=== PATIENT | male | born 1960 | race Caucasian/White ===

== ENCOUNTER → 2016-04-07 | Outpatient (CLI) | payer OTHER ==
[~2016-04-07] MED LIST: ASPI81TA28 PO; ASTN; ATOR-26 PO; ATV/2 PO; AUG0.05C12 TOP; BUME2TAB3 PO; CALC500C70 PO; CANA1TAB3 PO; CHOL100010 PO; ECON0.05 TOP; ETOD500T95 PO; EZET10TA63 PO; FEXO1TAB49 PO; GABA-113 PO; HYDR-5688 PO; HYDROCORTISONE CREAM TOP; INSDGI SC; KETO2CRE14 TOP; KETO2SHA5 TOP; LEVO200T PO; LEVO50TA PO; LOSA1TAB38 PO; MINO1CAP25 PO; MONT1TAB3 PO; MULT-506 PO; NVLGI/PEN; OMEG10007 PO; PANT40TA PO; RANI300T2 PO; RESV1CAP3 PO; SILD100T PO; SPIR25TA PO; TRIA0.5O TOP; TRMO2580 TOP
[2016-04-07 10:15] LABS: URINE APPEARANCE CLEAR (CLEAR); URINE BILIRUBIN NEG (NEG); URINE COLOR YELLOW; URINE EPITHELIAL CELL AUTO 0-5 /lpf (0-5); URINE NITRITE NEG (NEG); URINE PH 5.5 (4.5-7.5); URINE SPECIFIC GRAVITY > 1.045 (1.000-1.030); UROBILINOGEN NEG (NEG); ZZUR CULT IF INDIC CLEAN CATCH NO
[2016-04-07 10:17] LABS: MANUAL MICROSCOPIC REQUIRED? NO; REVIEW REQ? NO
[2016-04-07 10:33] LABS: ALT/SGPT 28 U/L (12-78); BLOOD UREA NITROGEN 25 mg/dl (7-18); BUN/CREATININE RATIO 22.8 (10-20); CALCIUM 9.1 mg/dl (8.5-10.1); CARBON DIOXIDE 28 mmol/L (21-32); CHLORIDE 105 mmol/L (98-107); CHOLESTEROL 122 mg/dl (0-200); GLUCOSE 104 mg/dl (70-99); POTASSIUM 3.7 mmol/L (3.5-5.1); SODIUM 144 mmol/L (136-145); TRIGLYCERIDES 96 mg/dl (0-150); VERY LOW DENSITY LIPOPROT CALC 19 mg/dl
[2016-04-07 10:43] LABS: ALB/GLOB RATIO 1.3 (0.9-2); ALKALINE PHOSPHATASE 78 U/L (45-117); AST/SGOT 15 U/L (15-37); CHOLESTEROL/HDL RATIO 2.4; HDL CHOLESTEROL 51 mg/dl; LDL CHOLESTEROL CALCULATED 52 mg/dl
[2016-04-07 10:57] LABS: RATIO 22.7 mcg/mg (0-30.0)
[2016-04-07 11:26] LABS: ESTIMATED AVERAGE GLUCOSE 243 mg/dl; HA1C FLAG Normal (Normal)
== END | disposition home or self-care (01) ==
LOC: C.LAB1850 09:13
PROVIDERS: ATTEND Internal Medicine
DX: N52.9 Male erectile dysfunction, unspecified (principal); E10.9 Type 1 diabetes mellitus without complications; E55.9 Vitamin D deficiency, unspecified; E03.9 Hypothyroidism, unspecified

== ENCOUNTER → 2016-05-05 | Day surgery (SDC) | payer OTHER ==
[2016-04-23 15:53] VITALS: BMI 47.0
[2016-04-27 11:26] VITALS: Ht 175.3 cm; Wt 145.7 kg
--- NOTE | 2016-04-27 11:50 | PAT Medication Instructions ---
Service Date Apr 27, 2016. Current Home Medication List Aspirin (Aspirin Ec), 81 MG PO QAM Atorvastatin (Lipitor), 80 MG PO QAM Azelastine Hcl (Astelin Nasal [place]), 1-2 SPRAYS NA BID PRN for PRN Betamethasone Dipropionate Aug (Diprolene Af), 1 APPLN TOP BID PRN for PRN Bumetanide (Bumex), 2 MG PO QAM Calcium/Vitamin D (Os-Kei 500 Plus D), 1 TAB PO QAM Canagliflozin (Invokana), 300 MG PO QAM Cholecalciferol (Vitamin D), 2,000 INTER.UNIT PO QAM Econazole Nitrate 1% (Spectazole 1%), 1 DOSE TOP PRN Etodolac (Etodolac), 1 TAB PO BID Ezetimibe (Zetia), 10 MG PO QAM Fexofenadine Hcl (Shana Allergy), 180 MG PO QAM Fish Oil (Gilchrist-3), 1,200 MG PO QAM Gabapentin (Neurontin), 1,200 MG PO HS Insulin Aspart (Novolog Flexpen) Insulin Glargine (Lantus), 45 UNITS SC QAM Insulin Glargine (Lantus), 55 UNITS SC QPM Ketoconazole 2% (Nizoral 2%), 1 APPLN TOP DAILY PRN for PRN Levothyroxine Sodium (Synthroid), 250 MCG PO QAM Lorazepam (Ativan), 20 MG PO PRN Losartan Potassium (Cozaar), 100 MG PO QAM Minocycline Hcl (Minocin), 100 MG PO BID Montelukast Sodium (Singulair), 10 MG PO QPM Multivitamin (Multivitamin), 1 TAB PO QAM Pantoprazole Sodium (Protonix), 40 MG PO QAM Ranitidine Hcl (Zantac), 300 MG PO HS Resveratrol (Resveratrol), 250 MG PO QAM Sildenafil Citrate (Viagra), 100 MG PO PRN Spironolactone (Aldactone), 25 MG PO QAM Triamcinolone Acet 0.5% (Triamcinolone Acet 0.5%), 1 APPLN TOP PRN [Hydrocortisone Cream], 1 DOSE TOP PRN Medication Instructions For Your Scheduled Surgery - Hold the following medications 7 days prior to surgery: Resveratrol (Resveratrol), 250 MG PO QAM Fish Oil (Gilchrist-3), 1,200 MG PO QAM - Hold the following medications 24 hours prior to surgery: Triamcinolone Acet 0.5% (Triamcinolone Acet 0.5%), 1 APPLN TOP PRN Hydrocortisone Cream 1 DOSE TOP PRN Sildenafil Citrate (Viagra), 100 MG PO PRN Econazole Nitrate 1% (Spectazole 1%), 1 DOSE TOP PRN Betamethasone Dipropionate Aug (Diprolene Af), 1 APPLN TOP BID PRN for PRN - Hold the following medications the morning of surgery: Spironolactone (Aldactone), 25 MG PO QAM Multivitamin (Multivitamin), 1 TAB PO QAM Losartan Potassium (Cozaar), 100 MG PO QAM Minocycline Hcl (Minocin), 100 MG PO BID Insulin Aspart (Novolog Flexpen) Fexofenadine Hcl (Shana Allergy), 180 MG PO QAM Etodolac (Etodolac), 1 TAB PO BID (not told to stop by surgeon) Cholecalciferol (Vitamin D), 2,000 INTER.UNIT PO QAM Calcium/Vitamin D (Os-Kei 500 Plus D), 1 TAB PO QAM Bumetanide (Bumex), 2 MG PO QAM Canagliflozin (Invokana), 300 MG PO QAM - Take the following medications the morning of surgery with a sip of water: Pantoprazole Sodium (Protonix), 40 MG PO QAM Lorazepam (Ativan), 20 MG PO PRN Levothyroxine Sodium (Synthroid), 250 MCG PO QAM Ezetimibe (Zetia), 10 MG PO QAM Azelastine Hcl (Astelin Nasal [place]), 1-2 SPRAYS NA BID PRN for PRN Atorvastatin (Lipitor), 80 MG PO QAM Aspirin (Aspirin Ec), 81 MG PO QAM (not told to stop by surgeon) - Take the following medications as scheduled the night before surgery: Ranitidine Hcl (Zantac), 300 MG PO HS Montelukast Sodium (Singulair), 10 MG PO QPM Minocycline Hcl (Minocin), 100 MG PO BID Lorazepam (Ativan), 20 MG PO PRN Ketoconazole 2% (Nizoral 2%), 1 APPLN TOP DAILY PRN for PRN Insulin Glargine (Lantus), 55 UNITS SC QPM Gabapentin (Neurontin), 1,200 MG PO HS Etodolac (Etodolac), 1 TAB PO BID Azelastine Hcl (Astelin Nasal [place]), 1-2 SPRAYS NA BID PRN for PRN - For Insulin Dependent Diabetic patients: Test blood sugar A.M. of surgery. - If blood sugar greater than 150, take half of your regular dose of: Lantus 22 units - If blood sugar less than 150, do not take any: Lantus If you have any questions please call us at [phone] or [phone] ( Aniyah)or [phone]
[~2016-05-05] VITALS: Ht 175.3 cm; Wt 145.7 kg
[~2016-05-05] MED LIST changes: +ATROPINE SULFATE 0.1 MG/ML 5ML SYR IV PRN; +BUPIVACAINE 0.5 % 5 MG/1 ML PF 10ML VIAL ONE; +CEFAZOLIN 3000 MG/65 ML D5W IV SCH; +EpHEDrine SULFATE INJ 50 MG/ML AMP IV PRN; +FENTANYL CITRATE INJ 50 MCG/1 ML 2 ML VIAL IV PRN; +FENTANYL CITRATE INJ 50 MCG/1 ML 2 ML VIAL ONE; +FLUMAZENIL 0.1 MG/1 ML 10 ML VIAL IV PRN; +HYDROmorphone INJ 2 MG/ML SYR/VIAL IV PRN; +LABETALOL HCL IV 5 MG/ML 20ML IV PRN; +LACTATED RINGER'S 1000ML 1,000 ML IV SCH; +LIDOCAINE HCL 1% 20 ML VIAL ONE; +LIDOCAINE HCL 2% 2 ML VIAL (20MG/ML) ONE; +MEPERIDINE HCL 25 MG/ML CARP IV PRN; +MIDAZOLAM HCL 1 MG/ML 2ML VIAL ONE; +NALOXONE HCL 0.4 MG/1 ML VIAL/CARP IV PRN; +ONDANSETRON INJ 2 MG/ML 2 ML VIAL IV PRN; +OXYCODONE/ACETAMINOPHEN 5-325 TAB PO PRN; +PHENYLEPHRINE 100MCG/ML 5ML SYR IV PRN; +PROPOFOL IV EMULSION 10 MG/ML 20 ML VIAL IV ONE; +SODIUM CHLORIDE 0.9% 1000ML 1,000 ML IV SCH
--- NOTE | 2016-05-05 06:40 | History & Physical Bridge - SC ---
H&P Re-Evaluation Bridge Note: I have examined the patient, reviewed the History & Physical and in the interval since the performance of the History & Physical I have noted the following changes of clinical significance: No changes noted
--- NOTE | 2016-05-05 07:46 | [facility] Post Operative Brief Note ---
Immediate Operative Summary Operative Date May 05, 2016. Pre-Operative Diagnosis Right Carpal Tunnel Syndrome Post-Operative Diagnosis Same Procedure(s) Performed Right Carpal Tunnel Release Surgeon Dr. Manuel Advertising Operations Coordinator Surgeon(s) Amy Borja PA-C Estimated Blood Loss 0 Findings ABOVE Specimens None Anesthesia LOCAL IV SEDATION Complication(s) None Disposition
[2016-05-05 07:50] VITALS: TEMP 36.6
--- NOTE | 2016-05-05 07:50 | Discharge Instructions-SurgCtr ---
Discharge Instructions Visit Reason for Visit: Right Carpal Tunnel Syndrome Discharge Discharge Diagnosis / Problem: SAME ABOVE Discharge Goals Goal(s): Decrease discomfort, Improve function Medications Stopped Medications Name(s): FISH OIL STOPPED 1 WEEK AGO Activity Recommendations Activity Limitations: as noted below Lifting Limitations: until after follow-up appointment Exercise/Sports Limitations: until after follow-up appointment Shower/Bathe: keep incision dry Anesthesia . Post Anesthesia Instructions: If you have had General Anesthesia or IV Sedation: * Do not drive today. * Resume driving when surgeon permits. * Do not make important decisions or sign legal documents today. * Call surgeon for: 1. Temperature elevations greater than 101 degrees F. 2. Uncontrollable pain. 3. Excessive bleeding. 4. Persistent nausea and vomiting. 5. Medication intolerance (nausea, vomiting or rash). * For nausea and vomiting use only clear liquids such as: tea, soda, bouillon until nausea subsides, then gradually increase diet as tolerated. * If you have any concerns or questions, call your surgeon's office. If physician is unavailable and it is an emergency, call 911 or go to the nearest emergency room. . Instructions / Follow-Up Instructions / Follow-Up MEDICATIONS: * Resume previous medications unless instructed otherwise by your surgeon. * Always take pain medication on a full stomach or with food to avoid upset stomach. * Do not drink alcohol or drive while taking narcotics. * Ibuprofen or Tylenol may be taken if narcotic not needed. SPECIAL CARE INSTRUCTIONS: __ None _X_ Keep extremity elevated and iced x 48 hours; apply ice 20-30 minutes 8-10 times/day. May remove at night. __ Sling __24 hrs/day __ Remove at night __ Shoulder Immobilizer __ 24 hrs/day __ Remove at night _X_ Dressing _X_ Maintain until seen in office, may shower with plastic over site __ Remove dressings in 24-48 hours and then may shower __ Cover incisions with band-aids after showering __ Do not remove steri-strips Call physician if chills or temperature rises above 102 degrees or pain unrelieved by prescribed pain medications at . . Diet Recommendations Home Diet: resume previous diet Procedures Procedures Performed: Right Carpal Tunnel Release Pending Studies Studies pending at discharge: no Medical Emergencies . Who to Call and When: Medical Emergencies: If at any time you feel your situation is an emergency, please call 911 immediately. . Non-Emergent Contact Non-Emergency issues call your: Primary Care Provider . . "Provider Documentation" section prepared by Boston Borja.
--- NOTE | 2016-05-05 08:14 | OPERATIVE REPORT ---
DATE OF OPERATION: 05/05/2016 PREOPERATIVE DIAGNOSIS: Right carpal tunnel syndrome. POSTOPERATIVE DIAGNOSIS: Same. PROCEDURE: Decompression median nerve release of transverse carpal ligament, right wrist. SURGEON: Jose Manuel MD TAIL WORKER: Boston Borja PA-C. ANESTHESIOLOGIST: Dr. Flores. ANESTHESIA: Local with IV sedation. DRAINS: None. COMPLICATIONS: None. CONDITION: The patient tolerated the procedure well and returned to the recovery room in apparent satisfactory condition. INDICATIONS FOR SURGERY: Arturo is a 56-year-old male with increasing complaints of carpal tunnel symptoms of numbness and pain in both hands, right worse than left. He went over treatment options and he elects to go ahead and proceed with surgery of his right hand. Procedure, expected outcomes and side effects were all explained in detail. DESCRIPTION OF PROCEDURE: The patient was taken to the OR at which time, he was placed supine on the operating table. The right hand was prepped and draped in the usual sterile fashion for this surgery. The anticipated incision site was infiltrated with 1% Xylocaine. A forearm tourniquet was placed on the arm and tourniquet was placed up to 250 mmHg. Incision was made vertically over the transverse carpal tunnel ligament. Dissection was done down until the palmar fascia was identified and divided with a 15-blade. The transverse carpal ligament was identified and also divided with the 15-blade and upbiting scissors. A small portion of the forearm fascia was divided also. Electrocautery was used to control any areas of bleeding. The nerve was freed up from any scar tissue and adequately decompressed. The wound then was copiously irrigated. It was closed then with interrupted 4-0 nylon sutures. Marcaine without Epinephrine was placed in the skin edges. It was closed in a layered fashion. We placed a sterile dressing of Xeroform, 4 x 4, volar splint, and an North bandage. DISPOSITION: The patient was returned back to the recovery room in apparent satisfactory condition. I attest to the content of the Intraoperative Record and any orders documented therein. Any exceptio ns are noted below.
[2016-05-05 08:19] VITALS: BP 125/78; PULSE 72; O2SAT 98
--- NOTE | 2016-05-05 08:27 | Anesthesia Progress Nt - [facility] ---
Anesthesia Post Op Note Date & Time May 05, 2016 at 08:27 Vital Signs Pain Intensity: 0 Vital Signs Past 12 Hours Date Time Temp Pulse Resp B/P Pulse Ox O2 Delivery O2 Flow Rate FiO2 05/05/16 08:19 72 18 125/78 98 Room Air 05/05/16 07:50 36.6 75 18 112/72 97 Room Air 05/05/16 06:33 36.6 78 20 152/83 96 Room Air Notes Mental Status: alert / awake / arousable, participated in evaluation Pt Amnestic to Procedure: Yes Nausea / Vomiting: adequately controlled Pain: adequately controlled Airway Patency, RR, SpO2: stable & adequate BP & HR: stable & adequate Hydration State: stable & adequate Anesthetic Complications: no major complications apparent
== END | disposition home or self-care (01) ==
LOC: X.SURG 06:13
PROVIDERS: ATTEND Orthopaedic Surgery
DX: G56.01 Carpal tunnel syndrome, right upper limb (principal); E11.9 Type 2 diabetes mellitus without complications; Z79.4 Long term (current) use of insulin; I10 Essential (primary) hypertension; Z79.899 Other long term (current) drug therapy; G47.33 Obstructive sleep apnea (adult) (pediatric); E03.9 Hypothyroidism, unspecified; E66.01 Morbid (severe) obesity due to excess calories

== ENCOUNTER → 2016-05-28 | Outpatient (CLI) | payer OTHER ==
[~2016-05-28] MED LIST changes: -ATROPINE SULFATE 0.1 MG/ML 5ML SYR IV PRN; -BUPIVACAINE 0.5 % 5 MG/1 ML PF 10ML VIAL ONE; -CEFAZOLIN 3000 MG/65 ML D5W IV SCH; -EpHEDrine SULFATE INJ 50 MG/ML AMP IV PRN; -FENTANYL CITRATE INJ 50 MCG/1 ML 2 ML VIAL IV PRN; -FENTANYL CITRATE INJ 50 MCG/1 ML 2 ML VIAL ONE; -FLUMAZENIL 0.1 MG/1 ML 10 ML VIAL IV PRN; -HYDROmorphone INJ 2 MG/ML SYR/VIAL IV PRN; -LABETALOL HCL IV 5 MG/ML 20ML IV PRN; -LACTATED RINGER'S 1000ML 1,000 ML IV SCH; -LIDOCAINE HCL 1% 20 ML VIAL ONE; -LIDOCAINE HCL 2% 2 ML VIAL (20MG/ML) ONE; -MEPERIDINE HCL 25 MG/ML CARP IV PRN; -MIDAZOLAM HCL 1 MG/ML 2ML VIAL ONE; -NALOXONE HCL 0.4 MG/1 ML VIAL/CARP IV PRN; -ONDANSETRON INJ 2 MG/ML 2 ML VIAL IV PRN; -OXYCODONE/ACETAMINOPHEN 5-325 TAB PO PRN; -PHENYLEPHRINE 100MCG/ML 5ML SYR IV PRN; -PROPOFOL IV EMULSION 10 MG/ML 20 ML VIAL IV ONE; -SODIUM CHLORIDE 0.9% 1000ML 1,000 ML IV SCH
--- NOTE | 2016-05-29 06:36 | SPLIT NIGHT TECHNICIAN REPORT ---
[facility] Split Night Polysomnogram - Child Care Giver Report Study date: 05/28/2016 Referring Physician: DR. TOBIN Name: SAM RODRÍGUEZ Child Care Giver: Jamilah Lira [facility]. Date of : 1960 Height: 56 years, Height 5' 7.5" Sex: Male Weight: 307 lbs Age: 56 BMI: Medications: 47.37 ASPIRIN 81 MG, ATORVASTATIN 80 MG, AZELASTINE 0.1%, BETAMETHASONE DIPROPIONATE, BUMETANIDE 2 MG, ECONAZOLE NITRATE, EDEX 20 MCG, EZETIMIBE 10 MG, FEXOFENADINE 180 MG, FISH OIL, FLUOCINONIDE, FLUTICASONE PROPIONATE 50 MCG/ACT, GABAPENTIN 300 MG, INVOKANA 300 MG, KETOCONAZOLE, LANTUS SOLOSTAR, LEVOTHYROXINE 50 MCG. LOSARTAN 100 MG, MELOXICAM 15 MG, MINOCYCLINE 100 MG, MONTELUKAST 10 MG, MUSE 1000 MCG, NOVOLOG FLEX PEN, OMEPRAZOLE 40 MG, PRG-3350/ELECTROLYTES 236 GM, RANITIDINE 300 MG, [id number] MG, TRIAMCINOLONE ACETONIDE, VIAGRA 100 MG, VIT D 2000 UNIT Patient History 56 yr-old male here for a baseline/split study. He is back to assess his CPAP pressure and LUCIA. He is currently on an auto CPAP machine from 5 to 15 CMH2O. His Campbell scale is 6. CPAP will be started when AHI exceeds 10 (per doctor's order). The test was started on room air. ETCO2 testing was not utilized during this study. Room 3 Parameters Monitored NPSG: E1-M2, E2-M1, Fp1-M2, Fp2-M1, F3-M2, F4-M2, F4-M1, C3-M2, C4-M2, C4-M1, O1-M2, O2-M2, O2-M1, T3-M2, T4-M1, P3-M2, P4-M1, CHIN1, CHIN2, HR, EKG, Legs, PFLOW, SNOR, FLOW, CFLOW, Tidal Volume, THOR, ABDO, SpO2, PLTH, CPRESS, ETCO2 Wave, ETCO2, pH SLEEP SUMMARY DATA DIAGNOSTIC TREATMENT Lights Out: 10:27:24 PM 1:13:24 AM Lights On: 1:03:24 AM 5:29:54 AM Total Recording Time (TRT): 156.0 min. 256.5 min. Total Sleep Time (TST): 124.5 min. 240.5 min. NREM Time: 124.5 min. 191.0 min. REM Time: 0.0 min. 49.5 min. Sleep Period Time (SPT): 147.5 min. 250.0 min. Sleep Efficiency (SE): 80 % 94 % Sleep Latency: 8.5 min. 5.0 min. Arousal Index: 24.6 5.5 PAP Treatment Levels: 4, 6 * Optimal Pressure(s) SLEEP STAGING DATA DIAGNOSTIC TREATMENT Duration (min) TST % Duration (min) TST % Stage Wake: 31.5 min. -- 16.0 min. -- WASO: 23.0 min. -- 9.5 min. -- NREM: 124.5 min. 100 % 191.0 min. 79 % Stage N1: 21.0 min. 17 % 12.5 min. 5 % Stage N2: 103.5 min. 83 % 147.5 min. 61 % Stage N3: 0.0 min. 0 % 31.0 min. 13 % REM: 0.0 min. 0 % 49.5 min. 21 % POSITIONAL DATA Event Count Index Event Count Index Supine: 35 97.7 N/A N/A Supine NREM: 35 97.7 N/A N/A Supine REM: N/A N/A N/A N/A Non-Supine: 100 58.3 17 3.5 Non-Supine NREM: 100 58.3 16 4.1 Non-Supine REM: N/A N/A 1 1.2 AROUSAL SUMMARY DATA: Event Count Index Event Count Index Apnea Arousals: 0 0.0 0 0.2 Hypopnea Arousals: 27 13.0 1 0.2 Snore Arousals: 5 2.4 1 0.2 PLM Arousals: 1 0.5 3 0.7 Non-Specific Arousals: 17 8.2 14 3.5 Total Arousals: 51 24.6 22 5.5 MYOCLONUS (PLM) Event Count Index Event Count Index PLM: 4 1.9 50 12.5 PLM AROUSAL: 1 0.5 3 0.7 PLM W/O AROUSAL 4 1.9 47 11.7 PLM W/RESP EVENT 0 0.0 1 0.0 MYOCLONUS (PLM) Event Count Index Event Count Index LM: 2 12.0 30 7.5 LM AROUSAL: 2 1.0 0 0.0 LM W/O AROUSAL LM W/RESP EVENT LM NON SPECIFIC 11 5.3 71 17.7 HEART RATE DATA DIAGNOSTIC TREATMENT Sleep (bpm): 73 64 REM (bpm): N/A 90 NREM (bpm): 88 93 Tachycardia Count: 0 0 Tachycardia Duration: 0.00 0 Bradycardia Count: 0 0 Bradycardia Duration: 0.00 0 DIAGNOSTIC PORTION TREATMENT PORTION RESPIRATORY DATA Event Count Index Event Count Index AHI: -- 65.1 -- 3.5 RDI: -- 65.1 -- 4 Obstructive Apnea: 0 0.0 0 0.0 Central Apnea: 0 0.0 1 0.2 Mixed Apnea: 0 0.0 0 0.0 Hypopnea: 135 65.1 13 3.2 RERA: 0 0.0 3 0.7 Total Apneas: 0 0.0 1 0.2 RESPIRATORY DATA REM NREM SLEEP REM NREM SLEEP Supine Position: Obstructive Apneas: N/A 0 0 N/A N/A N/A Central Apneas: N/A 0 0 N/A N/A N/A Mixed Apneas: N/A 0 0 N/A N/A N/A Hypopneas: N/A 35 35 N/A N/A N/A RERA N/A 0 0 N/A N/A N/A Total Supine Events: N/A 35 35 N/A N/A N/A Supine AHI: N/A 97.7 97.7 N/A N/A N/A Supine RDI: N/A 97.7 97.7 N/A N/A N/A REM NREM SLEEP REM NREM SLEEP Non-Supine Position: Obstructive Apneas: N/A 0 0 0 0 0 Central Apneas: N/A 0 0 1 0 1 Mixed Apneas: N/A 0 0 0 0 0 Hypopneas: N/A 100 100 0 13 13 RERA N/A 0 0 0 3 3 Total Supine Events: N/A 100 100 1 16 17 Supine AHI: N/A 58.3 58.3 1.2 4.1 3.5 Supine RDI: N/A 58.3 58.3 1.2 5.0 4.2 OXYGEN DESTAURATION DATA: Event Count Index Event Count Index REM Desaturations: N/A N/A 1 1.2 NREM Desaturations: 147 70.8 17 5.3 SNORE DATA DIAGNOSTIC TREATMENT Snore Time: 10.5 1:18:24 AM Snore TST%: 5 1 Snore Arousal Count: 5 1 Snore Arousal Index: 2.4 0.2 Desaturation Event Summary: Minimum %SpO2 Event Count Mean/Min/Max Duration(sec.) Desaturation Index % Time In Bed > 90 133 30.5 / 10.0 / 59.0 33.5 57.9 86 - 90 70 23.4 / 6.0 / 58.3 30.1 33.9 81 - 85 6 18.3 / 9.8 / 29.0 11.7 7.5 76 - 80 0 N/A 0.0 0.7 71 - 75 0 N/A 0.0 0.0 66 - 70 0 N/A 0.0 0.0 61 - 65 0 N/A 0.0 0.0 56 - 60 0 N/A 0.0 0.0 51 - 55 0 N/A 0.0 0.0 < 50 0 N/A 0.0 0.0 OXYGEN SATURATION DATA DIAGNOSTIC TREATMENT SpO2 Mean Sleep: 88 % 92 % SpO2 Mean REM: N/A % 90 % SpO2 Mean NREM: 88 % 93 % SpO2 Minimum Sleep: 77 % 83 % SpO2 Minimum REM: N/A % 86 % SpO2 Minimum NREM: 77 % 83 % Time Below 90% (TST): 79.7 30.3 Time Below 88% (TST): 52.8 1.5 Total REM NREM Awake <50% 0.0 min. 0.0 min. 0.0 min. 0.0 min. 51 - 60% 0.0 min. 0.0 min. 0.0 min. 0.0 min. 61 - 70% 0.0 min. 0.0 min. 0.0 min. 0.0 min. 71 - 80% 3.0 min. 0.0 min. 3.0 min. 0.0 min. 81 - 90% 170.1 min. 34.8 min. 120.1 min. 15.2 min. 91 - 100% 238.3 min. 14.7 min. 191.7 min. 31.9 min. Average 91 90 91 92 Minimum SpO2 77 86 77 82 Desaturation Event Index 26.0 1.2 31.2 18.9 # Desat. Events below 89% 153 1 145 7 Time(%) with Saturation below 89% 19.8 1.2 17.1 1.5 Time(min.) with Saturation below 89% 81.4 5.0 70.5 6.0 Recording Child Care Giver Comments: Mr. Rodríguez slept in the right, left, and supine positions. Cardiac arrhythmias were noted (please refer to the printouts). PLMs were noted. No bruxism noted. Snoring was noted and scored as a 2-3 on a scale of 1 through 5. (0=no snoring, 5=snoring loud enough to be heard through a closed door or down the quesada way). At 1:11 am, he met specific Split-Night criteria during the diagnostic portion of this study. CPAP was initiated at +4 CMH2O and up-titrated to a level of +6 CMH2O, Cflex 2 which nearly eliminated all respiratory events and snoring. At 4:51 am, he had spent two hours at a pressure of 6 CMH2O and his AHI was under 5. His O2 saturations had spent 7.2 minutes under 89%. One LPM of O2 was then added. An AirFit P10 nasal pillows mask size large from [employer] was used during titration. He did not wake up to use the restroom during the night. Mr. Rodríguez stated that he slept the same as usual. The final report will be interpreted and signed by a sleep physician. The completed physician report will then be placed in the patient medical record. Therapy Event: Therapy (cm H20) 0 4 6 Total Time at Pressure (min.) 156.0 98.0 158.5 TST at Pressure (min.) 124.5 83.5 157.0 # Periods 1 1 1 Sleep Onset (min.) 8.5 5.0 0.0 REM Onset (min.) N/A 13.0 63.0 Sleep Efficiency % 79 85 99 Wakefulness (%) 20.2 14.8 1.0 Wakefulness (min.) 31.5 14.5 1.5 NREM 1 (%) 13.5 8.7 2.5 NREM 1 (min.) 21.0 8.5 4.0 NREM 2 (%) 66.3 47.5 63.7 NREM 2 (min.) 103.5 46.5 101.0 NREM 3 (%) 0.0 1.5 18.6 NREM 3 (min.) 0.0 1.5 29.5 REM (%) 0.0 27.6 14.2 REM (min.) 0.0 27.0 22.5 # Arousals 51 15 7 Arousal Index 24.6 10.8 2.7 # Snore 457 101 21 Snore Index 220.2 72.6 8.0 AHI 65.1 9.3 0.4 AHI Supine 97.7 N/A N/A AHI Non-Supine 58.3 9.3 0.4 NREM AHI 65.1 12.7 0.4 REM AHI N/A 2.2 0.0 RDI 65.1 10.8 0.8 # Obstructive 0 0 0 # Central Ap 0 1 0 # Mixed 0 0 0 # Hypopneas 135 12 1 RERAS 0 2 1 Total Respiratory Events 135 15 2 Time Below SpO2 89.00% (min.) 67.1 1.1 7.2 Mean NREM SpO2 (%) 88 91 93 Mean REM SpO2 (%) N/A 91 89 Mean Sleep SpO2 (%) 88 91 93 Min NREM SpO2 (%) 77 86 83 Min REM SpO2 (%) N/A 86 88 Position Supine (min.) 21.5 0.0 0.0 Position Non-supine (min.) 103.0 83.5 157.0 LM Index Sleep 14.0 48.1 5.0 LM Index NREM 14.0 71.2 5.4 LM Index REM N/A 0.0 2.7 Mean Heart Rate (bpm) 73 69 62 Min Heart Rate (bpm) 58 61 56 CPAP REPORT Therapy Detail Time / Page # Comment CPAP 4 cm H2O Nasal Pillow Mask Flex Pressure Relief Humidifier on 1:11:46 AM / pg. 414 HE HAS SLEPT OVER 2 HOURS AND HIS AHI IS ABOVE 40 CPAP 6 cm H2O Nasal Pillow Mask Flex Pressure Relief Humidifier on 2:51:23 AM / pg. 613 INCREASED FOR HYPOPNEAS AND RERAS CPAP 6 cm H2O Nasal Pillow Mask Flex Pressure Relief Humidifier on Oxygen 1.0 lpm 4:53:58 AM / pg. 859 HE HAS BEEN ON A PRESSURE OF 6 CMH2O FOR 2 HOURS AND THE AHI IS UNDER 5. HIS O2 SATURATIONS HAVE BEEN UNDER 89% FOR 7.2 MIN. ADDING 1 LPM OF O2
--- NOTE | 2016-06-02 09:59 | POLYSOMNOGRAPH REPORT ---
CLINICAL DATA: A 56-year-old male with BMI of 47.[address] Reyna and Dr. Goldstein for a split night sleep study to assess sleep apnea and optimal CPAP pressure. SLEEP ARCHITECTURE: For the diagnostic portion of the study, total sleep period was 147.5 minutes. Total sleep time was 124.5 minutes, all non-REM sleep. Sleep latency was 8.5 minutes. Sleep efficiency was 80%. Arousal index was 24.6. Sleep consisted of stage N1 17%, N2-83%. For the treatment portion of the study, total sleep period was 250 minutes. Total sleep time was 240.5 divided between 191 minutes of non-REM sleep and 49.5 minutes of REM sleep. Sleep latency was 5 minutes. Arousal index was 5.5. Sleep efficiency was 94%. Sleep consisted of stage N1 5%, N2 61%, N3 13%, REM 21%. AROUSAL DATA: Prior to treatment, 51 arousals were recorded for an index of 24.6 per hour. Following treatment, 22 arousals were recorded for an index of 5.5 per hour. PLM DATA: Prior to treatment, 11 limb movements during sleep were noted for an index of 5.3 per hour. Following treatment 71 limb movements during sleep were noted for an index of 17.7 per hour. EKG: Heart rates ranged from 64 to 93 beats per minute. There were several episodes which appeared to be runs of atrial fibrillation. RESPIRATORY DATA: Severe sleep apnea was documented. The AHI was 65.1. There were 135 hypopneic episodes recorded pre-treatment. Following treatment, the AHI was 3.5. There was 1 central apneic episode and 13 hypopneic episodes recorded. OXIMETRY DATA: Nocturnal hypoxemia was seen prior to treatment. Oxygen ann was 77% during non-REM sleep prior to treatment. Mean saturation after treatment was 92%. [employer] DEVELOPER'S COMMENTS AND TREATMENT SUMMARY: The patient slept in the right, left, and supine positions. Snoring was moderate, rated 3 on a scale of 1-5. At 1:11 a.m., the patient met split night criteria. CPAP was started using an AirFit P10 nasal pillow mask size large from [employer]. He was titrated up to 6 cm of water pressure and spent 2 hours with an AHI under 5. At that time, O2 saturations were still low and 1 liter of oxygen was added. At his final pressure setting, the patient slept for 157 minutes with an AHI of 0.4. IMPRESSION: Severe central apnea/hypopnea with an AHI of 65.1 with nocturnal hypoxemia corrected with CPAP 6 cm water pressure, C-Flex 2, AirFit P10 nasal mask pillows size large from [employer] with oxygen at 1 liter per minute. The patient also had several short runs of what appeared to be atrial fibrillation. RECOMMENDATIONS: The patient should be continued on CPAP and oxygen at the above noted settings and followed clinically. JENNFIER
== END | disposition home or self-care (01) ==
LOC: C.NEUR 21:00
PROVIDERS: ATTEND Internal Medicine Pulmonary Disease
DX: G47.31 Primary central sleep apnea (principal)

== ENCOUNTER → 2016-06-25 | Outpatient (CLI) | payer OTHER ==
--- NOTE | 2016-06-25 16:42 | DIAGNOSTIC IMAGING REPORT ---
LEFT HAND MIN 3 VIEWS ROUTINE CLINICAL HISTORY: M79.641 Pain in both [id number] Chronic pain of both shoulders pain COMPARISON: None. DISCUSSION: The bones and joint spaces appear intact. There is no evidence of fracture, dislocation or bony disease. There is no evidence for soft tissue swelling. IMPRESSION: Negative study. Electronically signed by: Siddhartha Francis M.D. 06/25/2016 4:40 PM Dictated Date/Time: 06/25/2016 4:40 PM
--- NOTE | 2016-06-25 16:43 | DIAGNOSTIC IMAGING REPORT ---
RIGHT HAND MIN 3 VIEWS ROUTINE CLINICAL HISTORY: M79.641 Pain in both [id number] Chronic pain of both shoulders Right pain COMPARISON: None. DISCUSSION: The bones and joint spaces appear intact. There is no evidence of fracture, dislocation or bony disease. Minimal degenerative change distal interphalangeal joints. IMPRESSION: Minimal degenerative change. No acute process. Electronically signed by: Siddhartha Francis M.D. 06/25/2016 4:41 PM Dictated Date/Time: 06/25/2016 4:40 PM
--- NOTE | 2016-06-25 16:50 | DIAGNOSTIC IMAGING REPORT ---
LEFT SHOULDER MIN 2 VIEWS ROUTINE CLINICAL HISTORY: Bilateral shoulder pain. COMPARISON: None FINDINGS: Alignment of the left shoulder is anatomic. There is no fracture or suspicious lesion. There is moderate to severe AC joint arthrosis and mild glenohumeral joint arthrosis. IMPRESSION: 1. No acute fracture or dislocation of the left shoulder. 2. 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 Electronically signed by: Donta Pal M.D. 06/25/2016 4:48 PM Dictated Date/Time: 06/25/2016 4:47 PM
--- NOTE | 2016-06-25 16:51 | DIAGNOSTIC IMAGING REPORT ---
RIGHT SHOULDER MIN 2 VIEWS ROUTINE CLINICAL HISTORY: M79.641 Pain in both [id number] Chronic pain of both shoulders Right pain COMPARISON: None. DISCUSSION: Mild degenerative change glenohumeral and acromioclavicular joint. No evidence for lytic or blastic process. Alignment is anatomic. There is no evidence for soft tissue swelling. IMPRESSION: Minimal to mild degenerative change. No acute process. Electronically signed by: Siddhartha Francis M.D. 06/25/2016 4:49 PM Dictated Date/Time: 06/25/2016 4:48 PM
[2016-06-25 18:05] LABS: AST/SGOT 17 U/L (15-37); BLOOD UREA NITROGEN 26 mg/dl (7-18); BUN/CREATININE RATIO 20.1 (10-20); CALCIUM 9.3 mg/dl (8.5-10.1); CARBON DIOXIDE 32 mmol/L (21-32); CHLORIDE 106 mmol/L (98-107); GLUCOSE 133 mg/dl (70-99); POTASSIUM 4.4 mmol/L (3.5-5.1); RHEUMATOID FACTOR < 10.0 U/mL (0-15); SODIUM 143 mmol/L (136-145); TOTAL IRON BINDING CAPACITY 378 mcg/dl (250-450)
[2016-06-25 18:15] LABS: ALB/GLOB RATIO 1.1 (0.9-2); ALKALINE PHOSPHATASE 75 U/L (45-117); ALT/SGPT 28 U/L (12-78); THYROID STIMULATING HORMONE 0.226 uIu/ml (0.300-4.500)
[2016-06-26 06:30] LABS: ESTIMATED AVERAGE GLUCOSE 229 mg/dl; HA1C FLAG Normal (Normal)
== END ==
LOC: C.RAD1850 15:53
PROVIDERS: ATTEND Internal Medicine Rheumatology
DX: M06.4 Inflammatory polyarthropathy (principal); M25.512 Pain in left shoulder; M25.511 Pain in right shoulder; M79.642 Pain in left hand; M79.641 Pain in right hand; E55.9 Vitamin D deficiency, unspecified; E10.9 Type 1 diabetes mellitus without complications; I10 Essential (primary) hypertension; E03.9 Hypothyroidism, unspecified; Z79.1 Long term (current) use of non-steroidal anti-inflammatories (NSAID)

== ENCOUNTER → 2016-07-07 | Day surgery (SDC) | payer OTHER ==
[2016-06-30 09:07] VITALS: Ht 175.3 cm; Wt 145.4 kg
[~2016-07-07] VITALS: Ht 175.3 cm; Wt 145.4 kg
[~2016-07-07] MED LIST changes: +ATROPINE SULFATE 0.1 MG/ML 5ML SYR IV PRN; +BUPIVACAINE 0.5 % 5 MG/1 ML PF 10ML VIAL ONE; +CEFAZOLIN 3000 MG/65 ML D5W IV SCH; +EpHEDrine SULFATE INJ 50 MG/ML AMP IV PRN; +FENTANYL CITRATE INJ 50 MCG/1 ML 2 ML VIAL IV PRN; +FENTANYL CITRATE INJ 50 MCG/1 ML 2 ML VIAL ONE; +KETAMINE HCL INJ 50 MG/ML 10 ML VIAL ONE; +LACTATED RINGER'S 1000ML 1,000 ML IV SCH; +LIDOCAINE HCL 1% 20 ML VIAL ONE; +LIDOCAINE HCL 2% 2 ML VIAL (20MG/ML) ONE; +MIDAZOLAM HCL 1 MG/ML 2ML VIAL ONE; +ONDANSETRON INJ 2 MG/ML 2 ML VIAL IV PRN; +OXYCODONE/ACETAMINOPHEN 5-325 TAB PO PRN; +PROPOFOL IV EMULSION 10 MG/ML 20 ML VIAL IV ONE; +SODIUM CHLORIDE 0.9% 1000ML 1,000 ML IV SCH
[2016-07-07 07:15] VITALS: TEMP 36.4
--- NOTE | 2016-07-07 07:15 | [facility] Post Operative Brief Note ---
Immediate Operative Summary Operative Date Jul 07, 2016. Pre-Operative Diagnosis Left carpal tunnel syndrome Post-Operative Diagnosis same Procedure(s) Performed Left Carpal Tunnel Release Surgeon Dr Manuel Embedded Software Test Engineer Surgeon(s) Miley Borja PA-C Estimated Blood Loss 0 Findings ABOVE Specimens 0 Anesthesia LOCAL IV SEDATION Complication(s) None Disposition
--- NOTE | 2016-07-07 07:19 | Discharge Instructions-SurgCtr ---
Discharge Instructions Date of Service Jul 07, 2016. Visit Reason for Visit: Left Carpal Tunnel Sydrome Discharge Discharge Diagnosis / Problem: SAME ABOVE Discharge Goals Goal(s): Decrease discomfort, Improve function Activity Recommendations Activity Limitations: as noted below Lifting Limitations: until after follow-up appointment Exercise/Sports Limitations: until after follow-up appointment Shower/Bathe: keep incision dry Anesthesia . Post Anesthesia Instructions: If you have had General Anesthesia or IV Sedation: * Do not drive today. * Resume driving when surgeon permits. * Do not make important decisions or sign legal documents today. * Call surgeon for: 1. Temperature elevations greater than 101 degrees F. 2. Uncontrollable pain. 3. Excessive bleeding. 4. Persistent nausea and vomiting. 5. Medication intolerance (nausea, vomiting or rash). * For nausea and vomiting use only clear liquids such as: tea, soda, bouillon until nausea subsides, then gradually increase diet as tolerated. * If you have any concerns or questions, call your surgeon's office. If physician is unavailable and it is an emergency, call 911 or go to the nearest emergency room. . Instructions / Follow-Up Instructions / Follow-Up MEDICATIONS: * Resume previous medications unless instructed otherwise by your surgeon. * Always take pain medication on a full stomach or with food to avoid upset stomach. * Do not drink alcohol or drive while taking narcotics. * Ibuprofen or Tylenol may be taken if narcotic not needed. SPECIAL CARE INSTRUCTIONS: __ None _X_ Keep extremity elevated and iced x 48 hours; apply ice 20-30 minutes 8-10 times/day. May remove at night. __ Sling __24 hrs/day __ Remove at night __ Shoulder Immobilizer __ 24 hrs/day __ Remove at night _X_ Dressing _X_ Maintain until seen in office, may shower with plastic over site __ Remove dressings in 24-48 hours and then may shower __ Cover incisions with band-aids after showering __ Do not remove steri-strips Call physician if chills or temperature rises above 102 degrees or pain unrelieved by prescribed pain medications at . . Diet Recommendations Home Diet: resume previous diet Procedures Procedures Performed: Left Carpal Tunnel Release Pending Studies Studies pending at discharge: no Medical Emergencies . Who to Call and When: Medical Emergencies: If at any time you feel your situation is an emergency, please call 911 immediately. . Non-Emergent Contact Non-Emergency issues call your: Primary Care Provider . . "Provider Documentation" section prepared by Boston Borja. .
--- NOTE | 2016-07-07 07:27 | Anesthesia Progress Nt - [facility] ---
Anesthesia Post Op Note Date & Time Jul 07, 2016 at 07:26 Vital Signs Pain Intensity: 0 Vital Signs Past 12 Hours Date Time Temp Pulse Resp B/P Pulse Ox O2 Delivery O2 Flow Rate FiO2 07/07/16 07:15 36.4 71 16 138/77 96 Room Air 07/07/16 06:27 36.7 66 18 146/80 96 Room Air Notes Mental Status: alert / awake / arousable, participated in evaluation Pt Amnestic to Procedure: Yes Nausea / Vomiting: adequately controlled Pain: adequately controlled Airway Patency, RR, SpO2: stable & adequate BP & HR: stable & adequate Hydration State: stable & adequate Anesthetic Complications: no major complications apparent
[2016-07-07 07:36] VITALS: BP 150/84; PULSE 67; O2SAT 96
--- NOTE | 2016-07-07 07:54 | OPERATIVE REPORT ---
DATE OF OPERATION: 07/07/2016 PREOPERATIVE DIAGNOSIS: Left carpal tunnel syndrome. POSTOPERATIVE DIAGNOSIS: Same. PROCEDURE: Decompression median nerve release transverse carpal ligament, left wrist. SURGEON: Dr. Mnauel. COLOR BLENDER: Boston Borja PA-C. ANESTHESIOLOGIST: Raman. ANESTHESIA: Local with IV sedation. DRAINS: None. COMPLICATIONS: None. CONDITION: The patient tolerated the procedure well and returned to the recovery room in apparent satisfactory condition. INDICATIONS FOR SURGERY: Arturo is a 56-year-old male well known to me having undergone right carpal tunnel release 6-8 weeks ago, returns back to have his left hand. The procedure, expected outcomes, side effects were all explained in detail. OPERATION AND FINDINGS: PROCEDURE: The patient was taken to the OR at which time he was placed supine on the operating table. The left hand was prepped and draped in the usual sterile fashion for this surgery. The anticipated incision site was infiltrated with 1% Xylocaine. A forearm tourniquet was placed on the arm and tourniquet was placed up to 250 mmHg. Incision was made vertically over the transverse carpal tunnel ligament. Dissection was done down until the palmar fascia was identified and divided with a 15-blade. The transverse carpal ligament was identified and also divided with the 15-blade and upbiting scissors. A small portion of the forearm fascia was divided also. Electrocautery was used to control any areas of bleeding. The nerve was freed up from any scar tissue and adequately decompressed. The wound then was copiously irrigated. It was closed then with interrupted 4-0 nylon sutures. Marcaine without Epinephrine was placed in the skin edges. It was closed in a layered fashion. We placed a sterile dressing of Xeroform, 4 x 4, volar splint, and an North bandage. DISPOSITION: The patient was returned back to the recovery room in apparent satisfactory condition. I attest to the content of the Intraoperative Record and any orders documented therein. Any exceptio ns are noted below.
== END | disposition home or self-care (01) ==
LOC: X.SURG 05:59
PROVIDERS: ATTEND Orthopaedic Surgery
DX: G56.02 Carpal tunnel syndrome, left upper limb (principal); I10 Essential (primary) hypertension; E11.9 Type 2 diabetes mellitus without complications; E03.9 Hypothyroidism, unspecified; E66.9 Obesity, unspecified; K21.9 Gastro-esophageal reflux disease without esophagitis; E78.00 Pure hypercholesterolemia, unspecified; Z79.4 Long term (current) use of insulin

== ENCOUNTER → 2016-07-28 | Outpatient (CLI) | payer OTHER ==
[~2016-07-28] MED LIST changes: -ATROPINE SULFATE 0.1 MG/ML 5ML SYR IV PRN; -BUPIVACAINE 0.5 % 5 MG/1 ML PF 10ML VIAL ONE; -CEFAZOLIN 3000 MG/65 ML D5W IV SCH; -EpHEDrine SULFATE INJ 50 MG/ML AMP IV PRN; -FENTANYL CITRATE INJ 50 MCG/1 ML 2 ML VIAL IV PRN; -FENTANYL CITRATE INJ 50 MCG/1 ML 2 ML VIAL ONE; -HYDROCORTISONE CREAM TOP; -KETAMINE HCL INJ 50 MG/ML 10 ML VIAL ONE; -LACTATED RINGER'S 1000ML 1,000 ML IV SCH; -LIDOCAINE HCL 1% 20 ML VIAL ONE; -LIDOCAINE HCL 2% 2 ML VIAL (20MG/ML) ONE; -MIDAZOLAM HCL 1 MG/ML 2ML VIAL ONE; -ONDANSETRON INJ 2 MG/ML 2 ML VIAL IV PRN; -OXYCODONE/ACETAMINOPHEN 5-325 TAB PO PRN; -PROPOFOL IV EMULSION 10 MG/ML 20 ML VIAL IV ONE; -SODIUM CHLORIDE 0.9% 1000ML 1,000 ML IV SCH
--- NOTE | 2016-07-28 10:58 | DIAGNOSTIC IMAGING REPORT ---
ULTRASOUND ABDOMINAL WALL CLINICAL HISTORY: Hernia. COMPARISON STUDY: Abdominal CT dated 12/07/2011. FINDINGS: Real-time grayscale sonography of the right abdominal wall is performed at the indicated site of interest as well as at the umbilicus. There is a moderate and reducible fat-containing umbilical hernia. This was also seen on the [address] scan. There is no evidence of bowel within the hernia. There is no hernia identified in the right abdominal wall at the indicated site of interest. No hernia could be elicited at this site by having the patient perform the Valsalva maneuver. IMPRESSION: 1. There is no sonographic evidence of hernia in the right abdominal wall at the indicated site of interest. 2. There is a moderate and reducible fat-containing umbilical hernia. This was also seen by CT in 2012. Electronically signed by: Philipp Trinidad M.D. 07/28/2016 10:57 AM Dictated Date/Time: 07/28/2016 10:55 AM
== END | disposition home or self-care (01) ==
LOC: C.ULTRBC 10:27
PROVIDERS: ATTEND Internal Medicine
DX: K46.9 Unspecified abdominal hernia without obstruction or gangrene (principal)

== ENCOUNTER → 2016-12-14 | Outpatient (CLI) | payer OTHER ==
[2016-12-14 13:05] LABS: BASO % 0.7 %; BASO ABS # 0.06 K/uL (0-0.2); COMPLETE YES; EOS % 2.4 %; HEMATOCRIT 46.5 % (42-52); IG% 0.2 %; LYMPH % 35.2 %; LYMPH ABS # 3.02 K/uL (1.2-3.4); MEAN CELL VOLUME 88.9 fL (80-100); MEAN CORPUSCULAR HEMOGLOBIN 29.4 pg (25-34); MEAN CORPUSCULAR HGB CONC 33.1 g/dl (32-36); MEAN PLATELET VOLUME 11.6 fL (7.4-10.4); MONO % 10.1 %; NEUT % 51.4 %; PLATELET COUNT 237 K/uL (130-400); RED BLOOD COUNT 5.23 M/uL (4.7-6.1); WHITE BLOOD COUNT 8.59 K/uL (4.8-10.8)
[2016-12-14 13:28] LABS: BLOOD UREA NITROGEN 28 mg/dl (7-18); BUN/CREATININE RATIO 22.9 (10-20); CALCIUM 9.3 mg/dl (8.5-10.1); CARBON DIOXIDE 30 mmol/L (21-32); CHLORIDE 106 mmol/L (98-107); GLUCOSE 72 mg/dl (70-99); POTASSIUM 3.8 mmol/L (3.5-5.1); SODIUM 144 mmol/L (136-145)
== END | disposition home or self-care (01) ==
LOC: C.LAB 11:39
PROVIDERS: ATTEND Orthopaedic Surgery
DX: Z01.818 Encounter for other preprocedural examination (principal); M67.449 Ganglion, unspecified hand

== ENCOUNTER → 2016-12-17 | Day surgery (SDC) | payer OTHER ==
[2016-12-15 12:56] VITALS: Ht 175.3 cm; Wt 145.4 kg
[~2016-12-17] VITALS: Ht 175.3 cm; Wt 145.4 kg
[~2016-12-17] MED LIST changes: -CHOL100010 PO; -ECON0.05 TOP; -KETO2CRE14 TOP; +LIDOCAINE HCL 2% LOCAL 20 ML VIAL ONE; -TRIA0.5O TOP
[2016-12-17 09:53] VITALS: TEMP 36.6
--- NOTE | 2016-12-17 09:55 | Discharge Instructions-SurgCtr ---
Discharge Instructions Date of Service Dec 17, 2016. Visit Reason for Visit: Cyst Left Long Finger Discharge Discharge Diagnosis / Problem: SAME ABOVE Discharge Goals Goal(s): Decrease discomfort, Improve function Activity Recommendations Activity Limitations: resume your previous activity Lifting Limitations: gradually increase as tolerated Driving or Machine Use: no limitations Anesthesia . Post Anesthesia Instructions: If you have had General Anesthesia or IV Sedation: * Do not drive today. * Resume driving when surgeon permits. * Do not make important decisions or sign legal documents today. * Call surgeon for: 1. Temperature elevations greater than 101 degrees F. 2. Uncontrollable pain. 3. Excessive bleeding. 4. Persistent nausea and vomiting. 5. Medication intolerance (nausea, vomiting or rash). * For nausea and vomiting use only clear liquids such as: tea, soda, bouillon until nausea subsides, then gradually increase diet as tolerated. * If you have any concerns or questions, call your surgeon's office. If physician is unavailable and it is an emergency, call 911 or go to the nearest emergency room. . Instructions / Follow-Up Instructions / Follow-Up MEDICATIONS: * Resume previous medications unless instructed otherwise by your surgeon. * Always take pain medication on a full stomach or with food to avoid upset stomach. * Do not drink alcohol or drive while taking narcotics. * Ibuprofen or Tylenol may be taken if narcotic not needed. SPECIAL CARE INSTRUCTIONS: __ None _X_ Keep extremity elevated and iced x 48 hours; apply ice 20-30 minutes 8-10 times/day. May remove at night. __ Sling __24 hrs/day __ Remove at night __ Shoulder Immobilizer __ 24 hrs/day __ Remove at night _X_ Dressing __ Maintain until seen in office, may shower with plastic over site _X_ Remove dressings in 3 DAYS. COVER WITH A BAND-AID AFTER SHOWERING __ Cover incisions with band-aids after showering __ Do not remove steri-strips Call physician if chills or temperature rises above 102 degrees or pain unrelieved by prescribed pain medications at . . Diet Recommendations Home Diet: no limitations Fluid Restriction: None Procedures Procedures Performed: A. Left Long Finger Ganglion Cyst Pending Studies Studies pending at discharge: no Work Instructions Return To Work: 1 day (OR WHEN YOU FEEL YOU ARE ABLE TO ) Medical Emergencies . Who to Call and When: Medical Emergencies: If at any time you feel your situation is an emergency, please call 911 immediately. . Non-Emergent Contact Non-Emergency issues call your: Primary Care Provider Call Non-Emergent contact if: you have a fever, temperature is above 101.5 . . "Provider Documentation" section prepared by Pavan Loyd. .
--- NOTE | 2016-12-17 10:13 | OPERATIVE REPORT ---
DATE OF OPERATION: 12/17/2016 PREOPERATIVE DIAGNOSIS: Small cyst, distal interphalangeal joint of the left middle finger. POSTOPERATIVE DIAGNOSIS: Same. PROCEDURE: Excision of the small synovial cyst on the ulnar aspect of the DIP joint of the left middle finger. SURGEON: Dr. Boston Angeles. PSYCHOLOGY PHYSICIAN: Helio Loyd PA-C, whose assistance was necessary for retraction and closure. ANESTHESIA: local. COMPLICATIONS: None. CONDITION: Stable to PACU. INDICATIONS FOR PROCEDURE: Arturo is a 56-year-old male who was having this bothersome cyst on the ulnar aspect of the DIP joint of his left middle finger. It was started when he did fine motor stuff that was constantly flipping on his ring finger. After failing conservative treatment, he elected to undergo excision. DESCRIPTION OF PROCEDURE: On 12/17/2016, he was brought to [facility] for the above procedure. He was seen in the preoperative holding area and the operative extremity was identified and signed. He was then taken back to the operating room and left on the litter. He then got a digital block of the left long finger. The left hand was then prepped and draped in sterile fashion. Time-out was done and the patient and operative extremity was properly identified. A transverse incision was made directly over the small cyst. I did this in line with the extensor crease in the area. The cyst was then easily removed. It was a very small cyst with not much fluid and with a very small amount of tissue. I did not see the need to send it to pathology. Nothing about it looked aggressive or concerning. The wound was then irrigated and closed with a single 4-0 nylon suture. He was then placed in a soft dressing and taken to the postanesthesia care unit in stable condition. He tolerated the procedure well. I attest to the content of the Intraoperative Record and any orders documented therein. Any exceptions are noted below. JENNIFER
[2016-12-17 10:16] VITALS: BP 131/81; PULSE 65; O2SAT 96
--- NOTE | 2016-12-17 11:05 | [facility] Post Operative Brief Note ---
Immediate Operative Summary Operative Date Dec 17, 2016. Pre-Operative Diagnosis Left Long Finger Ganglion Cyst Post-Operative Diagnosis Same Procedure(s) Performed A. Left Long Finger Ganglion Cyst Surgeon Dr. Angeles Roving Weight Gauger Surgeon(s) Sam Loyd PA-C Estimated Blood Loss 0 Findings as above Specimens None Complication(s) None Disposition Recovery Room / PACU
== END | disposition home or self-care (01) ==
LOC: X.SURG 07:10
PROVIDERS: ATTEND Orthopaedic Surgery
DX: M71.342 Other bursal cyst, left hand (principal); I10 Essential (primary) hypertension; E78.00 Pure hypercholesterolemia, unspecified; E11.9 Type 2 diabetes mellitus without complications; E03.9 Hypothyroidism, unspecified; K21.9 Gastro-esophageal reflux disease without esophagitis

== ENCOUNTER → 2017-04-29 | Outpatient (CLI) | payer OTHER ==
[~2017-04-29] MED LIST changes: -HYDR-5688 PO; -LIDOCAINE HCL 2% LOCAL 20 ML VIAL ONE
[2017-04-29 15:14] LABS: ALBUMIN 3.8 gm/dl (3.4-5.0); ALT/SGPT 42 U/L (12-78); AST/SGOT 17 U/L (15-37); BLOOD UREA NITROGEN 23 mg/dl (7-18); CALCIUM 9.6 mg/dl (8.5-10.1); CARBON DIOXIDE 30 mmol/L (21-32); CHOLESTEROL 147 mg/dl (0-200); CREATININE 1.39 mg/dl (0.60-1.40); GLUCOSE 127 mg/dl (70-99); POTASSIUM 3.9 mmol/L (3.5-5.1); SODIUM 140 mmol/L (136-145)
[2017-04-29 15:16] LABS: CREATININE RANDOM URINE 23.3 mg/dl
[2017-04-29 15:36] LABS: ALKALINE PHOSPHATASE 88 U/L (45-117); LDL CHOLESTEROL CALCULATED 71 mg/dl; TOTAL PROTEIN 7.3 gm/dl (6.4-8.2)
[2017-04-29 15:55] LABS: HEMOGLOBIN A1C 9.2 % (4.5-5.6)
== END | disposition home or self-care (01) ==
LOC: C.LAB1850 12:04
PROVIDERS: ATTEND Internal Medicine Endocrinology, Diabetes & Metabolism
DX: E55.9 Vitamin D deficiency, unspecified (principal); E10.9 Type 1 diabetes mellitus without complications

== ENCOUNTER → 2017-07-28 | Outpatient (CLI) | payer OTHER ==
--- NOTE | 2017-07-28 12:19 | DIAGNOSTIC IMAGING REPORT ---
L SHOULDER MIN 2 VIEWS ROUTINE CLINICAL HISTORY: M25.511 Chronic left shoulder pain COMPARISON: 06/25/2016 DISCUSSION: No fractures or dislocations are visualized. No visible periarticular calcifications are delineated. There are mild degenerative changes within the AC joint. There is a stable small calcification adjacent to the proximal humeral metaphysis. This likely relates to a muscular insertional calcification IMPRESSION: 1. No fractures identified 2. Minor degenerative changes within the AC joint. Electronically signed by: Darío Fung M.D. 07/28/2017 12:18 PM Dictated Date/Time: 07/28/2017 12:16 PM
--- NOTE | 2017-07-28 12:27 | DIAGNOSTIC IMAGING REPORT ---
R SHOULDER MIN 2 VIEWS ROUTINE CLINICAL HISTORY: 57 years-old Male presenting with K21.9 GERD without esophagitis M25.511 Chronic bilateral shoulder pain. TECHNIQUE: Internal rotation, external rotation, Grashey views of the right shoulder were obtained. COMPARISON: 06/25/2016. FINDINGS: Glenohumeral and acromioclavicular joints congruent. Minimal osteophytosis at the acromioclavicular joint. No subluxation of the humeral head. No evidence of humeral head deformity. No acute fracture or malalignment. No advanced degenerative change. No radiographic soft tissue abnormality. Visualized portion of the right hemithorax within normal limits. IMPRESSION: No acute osseous injury. Electronically signed by: Jose Barrow M.D. 07/28/2017 12:26 PM Dictated Date/Time: 07/28/2017 12:25 PM
[2017-07-28 13:23] LABS: BASO % 0.5 %; BASO ABS # 0.06 K/uL (0-0.2); EOS % 3.4 %; EOS ABS # 0.39 K/uL (0-0.5); HEMATOCRIT 47.6 % (42-52); HEMOGLOBIN 15.5 g/dL (14.0-18.0); IG# 0.03 K/uL (0.00-0.02); LYMPH % 23.2 %; LYMPH ABS # 2.63 K/uL (1.2-3.4); MEAN CELL VOLUME 88.6 fL (80-100); MEAN CORPUSCULAR HEMOGLOBIN 28.9 pg (25-34); MEAN CORPUSCULAR HGB CONC 32.6 g/dl (32-36); MEAN PLATELET VOLUME 11.1 fL (7.4-10.4); MONO % 8.9 %; MONO ABS # 1.01 K/uL (0.11-0.59); NEUT % 63.7 %; NEUT ABS # 7.22 K/uL (1.4-6.5); PLATELET COUNT 297 K/uL (130-400); RED CELL DISTRIBUTION WIDTH SD 45.3 fL (36.4-46.3); WHITE BLOOD COUNT 11.34 K/uL (4.8-10.8)
[2017-07-28 13:57] LABS: ALBUMIN 3.3 gm/dl (3.4-5.0); ALT/SGPT 25 U/L (12-78); AST/SGOT 18 U/L (15-37); CREATININE 1.25 mg/dl (0.60-1.40)
[2017-07-28 14:00] LABS: ALKALINE PHOSPHATASE 90 U/L (45-117); TOTAL PROTEIN 6.5 gm/dl (6.4-8.2)
== END | disposition home or self-care (01) ==
LOC: C.RAD1850 11:47
PROVIDERS: ATTEND Internal Medicine Rheumatology
DX: M25.511 Pain in right shoulder (principal); M25.512 Pain in left shoulder; K21.9 Gastro-esophageal reflux disease without esophagitis; Z79.1 Long term (current) use of non-steroidal anti-inflammatories (NSAID); M06.4 Inflammatory polyarthropathy

== ENCOUNTER → 2017-10-15 | Outpatient (CLI) | payer OTHER ==
[2017-10-16 06:24] LABS: HEMOGLOBIN A1C 7.5 % (4.5-5.6)
== END | disposition home or self-care (01) ==
LOC: C.LAB 18:13
PROVIDERS: ATTEND Internal Medicine Endocrinology, Diabetes & Metabolism
DX: E10.65 Type 1 diabetes mellitus with hyperglycemia (principal); E03.9 Hypothyroidism, unspecified

== ENCOUNTER 2023-12-08 15:13 | Inpatient (IN) ==
[2023-12-08 15:52] LABS: Base Excess VBG -0.2 mEq/L; HCO3 VBG 25 mmol/L; Oxygen Saturation VBG 64.8 %; PCO2 VBG 44 mmHg (38-50); PO2 VBG 35 mmHg; pH VBG 7.37 (7.36-7.41)
--- NOTE | 2023-12-08 15:56 | Emergency Department Note ---
Impression & Plan AMS (altered mental status), Hypomagnesemia, Hyperglycemia, Non-ST elevation GA (NSTEMI), Leukocytosis, Elevated procalcitonin, Elevated lactic acid level ED Provider Note HISTORY OF PRESENT ILLNESS: Patient is a 63-year-old male presenting with confusion. History is obtained from the EMS, given patient's confusion. EMS states that they were called to the scene given patient's confusion. He reportedly was going on a short 2- minute drive from his house to [place] when he seemed to be acting abnormally and driving erratically. A bystander called 911. Patient had a fingerstick glucose of 400 for EMS on arrival. He is a type I diabetic. Patient is slow to respond to questions but states that he gave insulin prior to leaving home. He states for the last few days he has been feeling generally unwell and had an episode of vomiting. Denies any chest pain or shortness of breath currently. He is alert to self only. ROS: as above PHYSICAL EXAM: Constitutional: Patient appears in no acute distress. HENT: Head: Normocephalic and atraumatic. Eyes: EOMI, PERRL Mouth/Throat: Mucous membranes moist. Neck: Trachea midline. Neck supple. Cardiovascular: RRR, No murmurs, rubs or gallops. Intact distal pulses. Pulmonary/Chest: No respiratory distress. Breath sounds clear and equal bilaterally. No wheezes or rales. Abdominal: Abdomen soft, no tenderness, rebound or guarding. Musculoskeletal: No edema, tenderness or deformity noted. Skin: Warm and dry. No rash, erythema, pallor or cyanosis Psychiatric: Appropriate mood and affect for situation. Neurological: Alert but confused. CN II-XII grossly intact, moving all extremities equally and fully. MDM: - Vitals signs showed hypertension - History obtained via EMS, given patient's confusion. History as above. - Chronic conditions affecting care: HTN; HLD; DM-1; BPH; obesity; pancreatic abnormality - Differential diagnoses include, but are not limited to: CVA; intracranial hemorrhage; ACS; UTI; DKA; electrolyte abnormality; pneumonia - Order placed for continuous cardiac monitoring. At this time, monitor showed rate of 65 bpm with normal sinus rhythm, per my interpretation. - External medical records reviewed. Diabetes visit note dated 11/24/2023 was reviewed. Patient follows in their clinic for his type 1 diabetes. - EKG interpreted by myself showed normal sinus rhythm. Rate 76 bpm. QT 404. No acute ischemic changes. Noted to have a right bundle branch block. - Laboratory workup interpreted by myself showed leukocytosis (WBC 15.36); normal PT/INR; elevated procalcitonin (2.42); hyponatremia (Na 134); hyperglycemia (glucose 406); normal anion gap; elevated lactate (2.4); hypomagnesemia (Mg 1.3); elevated troponin (31); normal TSH - Repeat lactate after 2L NS bolus is 2.1. - UA negative for infection. Noted to have glucose and ketones. - Viral respiratory panel negative - VBG normal - CXR negative for pneumonia, per my interpretation. Radiology notes potential trace effusion of the left costophrenic angle. - Patient given 1g IV magnesium for electrolyte replacement. Givne a total of 2L NS in ER. - CT head wo contrast negative for acute intracranial pathology. Noted to have an age-indeterminate lacunar infarct in the left cerebral periventricular area. - CT abdomen/pelvis with IV contrast obtained given patient's reported vomiting and abdominal pain and his elevated lactate. CT abdomen/pelvis showed nonspecific fat stranding of the right upper anterior abdominal wall. Noted to have prominence of the bladder and trace left pleural effusion. Also noted to have a lesion in the pancreatic head. - Discussion was had with patient case coordinator about patient's case and need for admission - Hospitalist consulted for admission. IV Rocephin ordered. - Patient admitted to [facility] service for further evaluation and management. ASSESSMENT AND PLAN: Diagnosis: Altered mental status; leukocytosis; elevated procalcitonin; hypomagnesemia; NSTEMI; elevated lactic acid level Plan: Admit Past Med/Surg History Problem List (Updated 12/08/23 @ 21:46 by Gage Barcenas PA-C) Cellulitis Hyperglycemia Lacunar stroke Hypomagnesemia Altered mental status Right leg swelling Class 3 obesity Pancreatic abnormality Abdominal mass, right lower quadrant Blood in urine EKG abnormalities Albuminuria Diabetic nephropathy associated with type 1 diabetes mellitus Proliferative diabetic retinopathy associated with type 1 diabetes mellitus Vitamin B12 deficiency History of colon polyps Benign prostatic hyperplasia with elevated prostate specific antigen (PSA) Dysesthesia Loss of protective sensation of skin of foot Diabetes mellitus type 1, uncontrolled Diabetic peripheral neuropathy associated with type 1 diabetes mellitus Brow ptosis, bilateral Obstructive sleep apnea of adult CPAP Hypothyroidism Hypertension Dyslipidemia Medical History (Updated 12/08/23 @ 21:46 by Gage Barcenas PA-C) Pain and swelling of right lower leg Elevated serum creatinine Dermatochalasis of both upper eyelids Erectile dysfunction Allergic rhinitis Recurrent sinus infections GERD without esophagitis Psoriasis Mobitz (type) I (Wenckebach's) atrioventricular block Occasionally noted dating back to 2016 Holter monitor History of nephrolithiasis OA (osteoarthritis) of shoulder Paroxysmal atrial fibrillation Few episodes noted on 2017 sleep study, not noted on f/u 10/2016 48 hour holter monitor > no known recurrences Vitamin D deficiency Surgical History (Updated 08/27/23 @ 16:55 by Pranav Li MD) S/P blepharoplasty H/O sinus surgery History of blepharoplasty (~08/19/20) bilt History of sinus surgery B/L balloon sinuplasty (06/21/20): Grade view 1, Glidescope#4, ETT 8.0 at [facility] History of endoscopic sinus surgery Endoscopic sinus surgery (06/21/15) [facility] History of incision and drainage Rt thumb wound I&D + closure: 12/06/19: MAC sedation at [facility] [place] S/P trigger finger release Right thumb trigger finger release: 10/17/19: MAC sedation at [facility] [place] History of cataract surgery R/L History of colonoscopy History of carpal tunnel release R/L History of uvulopalatopharyngoplasty S/P appendectomy Family History Father Diabetes Sleep apnea Pacemaker Other No significant family history Denies family history of Ovarian cancer Prostate cancer Myocardial infarction Breast cancer Colorectal cancer Social History Smoking Status: Never smoker Second Hand Exposure: No; Do You Dip or Chew Tobacco: No; Hx Alcohol Use: Yes Alcohol type: hard liquor Hx Substance Use: No Preferred Language: Italian Communication Ability: Effective Visual Impairment: No Limitations Hearing Ability: Normal Wireless Development Manager Required: No Beliefs That Will Affect Care: None marital status: Current Living Situation: Spouse and Family Current Living Situation Comment: Lives with and baby current occupational status: employed 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 Feels Safe at Home: Yes Childhood Exposure to Second-Hand Smoke: No Dental Care, Regularly: Yes Physical Activity Frequency: Does not Exercise Seatbelt Use: always Sunscreen Use: Yes Assistive Devices: CPAP and Glasses Allergies Allergies Allergy/AdvReac Type Severity Reaction Status Date / Time bacitracin Allergy Mild contact Verified 11/24/23 09:33 dermatitis with eye bacitracin dog dander Allergy Mild Congestion Verified 11/24/23 09:33 horse dander Allergy Unknown Allergy Verified 11/24/23 09:33 testing + house dust Allergy Unknown Allergy Verified 11/24/23 09:33 testing + Home Meds Home Medications Medication Instructions Recorded Confirmed fluticasone propionate 50 1 spray intranasal DAILY PRN 09/29/21 12/08/23 mcg/actuation nasal Congestion spray,suspension betamethasone dipropionate 0.05 % 1 applic topical DAILY PRN Skin 10/15/23 12/08/23 lotion Irritation glucagon 1 mg/0.2 mL subcutaneous 1 mg subcut DIRECTED PRN for 10/15/23 12/08/23 auto-injector (Gvoke HypoPen hypoglycemic epidoses 2-Pack) ketoconazole 2 % shampoo 1 applic topical 2XWK 10/15/23 12/08/23 Previous Rx's Medication Instructions Recorded OneTouch Delica Lancets 33 gauge #300 ea 02/01/19 (lancets) OneTouch Verio test strips (blood #300 ea 11/10/19 sugar diagnostic) Dexcom Stamp Press Operator (blood-glucose #1 ea 03/07/20 meter,continuous) naproxen 500 mg tablet,delayed 500 mg PO .QD PRN pain #90 tabs 11/27/21 release (EC-Naproxen) Dexcom G7 Stamp Press Operator (blood-glucose #1 ea 07/07/22 meter,continuous) gabapentin 300 mg capsule 300 mg PO .COMPLEX #540 caps 08/03/22 insulin glargine 100 unit/mL (3 55 unit (0.55 mL) subcut BID #105 08/31/22 mL) subcutaneous pen (Lantus mL Solostar U-100 Insulin) mecobalamin (vitamin B12) 1,000 2,000 mcg (2 x 1,000 mcg) 11/27/22 mcg disintegrating sublingual DAILY #60 tabs tablet,sublingual omeprazole 40 mg capsule,delayed 40 mg PO QAM #90 caps 12/29/22 release econazole 1 % topical cream 1 applic topical BID PRN skin 01/28/23 irritation #30 grams Dexcom G7 Sensor (blood-glucose #9 ea 04/21/23 sensor) Novolog FlexPen U-100 Insulin 100 See Rx Instructions .Route 05/03/23 unit/mL (3 mL) subcutaneous .COMPLEX #90 mL (insulin aspart U-100) bumetanide 2 mg tablet 2 mg PO QAM #90 tabs 06/07/23 minocycline 100 mg capsule 100 mg PO BID #180 caps 06/28/23 pen needle, diabetic 31 gauge x #600 ea 07/15/2307/28" (BD Ultra-Fine Short Pen Needle) furosemide 20 mg tablet (Lasix) 20 mg PO DAILY #10 tabs 07/16/23 pseudoephedrine HCl 120 mg 120 mg PO BID #180 tabs 08/13/23 tablet,extended release (Sudafed 12 Hour) ezetimibe 10 mg tablet (Zetia) 10 mg PO QPM #90 tabs 09/13/23 levothyroxine 25 mcg tablet 25 mcg PO QAM #90 tabs 09/13/23 meloxicam 15 mg tablet 15 mg PO QPM #90 tabs 09/13/23 montelukast 10 mg tablet 10 mg PO QPM 90 days #90 tabs 09/13/23 alfuzosin 10 mg tablet,extended 10 mg PO BID #180 tabs 09/28/23 release 24 hr spironolactone 25 mg tablet 25 mg PO QAM #90 tabs 11/02/23 atorvastatin 80 mg tablet 80 mg PO QPM #90 tabs 11/16/23 levothyroxine 200 mcg tablet 200 mcg PO QAM #90 tabs 11/16/23 losartan 100 mg tablet 100 mg PO QAM #90 tabs 11/16/23 triamcinolone acetonide 0.5 % 1 applic topical BID PRN Skin 11/19/23 topical cream Irritation #15 grams Results & Data (ED) Vital Signs Vital Signs - 24 hr 12/08/23 15:41 12/08/23 15:41 12/08/23 17:02 Temperature 36.6 C Temperature Source Oral Pulse Rate 76 Pulse Rate [Apical] 70 Pulse Rhythm Regular Pulse Strength Normal Pulse Strength [Apical] Normal Respiratory Rate 18 16 Respiratory Effort / Characteristics Non-Labored Spontaneous Non-Labored Spontaneous Respiratory Depth Normal Normal Respiratory Pattern Regular Regular Blood Pressure 162/76 H Blood Pressure Mean 104 Blood Pressure Position Sitting Pulse Oximetry 97 97 98 Oxygen Delivery Method Room Air Room Air Sepsis Recent Fever Within 48 Hours No Sepsis New/Unexplained Change in Mental Status No Sepsis Action Taken by Nursing No Action Required 12/08/23 18:56 12/08/23 19:00 Temperature Temperature Source Pulse Rate 75 Pulse Rate [Apical] 65 Pulse Rhythm Pulse Strength Pulse Strength [Apical] Normal Respiratory Rate 18 Respiratory Effort / Characteristics Non-Labored Spontaneous Respiratory Depth Normal Respiratory Pattern Regular Blood Pressure Blood Pressure Mean Blood Pressure Position Pulse Oximetry 98 Oxygen Delivery Method Room Air Sepsis Recent Fever Within 48 Hours Sepsis New/Unexplained Change in Mental Status Sepsis Action Taken by Nursing Laboratory Data 12/08/23 15:39 12/08/23 15:39 Lab Results 12/08/23 12/08/23 12/08/23 Range/Units 15:21 15:39 15:59 WBC 15.36 H (4.8-10.8) K/ul RBC 4.53 L (4.70-6.10) M/uL Hgb 13.1 L (14.0-18.0) g/dl Hct 40.1 L (42.0-52.0) % MCV 88.5 (80.0-100.0) fL MCH 28.9 (25.0-34.0) pg MCHC 32.7 (32.0-36.0) g/dL RDW Std Deviation 46.5 H (36.4-46.3) fL RDW Coeff of Jill 14.5 (11.5-14.5) % Plt Count 203 (130-400) K/uL MPV 12.1 (9.4-12.4) fL Immature Gran % (Auto) 0.5 % Neut % (Auto) 81.5 % Lymph % (Auto) 11.6 % [place] % (Auto) 5.5 % Eos % (Auto) 0.4 % Baso % (Auto) 0.5 % Neut # (Auto) 12.54 H (1.40-6.50) K/uL Lymph # (Auto) 1.78 (1.20-3.40) K/uL [place] # (Auto) 0.84 H (0.11-0.59) K/uL Eos # (Auto) 0.06 (0.00-0.50) K/uL Baso # (Auto) 0.07 (0.00-0.20) K/uL Immature Gran # (Auto) 0.07 (0.01-0.20) K/uL PT 11.0 (9.0-12.0) Seconds INR 1.0 (0.9-1.1) VBG pH 7.37 (7.36-7.41) VBG pCO2 44 (38-50) mmHg VBG pO2 35 mmHg VBG HCO3 25 mmol/L VBG O2 Saturation 64.8 % VBG Base Excess -0.2 mEq/L Sodium 134 L (136-145) mmol/L Potassium 4.0 (3.5-5.1) mmol/L Chloride 96 L (98-107) mmol/L Carbon Dioxide 28 (21-32) mmol/L Anion Gap 10 (3-11) BUN 16 (6-23) mg/dl Creatinine 1.16 (0.6-1.4) mg/dl Est Cr Clr Drug Dosing 89.5 ml/min Est GFR ( Amer) 76.2 ml/min Est GFR (Non-Af Amer) 65.7 ml/min BUN/Creatinine Ratio 13.8 (10-20) Glucose 406 H* (70-99(Fasting)) mg/dl POC Glucose 430 H* (70-99) mg/dl Lactate 2.4 H* (0.4-2.0) mmol/L Calcium 9.1 (8.6-10.3) mg/dl Magnesium 1.3 L (1.7-2.4) mg/dl Total Bilirubin 1.3 H (0.2-1.0) mg/dl AST 17 (13-39) U/L ALT 17 (7-52) U/L Alkaline Phosphatase 99 (34-104) U/L Troponin I High Sens 31.0 H (0-20) pg/ml Total Protein 6.1 (6.0-8.3) gm/dl Albumin 3.2 L (3.4-5.0) gm/dl Globulin 2.9 (2.5-4.0) gm/dl Albumin/Globulin Ratio 1.1 (0.9-2) Procalcitonin Cancelled TSH 3.878 (0.300-4.500) uIu/ml Urine Color Urine Appearance (Clear) Urine pH (4.5-7.5) Ur Specific [place] (1.000-1.030) Urine Protein (Negative) Urine Glucose (UA) (Negative) Urine Ketones (Negative) Urine Blood (Negative) Urine Nitrite (Negative) Urine Bilirubin (Negative) Urine Urobilinogen (Negative) Ur Leukocyte Esterase (Negative) Urine WBC (Auto) (0-5) /hpf Urine RBC (Auto) (0-2) /hpf U Hyaline Cast (Auto) (0-2) /lpf U Epithel Cells (Auto) (0-2) /hpf Urine Bacteria (Auto) (None Seen) Adenovirus (PCR) Not Detected (NotDetected) B. pertussis DNA (PCR) Not Detected (NotDetected) B.parapertussis DNA PCR Not Detected (NotDetected) C. pneumoniae DNA (PCR) Not Detected (NotDetected) Coronavirus OC43 (PCR) Not Detected (NotDetected) Coronavirus HKU1 (PCR) Not Detected (NotDetected) Coronavirus 229E (PCR) Not Detected (NotDetected) SARS-CoV-2 (PCR) Not Detected (NotDetected) Coronavirus NL63 (PCR) Not Detected (NotDetected) Human Metapneumovir PCR Not Detected (NotDetected) Influenza Type A (PCR) Not Detected (NotDetected) Influenza Type B (PCR) Not Detected (NotDetected) M. pneumoniae (PCR) Not Detected (NotDetected) Parainfluenza 1 (PCR) Not Detected (NotDetected) Parainfluenza 2 (PCR) Not Detected (NotDetected) Parainfluenza 3 (PCR) Not Detected (NotDetected) Parainfluenza 4 (PCR) Not Detected (NotDetected) RSV (PCR) Not Detected (NotDetected) Entero/Rhino (PCR) Not Detected (NotDetected) 12/08/23 12/08/23 12/08/23 Range/Units 17:30 17:47 18:56 WBC (4.8-10.8) K/ul RBC (4.70-6.10) M/uL Hgb (14.0-18.0) g/dl Hct (42.0-52.0) % MCV (80.0-100.0) fL MCH (25.0-34.0) pg MCHC (32.0-36.0) g/dL RDW Std Deviation (36.4-46.3) fL RDW Coeff of Jill (11.5-14.5) % Plt Count (130-400) K/uL MPV (9.4-12.4) fL Immature Gran % (Auto) % Neut % (Auto) % Lymph % (Auto) % [place] % (Auto) % Eos % (Auto) % Baso % (Auto) % Neut # (Auto) (1.40-6.50) K/uL Lymph # (Auto) (1.20-3.40) K/uL [place] # (Auto) (0.11-0.59) K/uL Eos # (Auto) (0.00-0.50) K/uL Baso # (Auto) (0.00-0.20) K/uL Immature Gran # (Auto) (0.01-0.20) K/uL PT (9.0-12.0) Seconds INR (0.9-1.1) VBG pH (7.36-7.41) VBG pCO2 (38-50) mmHg VBG pO2 mmHg VBG HCO3 mmol/L VBG O2 Saturation % VBG Base Excess mEq/L Sodium (136-145) mmol/L Potassium (3.5-5.1) mmol/L Chloride (98-107) mmol/L Carbon Dioxide (21-32) mmol/L Anion Gap (3-11) BUN (6-23) mg/dl Creatinine (0.6-1.4) mg/dl Est Cr Clr Drug Dosing ml/min Est GFR ( Amer) ml/min Est GFR (Non-Af Amer) ml/min BUN/Creatinine Ratio (10-20) Glucose (70-99(Fasting)) mg/dl POC Glucose 365 H* (70-99) mg/dl Lactate 2.1 H* (0.4-2.0) mmol/L Calcium (8.6-10.3) mg/dl Magnesium (1.7-2.4) mg/dl Total Bilirubin (0.2-1.0) mg/dl AST (13-39) U/L ALT (7-52) U/L Alkaline Phosphatase (34-104) U/L Troponin I High Sens 30.0 H (0-20) pg/ml Total Protein (6.0-8.3) gm/dl Albumin (3.4-5.0) gm/dl Globulin (2.5-4.0) gm/dl Albumin/Globulin Ratio (0.9-2) Procalcitonin 2.42 H TSH (0.300-4.500) uIu/ml Urine Color Yellow Urine Appearance Clear (Clear) Urine pH 6.0 (4.5-7.5) Ur Specific [place] 1.034 H (1.000-1.030) Urine Protein 4+ H (Negative) Urine Glucose (UA) 3+ H (Negative) Urine Ketones 2+ H (Negative) Urine Blood 2+ H (Negative) Urine Nitrite Negative (Negative) Urine Bilirubin Negative (Negative) Urine Urobilinogen Negative (Negative) Ur Leukocyte Esterase Negative (Negative) Urine WBC (Auto) 0-5 (0-5) /hpf Urine RBC (Auto) 3-5 H (0-2) /hpf U Hyaline Cast (Auto) 11-20 H (0-2) /lpf U Epithel Cells (Auto) 0-2 (0-2) /hpf Urine Bacteria (Auto) None Seen (None Seen) Adenovirus (PCR) (NotDetected) B. pertussis DNA (PCR) (NotDetected) B.parapertussis DNA PCR (NotDetected) C. pneumoniae DNA (PCR) (NotDetected) Coronavirus OC43 (PCR) (NotDetected) Coronavirus HKU1 (PCR) (NotDetected) Coronavirus 229E (PCR) (NotDetected) SARS-CoV-2 (PCR) (NotDetected) Coronavirus NL63 (PCR) (NotDetected) Human Metapneumovir PCR (NotDetected) Influenza Type A (PCR) (NotDetected) Influenza Type B (PCR) (NotDetected) M. pneumoniae (PCR) (NotDetected) Parainfluenza 1 (PCR) (NotDetected) Parainfluenza 2 (PCR) (NotDetected) Parainfluenza 3 (PCR) (NotDetected) Parainfluenza 4 (PCR) (NotDetected) RSV (PCR) (NotDetected) Entero/Rhino (PCR) (NotDetected) Administered Medications Discontinued Medications Sodium Chloride (Nss) 2,000 mls @ 999 mls/hr IV .Q2H1M ONE Stop: 12/08/23 18:15 Last Infusion: 12/08/23 18:23 Dose: Infused Documented By: Admin: 12/08/23 16:21 Dose: 999 mls/hr Documented By: SWATHI Magnesium Sulfate/Dextrose (Magnesium Sulfate / D5w) 1 gm in 100 mls @ 100 mls/hr IV NOW STA Stop: 12/08/23 17:31 Last Infusion: 12/08/23 18:17 Dose: Infused Documented By: Admin: 12/08/23 17:04 Dose: 100 mls/hr Documented By: SWATHI Ioversol (Optiray 320 125ml) 119 ml IV ONCE ONE Stop: 12/08/23 18:33 Last Admin: 12/08/23 18:32 Dose: 119 ml Documented By: LEORA Imaging Data Radiologist's Impression: Chest X-Ray 12/08/23 15:30 XR chest 1V portable CLINICAL HISTORY: weakness TECHNIQUE: Single frontal radiograph of the chest was obtained. Comparison: Comparison is made to chest radiograph 08/20/2023 FINDINGS: Exam is limited by underpenetration. The cardiomediastinal silhouette is normal. The lungs are clear. There is blunting of the costophrenic angle on the left. IMPRESSION: Blunting of the left costophrenic angle may represent atelectasis versus trace effusion. ACT 112: Negative or not required by law. Electronically signed by: Jesus Arreola M.D. 12/08/2023 4:[address] 12/08/23 15:30 CT head/brain wo con CLINICAL HISTORY: 63 years-old Male with altered mental status. Acutely altered mental status TECHNIQUE: Multiple axial CT images of the head were obtained without contrast. A dose lowering technique was utilized adhering to the principles of ALARA. CT DOSE: 625.8 mGy.cm COMPARISON: 08/20/2023 FINDINGS: No acute intracranial hemorrhage, midline shift, intracranial mass, hydrocephalus, territorial ischemia or abnormal extra-axial collection. Involutional changes with white matter hypodensities suggestive of chronic microvascular ischemic disease. Cerebral vascular calcifications. There is a new ill-defined hypodense focus in the periventricular left temporoparietal distribution on image 19 series 2 measuring 1.37 m. The calvarium is intact. Prior bilateral lens repair. The paranasal sinuses, mastoid air cells, and middle ear cavities are clear. IMPRESSION: 1. No acute intracranial hemorrhage, midline shift or acute territorial infarct. 2. 1.3 cm hypodense left cerebral periventricular focus is new from the 08/20/2023 exam and is suggestive of an age-indeterminate lacunar infarct. ACT 112: Negative or not required by law. The above report was generated using voice recognition software. It may contain grammatical, syntax or spelling errors. Electronically signed by: Jas Multani M.D. 12/08/2023 4:24 PM Abdomen/Pelvis CT 12/08/23 18:13 Exam(s): CT ABDOMEN + PELVIS With Contrast IV Amt: 94ml EXAM: CT Abdomen and Pelvis With Intravenous Contrast CLINICAL HISTORY: Reason for exam: abdominal pain; vomiting. TECHNIQUE: Axial computed tomography images of the abdomen and pelvis with intravenous contrast. CTDI is 28.14 mGy and DLP is 1605.89 mGy-cm. Automated exposure control was utilized for the study. A dose lowering technique was utilized adhering to the principles of ALARA. CONTRAST: Patient received 94ml of IV contrast COMPARISON: CT abdomen/pelvis on 10/15/2023 FINDINGS: Lung bases: Lower lung atelectasis. Pleural space: Trace left pleural effusion. ABDOMEN: Liver: Unremarkable. No mass. Gallbladder and bile ducts: Unremarkable. No calcified stones. No ductal dilation. Pancreas: Atrophy of the pancreas. Similar hyperdense lesion along the pancreatic body. No ductal dilation. Spleen: Small splenule. Borderline size of the spleen. Adrenals: Unremarkable. No mass. Kidneys and ureters: Small left renal cyst. Other small hypodensity in the left kidney is too small to definitively characterize. Nonspecific bilateral perinephric fat stranding. No hydronephrosis or obstructing ureteral stone. Stomach and bowel: Evaluation of the stomach is limited by underdistention. Gastritis or neoplasm would be difficult to exclude. Diverticulosis without evidence of diverticulitis. No small bowel obstruction. PELVIS: Appendix: Prior appendectomy. Bladder: Mild prominence of the bladder wall is nonspecific. Please correlate with urinalysis if concerned for cystitis. Reproductive: Mild prostatomegaly. ABDOMEN and PELVIS: Intraperitoneal space: Unremarkable. No free air. No significant fluid collection. Bones/joints: No acute fracture. No dislocation. Soft tissues: Nonspecific fat stranding and calcifications in the right upper anterior abdominal wall subcutaneous tissues. Body wall edema with skin thickening of the pannus at the inferior edge of the [id number]. Cellulitis is not included. Small fat-containing bilateral inguinal hernias. Small to moderate umbilical hernia containing fat and nonspecific fat stranding. Vasculature: Atherosclerotic changes of the vasculature. No abdominal aortic aneurysm or dissection. Lymph nodes: Unremarkable. No enlarged lymph nodes. Other findings: Atrophy of the right chest pain. IMPRESSION: 1. Evaluation of the stomach is limited by underdistention. Gastritis or neoplasm would be difficult to exclude. 2. Nonspecific fat stranding and calcifications in the right upper anterior abdominal wall subcutaneous tissues. Body wall edema with skin thickening of the pannus at the inferior edge of the [id number]. Cellulitis is not included. 3. Mild prominence of the bladder wall is nonspecific. Please correlate with urinalysis if concerned for cystitis. 4. Trace left pleural effusion. 5. Mild prostatomegaly. 6. Small to moderate umbilical hernia containing fat and nonspecific fat stranding. 7. Similar hyperdense lesion along the pancreatic body. Electronically signed by: Denise Walton M.D. 12/08/23 19:42 PM Discharge Plan Visit Data Chief Complaint: Altered Mental Status ED Provider: Aaliyah Rosas Discharge Problem: AMS (altered mental status), Hypomagnesemia, Hyperglycemia, Non-ST elevation [place] (NSTEMI), Leukocytosis, Elevated procalcitonin, Elevated lactic acid level Forms Stand Alone Forms: My [employer] Prescriptions Prescriptions: No Action (DME) lancets [OneTouch Delica Lancets] 33 gauge misc See Rx Instructions .ROUTE .MEDSUPPLY Qty: 300 3RF Rx Instructions: test 3 times daily (DME) OneTouch Verio test strips Strip See Dose Instructions .ROUTE .MEDSUPPLY Qty: 300 3RF Dose Instruction: As directed Rx Instructions: test blood sugars 3 x daily (DME) Dexcom Stamp Press Operator Misc See Rx Instructions .ROUTE .MEDSUPPLY Qty: 1 0RF Rx Instructions: As directed naproxen [EC-Naproxen] 500 mg tablet,delayed release (DR/EC) 500 mg PO .QD PRN (Reason: pain) Qty: 90 3RF Rx Instructions: for pain of 7/10 or greater (DME) Dexcom G7 Stamp Press Operator Misc See Rx Instructions .Route Qty: 1 0RF Rx Instructions: use as directed with CGM gabapentin 300 mg capsule 300 mg PO .COMPLEX Qty: 540 3RF Rx Instructions: TAKE 2 CAPSULES IN THE MORNING AND 4 CAPSULES AT BEDTIME; insulin glargine [Lantus Solostar U-100 Insulin] 100 unit/mL (3 mL) insulin pen 55 unit subcut BID Qty: 105 3RF Rx Instructions: subcut Inject 55 units in AM and 55 units and PM subcut ; mecobalamin (vitamin B12) 1,000 mcg tablet,disintegrating 2,000 mcg sublingual DAILY Qty: 60 0RF Rx Instructions: place tablet under tongue and allow to dissolve for at least30 secs before swallowing omeprazole 40 mg capsule,delayed release(DR/EC) 40 mg PO QAM Qty: 90 3RF Rx Instructions: qam econazole 1 % cream 1 applic TOP BID PRN (Reason: skin irritation) Qty: 30 5RF (DME) Dexcom G7 Sensor Device See Rx Instructions .ROUTE .MEDSUPPLY Qty: 9 3RF Rx Instructions: change every 10 days insulin aspart U-100 [Novolog FlexPen U-100 Insulin] 100 unit/mL (3 mL) insulin pen See Rx Instructions .ROUTE .COMPLEX Qty: 90 3RF Rx Instructions: Inject 80- 100 units daily; bumetanide 2 mg tablet 2 mg PO QAM Qty: 90 3RF Rx Instructions: qam minocycline 100 mg capsule 100 mg PO BID Qty: 180 3RF (DME) pen needle, diabetic [BD Ultra-Fine Short Pen Needle] 31 gauge x 5/16" needle See Dose Instructions .ROUTE .MEDSUPPLY Qty: 600 3RF Dose Instruction: As directed Rx Instructions: use pen needles with insulin pens 6 times daily furosemide [Lasix] 20 mg tablet 20 mg PO DAILY Qty: 10 0RF Hold Instructions: not taking any longer pseudoephedrine HCl [Sudafed 12 Hour] 120 mg tablet extended release 120 mg PO BID Qty: 180 3RF ezetimibe [Zetia] 10 mg tablet 10 mg PO QPM Qty: 90 3RF levothyroxine 25 mcg tablet 25 mcg PO QAM Qty: 90 3RF Hold Instructions: low TSH Rx Instructions: TOTAL DOSE 225 MCG--TAKES WITH 200 MCG TAB. meloxicam 15 mg tablet 15 mg PO QPM Qty: 90 1RF montelukast 10 mg tablet 10 mg PO QPM 90 Days Qty: 90 3RF alfuzosin 10 mg tablet extended release 24 hr 10 mg PO BID Qty: 180 3RF Rx Instructions: administer after the same meal each day spironolactone 25 mg tablet 25 mg PO QAM Qty: 90 1RF triamcinolone acetonide 0.5 % cream 1 applic TOP BID PRN (Reason: Skin Irritation) Qty: 15 1RF Rx Instructions: 1 application topical twice a day; fluticasone propionate 50 mcg/actuation spray,suspension 1 spray intranasal DAILY PRN (Reason: Congestion) atorvastatin 80 mg tablet 80 mg PO QPM Qty: 90 3RF levothyroxine 200 mcg tablet 200 mcg PO QAM Qty: 90 3RF Rx Instructions: TOTAL DOSE 225 MCG--TAKES WITH 25 MCG TAB. losartan 100 mg tablet 100 mg PO QAM Qty: 90 3RF Rx Instructions: qam ketoconazole 2 % shampoo 1 applic TOP 2XWK Rx Instructions: APPLY TO SCALP TWICE WEEKLY betamethasone dipropionate 0.05 % lotion 1 applic TOP DAILY PRN (Reason: Skin Irritation) Rx Instructions: Apply to scalp once daily for up to 2 weeks as needed for flaring. Gvoke HypoPen 2-Pack 1 mg/0.2 mL auto-injector 1 mg subcut DIRECTED PRN (Reason: for hypoglycemic epidoses) Referrals Referrals: Jorje Iyer MD [Primary Care Provider] -
[2023-12-08 16:01] LABS: Basophils # (auto) 0.07 K/uL (0.00-0.20); Basophils % (auto) 0.5 %; Eosinophils # (auto) 0.06 K/uL (0.00-0.50); Eosinophils % (auto) 0.4 %; Hematocrit (blood only) 40.1 % (42.0-52.0); Hemoglobin 13.1 g/dl (14.0-18.0); Immature Granulocytes # (auto) 0.07 K/uL (0.01-0.20); Immature Granulocytes % (auto) 0.5 %; Lymphocytes # (auto) 1.78 K/uL (1.20-3.40); Lymphocytes % (auto) 11.6 %; Mean Corpuscular Hemoglobin 28.9 pg (25.0-34.0); Mean Corpuscular Hgb Conc 32.7 g/dL (32.0-36.0); Mean Corpuscular Volume 88.5 fL (80.0-100.0); Mean Platelet Volume 12.1 fL (9.4-12.4); Monocytes # (auto) 0.84 K/uL (0.11-0.59); Monocytes % (auto) 5.5 %; Neutrophils # (auto) 12.54 K/uL (1.40-6.50); Neutrophils % (auto) 81.5 %; Platelet Count 203 K/uL (130-400); RDW Coefficient of Variation 14.5 % (11.5-14.5); RDW Standard Deviation 46.5 fL (36.4-46.3); Red Blood Count 4.53 M/uL (4.70-6.10); White Blood Count 15.36 K/ul (4.8-10.8)
[2023-12-08] MEDS: SODIUM CHLORIDE 0.9% 2,000 ML IV ONE (16:21)
[2023-12-08 16:25] LABS: Albumin Globulin Ratio 1.1 (0.9-2); Albumin Level 3.2 gm/dl (3.4-5.0); BUN Creatinine Ratio 13.8 (10-20); Bilirubin,Total 1.3 mg/dl (0.2-1.0); Calcium 9.1 mg/dl (8.6-10.3); Creatinine Clr Calc Pharmacy 89.5 ml/min; Est GFR (African American) 76.2 ml/min; Est GFR (Non-African American) 65.7 ml/min; Globulin 2.9 gm/dl (2.5-4.0); Magnesium 1.3 mg/dl (1.7-2.4); Total Protein 6.1 gm/dl (6.0-8.3)
--- NOTE | 2023-12-08 16:25 | CT Scan Report ---
CT head/brain wo con CLINICAL HISTORY: 63 years-old Male with altered mental status. Acutely altered mental status TECHNIQUE: Multiple axial CT images of the head were obtained without contrast. A dose lowering tech nique was utilized adhering to the principles of ALARA. CT DOSE: 625.8 mGy.cm COMPARISON: 08/20/2023 FINDINGS: No acute intracranial hemorrhage, midline shift, intracranial mass, hydrocephalus, territorial ischem ia or abnormal extra-axial collection. Involutional changes with white matter hypodensities suggestiv e of chronic microvascular ischemic disease. Cerebral vascular calcifications. There is a new ill-def ined hypodense focus in the periventricular left temporoparietal distribution on image 19 series 2 me asuring 1.37 m. The calvarium is intact. Prior bilateral lens repair. The paranasal sinuses, mastoid air cells, and middle ear cavities are clear. IMPRESSION: 1. No acute intracranial hemorrhage, midline shift or acute territorial infarct. 2. 1.3 cm hypodense left cerebral periventricular focus is new from the 08/20/2023 exam and is suggesti ve of an age-indeterminate lacunar infarct. ACT 112: Negative or not required by law. The above report was generated using voice recognition software. It may contain grammatical, syntax o r spelling errors. Electronically signed by: Jas Multani M.D. 12/08/2023 4:24 PM
--- NOTE | 2023-12-08 16:28 | XRay Report ---
XR chest 1V portable CLINICAL HISTORY: weakness TECHNIQUE: Single frontal radiograph of the chest was obtained. Comparison: Comparison is made to chest radiograph 08/20/2023 FINDINGS: Exam is limited by underpenetration. The cardiomediastinal silhouette is normal. The lungs are clear. There is blunting of the costophrenic angle on the left. IMPRESSION: Blunting of the left costophrenic angle may represent atelectasis versus trace effusion. ACT 112: Negative or not required by law. Electronically signed by: Jesus Arreola M.D. 12/08/2023 4:27 PM
[2023-12-08 16:37] LABS: Thyroid Stimulating Hormone 3.878 uIu/ml (0.300-4.500)
[2023-12-08 16:58] LABS: Adenovirus PCR Not Detected (NotDetected); Bordetella parapertussis PCR Not Detected (NotDetected); Bordetella pertussis PCR Not Detected (NotDetected); Chlamydia pneumoniae PCR Not Detected (NotDetected); Coronavirus 229E PCR Not Detected (NotDetected); Coronavirus CoV-2 (COVID19)PCR Not Detected (NotDetected); Coronavirus HKU1 PCR Not Detected (NotDetected); Coronavirus NL63 PCR Not Detected (NotDetected); Coronavirus OC43PCR Not Detected (NotDetected); Human Metapneumovirus PCR Not Detected (NotDetected); Influenza A PCR Not Detected (NotDetected); Influenza B PCR Not Detected (NotDetected); Mycoplasma pneumoniae PCR Not Detected (NotDetected); Parainfluenza Virus 1 PCR Not Detected (NotDetected); Parainfluenza Virus 2 PCR Not Detected (NotDetected); Parainfluenza Virus 3 PCR Not Detected (NotDetected); Parainfluenza Virus 4 PCR Not Detected (NotDetected); Respiratory Syncytial VirusPCR Not Detected (NotDetected); Rhinovirus/Enterovirus PCR Not Detected (NotDetected)
[2023-12-08] MEDS: MAGNESIUM SULFATE / D5W 1 GM/100 ML BAG IV STA (17:04)
[2023-12-08] MEDS: OPTIRAY 320 125ml IV ONE (18:32)
[2023-12-08 18:53] LABS: Appearance Urine Clear (Clear); Bacteria Urine Automated None Seen (None Seen); Bilirubin Urine Negative (Negative); Blood Urine 2+ (Negative); Color Urine Yellow; Epithelial Cell Urine Auto 0-2 /hpf (0-2); Glucose Urine UA 3+ (Negative); Ketones Urine 2+ (Negative); Leukocyte Esterase Urine Negative (Negative); Nitrite Urine Negative (Negative); Protein Urine 4+ (Negative); Specific Gravity Urine 1.034 (1.000-1.030); Urobilinogen Urine Negative (Negative); WBC Urine Automated 0-5 /hpf (0-5)
--- NOTE | 2023-12-08 19:42 | CT Scan Report ---
Exam(s): CT ABDOMEN + PELVIS With Contrast IV Amt: 94ml EXAM: CT Abdomen and Pelvis With Intravenous Contrast CLINICAL HISTORY: Reason for exam: abdominal pain; vomiting. TECHNIQUE: Axial computed tomography images of the abdomen and pelvis with intravenous contrast. CTDI is 28.14 mGy and DLP is 1605.89 mGy-cm. Automated exposure control was utilized for the study. A dose lowering technique was utilized adhering to the principles of ALARA. CONTRAST: Patient received 94ml of IV contrast COMPARISON: CT abdomen/pelvis on 10/15/2023 FINDINGS: Lung bases: Lower lung atelectasis. Pleural space: Trace left pleural effusion. ABDOMEN: Liver: Unremarkable. No mass. Gallbladder and bile ducts: Unremarkable. No calcified stones. No ductal dilation. Pancreas: Atrophy of the pancreas. Similar hyperdense lesion along the pancreatic body. No ductal dilation. Spleen: Small splenule. Borderline size of the spleen. Adrenals: Unremarkable. No mass. Kidneys and ureters: Small left renal cyst. Other small hypodensity in the left kidney is too small to definitively characterize. Nonspecific bilateral perinephric fat stranding. No hydronephrosis or obstructing ureteral stone. Stomach and bowel: Evaluation of the stomach is limited by underdistention. Gastritis or neoplasm would be difficult to exclude. Diverticulosis without evidence of diverticulitis. No small bowel obstruction. PELVIS: Appendix: Prior appendectomy. Bladder: Mild prominence of the bladder wall is nonspecific. Please correlate with urinalysis if concerned for cystitis. Reproductive: Mild prostatomegaly. ABDOMEN and PELVIS: Intraperitoneal space: Unremarkable. No free air. No significant fluid collection. Bones/joints: No acute fracture. No dislocation. Soft tissues: Nonspecific fat stranding and calcifications in the right upper anterior abdominal wall subcutaneous tissues. Body wall edema with skin thickening of the pannus at the inferior edge of the [id number]. Cellulitis is not included. Small fat-containing bilateral inguinal hernias. Small to moderate umbilical hernia containing fat and nonspecific fat stranding. Vasculature: Atherosclerotic changes of the vasculature. No abdominal aortic aneurysm or dissection. Lymph nodes: Unremarkable. No enlarged lymph nodes. Other findings: Atrophy of the right chest pain. IMPRESSION: 1. Evaluation of the stomach is limited by underdistention. Gastritis or neoplasm would be difficult to exclude. 2. Nonspecific fat stranding and calcifications in the right upper anterior abdominal wall subcutaneous tissues. Body wall edema with skin thickening of the pannus at the inferior edge of the [id number]. Cellulitis is not included. 3. Mild prominence of the bladder wall is nonspecific. Please correlate with urinalysis if concerned for cystitis. 4. Trace left pleural effusion. 5. Mild prostatomegaly. 6. Small to moderate umbilical hernia containing fat and nonspecific fat stranding. 7. Similar hyperdense lesion along the pancreatic body. Electronically signed by: Denise Walton M.D. 12/08/23 19:42 PM
--- NOTE | 2023-12-08 19:50 | History & Physical Report ---
Date of Service December 08, 2023 Assessment & Plan (1) Altered mental status: Plan: Patient was driving erratically on 12/07 and bystanders called 911 Patient appears altered on arrival (does not exhibit medical capacity at this time; please see HPI for full details) While patient cannot be a 302, patient's would like him to be admitted overnight, and is requesting a psychiatry consult Psychiatry consult appreciated Suspect AMS is secondary to age-indeterminate lacunar stroke + acute illness A.m. CBC, BMP, CRP, A1c, fasting lipid panel, mag (2) Lacunar stroke: Plan: Head CT on arrival revealed a 1.3 cm hypodense left cerebral periventricular focus new since 08/20/2023 suggestive of age-indeterminate lacunar stroke Brain MRI ordered, pending from the morning of 12/08 Echocardiogram ordered, pending for the morning of 12/08 PT/OT evaluations appreciated (3) Cellulitis: Plan: Bruising on the right elbow and right leg, which patient's reports is secondary to falls A/P CT noted fat stranding and calcifications in the RUQ abdomen, which could represent cellulitis 15.36 with a neutrophil predominance; afebrile; procalcitonin elevated at 2.42 Possible source of infection unknown; ?Skin/non-severe cellulitis; will cover with Rocephin 2000mg IV x 1 Due to national blood culture shortage will not obtain blood culture at this time CRP ordered, pending (4) Diabetes mellitus type 1, uncontrolled: Plan: Last A1c at 7.9% on 07/15/2023 Glucose 406 on admission Patient reports that he takes Lantus 55u BID SSI with target BSG range 110-140mg/dL T1DM diet BSG ACHS Adjust regimen as needed Pharmacy glycemic management consult in the setting of T1DM AM A1c (5) Hyperglycemia: Plan: Glucose 406 on arrival No anion gap NSS 2000 mL IV given in the ED Continue IVF resuscitation and insulin (as above) (6) Dyslipidemia: Plan: Continue statin Follow a.m. fasting lipid panel (7) Hypomagnesemia: Plan: Magnesium 1.3 on arrival Magnesium sulfate 1 g IV x 3 Recheck a.m. mag (8) Obstructive sleep apnea of adult: Plan: No longer on CPAP (9) Hypertension: (10) Hypothyroidism: Plan Disposition: Recommend admission to [facility] (please see Dr. Lockhart's attestation for any changes to treatment plan overnight) Full code T1DM diet VTE PPx: SCDs History of Present Illness Chief Complaint: Altered mental status Primary Care Provider: Jorje Iyer MD Arturo is a 63-year-old male with PMH of T1DM, dyslipidemia, HTN, hypothyroidism, and LUCIA. He presented via EMS on 12/07 after a bystander called 911 while the patient was driving erratically. Patient appeared confused on EMS arrival, and had a BSG of 400. At time of admission, patient is a poor historian. He cannot provide history or explain why he is in the hospital. His (Jennifer) is at the bedside provides most of the history. She reports that she got a call while she was at work that her had been driving on the wrong side of the road. reports he has had intermittent balance issues where some days he is fine, and some days he has not. He had a syncopal episode 3 weeks ago where he fell in a store; was given fluid at the time as his sugar was very low. She then reports another episode of falling recently where he scraped his right elbow and right knee. While patient denies all symptoms, is adamant that he has been off balance and has been increasingly weak specifically in his right leg. No history of stroke to 's knowledge. No slurred speech or facial droop appreciated. Patient is unsure if he took his regular morning medications today; he does manage his own medicine at home. He does believe that he took insulin 55u this morning, and can confirm that he takes 55 units twice daily. Patient denies smoking, tobacco use, or recent alcohol use. He is oriented to name, , month, and the location; he is not oriented to year, day of the week, or purpose in the hospital. No sick contacts. No supplemental oxygen at baseline. No CPAP at night (he used to use this but no longer does). Patient reports he does not want to stay overnight. Patient is hypertensive at 162/76 at time of admission; vitals otherwise stable. ED course: Magnesium sulfate 1 g IV NSS 2000 mL IV ROS: Patient endorses dry cough, and stomach discomfort (last night; resolved). Patient denies fever, chills, night-sweats, confusion, balance issues, lightheadedness, dizziness, confusion, difficulty swallowing, HERRERA, chest pain, SOB, changes in urinary/bowel habits, vomiting, and diarrhea. While patient reports he is not amenable to staying overnight, patient's would like him to be admitted to the hospital. Discussed risks/benefits of leaving AGAINST MEDICAL ADVICE with both the patient and patient's at bed side. At time of admission, patient does not appear to exhibit medical capacity. (1) He is unable to apply risks/benefits and communicate them back to me effectively (these risks/benefits were explained to the patient moment's before, and included potential sequelae, such as recurrent falls, car accidents, syncope, worsening of symptoms, or ). (2) Patient does not acknowledge that he had a stroke or that he may have an acute illness. At time of admission, he is unable to explain why he was brought into the hospital today. Patient's requests that he be seen by psychiatry. She reports that he has "not been thinking clearly" for the past 3 months, and that this has been worsening over the past few weeks. She also reports that he was driving erratically on Wednesday, and she did not feel safe with her child in the car. Since Wednesday, she has been hiding the keys so that he cannot drive. While patient cannot be 302'd, will reach out to psychiatry. Allergies Allergy/AdvReac Type Severity Reaction Status Date / Time bacitracin Allergy Mild contact Verified 11/24/23 09:33 dermatitis with eye bacitracin dog dander Allergy Mild Congestion Verified 11/24/23 09:33 horse dander Allergy Unknown Allergy Verified 11/24/23 09:33 testing + house dust Allergy Unknown Allergy Verified 11/24/23 09:33 testing + Home Medications Medication Instructions Recorded Confirmed Type OneTouch Delica Lancets 33 gauge #300 ea 02/01/19 12/08/23 Rx (lancets) OneTouch Verio test strips (blood #300 ea 11/10/19 12/08/23 Rx sugar diagnostic) Dexcom Volunteer Manager (blood-glucose #1 ea 03/07/20 12/08/23 Rx meter,continuous) fluticasone propionate 50 1 spray intranasal DAILY PRN 09/29/21 12/08/23 History mcg/actuation nasal Congestion spray,suspension naproxen 500 mg tablet,delayed 500 mg PO .QD PRN pain #90 tabs 11/27/21 12/08/23 Rx release (EC-Naproxen) Dexcom G7 Volunteer Manager (blood-glucose #1 ea 07/07/22 12/08/23 Rx meter,continuous) gabapentin 300 mg capsule 300 mg PO .COMPLEX #540 caps 08/03/22 12/08/23 Rx insulin glargine 100 unit/mL (3 55 unit (0.55 mL) subcut BID #105 08/31/22 12/08/23 Rx mL) subcutaneous pen (Lantus mL Solostar U-100 Insulin) mecobalamin (vitamin B12) 1,000 2,000 mcg (2 x 1,000 mcg) 11/27/22 12/08/23 Rx mcg disintegrating sublingual DAILY #60 tabs tablet,sublingual omeprazole 40 mg capsule,delayed 40 mg PO QAM #90 caps 12/29/22 12/08/23 Rx release econazole 1 % topical cream 1 applic topical BID PRN skin 01/28/23 12/08/23 Rx irritation #30 grams Dexcom G7 Sensor (blood-glucose #9 ea 04/21/23 12/08/23 Rx sensor) Novolog FlexPen U-100 Insulin 100 See Rx Instructions .Route 05/03/23 12/08/23 Rx unit/mL (3 mL) subcutaneous .COMPLEX #90 mL (insulin aspart U-100) bumetanide 2 mg tablet 2 mg PO QAM #90 tabs 06/07/23 12/08/23 Rx minocycline 100 mg capsule 100 mg PO BID #180 caps 06/28/23 12/08/23 Rx pen needle, diabetic 31 gauge x #600 ea 07/15/23 12/08/23 Rx 5/16" (BD Ultra-Fine Short Pen Needle) furosemide 20 mg tablet (Lasix) 20 mg PO DAILY #10 tabs 07/16/23 12/08/23 Rx pseudoephedrine HCl 120 mg 120 mg PO BID #180 tabs 08/13/23 12/08/23 Rx tablet,extended release (Sudafed 12 Hour) ezetimibe 10 mg tablet (Zetia) 10 mg PO QPM #90 tabs 09/13/23 12/08/23 Rx levothyroxine 25 mcg tablet 25 mcg PO QAM #90 tabs 09/13/23 12/08/23 Rx meloxicam 15 mg tablet 15 mg PO QPM #90 tabs 09/13/23 12/08/23 Rx montelukast 10 mg tablet 10 mg PO QPM 90 days #90 tabs 09/13/23 12/08/23 Rx alfuzosin 10 mg tablet,extended 10 mg PO BID #180 tabs 09/28/23 12/08/23 Rx release 24 hr betamethasone dipropionate 0.05 % 1 applic topical DAILY PRN Skin 10/15/23 12/08/23 History lotion Irritation glucagon 1 mg/0.2 mL subcutaneous 1 mg subcut DIRECTED PRN for 10/15/23 12/08/23 History auto-injector (Gvoke HypoPen hypoglycemic epidoses 2-Pack) ketoconazole 2 % shampoo 1 applic topical 2XWK 10/15/23 12/08/23 History spironolactone 25 mg tablet 25 mg PO QAM #90 tabs 11/02/23 12/08/23 Rx atorvastatin 80 mg tablet 80 mg PO QPM #90 tabs 11/16/23 12/08/23 Rx levothyroxine 200 mcg tablet 200 mcg PO QAM #90 tabs 11/16/23 12/08/23 Rx losartan 100 mg tablet 100 mg PO QAM #90 tabs 11/16/23 12/08/23 Rx triamcinolone acetonide 0.5 % 1 applic topical BID PRN Skin 11/19/23 12/08/23 Rx topical cream Irritation #15 grams Past Med/Surg History Problem List (Updated 12/08/23 @ 21:46 by Gage Barcenas PA-C) Cellulitis Hyperglycemia Lacunar stroke Hypomagnesemia Altered mental status Right leg swelling Class 3 obesity Pancreatic abnormality Abdominal mass, right lower quadrant Blood in urine EKG abnormalities Albuminuria Diabetic nephropathy associated with type 1 diabetes mellitus Proliferative diabetic retinopathy associated with type 1 diabetes mellitus Vitamin B12 deficiency History of colon polyps Benign prostatic hyperplasia with elevated prostate specific antigen (PSA) Dysesthesia Loss of protective sensation of skin of foot Diabetes mellitus type 1, uncontrolled Diabetic peripheral neuropathy associated with type 1 diabetes mellitus Brow ptosis, bilateral Obstructive sleep apnea of adult CPAP Hypothyroidism Hypertension Dyslipidemia Medical History (Updated 12/08/23 @ 21:46 by Gage Barcenas PA-C) Pain and swelling of right lower leg Elevated serum creatinine Dermatochalasis of both upper eyelids Erectile dysfunction Allergic rhinitis Recurrent sinus infections GERD without esophagitis Psoriasis Mobitz (type) I (Wenckebach's) atrioventricular block Occasionally noted dating back to 2017 Holter monitor History of nephrolithiasis OA (osteoarthritis) of shoulder Paroxysmal atrial fibrillation Few episodes noted on 2017 sleep study, not noted on f/u 10/2016 48 hour holter monitor > no known recurrences Vitamin D deficiency Surgical History (Updated 08/27/23 @ 16:55 by Pranav Li MD) S/P blepharoplasty H/O sinus surgery History of blepharoplasty (~08/19/20) bilt History of sinus surgery B/L balloon sinuplasty (06/21/20): Grade view 1, Glidescope#4, ETT 8.0 at [facility] History of endoscopic sinus surgery Endoscopic sinus surgery (06/21/15) [facility] History of incision and drainage Rt thumb wound I&D + closure: 12/06/19: [place] [facility] [place] trigger finger release Right thumb trigger finger release: 10/17/19: [place] [facility] [place] of cataract surgery R/L History of colonoscopy History of carpal tunnel release R/L History of uvulopalatopharyngoplasty S/P appendectomy Family History Father Diabetes Sleep apnea Pacemaker Other No significant family history Denies family history of Ovarian cancer Prostate cancer Myocardial infarction Breast cancer Colorectal cancer Social History Smoking Status: Unknown if ever smoked Second Hand Exposure: No; Do You Dip or Chew Tobacco: No; Hx Alcohol Use: Yes Alcohol type: hard liquor Preferred Language: Occitan Communication Ability: Effective Visual Impairment: No Limitations Hearing Ability: Normal 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: No Beliefs That Will Affect Care: None marital status: Current Living Situation: Spouse Current Living Situation Comment: Frome home with current occupational status: employed 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 Feels Safe at Home: Yes Childhood Exposure to Second-Hand Smoke: No Dental Care, Regularly: Yes Physical Activity Frequency: Does not Exercise Seatbelt Use: always Sunscreen Use: Yes Assistive Devices: CPAP and Glasses Review of Systems Review of Systems: See HPI above Physical Exam Physical Exam: General: no acute distress; non-toxic appearing; well-nourished; cooperative HEENT: normocephalic, atraumatic; no scleral icterus; PERRLA w/ EOMs intact; vision and hearing grossly intact Neck: supple; no lymphadenopathy; trachea midline; patient demonstrates ability to smile, frown, and lift eyebrows without unilateral deficits Skin: warm, dry without signs of tenting; bruising noted on the right elbow and right leg with erythema around the lesions; not warm to touch CV: chest wall NTP; RRR; S1/S2 normal; no murmurs/rubs/gallops; pulses intact and symmetric at radial, DP, and PT Lungs: no acute respiratory distress; symmetrical chest wall expansion; clear breath sounds across all lung haque w/o adventitious sounds; no wheezing ABD: Soft, NTP; BS present; no rebound/guarding; no distention MSK: no tics or fasciculations; +2 pitting noted in the LEs b/l, noneryth ematous; 5/5 field service specialist strength bilaterally; patient demonstrates ability to wiggle toes bilaterally Neuro: Patient is oriented to name//month/location, he is not oriented to year/day of the week/purpose in the hospital; some difficulty forming sentences; no facial droop; no slurred speech; reports sensation is intact and symmetric in the face/UE/LEs bilaterally Results & Data Results & Data Vital Signs (Past 12 Hours) Vital Signs Temp Pulse Pulse Resp BP Pulse Ox O2 Del Method 12/08/23 18:56 75 12/08/23 17:02 70 16 98 Room Air 12/08/23 15:41 97 12/08/23 15:41 36.6 C 76 18 162/76 H 97 Room Air Laboratory Results Abnormal lab results 12/08/23 12/08/23 12/08/23 Range/Units 15:21 15:39 17:30 WBC 15.36 H (4.8-10.8) K/ul RBC 4.53 L (4.70-6.10) M/uL Hgb 13.1 L (14.0-18.0) g/dl Hct 40.1 L (42.0-52.0) % RDW Std Deviation 46.5 H (36.4-46.3) fL Neut # (Auto) 12.54 H (1.40-6.50) K/uL [place] # (Auto) 0.84 H (0.11-0.59) K/uL Sodium 134 L (136-145) mmol/L Chloride 96 L (98-107) mmol/L Glucose 406 H* (70-99(Fasting)) mg/dl POC Glucose 430 H* (70-99) mg/dl Lactate 2.4 H* 2.1 H* (0.4-2.0) mmol/L Magnesium 1.3 L (1.7-2.4) mg/dl Total Bilirubin 1.3 H (0.2-1.0) mg/dl Troponin I High Sens 31.0 H 30.0 H (0-20) pg/ml Albumin 3.2 L (3.4-5.0) gm/dl Procalcitonin 2.42 H (0-0.5) ng/ml Ur Specific [place] (1.000-1.030) Urine Protein (Negative) Urine Glucose (UA) (Negative) Urine Ketones (Negative) Urine Blood (Negative) Urine RBC (Auto) (0-2) /hpf U Hyaline Cast (Auto) (0-2) /lpf 12/08/23 12/08/23 Range/Units 17:47 18:56 WBC (4.8-10.8) K/ul RBC (4.70-6.10) M/uL Hgb (14.0-18.0) g/dl Hct (42.0-52.0) % RDW Std Deviation (36.4-46.3) fL Neut # (Auto) (1.40-6.50) K/uL [place] # (Auto) (0.11-0.59) K/uL Sodium (136-145) mmol/L Chloride (98-107) mmol/L Glucose (70-99(Fasting)) mg/dl POC Glucose 365 H* (70-99) mg/dl Lactate (0.4-2.0) mmol/L Magnesium (1.7-2.4) mg/dl Total Bilirubin (0.2-1.0) mg/dl Troponin I High Sens (0-20) pg/ml Albumin (3.4-5.0) gm/dl Procalcitonin (0-0.5) ng/ml Ur Specific [place] 1.034 H (1.000-1.030) Urine Protein 4+ H (Negative) Urine Glucose (UA) 3+ H (Negative) Urine Ketones 2+ H (Negative) Urine Blood 2+ H (Negative) Urine RBC (Auto) 3-5 H (0-2) /hpf U Hyaline Cast (Auto) 11-20 H (0-2) /lpf Diagnostic Findings Chest X-Ray 12/08/23 15:30 XR chest 1V portable CLINICAL HISTORY: weakness TECHNIQUE: Single frontal radiograph of the chest was obtained. Comparison: Comparison is made to chest radiograph 08/20/2023 FINDINGS: Exam is limited by underpenetration. The cardiomediastinal silhouette is normal. The lungs are clear. There is blunting of the costophrenic angle on the left. IMPRESSION: Blunting of the left costophrenic angle may represent atelectasis versus trace effusion. ACT 112: Negative or not required by law. Electronically signed by: Jesus Arreola M.D. 12/08/2023 4:[address] 12/08/23 15:30 CT head/brain wo con CLINICAL HISTORY: 63 years-old Male with altered mental status. Acutely altered mental status TECHNIQUE: Multiple axial CT images of the head were obtained without contrast. A dose lowering technique was utilized adhering to the principles of ALARA. CT DOSE: 625.8 mGy.cm COMPARISON: 08/20/2023 FINDINGS: No acute intracranial hemorrhage, midline shift, intracranial mass, hydrocephalus, territorial ischemia or abnormal extra-axial collection. Involutional changes with white matter hypodensities suggestive of chronic microvascular ischemic disease. Cerebral vascular calcifications. There is a new ill-defined hypodense focus in the periventricular left temporoparietal distribution on image 19 series 2 measuring 1.37 m. The calvarium is intact. Prior bilateral lens repair. The paranasal sinuses, mastoid air cells, and middle ear cavities are clear. IMPRESSION: 1. No acute intracranial hemorrhage, midline shift or acute territorial infarct. 2. 1.3 cm hypodense left cerebral periventricular focus is new from the 08/20/2023 exam and is suggestive of an age-indeterminate lacunar infarct. ACT 112: Negative or not required by law. The above report was generated using voice recognition software. It may contain grammatical, syntax or spelling errors. Electronically signed by: Jas Multani M.D. 12/08/2023 4:24 PM Abdomen/Pelvis CT 12/08/23 18:13 Exam(s): CT ABDOMEN + PELVIS With Contrast IV Amt: 94ml EXAM: CT Abdomen and Pelvis With Intravenous Contrast CLINICAL HISTORY: Reason for exam: abdominal pain; vomiting. TECHNIQUE: Axial computed tomography images of the abdomen and pelvis with intravenous contrast. CTDI is 28.14 mGy and DLP is 1605.89 mGy-cm. Automated exposure control was utilized for the study. A dose lowering technique was utilized adhering to the principles of ALARA. CONTRAST: Patient received 94ml of IV contrast COMPARISON: CT abdomen/pelvis on 10/15/2023 FINDINGS: Lung bases: Lower lung atelectasis. Pleural space: Trace left pleural effusion. ABDOMEN: Liver: Unremarkable. No mass. Gallbladder and bile ducts: Unremarkable. No calcified stones. No ductal dilation. Pancreas: Atrophy of the pancreas. Similar hyperdense lesion along the pancreatic body. No ductal dilation. Spleen: Small splenule. Borderline size of the spleen. Adrenals: Unremarkable. No mass. Kidneys and ureters: Small left renal cyst. Other small hypodensity in the left kidney is too small to definitively characterize. Nonspecific bilateral perinephric fat stranding. No hydronephrosis or obstructing ureteral stone. Stomach and bowel: Evaluation of the stomach is limited by underdistention. Gastritis or neoplasm would be difficult to exclude. Diverticulosis without evidence of diverticulitis. No small bowel obstruction. PELVIS: Appendix: Prior appendectomy. Bladder: Mild prominence of the bladder wall is nonspecific. Please correlate with urinalysis if concerned for cystitis. Reproductive: Mild prostatomegaly. ABDOMEN and PELVIS: Intraperitoneal space: Unremarkable. No free air. No significant fluid collection. Bones/joints: No acute fracture. No dislocation. Soft tissues: Nonspecific fat stranding and calcifications in the right upper anterior abdominal wall subcutaneous tissues. Body wall edema with skin thickening of the pannus at the inferior edge of the [id number]. Cellulitis is not included. Small fat-containing bilateral inguinal hernias. Small to moderate umbilical hernia containing fat and nonspecific fat stranding. Vasculature: Atherosclerotic changes of the vasculature. No abdominal aortic aneurysm or dissection. Lymph nodes: Unremarkable. No enlarged lymph nodes. Other findings: Atrophy of the right chest pain. IMPRESSION: 1. Evaluation of the stomach is limited by underdistention. Gastritis or neoplasm would be difficult to exclude. 2. Nonspecific fat stranding and calcifications in the right upper anterior abdominal wall subcutaneous tissues. Body wall edema with skin thickening of the pannus at the inferior edge of the [id number]. Cellulitis is not included. 3. Mild prominence of the bladder wall is nonspecific. Please correlate with urinalysis if concerned for cystitis. 4. Trace left pleural effusion. 5. Mild prostatomegaly. 6. Small to moderate umbilical hernia containing fat and nonspecific fat stranding. 7. Similar hyperdense lesion along the pancreatic body. Electronically signed by: Denise Walton M.D. 12/08/23 19:42 PM ECG Additional Comments: ECG revealed sinus rhythm with first-degree AV block at 76 bpm; QTc 454 Code Status & VTE Plan Code Status Full code (discussed with patient and patient's at bedside) VTE Prophylaxis Plan VTE Prophylaxis will be ordered: Yes Supervising Physician Co-Signing Physician Notes Attending addendum: I have physically seen this patient, have supervised the DINORAH's activities, and agree with the H&P unless as otherwise noted. Assessment and Plan: Confusion- Patient was brought to the emergency department, after with driving erratically bystanders called 911 at that time. Per his , patient has been acting that way for the past 3 days Contributing factors including but not limited to: Urinary tract infection, cellulitis, a 1.3 cm left cerebral age-indeterminate lacunar infarct that was new from 08/20/2023, and hyperglycemia associated with poorly controlled diabetes Patient was somewhat combative and agitated along with confusion while in the ED, and did receive sedation including Haldol, Ativan and Benadryl combination from the ED Patient's was in agreement with sedation, being concerned that he would try to drive again and hurt himself or others CT of abdomen and pelvis revealed a number of nonspecific findings, including possibility of cystitis consistent with prostamegaly, and cellulitis associated with body wall edema and thickened pannus. 1.3 cm left cerebral age-indeterminate lacunar infarct- As noted on CT scan of head MRI brain was ordered for further assessment of stroke, however, patient was initially agitated as noted and able to be performed, and then went later on more sedated, the MRI unit was down The patient will be admitted to telemetry for serial cardiac enzymes, serial EKG's, cardiac rhythm monitoring and a 2-D echocardiogram with Dopplers. Diabetes mellitus- Glucose 406 on admission Continue adjusted glargine dosing as noted Based on SSI Check hemoglobin A1c Urinary tract infection- Follow urine culture sensitivity Ceftriaxone 2 g IV daily Cellulitis- Right upper quadrant of abdomen Empiric ceftriaxone 2 g IV daily and follow response Hypomagnesemia- Magnesium 1.3 on admission received 3 g magnesium sulfate IV Recheck laboratories in a.m. PG Care Time/CCT Total # of Minutes Spent Total Time Spent with Patient: Total time spent is greater than 50% in coordination of care (as documented) at patient's floor/unit and/or counseling patient: Coding [place] [address] INT INP/OBS CARE 3/75MIN Patient Type Established Medical Decision Making High Complexity Diagnoses Altered mental status R41.82 Lacunar stroke I63.81 Cellulitis L03.90 Diabetes mellitus type 1, uncontrolled E10.65 Hyperglycemia R73.9 Dyslipidemia E78.5 Hypomagnesemia E83.42 Obstructive sleep apnea of adult G47.33 Hypertension I10 Hypothyroidism E03.9
--- NOTE | 2023-12-08 21:23 | Electrocardiogram Report ---
Test Reason : Blood Pressure : */* mmHG Vent. Rate : 76 BPM Atrial Rate : 76 BPM P-R Int : 252 ms QRS Dur : 120 ms QT Int : 404 ms P-R-T Axes : 115 34 -7 degrees QTcB Int : 454 ms Sinus rhythm with 1st degree A-V block Right bundle branch block Abnormal ECG When compared with ECG of 20-Aug-2023 10:36, No significant change was found Confirmed by Demarco Dan ([id number]) on 12/08/2023 9:23:05 PM Referred By: Confirmed By: Demarco Dan
[2023-12-08] MEDS: diphenhydrAMINE 50 MG/ML VIAL IM STA (22:19)
[2023-12-08] MEDS: HALOPERIDOL LACTATE 5 MG/ML 1 ML VIAL IM STA (22:19)
[2023-12-08] MEDS: LORazepam 1 MG/1 ML SYR ED Inj Use IM STA (22:20)
[2023-12-08] MEDS: LORazepam 1 MG/1 ML SYR ED Inj Use IV STA (22:20)
[2023-12-08] MEDS: cefTRIAXone SODIUM 2,000 MG/50 ML BAG IV STA (22:36)
[2023-12-08] MEDS: SODIUM CHLORIDE 0.9% 1,000 ML IV STA (22:39)
[2023-12-08 23:16] LABS: C Reactive Protein 11.29 mg/dl (0-0.5)
[2023-12-08] MEDS: MAGNESIUM SULFATE / D5W 1 GM/100 ML BAG IV SCH (23:47)
[2023-12-09] MEDS ORDERED: FLUTICASONE PROPIONATE NA SPR 16 GM BTL PRN (00:57)
[2023-12-09] MEDS ORDERED: GLUCOSE 40% GEL 15 GM TUBE PO PRN (00:57)
[2023-12-09] MEDS ORDERED: ECONAZOLE NITRATE 1% CRM 15 GM TUBE TOP PRN (00:57)
[2023-12-09] MEDS ORDERED: PHARMACY GLYCEMIC MGMT CONSULT PRN (00:57)
[2023-12-09] MEDS ORDERED: GLUCAGON FOR INJ 1 MG VIAL SQ PRN (00:57)
[2023-12-09] MEDS ORDERED: ACETAMINOPHEN 325 MG TAB PO PRN (00:57)
[2023-12-09] MEDS ORDERED: GLUCOSE 10 TAB/TUBE PO PRN (00:57)
[2023-12-09] MEDS ORDERED: DEXTROSE 50% 50 ML SYRINGE IV PRN (00:57)
[2023-12-09] MEDS: INSULIN ASPART PER UNIT CHARGE SC SCH (01:48)
[2023-12-09] MEDS: LANTUS PER UNIT CHARGE SQ SCH ×2 (01:48→21:13)
[2023-12-09] MEDS: ATORVASTATIN 40 MG TAB PO SCH (01:58)
[2023-12-09] MEDS: EZETIMIBE 10 MG TAB PO SCH (01:58)
[2023-12-09] MEDS: GABAPENTIN 300 MG CAP PO SCH ×2 (01:59→08:45)
--- NOTE | 2023-12-09 03:10 | Communication Note ---
Date of Service: December 09, 2023 Notified by nursing of concern for lethargy and unable to take evening medications, after 2mg of Ativan, 5mg Haldol and 50mg of Benadryl that he rece ived in the ED at 2220. Dr. Castillo, Dr. Pickering and Dr. Lockhart all evaluated the patient at bedside. He was easily arousable and able to answer questions. No new focal neurologic defitis.
--- OUTSIDE RECORDS SUMMARY | 2023-12-09 05:52 | External Medical Summary | Summary of Care ---
Author Name Unknown Organization [facility] Address [address] [place] [address] Phone [phone] Care Team Providers Care Trauma Director Name Role Phone Jorje Steven MD Care Provider Encounter Details Date Type Department Care Team (Latest Contact Info) Description 08/12/2023 11:05 AM EDT - 08/12/2023 11:59 PM EDT Hospital Encounter Radiology Film File [address] [place], [place] [id number] Discharge Disposition: Home - Self Care Allergies Active Allergy Reactions Criticality Noted Date Comments Bacitracin Low 09/29/2021 Other Reaction(s): contact dermatitis with eye bacitracin Environmental Other (Please comment) 09/23/2009 Dust,cat and dog, mold ,pollen, ragweed. documented as of this encounter (statuses as of 12/04/2023) Medications Medication Sig Dispensed Refills Start Date End Date Status LANTUS 100 UNIT/ML SUBQ SOLN Inject 55 Units under the skin in the morning and 55 Units before bedtime. Active HUMALOG PEN 100 UNIT/ML SUBQ SOLN 1 unit for every 3 Carbs Active B-D ULTRAFINE III (5MM) SHORT PEN MISC As directed Active ONETOUCH ULTRA TEST STRP as directed Active COZAAR 100 MG PO TABS 1 tablet a day Active SPIRONOLACTONE 25 MG PO TABS 1 tablet a day Active BUMETANIDE 2 MG PO TABS Take 1 Tablet by mouth in the morning. Active FEXOFENADINE HCL 180 MG PO TABS 1 tablet a day Active ASTELIN 137 MCG/SPRAY NA SOLN Administer 2 Sprays into nostril as needed. Active ECONAZOLE NITRATE 1 % EX CREA as needed between toes Active DIPROLENE 0.05 % EX LOTN as needed for scalp Active KETOCONAZOLE 2 % EX SHAM as directed Active LEVOTHYROXINE SODIUM 200 MCG OR TABS 1 tablet a day Active OMEGA 3-6-9 FATTY ACIDS PO CAPS 1 capsule a day Active FISH OIL 435 MG PO CAPS 1 capsule a day Active VITAMIN D3 2000 UNIT PO CAPS 1 capsule a day Active DEONDRE ASPIRIN 325 MG PO TABS Take 81 mg by mouth in the morning. Active fluticasone (FLONASE) 50 MCG/ACT nasal spray As needed 5 05/15/2015 Active ZETIA 10 MG Tablet Take 1 Tablet by mouth at bedtime. 1 daily 5 05/31/2015 Active atorvaSTATin (LIPITOR) 80 MG Tablet Take 1 Tablet by mouth at bedtime. 1 daily 5 05/31/2015 Active omeprazole (PRILOSEC) 40 MG CPDR daily 5 05/31/2015 Active minocycline (MINOCIN) 100 MG Capsule Take 1 Capsule by mouth in the morning and 1 Capsule before bedtime. daily. 06/07/2015 Active montelukast (SINGULAIR) 10 MG Tablet Take 1 Tablet by mouth every night at bedtime. At bed time 5 05/23/2015 Active gabapentin (NEURONTIN) 300 MG Capsule Take 1 Capsule by mouth in the morning. 4 tabs in the evening and 2 tablets in the am. 06/08/2015 Active levothyroxine (LEVOXYL) 50 MCG Tablet 1 daily 3 12/20/2015 Active Gabapentin 300 MG Oral Capsule (Neurontin) take 2 capsules by mouth in the morning and 4 capsules by mouth at bedtime 540 Capsule 08/03/2022 Active Levothyroxine Sodium 200 MCG Oral Tablet (Levoxyl) Take 1 Tablet by mouth daily first thing in the morning. (at least 30 min prior to breakfast or other meds) 90 Tablet 2 12/29/2022 Active Levothyroxine Sodium 25 MCG Oral Tablet (Levoxyl) Take 1 Tablet by mouth daily first thing in the morning. (at least 30 min prior to breakfast or other meds) 90 Tablet 1 08/31/2022 Active Ezetimibe 10 MG Oral Tablet (Zetia) Take 1 Tablet by mouth every evening. 90 Tablet 1 10/01/2022 Active Montelukast Sodium 10 MG Oral Tablet (Singulair) take 1 tablet by mouth every evening 90 Tablet 1 10/01/2022 Active Alfuzosin HCl ER 10 MG Oral Tablet Extended Release 24 Hour (Uroxatral) Take 1 Tablet by mouth twice daily after the same meals each day 180 Tablet 2 10/30/2022 Active Dexcom G7 Sensor change every 10 days 6 Each 06/22/2022 Active Omeprazole 40 MG Oral Capsule Delayed Release (PriLOSEC) Take 1 Capsule by mouth in the morning. 90 Capsule 2 12/29/2022 Active Atorvastatin Calcium 80 MG Oral Tablet (Lipitor) Take 1 Tablet by mouth every evening. 90 Tablet 07/02/2022 Active Econazole Nitrate 1 % External Cream (Spectazole) Apply topically twice daily as needed for skin irritation. 180 g 01/28/2023 Active Ketoconazole 2 % External Shampoo (Nizoral) Apply to scalp twice weekly 480 mL 03/01/2023 Active Triamcinolone Acetonide 0.5 % External Cream (Aristocort) Apply topically twice daily 45 g 3 03/29/2023 Active Losartan Potassium 100 MG Oral Tablet (Cozaar) Take 1 Tablet by mouth in the morning. 90 Tablet 1 08/31/2022 Active Spironolactone 25 MG Oral Tablet (Aldactone) Take 1 Tablet by mouth in the morning. 90 Tablet 11/30/2022 Active Econazole Nitrate 1 % External Cream (Spectazole) Apply topically to affected area twice daily as needed for skin irritation 30 g 4 04/02/2023 Active Minocycline HCl 100 MG Oral Capsule (Minocin) Take 1 Capsule by mouth in the morning and 1 Capsule in the evening. 180 Capsule 2 07/02/2022 Active Meloxicam 15 MG Oral Tablet (Mobic) Take 1 Tablet by mouth every evening. 90 Tablet 1 01/28/2023 Active Dexcom G7 Sensor change every 10 days 9 Each 3 04/05/2023 Active Hospital, Clinic, or Other Facility Administered Medication Ordered Dose Route Frequency Start Date End Date Status bevaCIZumab (Avastin) inj 1.25 mgIndications:Prolifera tive diabetic retinopathy of right eye without macular edema associated with diabetes mellitus due to underlying condition (HCC),Moderate nonproliferative diabetic retinopathy of left eye with macular edema associated with diabetes mellitus due to underlying condition (HCC) 1.25 mg IZ PRN 12/07/2022 12/07/2023 Active ROPivacaine (Naropin) inj 1.5 mgIndications:Prolifera tive diabetic retinopathy of right eye without macular edema associated with diabetes mellitus due to underlying condition (HCC),Moderate nonproliferative diabetic retinopathy of left eye with macular edema associated with diabetes mellitus due to underlying condition (HCC) 1.5 mg PERINEURAL PRN 12/07/2022 12/07/2023 Active documented as of this encounter (statuses as of 12/04/2023) Active Problems Problem Noted Date Diagnosed Date Bilateral carpal tunnel syndrome 06/19/2015 Primary osteoarthritis of both hands 06/19/2015 Dyslipidemia, goal LDL below 100 09/23/2009 Obstructive sleep apnea 09/23/2009 Overview: ICD-10 update of inactive term Reflux esophagitis 09/23/2009 HTN, goal below 130/80 07/29/2009 Obesity, morbid (more than 1 00 lbs over ideal weight or BMI > 40) 06/17/2009 Overview: ICD-10 update of inactive term Type 1 diabetes mellitus wit h hemoglobin A1c goal of less than 7.0% 06/17/2009 Overview: ICD-10 update of inactive term Hypothyroidism 06/17/2009 documented as of this encounter (statuses as of 12/04/2023) Immunizations Name Administration Dates Next Due TDAP (age 10 and older)(Boostrix) 05/13/2015 documented as of this encounter Social History Tobacco Use Types Packs/Day Years Used Date Smoking Tobacco: Never Smokeless Tobacco: Never Alcohol Use Standard Drinks/Week Comments Yes 0 (1 standard drink = 0.6 oz pur e alcohol) occasional Utilities Answer Date Recorded Do you have trouble paying y our heating, water, or electric bill? (Adult - for ages 18 years and over) Not on file 08/31/2023 Is your family able to pay t he heat, water, or electric bill? (Household - for ages 0-17 years) Not on file 08/31/2023 Does your family have access to good internet? (Household - for ages 0-17 years) Not on file 08/31/2023 Social Connections Answer Date Recorded How often do you feel lonely or isolated from those around you? (Adult - for ages 18 years and over) Not on file 08/31/2023 Sex and Gender Information Value Date Recorded Sex Assigned at Not on file Gender Identity Not on file Sexual Orientation Not on file Job Start Date Occupation Industry Not on file Not on file Not on file documented as of this encounter Plan of Treatment Upcoming Encounters Date Type Department Care Team (Late st Contact Info) Description 01/25/2024 10:00 AM EST Office Visit Ophthalmology, [facility] [address] [place] [address] [place] Velazquez DO [address] [place] [address] Health Maintenance Due Date Last Done Comments Depression Screening 1970 HIV Screening 1973 Albumin/Creatinine Ratio 1976 Diabetic Foot Exam 1976 Hepatitis C Screening 1976 Zoster Vaccines (1 of 2) 1977 Cologuard 2003 Colonoscopy 2003 Colorectal Cancer Screening 2003 Fecal Occult Blood Test 2003 Sigmoidoscopy 2003 HbA1c 03/26/2010 09/23/2009 TSH 09/23/2010 09/23/2009 Lipid Panel 09/23/2014 09/23/2009 Pneumococcal Vaccine: 65+ Years (3 of 3 - PPSV23 or PCV20) 03/02/2023 03/02/2018, 04/07/2016 Diabetic Eye Exam 06/03/2023 06/02/2022, , 06/02/2022, Additional history exists COVID-19 Vaccine ( season) 2023 05/12/2023, 09/16/2021, 03/13/2021, Additional history exists GFR 10/27/2024 10/28/2023, 09/23/2009 DTap/Tdap Vaccines (3 - Td or Tdap) 06/24/2027 06/23/2017, 05/13/2015 Hepatitis B Vaccine Completed 12/24/2017, 07/23/2017, 06/23/2017, Additional history exists Influenza Vaccine (FLU shot) Completed 12/2023, 04/07/2021, 04/07/2021, Additional history exists HPV (Gardasil) Vaccine Aged Out No lo nger eligible based on patient's age to complete this topic MENINGOCOCCAL (MENACTRA/MENVEO) Aged Out No longer eligible based on patient's age to complete this topic documented as of this encounter Medical Devices Not on filedocumented as of this encounter Procedures Procedure Name Priority Date/Time Associated Diagnosis Comments RADIOLOGY EXAM - CT (IMAGES ONLY, NO REPORT) Routine 08/12/2023 11:05 AM EDT documented in this encounter Results * RADIOLOGY EXAM - CT (IMAGES ONLY, NO REPORT) (08/12/2023 11:05 AM EDT) 08/12/2023 11:0 4 AM EDT Narrative Scheduling, Silent - 12/03/2023 1:22 AM EDT This is an imaging study not interpreted or resulted by a [facility] or [facility]. Makayla ONEILL RAD CT documented in this encounter Advance Directives * Full Code (Latest Code Status on File) Date Activated Date Inactivated Comments 11/08/2023 11:18 AM 11/08/2023 5:13 PM This order reflects the patients wishes and were consensually agreed upon. Question Answer Comments Discussion of Advance Direct aide occurred with: Not Discussed due to patient's condition * Full Code Date Activated Date Inactivated Comments 11/08/2023 10:22 AM 11/08/2023 11:18 AM This order reflects the patients wishes and were consensually agreed upon. Question Answer Comments Discussion of Advance Direct aide occurred with: Not Discussed due to patient's condition Care Teams Trauma Director Relationship Specialty Start Date End Date Jorje Steevn MD [address] [address] PCP - General Internal Medicine 01/07/22 documented as of this encounter
--- OUTSIDE RECORDS SUMMARY | 2023-12-09 05:53 | External Medical Summary | Summary of Care ---
Author Name Unknown Organization [facility] Address [address] [place] [address] Phone [phone] Care Team Providers Care Fur Liner Name Role Phone Jorje Steven MD Care Provider Encounter Details Date Type Department Care Team (Late st Contact Info) Description 10/15/2023 Orders Only Gastroenterology, [facility] [address] [facility] [place] [address] Makayla Manning CRNP [address] [facility] [place] [address] Allergies Active Allergy Reactions Criticality Noted Date Comments Bacitracin Low 09/29/2021 Other Reaction(s): contact dermatitis with eye bacitracin Environmental Other (Please comment) 09/23/2009 Dust,cat and dog, mold ,pollen, ragweed. documented as of this encounter (statuses as of 12/03/2023) Medications Medication Sig Dispensed Refills Start Date [...] as of this encounter (statuses as of 12/03/2023) Active Problems Problem Noted Date Diagnosed Date [...] as of this encounter (statuses as of 12/03/2023) Immunizations Name Administration Dates Next Due TDAP [...] 01/25/2024 10:00 AM EST Office Visit Ophthalmology, [facility] [address] [place] [address] [place] Velazquez DO [address] [place] [address] Health Maintenance Due Date Last Done Comments [...] - CT (IMAGES ONLY, NO REPORT) Routine 10/15/2023 6:25 PM EDT documented in this encounter Results * RADIOLOGY EXAM - CT (IMAGES ONLY, NO REPORT) (10/15/2023 6:25 PM EDT) 10/15/2023 6:25 PM EDT Narrative Scheduling, Silent - 12/03/2023 1:24 AM EDT This is an imaging study not interpreted or resulted by a [employer] or [employer] contracted radiologist. Makayla ONEILL RAD CT documented [...] Discussed due to patient's condition Care Teams Fur Liner Relationship Specialty Start Date End Date Jorje Steven MD [address] [place] [address] PCP - General Internal Medicine 01/07/22 documented as of this encounter
--- OUTSIDE RECORDS SUMMARY | 2023-12-09 05:53 | External Medical Summary | Summary of Care ---
Author Name Unknown Organization [facility] Address [address] [place] [address] Phone [phone] Care Team Providers Care Director Of Sales Support Name Role Phone Jorje Steven MD Care Provider Reason for Visit * Reason Onset Date Comments Precert Denied 09/03/2023 PT'S INSURANCE I S HMO WITH NO OUT OF NETWORK BENEFITS Encounter Details Date Type Department Care Team ([facility] Contact Info) Description 09/03/2023 Telephone Ophthalmology, [facility] [address] [facility] [place] [address] Orlando Velazquez DO [address] [facility] [place] [address] Precert Denied (PT'S INSURANCE IS HMO WITH... Allergies Active Allergy Reactions Criticality Noted Date [...] on file documented as of this encounter Miscellaneous Notes * Telephone Encounter - Mariah Moss OSA - 09/03/2023 10:42 AM EDT SEE REFERRAL NOTE WE ARE OUT OF NETWORK WITH PLAN. [employer] DOESN'T REQUIRE APPROVAL BUT PLAN HAS NO BENEFITS FOR OUT OF NETWORK PROCEDURES. documented in this encounter Plan of Treatment Upcoming Encounters Date Type Department Care Team (Late st Contact Info) Description 01/25/2024 10:00 AM EST Office Visit Ophthalmology, [facility] [address] [place] [address] Orlando Velazquez, [address] [place] [address] Health Maintenance Due Date Last Done Comments [...] Not on filedocumented as of this encounter Advance Directives * Full Code [...] Discussed due to patient's condition Care Teams Director Of Sales Support Relationship Specialty Start Date End Date Jorje Steven MD [address] [address] PCP - General Internal Medicine 01/07/22 documented as of this encounter
--- OUTSIDE RECORDS SUMMARY | 2023-12-09 05:53 | External Medical Summary | Summary of Care ---
Author Name Unknown Organization [facility] Address [address] [place] [address] Phone [phone] Care Team Providers Care Poiser Balance Name Role Phone Jorje Steven MD Care Provider Encounter Details Date Type Department Care Team (Late st Contact Info) Description 08/12/2023 Orders Only Gastroenterology, [facility] [address] [facility] [place] [address] Makayla Manning CRNP [address] [facility] [address] Allergies Active Allergy Reactions Criticality Noted Date [...] 01/25/2024 10:00 AM EST Office Visit Ophthalmology, [facility] [address] [place] [address] Orlando Velazquez DO [address] [place] [address] Health Maintenance Due Date Last Done Comments [...] study not interpreted or resulted by a [facility] or [employer] contracted radiologist. Makayla ONEILL RAD CT documented [...] Discussed due to patient's condition Care Teams Poiser Balance Relationship Specialty Start Date End Date Jorje Steven MD [address] [place] [address] PCP - General Internal Medicine 01/07/22 documented as of this encounter
--- OUTSIDE RECORDS SUMMARY | 2023-12-09 05:53 | External Medical Summary | Summary of Care ---
Author Name Unknown Organization [facility] Address [address] [place] [address] Phone [phone] Care Team Providers Care Nailhead Setter Name Role Phone [facility] Care Provider Encounter Details Date Type Department Care Team (Latest Contact Info) Description 10/15/2023 6:25 PM EDT - 10/15/2023 11:59 PM EDT Hospital Encounter Radiology Film File [address] [place], [place] [phone] Discharge Disposition: Home - Self Care Allergies [...] 01/25/2024 10:00 AM EST Office Visit Ophthalmology, [facility] [address] [place] [address] [place] Velazquez DO [address] [place] [address] Health Maintenance Due Date Last Done Comments [...] study not interpreted or resulted by a [employer] or [employer] contracted radiologist. Makayla ONEILL RAD CT documented [...] Discussed due to patient's condition Care Teams Nailhead Setter Relationship Specialty Start Date End Date Jorje Steven MD [address] [address] PCP - General Internal Medicine 01/07/22 documented as of this encounter
[2023-12-09 06:29] LABS: Basophils # (auto) 0.05 K/uL (0.00-0.20); Basophils % (auto) 0.6 %; Eosinophils # (auto) 0.01 K/uL (0.00-0.50); Eosinophils % (auto) 0.1 %; Hematocrit (blood only) 38.7 % (42.0-52.0); Hemoglobin 12.6 g/dl (14.0-18.0); Immature Granulocytes # (auto) 0.04 K/uL (0.01-0.20); Immature Granulocytes % (auto) 0.5 %; Lymphocytes # (auto) 1.48 K/uL (1.20-3.40); Lymphocytes % (auto) 18.5 %; Mean Corpuscular Hemoglobin 28.7 pg (25.0-34.0); Mean Corpuscular Hgb Conc 32.6 g/dL (32.0-36.0); Mean Corpuscular Volume 88.2 fL (80.0-100.0); Mean Platelet Volume 12.3 fL (9.4-12.4); Monocytes # (auto) 0.94 K/uL (0.11-0.59); Monocytes % (auto) 11.8 %; Neutrophils # (auto) 5.47 K/uL (1.40-6.50); Neutrophils % (auto) 68.5 %; Platelet Count 178 K/uL (130-400); RDW Coefficient of Variation 14.5 % (11.5-14.5); RDW Standard Deviation 46.7 fL (36.4-46.3); Red Blood Count 4.39 M/uL (4.70-6.10); White Blood Count 7.99 K/ul (4.8-10.8)
--- NOTE | 2023-12-09 06:44 | Billing Data ---
Date of Service December 09, 2023 Coding Level of Care Code 01716 INT INP/OBS CARE
[2023-12-09 06:56] LABS: BUN Creatinine Ratio 15.2 (10-20); C Reactive Protein 16.42 mg/dl (0-0.5); Calcium 8.7 mg/dl (8.6-10.3); Chol HDL Ratio 2.6 (0-5); Creatinine Clr Calc Pharmacy 98.9 ml/min; Est GFR (African American) 85.9 ml/min; Est GFR (Non-African American) 74.1 ml/min; Magnesium 1.8 mg/dl (1.7-2.4); Potassium 3.6 mmol/L (3.5-5.1)
[2023-12-09 07:18] LABS: Estimated Average Glucose 203 mg/dl; Hemoglobin A1C 8.7 % (4.5-5.6)
[2023-12-09] MEDS: LEVOTHYROXINE SODIUM 25 MCG TABLET PO SCH (07:20)
[2023-12-09] MEDS: LEVOTHYROXINE SODIUM 200 MCG TABLET PO SCH (07:21)
[2023-12-09] MEDS ORDERED: INSULIN HUMAN NPH SC ONE (07:27)
--- NOTE | 2023-12-09 07:32 | Hospitalist Progress Note ---
Date of Service December 09, 2023 Assessment & Plan (1) Altered mental status: Plan: Encephalopathy, likely metabolic with lacunar infarction Patient was driving erratically on 12/07 and bystanders called 911 His is at the bedside, psychological issues have cleared. wishes for the patient to be evaluated for another day. OT therapy and PT therapy will see the patient. For his acute to subacute stroke initiated on aspirin therapy and continues on high intensity statin may benefit from rehab depending on PT evaluations Head CT on arrival revealed a 1.3 cm hypodense left cerebral periventricular focus new since 08/20/2023 suggestive of age-indeterminate lacunar stroke Brain MRI shows acute to subacute lacunar infarct in left posterior ventricular white matter Echocardiogram normal ejection fraction no regional wall motion abnormalities concentric LVH dilated right ventricle with normal systolic function PT/OT evaluations appreciated (2) Cellulitis: Plan: A/P CT noted fat stranding and calcifications in the RUQ abdomen, clinically looks consistent with panniculitis procalcitonin elevated at 2.42 Possible addition source of infection uti poa with abnormal urine ?Skin/non- severe cellulitis; Rocephin 2000mg IV x 1 awaiting sensitivities of urine Right elbow is a dry eschar does not appear actively infected Due to national blood culture shortage will not obtain blood culture at this time CRP elevated but on specific (3) Diabetes mellitus type 1, uncontrolled: Plan: uncontrolled on admission Last A1c at 7.9% on 07/15/2023 Patient reports that he takes Lantus 55u BID SSI with target BSG range 110-140mg/dL T1DM diet BSG ACHS Adjust regimen as needed Pharmacy glycemic management consult in the setting of T1DM current A1c on 926 was 8.7 (4) Dyslipidemia: Plan: Continue statin High intensity statin given recent stroke (5) Obstructive sleep apnea of adult: Plan: No longer on CPAP Plan replete hypomagnesemia Full code Admission and Anticipated Discharge Date Admission Date: December 08, 2023 Subjective Patient was seen and his was updated. The patient wants to go home. Patient is unsteady on his feet almost fell in the room with nursing. He did reasonably well with PT evaluation with PT was recommending continued rehab Subacute to acute stroke was seen and confirmed on MRI scan. Patient does not believe this diagnosis. Patient was started on aspirin today in addition to high intensity statin when she was on prehospital Patient has what appears to be panniculitis with erythema to the bottom of his pannus were awaiting urine culture results to determine if he has urine infection also Physical Exam Physical Exam: Patient is awake he is not getting out of bed he is quite gruff Cardiac exam is regular without murmurs His lungs are diminished He has a large pannus and below the umbilicus is erythematous and firm. He has no focal neurological deficits although according to his some of his issues have been cognitive Results & Data Results & Data Vital Signs (Past 12 Hours) Vital Signs Temp Pulse Pulse Resp BP BP Pulse Ox 12/09/23 07:25 62 12/09/23 07:07 99.1 F 83 17 153/78 H 94 12/09/23 06:16 83 12/09/23 03:24 98.1 F 89 18 144/82 H 94 12/09/23 01:50 12/09/23 01:38 99.0 F 79 20 141/80 H 98 12/09/23 00:15 84 20 96 12/08/23 23:00 83 17 180/94 H 97 12/08/23 22:49 74 12/08/23 22:45 71 16 168/88 H 95 O2 Del Method 12/09/23 07:25 12/09/23 07:07 Room Air 12/09/23 06:16 12/09/23 03:24 Room Air 12/09/23 01:50 Room Air 12/09/23 01:38 Room Air 12/09/23 00:15 Room Air 12/08/23 23:00 Room Air 12/08/23 22:49 12/08/23 22:45 Room Air Laboratory Results Reviewed CBC reviewed chemistry Poorly controlled glucose however the patient ate 3 servings of lunch today PG Care Time/CCT Total # of Minutes Spent Total Time Spent with Patient: Total time spent is greater than 50% in coordination of care (as documented) at patient's floor/unit and/or counseling patient: Coding Level of Care Code None Diagnoses Altered mental status R41.82 Cellulitis L03.90 Diabetes mellitus type 1, uncontrolled E10.65 Dyslipidemia E78.5 Obstructive sleep apnea of adult G47.33
[2023-12-09] MEDS: BUMETANIDE 1 MG TAB PO SCH (08:44)
[2023-12-09] MEDS: SPIRONOLACTONE 25 MG TAB PO SCH (08:46)
[2023-12-09] MEDS: PANTOprazole 40 MG TAB PO SCH (08:46)
[2023-12-09] MEDS: TAMSULOSIN HCL 0.4 MG CAP PO SCH (08:47)
[2023-12-09] MEDS: FUROSEMIDE 20 MG TAB PO SCH (08:47)
[2023-12-09] MEDS: LOSARTAN POTASSIUM 50 MG TAB PO SCH (08:48)
--- NOTE | 2023-12-09 09:39 | Pharmacy Report ---
Pharmacy Glycemic Short Note 2 - Date of Service December 09, 2023 - Glycemic Short BSG Results (Last 24 hours): 12/08/23 12/08/23 12/08/23 15:21 15:39 18:56 Glucose 406 H* POC Glucose 430 H* 365 H* 12/09/23 12/09/23 12/09/23 00:54 00:56 00:59 Glucose POC Glucose 372 H* 456 H* 351 H* 12/09/23 12/09/23 05:54 07:54 Glucose 312 H* POC Glucose 273 H OUTPATIENT ANTIDIABETIC REGIMEN: * Lantus 55 units SC BID * Novolog * Correction factor: 10 mg/dL/unit * Carb ratio: 5 g/unit * Possibly Ozempic, although there may have been confusion with this * The above was confirmed via outpatient diabetes note from Dr. Li 11/24/23 * HbA1c 8.7% * Diabetes note indicates patient may be a high glycosylator - elevated HbA1c not necessarily reflective of poor glycemic control ASSESSMENT: * 63 yo M with Type 1 diabetes, although high insulin requirements indicate patient may have mixed type 1 and type 2 diabetes * No prior inpatient stays to assess for inpatient glycemic requirements * Admission BSG's significantly elevated. Gradual trend down noted while patient was on a slightly looser Novolog correction factor as compared to home. Will tighten correction factor. Home carb ratio ordered - OK for now * Will continue home basal regimen, but will reduce dose slightly if BSG <140 mg/dL as it's unclear at this time what inpatient requirements will be. Hesitant to reduce more aggressively in a patient with T1DM. PLAN FOR INPATIENT GLYCEMIC CONTROL: * Basal insulin * Lantus 45-55 units SQ BID. See MAR for details. * Bolus insulin * NovoLog per scale ACHS or Q6hrs while NPO * Goal Range: Low 110 mg/dL - High 140 mg/dL * Correction Factor: 10 mg/dL/unit * Nutritional / Prandial insulin per carb ratio of 1 unit per 5 grams CHO consumed
--- NOTE | 2023-12-09 13:08 | Magnetic Resonance Report ---
MRI OF THE BRAIN WITHOUT IV CONTRAST CLINICAL HISTORY: Change in mental status. COMPARISON STUDY: CT of the brain dated 12/08/2023. TECHNIQUE: MRI of the brain was performed utilizing various T1 and T2-weighted sequences in the axial , sagittal, and coronal planes. IV contrast was not administered for this examination. FINDINGS: Brain parenchyma: There is age related involutional change noting mild subcortical and periventricula r microangiopathic disease. There is no hemorrhage or mass effect. There is an approximately 12 mm fo cus of restricted diffusion seen within the left posterior periventricular white matter consistent wi th an acute to subacute lacunar infarct. No additional foci of restricted diffusion are identified. G ray-white matter differentiation is preserved. No extra-axial fluid collection is seen. The cerebella r tonsils are normal in configuration. Ventricles, sulci, and cisterns: Prominent secondary to involutional change. Pituitary and sella: Unremarkable. Intracranial vasculature: Normal flow voids are maintained at the skull base. Orbits: The bony orbits are grossly intact. Orbital contents are normal in appearance noting bilatera l ocular lens implants. Sinuses and mastoids: There is evidence of previous paranasal sinus surgery. The sinuses and mastoids are clear. Calvarium: Unremarkable. Cervical cord: Partially visualized cervical spinal cord is normal in morphology and signal intensity . IMPRESSION: 1. Acute to subacute lacunar infarct in the left posterior periventricular white matter as above. 2. No additional foci of acute ischemia are seen. 3. There is no hemorrhage or mass effect. ACT 112: Negative or not required by law. Electronically signed by: Philipp Trinidad M.D. 12/09/2023 1:06 PM
[2023-12-09] MEDS: INSULIN ASPART PER UNIT CHARGE SC ONE (13:33)
--- NOTE | 2023-12-09 13:59 | XCELERA ---
[id number] [id number]
[2023-12-09 15:15] VITALS: RESP 18
[2023-12-09] MEDS: ASPIRIN 325 MG ECTAB PO ONE (16:22)
[2023-12-09] MEDS: MONTELUKAST SODIUM 10 MG TABLET PO SCH (20:58)
[2023-12-09] MEDS: MELOXICAM 7.5 MG TAB PO SCH (20:59)
[2023-12-09] MEDS: HEPARIN SOD 5,000 UNIT/0.5 ML VIAL SQ SCH (21:14)
[2023-12-09] MEDS: cefTRIAXone SODIUM 2,000 MG/50 ML BAG IV SCH (22:48)
[2023-12-10 07:26] LABS: Basophils # (auto) 0.07 K/uL (0.00-0.20); Basophils % (auto) 0.9 %; Eosinophils # (auto) 0.29 K/uL (0.00-0.50); Eosinophils % (auto) 3.8 %; Hematocrit (blood only) 36.8 % (42.0-52.0); Hemoglobin 12.3 g/dl (14.0-18.0); Immature Granulocytes # (auto) 0.03 K/uL (0.01-0.20); Immature Granulocytes % (auto) 0.4 %; Lymphocytes # (auto) 2.48 K/uL (1.20-3.40); Lymphocytes % (auto) 32.9 %; Mean Corpuscular Hemoglobin 29.4 pg (25.0-34.0); Mean Corpuscular Hgb Conc 33.4 g/dL (32.0-36.0); Mean Platelet Volume 12.3 fL (9.4-12.4); Monocytes # (auto) 0.97 K/uL (0.11-0.59); Monocytes % (auto) 12.9 %; Neutrophils % (auto) 49.1 %; Platelet Count 189 K/uL (130-400); RDW Coefficient of Variation 14.6 % (11.5-14.5); RDW Standard Deviation 46.8 fL (36.4-46.3); Red Blood Count 4.18 M/uL (4.70-6.10); White Blood Count 7.54 K/ul (4.8-10.8)
[2023-12-10 07:45] LABS: Calcium 8.7 mg/dl (8.6-10.3); Magnesium 1.6 mg/dl (1.7-2.4); Potassium 3.3 mmol/L (3.5-5.1)
[2023-12-10 09:12] LABS: BUN Creatinine Ratio 15.1 (10-20); Est GFR (African American) 84.9 ml/min; Est GFR (Non-African American) 73.3 ml/min
[2023-12-10] MEDS: POTASSIUM CHLORIDE CRTAB 20 MEQ TABCR PO STA (10:57)
[2023-12-10] MEDS: MAGNESIUM SULFATE / D5W 1 GM/100 ML BAG IV ONE (10:57)
--- NOTE | 2023-12-10 13:04 | Neurology Consultation ---
Date of Consultation December 10, 2023 Assessment & Plan (1) Lacunar stroke: (2) Altered mental status: Plan 63-year-old male with poorly controlled diabetes mellitus, presenting with altered mental status, found to have an acute to subacute lacunar infarct in the left posterior periventricular white matter. This acute infarct may have been responsible for his acute change in mental status. However, he currently does not have any specific localizing findings on his neurological examination. He has no evidence of either a receptive or expressive aphasia, no difficulty with comprehension or general cognitive functioning. He is fully oriented and appropriate. Yet, he seems to have poor insight into his current medical illness. His brain MRI does reveal a moderate degree of generalized atrophy as well as a moderate degree of chronic microvascular ischemic disease, in addition to the acute infarct. I wonder if his lack of insight and confusion as observed by nursing staff, may indicate an underlying neurocognitive disorder, possibly vascular dementia. Would recommend antiplatelet therapy, either aspirin 81 mg/day or Plavix 75 mg/day. Would recommend a CT angiogram of the head and neck, or at a minimum, a carotid ultrasound. Continue with atorvastatin 80 mg/day. May allow for permissive hypertension acutely, systolic blood pressure 140 to 160 mmHg. Further blood pressure reductions may be made gradually as an outpatient. Consultations with PT/OT/speech therapy. May need to consider obtaining outpatient formal neuropsychological evaluation to further assess his cognitive status going forward. Consider obtaining ambulatory cardiac monitoring as well. Please call with any questions. History of Present Illness Reason for Consultation: CVA Requesting Physician: Sidney Attending Physician: Fam Little MD History of Present Illness The patient is a 63-year-old male who presented to the emergency department on December 08, 2023 via EMS with confusion. He was apparently driving his car in an erratic fashion, a bystander called 911. The patient recalls having some difficulty operating his car. He was apparently behaving in a somewhat altered fashion and was demanding to leave the hospital although his spouse was uncomfortable taking him home given his confusion. He seemed to lack insight into his current condition. He was subsequently admitted with altered mental status. A CT of the head did reveal a possible acute to subacute lacunar infarct within the left cerebral periventricular area. A follow-up brain MRI was completed which did reveal an acute to subacute infarct in the left posterior periventricular white matter. I did independently review these images. He apparently has cellulitis/panniculitis and is currently receiving antibiotics. He has a history of uncontrolled type 1 diabetes mellitus and obstructive sleep apnea as well, not on CPAP. Currently, the patient continues to have poor insight into his medical condition. Otherwise, his speech and cognitive functioning seem to be intact. He denies any headache, weakness, change in vision or sensation. Allergies Allergy/AdvReac Type Severity Reaction Status Date / Time bacitracin Allergy Mild contact Verified 11/24/23 09:33 dermatitis with eye bacitracin dog dander Allergy Mild Congestion Verified 11/24/23 09:33 horse dander Allergy Unknown Allergy Verified 11/24/23 09:33 testing + house dust Allergy Unknown Allergy Verified 11/24/23 09: testing + Home Medications Medication Instructions Recorded Confirmed Type OneTouch Delica Lancets 33 gauge #300 ea 02/01/19 12/08/23 Rx (lancets) OneTouch Verio test strips (blood #300 ea 11/10/19 12/08/23 Rx sugar diagnostic) Dexcom Merchandise Carrier (blood-glucose #1 ea 03/07/20 12/08/23 Rx meter,continuous) fluticasone propionate 50 1 spray intranasal DAILY PRN 09/29/21 12/08/23 History mcg/actuation nasal Congestion spray,suspension naproxen 500 mg tablet,delayed 500 mg PO .QD PRN pain #90 tabs 11/27/21 12/08/23 Rx release (EC-Naproxen) Dexcom G7 Merchandise Carrier (blood-glucose #1 ea 07/07/22 12/08/23 Rx meter,continuous) gabapentin 300 mg capsule 300 mg PO .COMPLEX #540 caps 08/03/22 12/08/23 Rx insulin glargine 100 unit/mL (3 55 unit (0.55 mL) subcut BID #105 08/31/22 12/08/23 Rx mL) subcutaneous pen (Lantus mL Solostar U-100 Insulin) mecobalamin (vitamin B12) 1,000 2,000 mcg (2 x 1,000 mcg) 11/27/22 12/08/23 Rx mcg disintegrating sublingual DAILY #60 tabs tablet,sublingual omeprazole 40 mg capsule,delayed 40 mg PO QAM #90 caps 12/29/22 12/08/23 Rx release econazole 1 % topical cream 1 applic topical BID PRN skin 01/28/23 12/08/23 Rx irritation #30 grams Dexcom G7 Sensor (blood-glucose #9 ea 04/21/23 12/08/23 Rx sensor) Novolog FlexPen U-100 Insulin 100 See Rx Instructions .Route 05/03/23 12/08/23 Rx unit/mL (3 mL) subcutaneous .COMPLEX #90 mL (insulin aspart U-100) bumetanide 2 mg tablet 2 mg PO QAM #90 tabs 06/07/23 12/08/23 Rx minocycline 100 mg capsule 100 mg PO BID #180 caps 06/28/23 12/08/23 Rx pen needle, diabetic 31 gauge x #600 ea 07/15/23 12/08/23 Rx 5/16" (BD Ultra-Fine Short Pen Needle) furosemide 20 mg tablet (Lasix) 20 mg PO DAILY #10 tabs 07/16/23 12/08/23 Rx pseudoephedrine HCl 120 mg 120 mg PO BID #180 tabs 08/13/23 12/08/23 Rx tablet,extended release (Sudafed 12 Hour) ezetimibe 10 mg tablet (Zetia) 10 mg PO QPM #90 tabs 09/13/23 12/08/23 Rx levothyroxine 25 mcg tablet 25 mcg PO QAM #90 tabs 09/13/23 12/08/23 Rx meloxicam 15 mg tablet 15 mg PO QPM #90 tabs 09/13/23 12/08/23 Rx montelukast 10 mg tablet 10 mg PO QPM 90 days #90 tabs 09/13/23 12/08/23 Rx alfuzosin 10 mg tablet,extended 10 mg PO BID #180 tabs 09/28/23 12/08/23 Rx release 24 hr betamethasone dipropionate 0.05 % 1 applic topical DAILY PRN Skin 10/15/23 0 12/08/23 History lotion Irritation glucagon 1 mg/0.2 mL subcutaneous 1 mg subcut DIRECTED PRN for 10/15/23 12/08/23 History auto-injector (Gvoke HypoPen hypoglycemic epidoses 2-Pack) ketoconazole 2 % shampoo 1 applic topical 2XWK 10/15/23 12/08/23 History spironolactone 25 mg tablet 25 mg PO QAM #90 tabs 11/02/23 12/08/23 Rx atorvastatin 80 mg tablet 80 mg PO QPM #90 tabs 11/16/23 12/08/23 Rx levothyroxine 200 mcg tablet 200 mcg PO QAM #90 tabs 11/16/23 12/08/23 Rx losartan 100 mg tablet 100 mg PO QAM #90 tabs 11/16/23 12/08/23 Rx triamcinolone acetonide 0.5 % 1 applic topical BID PRN Skin 12/10/23 Rx topical cream Irritation #15 grams Patient History Medical History (Updated 12/08/23 @ 21:46 by Gage Barcenas PA-C) Pain and swelling of right lower leg Elevated serum creatinine Dermatochalasis of both upper eyelids Erectile dysfunction Allergic rhinitis Recurrent sinus infections GERD without esophagitis Psoriasis Mobitz (type) I (Wenckebach's) atrioventricular block Occasionally noted dating back to 2016 Holter monitor History of nephrolithiasis OA (osteoarthritis) of shoulder Paroxysmal atrial fibrillation Few episodes noted on 2016 sleep study, not noted on /u 10/2016 48 hour holter monitor > no known recurrences Vitamin D deficiency Surgical History (Updated 08/27/23 @ 16:55 by Pranav Li MD) S/P blepharoplasty H/O sinus surgery History of blepharoplasty (~08/19/20) bilt History of sinus surgery B/L balloon sinuplasty (06/21/20): Grade view 1, Glidescope#4, ETT 8.0 at [facility] History of endoscopic sinus surgery Endoscopic sinus surgery (06/21/15) [facility] History of incision and drainage Rt thumb wound I&D + closure: 12/06/19: MAC sedation at [facility] S/P trigger finger release Right thumb trigger finger release: 10/17/19: MAC sedation at [facility] History of cataract surgery R/L History of colonoscopy History of carpal tunnel release R/L History of uvulopalatopharyngoplasty S/P appendectomy Family History Father Diabetes Sleep apnea Pacemaker Other No significant family history Denies family history of Ovarian cancer Prostate cancer Myocardial infarction Breast cancer Colorectal cancer Social History Smoking Status: Unknown if ever smoked Second Hand Exposure: No; Do You Dip or Chew Tobacco: No; Hx Alcohol Use: Yes Alcohol type: hard liquor Preferred Language: Estonian Communication Ability: Effective Visual Impairment: No Limitations Hearing Ability: Normal Machine Sizer Required: No Beliefs That Will Affect Care: None marital status: Current Living Situation: Spouse Current Living Situation Comment: Frome home with current occupational status: employed 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 Feels Safe at Home: Yes Childhood Exposure to Second-Hand Smoke: No Dental Care, Regularly: Yes Physical Activity Frequency: Does not Exercise Seatbelt Use: always Sunscreen Use: Yes Assistive Devices: None Review of Systems Constitutional: no fever and no chills Eyes: no blind spots and no diplopia Ear, Nose, Mouth, Throat: no hearing loss Respiratory: no cough and no dyspnea Cardiovascular: no chest pain and no palpitations Gastrointestinal: no nausea and no vomiting Genitourinary: no dysuria Musculoskeletal: no myalgia Integumentary: + lesions and + sores Neurologic: + confusion; no localized weakness, no l oss of sensation and no headache(s) Psychiatric: no depression and no anxiety Hematologic / Lymphatic: no easy bleeding and no easy bruising Exam (Neuro) Constitutional: well developed and well nourished; no acute distress Eyes: normal visual haque by confrontation, PERRL and EOM intact bilaterally; no nystagmus Neurologic: Oriented to:: Person, Place and Time Memory: Short Term Intact and Remote Intact Attention: Span Intact and Concentration Intact Speech Fluency: negative Dysarthria or Dysfluency Speech Aphasia: negative Aphasia Fund of Knowledge: Current Events, Past History and Vocabulary Cranial Nerves: Normal II, III, IV, , V, VII, VIII, IX, X, XI and XII Motor Strength: Normal Lower Extremities and Normal Upper Extremities Motor Tone: Normal Lower Extremities and Normal Upper Extremities Muscle Bulk/Involuntary Movements: No Involuntary Movements; negative Muscle Atrophy Sensation: Light Touch Intact and Proprioception Intact; negative Pain/Temperature Intact or Vibration Intact Coordination: Dysdiadochokinesia; negative Finger-Nose Abnormal or Heel-Onofre Abnormal Deep Tendon Reflexes: Rt Triceps: 1+, Lt Triceps: 1+, Rt Biceps: 1+, Lt Biceps: 1+, Rt Brachioradialis: 1+, Lt Brachioradialis: 1+, Rt Patellar: 1+, Lt Patellar: 1+, Rt Ankle: 0 and Lt Ankle: 0 Special Tests: negative Babinski Present Results & Data Vital Signs (Past 12 Hours) Vital Signs Temp Pulse Pulse Resp BP Pulse Ox O2 Del Method 12/10/23 08:19 36.9 C 70 18 163/93 H 99 Room Air 12/10/23 07:00 Room Air 12/10/23 06:00 74 12/10/23 03:29 36.9 C 68 18 139/72 96 Room Air Laboratory Results WBC 7.54, hemoglobin 12.3, hematocrit 36.8, platelet count 189, sodium 140, po tassium 3.3, BUN 16, creatinine 1.06, glucose 63, hemoglobin A1c 8.7, magnesium 1.6, AST 17, ALT 17, CRP 16.42, triglycerides 86, cholesterol 154, LDL 77, VLDL 17, HDL 60 Diagnostic Findings An echocardiogram reveals a normal left ventricular size and systolic function, EF 55 to 60%, no regional wall motion abnormalities, moderate concentric LVH, mi ld left atrial dilation, no significant [id number] interatrial shunt. Electrocardiogram reveals sinus rhythm with first-degree AV block, right bundle branch block. Coding Level of Care Code 90635 INT INP/OBS CARE MIN Diagnoses Lacunar stroke I63.81 Altered mental status R41.82 Time Spent (min) 90 Comment Total time includes patient contact, chart review, counseling, note preparation
[2023-12-10] MEDS: LANTUS PER UNIT CHARGE SC ONE (13:29)
--- NOTE | 2023-12-10 13:30 | Pharmacy Report ---
Pharmacy Glycemic Short Note 2 - Date of Service December 10, 2023 - Glycemic Short BSG Results (Last 24 hours): 12/09/23 12/09/23 12/09/23 16:34 16:35 19:59 Glucose POC Glucose 302 H* 295 H 210 H 12/10/23 12/10/23 12/10/23 06:40 08:14 08:16 Glucose 63 L POC Glucose 66 L* 71 12/10/23 12:26 Glucose POC Glucose 223 H OUTPATIENT ANTIDIABETIC REGIMEN: * Lantus 55 units SC BID * Novolog * Correction factor: 10 mg/dL/unit * Carb ratio: 5 g/unit * Possibly Ozempic, although there may have been confusion with this * The above was confirmed via outpatient diabetes note from Dr. Li 11/24/23 * HbA1c 8.7% * Diabetes note indicates patient may be a high glycosylator - elevated HbA1c not necessarily reflective of poor glycemic control ASSESSMENT: 12/09 * Stressors stable * AM fasting BSG with hypoglycemia and notable trend down as compared to yesterday. Will significantly lower Lantus, below home regimen. Will also add an overnight check tonight - not intended to provide significantly insulin but rather a BSG check overnight given significant decrease from yesterday * Post-prandial BSG's yesterday elevated. OK to tighten CHO ratio at lunch now that BSG's have rebounded 12/08 * 63 yo M with Type 1 diabetes, although high insulin requirements indicate patient may have mixed type 1 and type 2 diabetes * No prior inpatient stays to assess for inpatient glycemic requirements * Admission BSG's significantly elevated. Gradual trend down noted while patient was on a slightly looser Novolog correction factor as compared to home. Will tighten correction factor. Home carb ratio ordered - OK for now * Will continue home basal regimen, but will reduce dose slightly if BSG <140 mg/dL as it's unclear at this time what inpatient requirements will be. Hesitant to reduce more aggressively in a patient with T1DM. PLAN FOR INPATIENT GLYCEMIC CONTROL: * Basal insulin * Lantus 35 units SQ x1 now. Additional 25-45 units tonight, depending on BSG * Bolus insulin * NovoLog per scale ACHS or Q6hrs while NPO * Goal Range: Low 110 mg/dL - High 140 mg/dL * Correction Factor: 10 mg/dL/unit * Nutritional / Prandial insulin per carb ratio of 1 unit per 4 grams CHO consumed
--- NOTE | 2023-12-10 14:11 | Hospitalist Progress Note ---
Date of Service December 10, 2023 Assessment & Plan (1) Lacunar stroke: (2) Encephalopathy acute: (3) Diabetes mellitus type 1, uncontrolled: (4) Panniculitis: (5) Chronic diastolic CHF (congestive heart failure): (6) Morbid obesity with BMI of 45.0-49.9, adult: (7) Hypertension: (8) Hypothyroidism: (9) Dyslipidemia: Plan 63-year-old male with past medical history of type 1 diabetes mellitus, chronic diastolic congestive heart failure with preserved ejection fraction, essential hypertension, morbid obesity presented to the ED with altered mental status and was found to have an acute to subacute lacunar infarct in the left posterior ventricular white matter #Acute to subacute lacunar infarct #Acute encephalopathy likely in the setting of lacunar infarct #Suspected memory impairment #Essential hypertension #Hyperlipidemia #Chronic diastolic congestive heart failure with preserved ejection fraction of 55% with stage II diastolic dysfunction Neurology saw the patient They recommended antiplatelet therapy either with aspirin 81 mg daily or Plavix 75 mg daily and to continue atorvastatin 80 mg daily Neurochecks every 4 hours A1c is 8.7 LDL is 77 HDL is 60 Total cholesterol is 154 TSH is 3.87 B12 is 456 PT/OT saw the patient and recommended acute rehab on discharge: Patient refusing acute rehab but is okay with going home with home health and walker Echo from 12/09/2023 shows EF of 55% with moderate concentric LVH and type II diastolic dysfunction, no significant valvular abnormalities, no regional wall motion abnormalities. Check carotid Dopplers per neurology recommendations I/O monitoring Daily weights Continue Bumex 2 mg daily plus spironolactone 25 mg daily Continue losartan 100 mg p.o. daily Outpatient follow-up with neurology on discharge for neuropsych testing Patient also seen by psychiatry: Awaiting network consultant recommendations #Insulin-dependent type 1 diabetes mellitus with peripheral neuropathy A1c is 8.7 Patient is on Lantus 55 units twice daily and Humalog at home Pharmacy managing glycemic control Continue gabapentin #Panniculitis Noted on CT abdomen Patient is afebrile, no white count Urine cultures pending Continue ceftriaxone IV 2 g daily and switch to oral Keflex on discharge #BPH Continue Flomax #Pancreatic lesion Patient knows about it Outpatient follow-up with PCP #Morbid obesity BMI is 49.1 Lifestyle counseling regarding diet, exercise weight loss provided #Hypokalemia #Hypomagnesemia Potassium and magnesium replacement Monitor levels CODE STATUS: Full code DVT prophylaxis: Heparin subcutaneous Discharge planning likely home with home health likely tomorrow if medically stable Care plan discussed with patient, nursing staff and updated at bedside Admission and Anticipated Discharge Date Admission Date: December 08, 2023 Subjective Patient seen and examined at bedside Patient does not want to go to rehab and wishes to go home is okay with patient coming home but is not prepared for him to come home today as she has a special needs son at home Patient was seen by neurology, bilateral carotid Dopplers recommended and patient is willing to stay Patient also saw psychiatrist, official written recommendations pending: I spoke with the psychiatrist and he informing that patient does not have decision- making capacity Patient denies any headache, dizziness, lightheadedness, chest pain, shortness of breath, nausea, vomiting, diarrhea, abdominal pain. Patient tells me he only takes Bumex and spironolactone at home and does not take furosemide Patient is ambulating with a walker and wishes to go home with a walker Review of Systems Review of Systems: As per HPI Physical Exam Physical Exam: General: No acute distress Psych: Awake and oriented to place and person HEENT: Anicteric sclera, moist oral mucosa CVS: Regular rate and rhythm Lungs: Bilateral air entry, no wheezing noted Abdomen: Soft, nontender, no rebound, no guarding, abdominal pannus with chronic skin changes noted, no erythema, no discharge noted Ext: Bilateral lower extremity chronic skin changes with edema noted Neuro: No focal motor deficits noted Results & Data Results & Data Vital Signs (Past 12 Hours) Vital Signs Temp Pulse Pulse Resp BP Pulse Ox O2 Del Method 12/10/23 08:19 36.9 C 70 18 163/93 H 99 Room Air 12/10/23 07:00 Room Air 12/10/23 06:00 74 12/10/23 03:29 36.9 C 68 18 139/72 96 Room Air Laboratory Results Laboratory Results - last 24 hr 12/09/23 12/09/23 12/09/23 16:34 16:35 19:59 WBC RBC Hgb Hct MCV MCH MCHC RDW Std Deviation RDW Coeff of Jill Plt Count MPV Immature Gran % (Auto) Neut % (Auto) Lymph % (Auto) [place] % (Auto) Eos % (Auto) Baso % (Auto) Neut # (Auto) Lymph # (Auto) [place] # (Auto) Eos # (Auto) Baso # (Auto) Immature Gran # (Auto) Sodium Potassium Chloride Carbon Dioxide Anion Gap BUN Creatinine Est Cr Clr Drug Dosing Est GFR ( Amer) Est GFR (Non-Af Amer) BUN/Creatinine Ratio Glucose POC Glucose 302 H* 295 H 210 H Calcium Magnesium 12/10/23 12/10/23 12/10/23 06:40 08:14 08:16 WBC 7.54 RBC 4.18 L Hgb 12.3 L Hct 36.8 L MCV 88.0 MCH 29.4 MCHC 33.4 RDW Std Deviation 46.8 H RDW Coeff of Jill 14.6 H Plt Count 189 MPV 12.3 Immature Gran % (Auto) 0.4 Neut % (Auto) 49.1 Lymph % (Auto) 32.9 [place] % (Auto) 12.9 Eos % (Auto) 3.8 Baso % (Auto) 0.9 Neut # (Auto) 3.70 Lymph # (Auto) 2.48 [place] # (Auto) 0.97 H Eos # (Auto) 0.29 Baso # (Auto) 0.07 Immature Gran # (Auto) 0.03 Sodium 140 Potassium 3.3 L Chloride 103 Carbon Dioxide 31 Anion Gap 6 BUN 16 Creatinine 1.06 Est Cr Clr Drug Dosing 98.0 Est GFR ( Amer) 84.9 Est GFR (Non-Af Amer) 73.3 BUN/Creatinine Ratio 15.1 Glucose 63 L POC Glucose 66 L* 71 Calcium 8.7 Magnesium 1.6 L 12/10/23 12:26 WBC RBC Hgb Hct MCV MCH MCHC RDW Std Deviation RDW Coeff of Jill Plt Count MPV Immature Gran % (Auto) Neut % (Auto) Lymph % (Auto) [place] % (Auto) Eos % (Auto) Baso % (Auto) Neut # (Auto) Lymph # (Auto) [place] # (Auto) Eos # (Auto) Baso # (Auto) Immature Gran # (Auto) Sodium Potassium Chloride Carbon Dioxide Anion Gap BUN Creatinine Est Cr Clr Drug Dosing Est GFR ( Amer) Est GFR (Non-Af Amer) BUN/Creatinine Ratio Glucose POC Glucose 223 H Calcium Magnesium Diagnostic Findings Chest X-Ray 12/08/23 15:30 XR chest 1V portable CLINICAL HISTORY: weakness TECHNIQUE: Single frontal radiograph of the chest was obtained. Comparison: Comparison is made to chest radiograph 08/20/2023 FINDINGS: Exam is limited by underpenetration. The cardiomediastinal silhouette is normal. The lungs are clear. There is blunting of the costophrenic angle on the left. IMPRESSION: Blunting of the left costophrenic angle may represent atelectasis versus trace effusion. ACT 112: Negative or not required by law. Electronically signed by: Jesus Arreola M.D. 12/08/2023 4:[address] 12/08/23 15:30 CT head/brain wo con CLINICAL HISTORY: 63 years-old Male with altered mental status. Acutely altered mental status TECHNIQUE: Multiple axial CT images of the head were obtained without contrast. A dose lowering technique was utilized adhering to the principles of ALARA. CT DOSE: 625.8 mGy.cm COMPARISON: 08/20/2023 FINDINGS: No acute intracranial hemorrhage, midline shift, intracranial mass, hydrocephalus, territorial ischemia or abnormal extra-axial collection. Involutional changes with white matter hypodensities suggestive of chronic microvascular ischemic disease. Cerebral vascular calcifications. There is a new ill-defined hypodense focus in the periventricular left temporoparietal distribution on image 19 series 2 measuring 1.37 m. The calvarium is intact. Prior bilateral lens repair. The paranasal sinuses, mastoid air cells, and middle ear cavities are clear. IMPRESSION: 1. No acute intracranial hemorrhage, midline shift or acute territorial infarct. 2. 1.3 cm hypodense left cerebral periventricular focus is new from the 08/20/2023 exam and is suggestive of an age-indeterminate lacunar infarct. ACT 112: Negative or not required by law. The above report was generated using voice recognition software. It may contain grammatical, syntax or spelling errors. Electronically signed by: Jas Multani M.D. 12/08/2023 4:24 PM Abdomen/Pelvis CT 12/08/23 18:13 Exam(s): CT ABDOMEN + PELVIS With Contrast IV Amt: 94ml EXAM: CT Abdomen and Pelvis With Intravenous Contrast CLINICAL HISTORY: Reason for exam: abdominal pain; vomiting. TECHNIQUE: Axial computed tomography images of the abdomen and pelvis with intravenous contrast. CTDI is 28.14 mGy and DLP is 1605.89 mGy-cm. Automated exposure control was utilized for the study. A dose lowering technique was utilized adhering to the principles of ALARA. CONTRAST: Patient received 94ml of IV contrast COMPARISON: CT abdomen/pelvis on 10/15/2023 FINDINGS: Lung bases: Lower lung atelectasis. Pleural space: Trace left pleural effusion. ABDOMEN: Liver: Unremarkable. No mass. Gallbladder and bile ducts: Unremarkable. No calcified stones. No ductal dilation. Pancreas: Atrophy of the pancreas. Similar hyperdense lesion along the pancreatic body. No ductal dilation. Spleen: Small splenule. Borderline size of the spleen. Adrenals: Unremarkable. No mass. Kidneys and ureters: Small left renal cyst. Other small hypodensity in the left kidney is too small to definitively characterize. Nonspecific bilateral perinephric fat stranding. No hydronephrosis or obstructing ureteral stone. Stomach and bowel: Evaluation of the stomach is limited by underdistention. Gastritis or neoplasm would be difficult to exclude. Diverticulosis without evidence of diverticulitis. No small bowel obstruction. PELVIS: Appendix: Prior appendectomy. Bladder: Mild prominence of the bladder wall is nonspecific. Please correlate with urinalysis if concerned for cystitis. Reproductive: Mild prostatomegaly. ABDOMEN and PELVIS: Intraperitoneal space: Unremarkable. No free air. No significant fluid collection. Bones/joints: No acute fracture. No dislocation. Soft tissues: Nonspecific fat stranding and calcifications in the right upper anterior abdominal wall subcutaneous tissues. Body wall edema with skin thickening of the pannus at the inferior edge of the [id number]. Cellulitis is not included. Small fat-containing bilateral inguinal hernias. Small to moderate umbilical hernia containing fat and nonspecific fat stranding. Vasculature: Atherosclerotic changes of the vasculature. No abdominal aortic aneurysm or dissection. Lymph nodes: Unremarkable. No enlarged lymph nodes. Other findings: Atrophy of the right chest pain. IMPRESSION: 1. Evaluation of the stomach is limited by underdistention. Gastritis or neoplasm would be difficult to exclude. 2. Nonspecific fat stranding and calcifications in the right upper anterior abdominal wall subcutaneous tissues. Body wall edema with skin thickening of the pannus at the inferior edge of the [id number]. Cellulitis is not included. 3. Mild prominence of the bladder wall is nonspecific. Please correlate with urinalysis if concerned for cystitis. 4. Trace left pleural effusion. 5. Mild prostatomegaly. 6. Small to moderate umbilical hernia containing fat and nonspecific fat stranding. 7. Similar hyperdense lesion along the pancreatic body. Electronically signed by: Denise Walton M.D. 12/08/23 19:42 PM Brain MRI 12/09/23 00:26 MRI OF THE BRAIN WITHOUT IV CONTRAST CLINICAL HISTORY: Change in mental status. COMPARISON STUDY: CT of the brain dated 12/08/2023. TECHNIQUE: MRI of the brain was performed utilizing various T1 and T2-weighted sequences in the axial, sagittal, and coronal planes. IV contrast was not administered for this examination. FINDINGS: Brain parenchyma: There is age related involutional change noting mild subcortical and periventricular microangiopathic disease. There is no hemorrhage or mass effect. There is an approximately 12 mm focus of restricted diffusion seen within the left posterior periventricular white matter consistent with an acute to subacute lacunar infarct. No additional foci of restricted diffusion are identified. Alvarez-white matter differentiation is preserved. No extra-axial fluid collection is seen. The cerebellar tonsils are normal in configuration. Ventricles, sulci, and cisterns: Prominent secondary to involutional change. Pituitary and sella: Unremarkable. Intracranial vasculature: Normal flow voids are maintained at the skull base. Orbits: The bony orbits are grossly intact. Orbital contents are normal in appearance noting bilateral ocular lens implants. Sinuses and mastoids: There is evidence of previous paranasal sinus surgery. The sinuses and mastoids are clear. Calvarium: Unremarkable. Cervical cord: Partially visualized cervical spinal cord is normal in morphology and signal intensity. IMPRESSION: 1. Acute to subacute lacunar infarct in the left posterior periventricular white matter as above. 2. No additional foci of acute ischemia are seen. 3. There is no hemorrhage or mass effect. ACT 112: Negative or not required by law. Electronically signed by: Philipp Trinidad M.D. 12/09/2023 1:06 PM PG Care Time/CCT Total # of Minutes Spent Total Time Spent with Patient: Total time spent is greater than 50% in coordination of care (as documented) at patient's floor/unit and/or counseling patient: Coding Level of Care Code 36066 SUB INP/OBS CARE 3/50MIN Diagnoses Lacunar stroke I63.81 Encephalopathy acute G93.40 Diabetes mellitus type 1, uncontrolled E10.65 Panniculitis M79.3 Chronic diastolic CHF (congestive heart failure) I50.32 Morbid obesity with BMI of 45.0-49.9, adult E66.01; Z68.42 Hypertension I10 Hypothyroidism E03.9 Dyslipidemia E78.5
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
--- NOTE | 2023-12-10 15:41 | Ultrasound Report ---
CAROTID ARTERY ULTRASOUND CLINICAL HISTORY: CVA COMPARISON STUDY: None. TECHNIQUE: Real-time, grayscale, and color Doppler sonography of the carotid and vertebral arteries w as performed. Images were viewed in the transverse and longitudinal planes. FINDINGS: There is no significant atherosclerotic plaque. Velocity measurements are listed below. COMMON CAROTID PEAK SYSTOLIC VELOCITY (CM/S): RIGHT 64 LEFT 67 ICA PEAK SYSTOLIC VELOCITY (CM/S): RIGHT 86 LEFT 78 Systolic ratios between the internal to common carotid arteries are normal. Antegrade flow is seen in the vertebral arteries. The external carotid arteries are patent. IMPRESSION: No evidence for a hemodynamically significant stenosis. ACT 112: Negative or not required by law. Electronically signed by: Donta Pal M.D. 12/10/2023 3:40 PM
[2023-12-10] MEDS: POTASSIUM CHLORIDE CRTAB 20 MEQ TABCR PO ONE (18:32)
[2023-12-10] MEDS: INSULIN ASPART PER UNIT CHARGE SC ONE (21:58)
[2023-12-10] MEDS: LANTUS PER UNIT CHARGE SQ SCH (21:58)
[2023-12-10] MEDS: CYANOCOBALAMIN 1000 MCG/ML VIAL IM SCH (22:06)
[2023-12-10] MEDS: MAGNESIUM OXIDE 400 MG TAB PO SCH (22:08)
[2023-12-10] MEDS: LABETALOL HCL 100 MG TAB PO ONE (23:42)
[2023-12-11] MEDS: CARBOHYDRATES FOR HYPOGLYCEMIA PO PRN (01:28)
[2023-12-11 06:56] LABS: Basophils # (auto) 0.05 K/uL (0.00-0.20); Basophils % (auto) 0.8 %; Eosinophils # (auto) 0.34 K/uL (0.00-0.50); Eosinophils % (auto) 5.3 %; Hematocrit (blood only) 37.3 % (42.0-52.0); Hemoglobin 12.3 g/dl (14.0-18.0); Immature Granulocytes # (auto) 0.02 K/uL (0.01-0.20); Immature Granulocytes % (auto) 0.3 %; Lymphocytes # (auto) 2.84 K/uL (1.20-3.40); Lymphocytes % (auto) 44.4 %; Mean Corpuscular Hemoglobin 29.2 pg (25.0-34.0); Mean Corpuscular Volume 88.6 fL (80.0-100.0); Monocytes # (auto) 0.79 K/uL (0.11-0.59); Monocytes % (auto) 12.3 %; Neutrophils # (auto) 2.36 K/uL (1.40-6.50); Neutrophils % (auto) 36.9 %; Platelet Count 182 K/uL (130-400); RDW Coefficient of Variation 14.6 % (11.5-14.5); RDW Standard Deviation 46.9 fL (36.4-46.3); Red Blood Count 4.21 M/uL (4.70-6.10)
[2023-12-11 07:31] LABS: BUN Creatinine Ratio 18.6 (10-20); Calcium 8.9 mg/dl (8.6-10.3); Creatinine Clr Calc Pharmacy 99.7 ml/min; Est GFR (Non-African American) 76.8 ml/min; Magnesium 1.6 mg/dl (1.7-2.4); Potassium 3.7 mmol/L (3.5-5.1)
[2023-12-11] MEDS: MAGNESIUM SULFATE / D5W 1 GM/100 ML BAG IV SCH (10:10)
[2023-12-11] MEDS: POTASSIUM CHLORIDE CRTAB 20 MEQ TABCR PO STA (10:10)
[2023-12-11] MEDS: carvediloL 3.125 MG TAB PO ONE (10:41)
[2023-12-11 12:19] VITALS: BP 121/82; PULSE 77; TEMP 98.1; O2SAT 97
--- NOTE | 2023-12-11 13:25 | Discharge Summary ---
Discharge Summary Date of Service December 11, 2023 Principal Dx & Hospital Course #1 = Principal Diagnosis (1) Lacunar stroke: (2) Encephalopathy acute: (3) Diabetes mellitus type 1, uncontrolled: (4) Panniculitis: (5) Chronic diastolic CHF (congestive heart failure): (6) Morbid obesity with BMI of 45.0-49.9, adult: (7) Hypertension: (8) Hypothyroidism: (9) Dyslipidemia: Plan 63-year-old male with past medical history of type 1 diabetes mellitus, chronic diastolic congestive heart failure with preserved ejection fraction, essential hypertension, morbid obesity presented to the ED with altered mental status and was found to have an acute to subacute lacunar infarct in the left posterior ventricular white matter #Acute to subacute lacunar infarct #Acute encephalopathy likely in the setting of lacunar infarct #Suspected memory impairment #Essential hypertension #Hyperlipidemia #Chronic diastolic congestive heart failure with preserved ejection fraction of 55% with stage II diastolic dysfunction Neurology saw the patient They recommended antiplatelet therapy either with aspirin 81 mg daily or Plavix 75 mg daily and to continue atorvastatin 80 mg daily A1c is 8.7 LDL is 77 HDL is 60 Total cholesterol is 154 TSH is 3.87 B12 is 456 PT/OT saw the patient and recommended acute rehab on discharge: Patient refusing acute rehab but is okay with going home with home health and walker Echo from 12/09/2023 shows EF of 55% with moderate concentric LVH and type II diastolic dysfunction, no significant valvular abnormalities, no regional wall motion abnormalities. Carotid Dopplers did not show any evidence of stenosis Continue Bumex 2 mg daily plus spironolactone 25 mg daily Continue losartan 100 mg p.o. daily Patient started on carvedilol 3.125 mg p.o. twice daily Outpatient follow-up with neurology on discharge for neuropsych testing Outpatient follow-up with heart failure clinic and PCP #Insulin-dependent type 1 diabetes mellitus with peripheral neuropathy A1c is 8.7 Patient is on Lantus 55 units twice daily and Humalog at home Continue gabapentin Patient will resume his home insulin regiment and will follow-up with his outpatient second facing baster Dr. Li: As per patient he is being set up for insulin pump by his second facing baster #Panniculitis Noted on CT abdomen Patient is afebrile, no white count Patient was treated with 2 days of IV ceftriaxone with improvement in his erythema and has been transition to oral Keflex 1000 mg p.o. 3 times daily for 5 more days of initial 7-day course. Patient takes oral minocycline through his controls operator molded goods for acne. Have asked him to hold oral minocycline while he is on Keflex and to resume oral minocycline once he has finished course of Keflex #BPH Continue Alfuzosin #Pancreatic lesion Patient has had follow-up with Makayla ONEILL at [facility] and I have advised him to follow-up with her upon discharge Outpatient follow-up with PCP #Morbid obesity BMI is 49.1 Lifestyle counseling regarding diet, exercise weight loss provided #Hypokalemia #Hypomagnesemia Potassium levels have improved with replacement Magnesium was 1.8: He will be discharged home on magnesium oxide 400 mg twice daily with outpatient follow-up with PCP to repeat labs and give further recommendations on magnesium replacement #Hypothyroidism TSH is 3.878 Continue home dose of Synthroid 225 mcg p.o. daily Outpatient follow-up with endocrinology Patient seen and examined today. He is tolerating oral diet without issues, blood pressure is under good control, he denies any chest pain or shortness of breath and he is awake and alert and answering questions appropriately. Patient's daughter and are at bedside. I have gone over the discharge care plan including medications, follow-up and recommendations with patient and his family at the bedside in great detail and answered all their questions. Patient and family verbalized understanding my instructions. Patient and family have also been advised that patient cannot drive until he is cleared by PCP/neurologist as outpatient. Patient understands that he cannot drive and has verbalized understanding of instructions. This discharge took greater than 30 minutes to coordinate Admission HPI Per Admitting Provider Arturo is a 63-year-old male with PMH of T1DM, dyslipidemia, HTN, hypothyroidism, and LUCIA. He presented via EMS on 12/07 after a bystander called 911 while the patient was driving erratically. Patient appeared confused on EMS arrival, and had a BSG of 400. At time of admission, patient is a poor historian. He cannot provide history or explain why he is in the hospital. His (Jennifer) is at the bedside provides most of the history. She reports that she got a call while she was at work that her had been driving on the wrong side of the road. reports he has had intermittent balance issues where some days he is fine, and some days he has not. He had a syncopal episode 3 weeks ago where he fell in a store; was given fluid at the time as his sugar was very low. She then reports another episode of falling recently where he scraped his right elbow and right knee. While patient denies all symptoms, is adamant that he has been off balance and has been increasingly weak specifically in his right leg. No history of stroke to 's knowledge. No slurred speech or facial droop appreciated. Patient is unsure if he took his regular morning medications today; he does manage his own medicine at home. He does believe that he took insulin 55u this morning, and can confirm that he takes 55 units twice daily. Patient denies smoking, tobacco use, or recent alcohol use. He is oriented to name, , month, and the location; he is not oriented to year, day of the week, or purpose in the hospital. No sick contacts. No supplemental oxygen at baseline. No CPAP at night (he used to use this but no longer does). Patient reports he does not want to stay overnight. Patient is hypertensive at 162/76 at time of admission; vitals otherwise stable. ED course: Magnesium sulfate 1 g IV NSS 2000 mL IV ROS: Patient endorses dry cough, and stomach discomfort (last night; resolved). Patient denies fever, chills, night-sweats, confusion, balance issues, lightheadedness, dizziness, confusion, difficulty swallowing, HERRERA, chest pain, SOB, changes in urinary/bowel habits, vomiting, and diarrhea. While patient reports he is not amenable to staying overnight, patient's would like him to be admitted to the hospital. Discussed risks/benefits of leaving AGAINST MEDICAL ADVICE with both the patient and patient's at bedside. At time of admission, patient does not appear to exhibit medical capacity. (1) He is unable to apply risks/benefits and communicate them back to me effectively (these risks/benefits were explained to the patient moment's before, and included potential sequelae, such as recurrent falls, car accidents, syncope, worsening of symptoms, or ). (2) Patient does not acknowledge that he had a stroke or that he may have an acute illness. At time of admission, he is unable to explain why he was brought into the hospital today. Patient's requests that he be seen by psychiatry. She reports that he has "not been thinking clearly" for the past 3 months, and that this has been worsening over the past few weeks. She also reports that he was driving erratically on Wednesday, and she did not feel safe with her child in the car. Since Wednesday, she has been hiding the keys so that he cannot drive. While patient cannot be 302'd, will reach out to psychiatry. Discharge Exam General: No acute distress Psych: Awake and oriented to place and person HEENT: Anicteric sclera, moist oral mucosa CVS: Regular rate and rhythm Lungs: Bilateral air entry, no wheezing noted Abdomen: Soft, nontender, no rebound, no guarding, abdominal pannus with chronic skin changes noted, no erythema, no discharge noted Ext: Bilateral lower extremity chronic skin changes with edema noted Neuro: No focal motor deficits noted Discharge Plan Discharge Items Patient Disposition: Home - Home Health Services Reason For Visit: CONFUSION Discharge Diagnosis: #Acute to subacute lacunar infarct #Acute encephalopathy likely in the setting of lacunar infarct #Suspected memory impairment #Essential hypertension #Hyperlipidemia #Chronic diastolic congestive heart failure with preserved ejection fraction of 55% with stage II diastolic dysfunction #Insulin-dependent type 1 diabetes mellitus with peripheral neuropathy #BPH #Panniculitis #Pancreatic lesion #Morbid obesity #Hypomagnesemia #Hypothyroidism Condition on Discharge: Good Activity: As commented below Activity Comment: as tolerated with assistance/Walker Driving/Machine Use: NO DRIVING UNTIL CLEARED BY PCP/NEUROLOGIST TO DRIVE Non-emergency contact: Primary Care Provider Call non-emergency contact if: you have any medication questions, your symptoms worsen and you have a fever Follow-up/Referrals: Makayla Manning CRNP [Nurse Practitioner] - Boston Stern MD [Physician] - Pranav Li MD [Physician] - Jorje Iyer MD [Primary Care Provider] - Diet: Carb Count or DM1, Heart Healthy and Low Sodium (2gm) Addtl Attending Provider Instructions: DISCHARGE INSTRUCTION TO PATIENT/FAMILY: Follow-up with your primary care provider within 1 week regarding: Posthospital discharge, medication review, medication refills and follow-up on all your medical problems, labs, blood pressure monitoring Please take all your discharge medications, discharge information and discharge instructions to all your doctors appointments. Avoid all NSAIDs including ibuprofen, Motrin, Advil, Aleve, naproxen, meloxicam, Toradol, diclofenac You have been diagnosed with a new stroke: You will need to be on aspirin 81 mg daily. Please follow-up with a neurologist and your PCP No driving or operating heavy machinery until you are cleared by PCP/neurologist as outpatient. Follow-up with your outpatient police pilot Makayla ONEILL at [facility] gastro[facility]ology and PCP regarding pancreatic lesion Follow-up with your second facing baster Dr. Li regarding type 1 diabetes follow-up Labs through PCP in 1 week: CBC, CMP, MG, VITAMIN D Pending Studies at Discharge: No Stand-Alone Forms: My [facility], Smoking Cessation Medications and DC Order Prescriptions: New cephalexin 500 mg Capsule 1,000 mg PO TID Qty: 30 0RF carvedilol 3.125 mg Tablet 3.125 mg PO BIDM Qty: 60 0RF Rx Instructions: TAKE TWICE DAILY WITH MEALS (BREAKFAST AND DINNER) magnesium oxide 400 mg (241.3 mg magnesium) Tablet 400 mg PO BID Qty: 14 0RF aspirin [Enteric Coated Aspirin] 81 mg tablet,delayed release (DR/EC) 81 mg PO DAILY Qty: 30 0RF Continued (DME) lancets [OneTouch Delica Lancets] 33 gauge misc See Rx Instructions .ROUTE .MEDSUPPLY Qty: 300 3RF Rx Instructions: test 3 times daily (DME) OneTouch Verio test strips Strip See Dose Instructions .ROUTE .MEDSUPPLY Qty: 300 3RF Dose Instruction: As directed Rx Instructions: test blood sugars 3 x daily (DME) Dexcom Digital Forensics Investigator Misc See Rx Instructions .ROUTE .MEDSUPPLY Qty: 1 0RF Rx Instructions: As directed (DME) Dexcom G7 Digital Forensics Investigator Misc See Rx Instructions .Route Qty: 1 0RF Rx Instructions: use as directed with CGM gabapentin 300 mg capsule 300 mg PO .COMPLEX Qty: 540 3RF Rx Instructions: TAKE 2 CAPSULES IN THE MORNING AND 4 CAPSULES AT BEDTIME; insulin glargine [Lantus Solostar U-100 Insulin] 100 unit/mL (3 mL) insulin pen 55 unit subcut BID Qty: 105 3RF Rx Instructions: subcut Inject 55 units in AM and 55 units and PM subcut ; mecobalamin (vitamin B12) 1,000 mcg tablet,disintegrating 2,000 mcg sublingual DAILY Qty: 60 0RF Rx Instructions: place tablet under tongue and allow to dissolve for at least30 secs before swallowing omeprazole 40 mg capsule,delayed release(DR/EC) 40 mg PO QAM Qty: 90 3RF Rx Instructions: qam econazole 1 % cream 1 applic TOP BID PRN (Reason: skin irritation) Qty: 30 5RF (DME) Dexcom G7 Sensor Device See Rx Instructions .ROUTE .MEDSUPPLY Qty: 9 3RF Rx Instructions: change every 10 days insulin aspart U-100 [Novolog FlexPen U-100 Insulin] 100 unit/mL (3 mL) insulin pen See Rx Instructions .ROUTE .COMPLEX Qty: 90 3RF Rx Instructions: Inject 80- 100 units daily; bumetanide 2 mg tablet 2 mg PO QAM Qty: 90 3RF Rx Instructions: qam (DME) pen needle, diabetic [BD Ultra-Fine Short Pen Needle] 31 gauge x 5/16" needle See Dose Instructions .ROUTE .MEDSUPPLY Qty: 600 3RF Dose Instruction: As directed Rx Instructions: use pen needles with insulin pens 6 times daily ezetimibe [Zetia] 10 mg tablet 10 mg PO QPM Qty: 90 3RF levothyroxine 25 mcg tablet 25 mcg PO QAM Qty: 90 3RF Hold Instructions: low TSH Rx Instructions: TOTAL DOSE 225 MCG--TAKES WITH 200 MCG TAB. montelukast 10 mg tablet 10 mg PO QPM 90 Days Qty: 90 3RF alfuzosin 10 mg tablet extended release 24 hr 10 mg PO BID Qty: 180 3RF Rx Instructions: administer after the same meal each day spironolactone 25 mg tablet 25 mg PO QAM Qty: 90 1RF triamcinolone acetonide 0.5 % cream 1 applic TOP BID PRN (Reason: Skin Irritation) Qty: 15 1RF Rx Instructions: 1 application topical twice a day; fluticasone propionate 50 mcg/actuation spray,suspension 1 spray intranasal DAILY PRN (Reason: Congestion) atorvastatin 80 mg tablet 80 mg PO QPM Qty: 90 3RF levothyroxine 200 mcg tablet 200 mcg PO QAM Qty: 90 3RF Rx Instructions: TOTAL DOSE 225 MCG--TAKES WITH 25 MCG TAB. losartan 100 mg tablet 100 mg PO QAM Qty: 90 3RF Rx Instructions: qam ketoconazole 2 % shampoo 1 applic TOP 2XWK Rx Instructions: APPLY TO SCALP TWICE WEEKLY betamethasone dipropionate 0.05 % lotion 1 applic TOP DAILY PRN (Reason: Skin Irritation) Rx Instructions: Apply to scalp once daily for up to 2 weeks as needed for flaring. Gvoke HypoPen 2-Pack 1 mg/0.2 mL auto-injector 1 mg subcut DIRECTED PRN (Reason: for hypoglycemic epidoses) Held minocycline 100 mg capsule 100 mg PO BID Qty: 180 3RF Hold Instructions: Resume on 12/17/23. Hold while you are taking oral antibiotic cephalexin and resume once you are finished 5 days of cephalexin Discontinued naproxen [EC-Naproxen] 500 mg tablet,delayed release (DR/EC) 500 mg PO .QD PRN (Reason: pain) Qty: 90 3RF Rx Instructions: for pain of 7/10 or greater furosemide [Lasix] 20 mg tablet 20 mg PO DAILY Qty: 10 0RF Hold Instructions: not taking any longer pseudoephedrine HCl [Sudafed 12 Hour] 120 mg tablet extended release 120 mg PO BID Qty: 180 3RF meloxicam 15 mg tablet 15 mg PO QPM Qty: 90 1RF Discharge Orders: Discharge Order- CHF (Routine); Ordered 12/11/23 Ordered By: Fam Bradley/Other Patient Handouts: Stroke and Heart Disease, High Blood Sugar (Hyperglycemia), Hypoglycemia (Low Blood Sugar), Managing Type 1 Diabetes, Heart Failure Dc Admission Data Admit Date/Time: 12/08/23 23:13 Attending Provider: Fam Little Admit Provider: Paul Lockhart Primary Care Provider: Jorje Iyer V. Other Providers: Paul Lockhart; [facility]; Boston Stern; Robyn Mitchell; Klaus Maria; Roddy Long Jr; Janice Chen; Trinidad Crockett; Alistair Gonzalez Hospital Stay Data Consultations 12/08/23 19:43 ED Decision to Admit Stat 12/10/23 10:08 Consult Neurology Routine 12/10/23 10:17 Consult Psychiatry Routine Diagnostic Imagining Performed 12/08/23 15:30 CT head/brain wo con Stat 12/08/23 18:13 CT Abd and Pelvis [CT abd pelvis IV con only] Stat 12/09/23 00:26 MR brain wo con Stat 12/10/23 14:11 Carotid duplex [US carotid doppler BI] Routine Chest X-Ray 12/08/23 15:30 XR chest 1V portable CLINICAL HISTORY: weakness TECHNIQUE: Single frontal radiograph of the chest was obtained. Comparison: Comparison is made to chest radiograph 08/20/2023 FINDINGS: Exam is limited by underpenetration. The cardiomediastinal silhouette is normal. The lungs are clear. There is blunting of the costophrenic angle on the left. IMPRESSION: Blunting of the left costophrenic angle may represent atelectasis versus trace effusion. ACT 112: Negative or not required by law. Electronically signed by: Jesus Arreola M.D. 12/08/2023 4:[address] 12/08/23 15:30 CT head/brain wo con CLINICAL HISTORY: 63 years-old Male with altered mental status. Acutely altered mental status TECHNIQUE: Multiple axial CT images of the head were obtained without contrast. A dose lowering technique was utilized adhering to the principles of ALARA. CT DOSE: 625.8 mGy.cm COMPARISON: 08/20/2023 FINDINGS: No acute intracranial hemorrhage, midline shift, intracranial mass, hydrocephalus, territorial ischemia or abnormal extra-axial collection. Involutional changes with white matter hypodensities suggestive of chronic microvascular ischemic disease. Cerebral vascular calcifications. There is a new ill-defined hypodense focus in the periventricular left temporoparietal dis tribution on image 19 series 2 measuring 1.37 m. The calvarium is intact. Prior bilateral lens repair. The paranasal sinuses, mastoid air cells, and middle ear cavities are clear. IMPRESSION: 1. No acute intracranial hemorrhage, midline shift or acute territorial infarct. 2. 1.3 cm hypodense left cerebral periventricular focus is new from the 08/20/2023 exam and is suggestive of an age-indeterminate lacunar infarct. ACT 112: Negative or not required by law. The above report was generated using voice recognition software. It may contain grammatical, syntax or spelling errors. Electronically signed by: Jas Multani M.D. 12/08/2023 4:24 PM Abdomen/Pelvis CT 12/08/23 18:13 Exam(s): CT ABDOMEN + PELVIS With Contrast IV Amt: 94ml EXAM: CT Abdomen and Pelvis With Intravenous Contrast CLINICAL HISTORY: Reason for exam: abdominal pain; vomiting. TECHNIQUE: Axial computed tomography images of the abdomen and pelvis with intravenous contrast. CTDI is 28.14 mGy and DLP is 1605.89 mGy-cm. Automated exposure control was utilized for the study. A dose lowering technique was utilized adhering to the principles of ALARA. CONTRAST: Patient received 94ml of IV contrast COMPARISON: CT abdomen/pelvis on 10/15/2023 FINDINGS: Lung bases: Lower lung atelectasis. Pleural space: Trace left pleural effusion. ABDOMEN: Liver: Unremarkable. No mass. Gallbladder and bile ducts: Unremarkable. No calcified stones. No ductal dilation. Pancreas: Atrophy of the pancreas. Similar hyperdense lesion along the pancreatic body. No ductal dilation. Spleen: Small splenule. Borderline size of the spleen. Adrenals: Unremarkable. No mass. Kidneys and ureters: Small left renal cyst. Other small hypodensity in the left kidney is too small to definitively characterize. Nonspecific bilateral perinephric fat stranding. No hydronephrosis or obstructing ureteral stone. Stomach and bowel: Evaluation of the stomach is limited by underdistention. Gastritis or neoplasm would be difficult to exclude. Diverticulosis without evidence of diverticulitis. No small bowel obstruction. PELVIS: Appendix: Prior appendectomy. Bladder: Mild prominence of the bladder wall is nonspecific. Please correlate with urinalysis if concerned for cystitis. Reproductive: Mild prostatomegaly. ABDOMEN and PELVIS: Intraperitoneal space: Unremarkable. No free air. No significant fluid collection. Bones/joints: No acute fracture. No dislocation. Soft tissues: Nonspecific fat stranding and calcifications in the right upper anterior abdominal wall subcutaneous tissues. Body wall edema with skin thickening of the pannus at the inferior edge of the [id number]. Cellulitis is not included. Small fat-containing bilateral inguinal hernias. Small to moderate umbilical hernia containing fat and nonspecific fat stranding. Vasculature: Atherosclerotic changes of the vasculature. No abdominal aortic aneurysm or dissection. Lymph nodes: Unremarkable. No enlarged lymph nodes. Other findings: Atrophy of the right chest pain. IMPRESSION: 1. Evaluation of the stomach is limited by underdistention. Gastritis or neoplasm would be difficult to exclude. 2. Nonspecific fat stranding and calcifications in the right upper anterior abdominal wall subcutaneous tissues. Body wall edema with skin thickening of the pannus at the inferior edge of the [id number]. Cellulitis is not included. 3. Mild prominence of the bladder wall is nonspecific. Please correlate with urinalysis if concerned for cystitis. 4. Trace left pleural effusion. 5. Mild prostatomegaly. 6. Small to moderate umbilical hernia containing fat and nonspecific fat stranding. 7. Similar hyperdense lesion along the pancreatic body. Electronically signed by: Denise Walton M.D. 12/08/23 19:42 PM Brain MRI 12/09/23 00:26 MRI OF THE BRAIN WITHOUT IV CONTRAST CLINICAL HISTORY: Change in mental status. COMPARISON STUDY: CT of the brain dated 12/08/2023. TECHNIQUE: MRI of the brain was performed utilizing various T1 and T2-weighted sequences in the axial, sagittal, and coronal planes. IV contrast was not administered for this examination. FINDINGS: Brain parenchyma: There is age related involutional change noting mild subcortical and periventricular microangiopathic disease. There is no hemorrhage or mass effect. There is an approximately 12 mm focus of restricted diffusion seen within the left posterior periventricular white matter consistent with an acute to subacute lacunar infarct. No additional foci of restricted diffusion are identified. Alvarez-white matter differentiation is preserved. No extra-axial fluid collection is seen. The cerebellar tonsils are normal in configuration. Ventricles, sulci, and cisterns: Prominent secondary to involutional change. Pituitary and sella: Unremarkable. Intracranial vasculature: Normal flow voids are maintained at the skull base. Orbits: The bony orbits are grossly intact. Orbital contents are normal in appearance noting bilateral ocular lens implants. Sinuses and mastoids: There is evidence of previous paranasal sinus surgery. The sinuses and mastoids are clear. Calvarium: Unremarkable. Cervical cord: Partially visualized cervical spinal cord is normal in morphology and signal intensity. IMPRESSION: 1. Acute to subacute lacunar infarct in the left posterior periventricular white matter as above. 2. No additional foci of acute ischemia are seen. 3. There is no hemorrhage or mass effect. ACT 112: Negative or not required by law. Electronically signed by: Philipp Trinidad M.D. 12/09/2023 1:06 PM Carotid Doppler Study 12/10/23 14:11 CAROTID ARTERY ULTRASOUND CLINICAL HISTORY: CVA COMPARISON STUDY: None. TECHNIQUE: Real-time, grayscale, and color Doppler sonography of the carotid and vertebral arteries was performed. Images were viewed in the transverse and longitudinal planes. FINDINGS: There is no significant atherosclerotic plaque. Velocity measurements are listed below. COMMON CAROTID PEAK SYSTOLIC VELOCITY (CM/S): RIGHT 64 LEFT 67 ICA PEAK SYSTOLIC VELOCITY (CM/S): RIGHT 86 LEFT 78 Systolic ratios between the internal to common carotid arteries are normal. Antegrade flow is seen in the vertebral arteries. The external carotid arteries are patent. IMPRESSION: No evidence for a hemodynamically significant stenosis. ACT 112: Negative or not required by law. Electronically signed by: Donta Pal M.D. 12/10/2023 3:40 PM Laboratory Results - last 48 hr 12/09/23 12/09/23 12/09/23 16:34 16:35 19:59 WBC RBC Hgb Hct MCV MCH MCHC RDW Std Deviation RDW Coeff of Jill Plt Count MPV Immature Gran % (Auto) Neut % (Auto) Lymph % (Auto) [place] % (Auto) Eos % (Auto) Baso % (Auto) Neut # (Auto) Lymph # (Auto) [place] # (Auto) Eos # (Auto) Baso # (Auto) Immature Gran # (Auto) Sodium Potassium Chloride Carbon Dioxide Anion Gap BUN Creatinine Est Cr Clr Drug Dosing Est GFR ( Amer) Est GFR (Non-Af Amer) BUN/Creatinine Ratio Glucose POC Glucose 302 H* 295 H 210 H Calcium Magnesium 12/10/23 12/10/23 12/10/23 06:40 08:14 08:16 WBC 7.54 RBC 4.18 L Hgb 12.3 L Hct 36.8 L MCV 88.0 MCH 29.4 MCHC 33.4 RDW Std Deviation 46.8 H RDW Coeff of Jill 14.6 H Plt Count 189 MPV 12.3 Immature Gran % (Auto) 0.4 Neut % (Auto) 49.1 Lymph % (Auto) 32.9 [place] % (Auto) 12.9 Eos % (Auto) 3.8 Baso % (Auto) 0.9 Neut # (Auto) 3.70 Lymph # (Auto) 2.48 [place] # (Auto) 0.97 H Eos # (Auto) 0.29 Baso # (Auto) 0.07 Immature Gran # (Auto) 0.03 Sodium 140 Potassium 3.3 L Chloride 103 Carbon Dioxide 31 Anion Gap 6 BUN 16 Creatinine 1.06 Est Cr Clr Drug Dosing 98.0 Est GFR ( Amer) 84.9 Est GFR (Non-Af Amer) 73.3 BUN/Creatinine Ratio 15.1 Glucose 63 L POC Glucose 66 L* 71 Calcium 8.7 Magnesium 1.6 L 12/10/23 12/10/23 12/10/23 12:26 16:59 20:14 WBC RBC Hgb Hct MCV MCH MCHC RDW Std Deviation RDW Coeff of Jill Plt Count MPV Immature Gran % (Auto) Neut % (Auto) Lymph % (Auto) [place] % (Auto) Eos % (Auto) Baso % (Auto) Neut # (Auto) Lymph # (Auto) [place] # (Auto) Eos # (Auto) Baso # (Auto) Immature Gran # (Auto) Sodium Potassium Chloride Carbon Dioxide Anion Gap BUN Creatinine Est Cr Clr Drug Dosing Est GFR ( Amer) Est GFR (Non-Af Amer) BUN/Creatinine Ratio Glucose POC Glucose 223 H 179 H 201 H Calcium Magnesium 12/11/23 12/11/23 12/11/23 01:26 01:43 06:22 WBC 6.40 RBC 4.21 L Hgb 12.3 L Hct 37.3 L MCV 88.6 MCH 29.2 MCHC 33.0 RDW Std Deviation 46.9 H RDW Coeff of Jill 14.6 H Plt Count 182 MPV 12.0 Immature Gran % (Auto) 0.3 Neut % (Auto) 36.9 Lymph % (Auto) 44.4 [place] % (Auto) 12.3 Eos % (Auto) 5.3 Baso % (Auto) 0.8 Neut # (Auto) 2.36 Lymph # (Auto) 2.84 [place] # (Auto) 0.79 H Eos # (Auto) 0.34 Baso # (Auto) 0.05 Immature Gran # (Auto) 0.02 Sodium 139 Potassium 3.7 Chloride 104 Carbon Dioxide 29 Anion Gap 6 BUN 19 Creatinine 1.02 Est Cr Clr Drug Dosing 99.7 Est GFR ( Amer) 89.0 Est GFR (Non-Af Amer) 76.8 BUN/Creatinine Ratio 18.6 Glucose 111 H POC Glucose 52 L* 81 Calcium 8.9 Magnesium 1.6 L 12/11/23 12/11/23 08:14 12:15 WBC RBC Hgb Hct MCV MCH MCHC RDW Std Deviation RDW Coeff of Jill Plt Count MPV Immature Gran % (Auto) Neut % (Auto) Lymph % (Auto) [place] % (Auto) Eos % (Auto) Baso % (Auto) Neut # (Auto) Lymph # (Auto) [place] # (Auto) Eos # (Auto) Baso # (Auto) Immature Gran # (Auto) Sodium Potassium Chloride Carbon Dioxide Anion Gap BUN Creatinine Est Cr Clr Drug Dosing Est GFR ( Amer) Est GFR (Non-Af Amer) BUN/Creatinine Ratio Glucose POC Glucose 83 167 H Calcium Magnesium Pending Results Patient Have Any Pending Studies at Discharge: No Discharge Instructions Given to Patient (Per Discharging Provider) DISCHARGE INSTRUCTION TO PATIENT/FAMILY: Follow-up with your primary care provider within 1 week regarding: Posthospital discharge, medication review, medication refills and follow-up on all your medical problems, labs, blood pressure monitoring Please take all your discharge medications, discharge information and discharge instructions to all your doctors appointments. Avoid all NSAIDs including ibuprofen, Motrin, Advil, Aleve, naproxen, meloxicam, Toradol, diclofenac You have been diagnosed with a new stroke: You will need to be on aspirin 81 mg daily. Please follow-up with a neurologist and your PCP No driving or operating heavy machinery until you are cleared by PCP/neurologist as outpatient. Follow-up with your outpatient police pilot Makayla ONEILL at [facility] and PCP regarding pancreatic lesion Follow-up with your second facing baster Dr. Li regarding type 1 diabetes follow-up Labs through PCP in 1 week: CBC, CMP, MG, VITAMIN D Total Time Total Time Spent Total Time Spent (In Minutes): 40 minutes Coding Level of Care Code 10796 INP/OBS DISCH >30 MIN Diagnoses Lacunar stroke I63.81 Encephalopathy acute G93.40 Diabetes mellitus type 1, uncontrolled E10.65 Panniculitis M79.3 Chronic diastolic CHF (congestive heart failure) I50.32 Morbid obesity with BMI of 45.0-49.9, adult E66.01; Z68.42 Hypertension I10 Hypothyroidism E03.9 Dyslipidemia E78.5
[2023-12-11] MEDS: ASPIRIN 81 MG ECTAB PO SCH (13:50)
[2023-12-11] MEDS: cephALEXin 500 MG CAP PO SCH (13:50)
[2023-12-11] MEDS: NYSTATIN OINT 15 GM TUBE EXT SCH (13:50)
[2023-12-11] MEDS ORDERED: INSULIN ASPART PER UNIT CHARGE SC SCH ×2 (16:30→21:00)
[2023-12-11] MEDS ORDERED: carvediloL 3.125 MG TAB PO SCH (17:00)
[2023-12-12] MEDS ORDERED: CYANOCOBALAMIN (B-12) 500 MCG TABLET PO SCH (09:00)
== END 2023-12-11 15:03 | disposition home health service (06) | DRG 64 ==
LOC: ED 15:13 → 4W 23:13 → SUATTDRO 23:13 → 4W 12-09 00:30

== ENCOUNTER 2024-01-15 01:53 | Observation (INO) ==
--- NOTE | 2024-01-15 02:25 | Emergency Department Note ---
Impression & Plan Diabetic ketoacidosis, High anion gap metabolic acidosis, Generalized weakness ED Provider Note NAME: SAM CHAVEZ AGE: 63 SEX: M : 1960 ARRIVES VIA: Ambulance INFORMANT: Patient ED PROVIDER(S): Austin Moses MD CHIEF COMPLAINT: Weakness, hypeglycemia. PLAN: Disposition: Admit MEDICAL DECISION MAKING: The patient is a 63-year-old gentleman with a past medical history of type 1 diabetes, history of CVA, hypertension and hyperlipidemia, LUCIA who presents to emergency department via EMS for generalized weakness where he reports slipping out of bed last night and was unable to get up due to weakness despite family assistance. He also noted his blood sugar has been high. He recently was prescribed and obtained an insulin pump but he has yet to be trained on it so has not started to use this. He otherwise reports taking his insulin as usual. He denies any fevers, chills, cough congestion, GI/ symptoms. On evaluation patient is no distress, afebrile with stable vital signs. Appears clinically dry. He is moving all extremities equally with generalized weakness and no focal deficit. EKG without overt acute ischemia. CXR negative for acute cardiopulmonary process per my personal preliminary review/interpretation. WBC 14K with neutrophilia but no left shift, nonspecific. H/H and platelets within normal limits. Chemistry with anion gap of 19 and bicarb of 18 though with pH of 7.29 consistent with early DKA. Creatinine is 1.64 consistent with patient's clinical dry appearance as is increased osmolality of 316. Glucose is 625 on arrival. LFTs are unremarkable. High-sensitivity troponin is 22 with delta 2-hour Hartstein troponin 24, nonspecific. Lipase not elevated. TSH is 15 but with free T4 within normal limits. UA with 3+ ketones consistent with patient's early DKA/dehydration. CT of the head was obtained/ordered for completeness given patient's generalized weakness but no evidence of head trauma on exam. Patient agrees plan for admission for further management. IV fluid hydration initiated. Repeat BSG pending. Case was discussed with Dr. Lockhart, [facility] hospitalist, who will evaluate the patient for admission. CT of the head subsequent negative for acute abnormalities. Further management including insulin drip per admitting team. Triage Nursing notes reviewed and agree them. Prior/external medical records reviewed Vital Signs: reviewed Differential diagnosis: Infection, dehydration, metabolic abnormality, hypo/hyperglycemia, electrolyte disturbance, anemia, hypoxia, cardiac sources, intracerebral event, toxicologic, neurologic, as well as other pathologies. ER treatment provided: See below. Diagnostics interpreted by me: ECG: Sinus rhythm with premature supraventricular complexes, 74 bpm, incomplete right bundle-branch block, nonspecific T wave abnormality, no overt ST elevation or depression, QTc 424, QTc 108. Cardiac Monitoring: An order for continuous cardiac monitoring was placed and demonstrated Sinus rhythm with premature supraventricular complexes, 74 bpm. Laboratory studies: See below Imaging studies: See below Consultation(s): Case was discussed with Dr. Lockhart, [facility] hospitalist, who will evaluate the patient for admission. HPI: The patient is a 63-year-old gentleman with a past medical history of type 1 diabetes, history of CVA, hypertension and hyperlipidemia, LUCIA who presents to emergency department via EMS for generalized weakness where he reports slipping out of bed last night and was unable to get up due to weakness despite family assistance. He also noted his blood sugar has been high. He recently was prescribed and obtained an insulin pump but he has yet to be trained on it so has not started to use this. He otherwise reports taking his insulin as usual. He denies any fevers, chills, cough congestion, GI/ symptoms. ROS: See above HPI for pertinent positives & negatives. A total of 10 systems reviewed and were otherwise negative. VITALS:See Below PHYSICAL EXAMINATION: GENERAL: Awake, alert, fatigued-appearing, in no distress, BMI 43.4. HENT: Normocephalic, atraumatic. Oropharynx with dry mucous membranes and otherwise unremarkable. EYES: Normal conjunctiva. Sclera non-icteric. EOMI. No nystamgus. PEARRL. NECK: Supple. No nuchal rigidity. FROM. No JVD. RESPIRATORY: Clear to auscultation. CARDIAC: Regular rate, normal rhythm. Extremities warm and well perfused. Pulses equal. ABDOMEN: Soft, non-distended. No tenderness to palpation. No rebound or guarding. No masses. MUSCULOSKELETAL: Chest examination reveals no tenderness. The back is symmetrical on inspection without obvious abnormality. There is no CVA tenderness to palpation. No joint edema. LOWER EXTREMITIES: Calves are equal size bilaterally and non-tender. No edema. No discoloration. NEURO: No focal sensory or motor deficits noted. Generalized weakness with 4/5 strength and SILT x 4 extremities. SKIN: No rash or jaundice noted. ED COURSE: Critical Care: I have personally spent greater than 35 minutes of critical care time in the direct management of this patient. This includes bedside care, interpretation of diagnostic studies, and testing, discussion with consultants, patient, and family members, and other required patient management activities. This 35 minutes is in excess of all separately billable procedures. Austin Moses MD Past Med/Surg History Problem List (Updated 01/15/24 @ 14:39 by Austin Moses MD) Generalized weakness (Acute) Diabetic ketoacidosis (Acute) Pseudohyponatremia High anion gap metabolic acidosis (Acute) Morbid obesity with BMI of 45.0-49.9, adult Chronic diastolic CHF (congestive heart failure) Encephalopathy acute Falls Memory impairment Hyperglycemia Lacunar stroke Hypomagnesemia Class 3 obesity Pancreatic abnormality Abdominal mass, right lower quadrant Blood in urine EKG abnormalities Albuminuria Diabetic nephropathy associated with type 1 diabetes mellitus Proliferative diabetic retinopathy associated with type 1 diabetes mellitus Vitamin B12 deficiency History of colon polyps Brow ptosis, bilateral Loss of protective sensation of skin of foot Dysesthesia Benign prostatic hyperplasia with elevated prostate specific antigen (PSA) Diabetes mellitus type 1, uncontrolled Diabetic peripheral neuropathy associated with type 1 diabetes mellitus Dyslipidemia Hypertension Hypothyroidism Obstructive sleep apnea of adult CPAP Medical History Memory impairment per chart, pt. 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 LUCIA (obstructive sleep apnea) does not use cpap Lacunar stroke (11/2023) treated at [facility], admit x 4 days, pt reports no deficits Chronic diastolic (congestive) heart failure BPH (benign prostatic hyperplasia) Dermatochalasis of both upper eyelids Erectile dysfunction Allergic rhinitis Recurrent sinus infections nothing current GERD without esophagitis Psoriasis Mobitz (type) I (Wenckebach's) atrioventricular block Occasionally noted dating back to 2017 Holter monitor History of nephrolithiasis OA (osteoarthritis) of shoulder Paroxysmal atrial fibrillation Few episodes noted on 2016 sleep study, not noted on f/u 10/2016 48 hour holter monitor > no known recurrences Vitamin D deficiency Surgical History Hx of colonoscopy with polypectomy S/P blepharoplasty H/O sinus surgery x2 History of blepharoplasty (~08/19/20) bilt History of endoscopic sinus surgery Endoscopic sinus surgery (06/21/15) [facility] History of incision and drainage (12/06/19) Rt thumb wound I&D + closure: 12/06/19: MAC sedation at [facility] S/P trigger finger release Right thumb trigger finger release: 10/17/19: MAC sedation at [facility] History of cataract surgery R/L History of carpal tunnel release R/L History of uvulopalatopharyngoplasty S/P appendectomy Family History Father Diabetes Sleep apnea Pacemaker Other No significant family history Denies family history of Ovarian cancer Prostate cancer Myocardial infarction Breast cancer Colorectal cancer Social History Smoking Status: Former smoker Second Hand Exposure: No; Do You Dip or Chew Tobacco: No; Tobacco Cessation Education Requested by Patient: Yes Hx Alcohol Use: Yes Alcohol type: hard liquor Hx Substance Use: No Preferred Language: Ghanaian Communication Ability: Effective Visual Impairment: No Limitations Hearing Ability: Normal Seating Captain Required: No Beliefs That Will Affect Care: None marital status: Current Living Situation: Spouse Current Living Situation Comment: Frome home with current occupational status: employed 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 Other Information That Helps Us Care for You: No Feels Safe at Home: Yes Safety Concerns: Feels Safe At This Time Childhood Exposure to Second-Hand Smoke: No Dental Care, Regularly: Yes Physical Activity Frequency: Does not Exercise Seatbelt Use: always Sunscreen Use: Yes Assistive Devices: Walker Allergies Allergies Allergy/AdvReac Type Severity Reaction Status Date / Time bacitracin Allergy Mild contact Verified 01/04/24 15:30 dermatitis with eye bacitracin dog dander Allergy Mild Congestion Verified 01/04/24 15:30 horse dander Allergy Unknown Allergy Verified 01/04/24 15:30 testing + house dust Allergy Unknown Allergy Verified 01/04/24 15:30 testing + Home Meds Home Medications Medication Instructions Recorded Confirmed fluticasone propionate 50 1 spray intranasal DAILY PRN 09/29/21 01/04/24 mcg/actuation nasal Congestion spray,suspension betamethasone dipropionate 0.05 % 1 applic topical DAILY PRN Skin 10/15/23 01/04/24 lotion Irritation glucagon 1 mg/0.2 mL subcutaneous 1 mg subcut DIRECTED PRN for 10/15/23 01/04/24 auto-injector (Gvoke HypoPen hypoglycemic epidoses 2-Pack) ketoconazole 2 % shampoo 1 applic topical 2XWK 10/15/23 01/04/24 Previous Rx's Medication Instructions Recorded OneTouch Delica Lancets 33 gauge #300 ea 02/01/19 (lancets) OneTouch Verio test strips (blood #300 ea 11/10/19 sugar diagnostic) Dexcom Extractor Machine Operator (blood-glucose #1 ea 03/07/20 meter,continuous) Dexcom G7 Extractor Machine Operator (blood-glucose #1 ea 07/07/22 meter,continuous) gabapentin 300 mg capsule 300 mg PO .COMPLEX #540 caps 08/03/22 insulin glargine 100 unit/mL (3 55 unit (0.55 mL) subcut BID #105 08/31/22 mL) subcutaneous pen (Lantus mL Solostar U-100 Insulin) mecobalamin (vitamin B12) 1,000 2,000 mcg (2 x 1,000 mcg) 11/27/22 mcg disintegrating sublingual DAILY #60 tabs tablet,sublingual omeprazole 40 mg capsule,delayed 40 mg PO QAM #90 caps 12/29/22 release econazole 1 % topical cream 1 applic topical BID PRN skin 01/28/23 irritation #30 grams Dexcom G7 Sensor (blood-glucose #9 ea 04/21/23 sensor) Novolog FlexPen U-100 Insulin 100 See Rx Instructions .Route 05/03/23 unit/mL (3 mL) subcutaneous .COMPLEX #90 mL (insulin aspart U-100) bumetanide 2 mg tablet 2 mg PO QAM #90 tabs 06/07/23 minocycline 100 mg capsule 100 mg PO BID #180 caps 06/28/23 pen needle, diabetic 31 gauge x #600 ea 07/15/23 5/16" (BD Ultra-Fine Short Pen Needle) ezetimibe 10 mg tablet (Zetia) 10 mg PO QPM #90 tabs 09/13/23 levothyroxine 25 mcg tablet 25 mcg PO QAM #90 tabs 09/13/23 montelukast 10 mg tablet 10 mg PO QPM 90 days #90 tabs 09/13/23 alfuzosin 10 mg tablet,extended 10 mg PO BID #180 tabs 09/28/23 release 24 hr spironolactone 25 mg tablet 25 mg PO QAM #90 tabs 11/02/23 atorvastatin 80 mg tablet 80 mg PO QPM #90 tabs 11/16/23 levothyroxine 200 mcg tablet 200 mcg PO QAM #90 tabs 11/16/23 losartan 100 mg tablet 100 mg PO QAM #90 tabs 11/16/23 triamcinolone acetonide 0.5 % 1 applic topical BID PRN Skin 12/10/23 topical cream Irritation #15 grams aspirin 81 mg tablet,delayed 81 mg PO DAILY #30 tabs 12/11/23 release (Enteric Coated Aspirin) carvedilol 3.125 mg tablet 3.125 mg PO BIDM #60 tabs 12/11/23 magnesium oxide 400 mg (241.3 mg 400 mg PO BID #14 tabs 12/11/23 magnesium) tablet peg 3350-electrolytes 236 240 ml PO .COMPLEX #4,000 mL 12/27/23 gram-22.74 gram-6.74 gram-5.86 gram solution (Golytely) insulin lispro 200 unit/mL (3 mL) See Rx Instructions subcut DAILY 01/05/24 subcutaneous pen (Humalog KwikPen #45 mL U-200 Insulin) Results & Data (ED) Vital Signs Vital Signs - 24 hr 01/15/24 01:59 01/15/24 01:59 01/15/24 02:04 Temperature 36.6 C Temperature Source Oral Pulse Rate 86 88 Pulse Rate from SpO2 Sensor Pulse Rhythm Regular Regular Pulse Strength Normal Respiratory Rate 20 24 Respiratory Effort / Characteristics Non-Labored Spontaneous Respiratory Depth Normal Respiratory Pattern Regular Blood Pressure 149/75 H 149/75 H Blood Pressure Mean 95 99 Blood Pressure Position Lying Pulse Oximetry 99 96 Oxygen Delivery Method Room Air Room Air Sepsis Recent Fever Within 48 Hours No Sepsis New/Unexplained Change in Mental Status N/A Sepsis Action Taken by Nursing No Action Required 01/15/24 02:23 01/15/24 02:30 01/15/24 02:30 Temperature Temperature Source Pulse Rate 84 81 75 Pulse Rate from SpO2 Sensor 81 78 Pulse Rhythm Pulse Strength Respiratory Rate 24 23 Respiratory Effort / Characteristics Respiratory Depth Respiratory Pattern Blood Pressure 182/93 H 182/93 H Blood Pressure Mean 112 122 Blood Pressure Position Pulse Oximetry 100 98 Oxygen Delivery Method Sepsis Recent Fever Within 48 Hours Sepsis New/Unexplained Change in Mental Status Sepsis Action Taken by Nursing 01/15/24 03:00 01/15/24 04:00 01/15/24 04:30 Temperature Temperature Source Pulse Rate 71 72 83 Pulse Rate from SpO2 Sensor 75 77 Pulse Rhythm Pulse Strength Respiratory Rate 15 21 21 Respiratory Effort / Characteristics Respiratory Depth Respiratory Pattern Blood Pressure 154/80 H 155/67 H 151/79 H Blood Pressure Mean 108 94 103 Blood Pressure Position Pulse Oximetry 98 100 Oxygen Delivery Method Sepsis Recent Fever Within 48 Hours Sepsis New/Unexplained Change in Mental Status Sepsis Action Taken by Nursing 01/15/24 05:02 Temperature Temperature Source Pulse Rate 81 Pulse Rate from SpO2 Sensor 80 Pulse Rhythm Pulse Strength Respiratory Rate 24 Respiratory Effort / Characteristics Respiratory Depth Respiratory Pattern Blood Pressure 160/67 H Blood Pressure Mean 117 Blood Pressure Position Pulse Oximetry 100 Oxygen Delivery Method Sepsis Recent Fever Within 48 Hours Sepsis New/Unexplained Change in Mental Status Sepsis Action Taken by Nursing Laboratory Data Attestation: I reviewed the patient's lab results. 01/15/24 02:10 01/15/24 09:39 Lab Results 01/15/24 01/15/24 01/15/24 Range/Units 02:01 02:10 03:30 WBC 14.01 H (4.8-10.8) K/ul RBC 5.09 (4.70-6.10) M/uL Hgb 14.7 (14.0-18.0) g/dl Hct 44.6 (42.0-52.0) % MCV 87.6 (80.0-100.0) fL MCH 28.9 (25.0-34.0) pg MCHC 33.0 (32.0-36.0) g/dL RDW Std Deviation 43.8 (36.4-46.3) fL RDW Coeff of Jill 13.6 (11.5-14.5) % Plt Count 268 (130-400) K/uL MPV 12.6 H (9.4-12.4) fL Immature Gran % (Auto) 0.4 % Neut % (Auto) 56.8 % Lymph % (Auto) 33.9 % Warren % (Auto) 7.7 % Eos % (Auto) 0.4 % Baso % (Auto) 0.8 % Neut # (Auto) 7.95 H (1.40-6.50) K/uL Lymph # (Auto) 4.75 H (1.20-3.40) K/uL Warren # (Auto) 1.08 H (0.11-0.59) K/uL Eos # (Auto) 0.06 (0.00-0.50) K/uL Baso # (Auto) 0.11 (0.00-0.20) K/uL Immature Gran # (Auto) 0.06 (0.01-0.20) K/uL PT 10.1 (9.0-12.0) Seconds INR 0.9 (0.9-1.1) VBG pH (7.36-7.41) VBG pCO2 (38-50) mmHg VBG pO2 mmHg VBG HCO3 mmol/L VBG O2 Saturation % VBG Base Excess mEq/L Sodium 130 L (136-145) mmol/L Potassium 4.7 (3.5-5.1) mmol/L Chloride 93 L (98-107) mmol/L Carbon Dioxide 18 L (21-32) mmol/L Anion Gap 19 H (3-11) BUN 21 (6-23) mg/dl Creatinine 1.64 H (0.6-1.4) mg/dl Est Cr Clr Drug Dosing 59.0 ml/min eGFR 46.13 BUN/Creatinine Ratio 12.8 (10-20) Glucose 625 H* (70-99(Fasting)) mg/dl POC Glucose 562 H* (70-99) mg/dl Osmolality 316 H (280-300) mOsm/kg Calcium 9.9 (8.6-10.3) mg/dl Phosphorus 3.8 (2.5-4.9) mg/dl Magnesium 1.7 (1.7-2.4) mg/dl Total Bilirubin 0.8 (0.2-1.0) mg/dl AST 13 (13-39) U/L ALT 11 (7-52) U/L Alkaline Phosphatase 90 (34-104) U/L Troponin I High Sens 22.2 H (0-20) pg/ml Total Protein 6.6 (6.0-8.3) gm/dl Albumin 3.6 (3.4-5.0) gm/dl Globulin 3.0 (2.5-4.0) gm/dl Albumin/Globulin Ratio 1.2 (0.9-2) Lipase 22 (11-82) U/L TSH 15.202 H (0.300-4.500) uIu/ml Free T4 1.04 (0.61-1.60) ng/dl Urine Color Yellow Urine Appearance Clear (Clear) Urine pH 5.0 (4.5-7.5) Ur Specific [place] 1.029 (1.000-1.030) Urine Protein 3+ H (Negative) Urine Glucose (UA) 3+ H (Negative) Urine Ketones 3+ H (Negative) Urine Blood Trace H (Negative) Urine Nitrite Negative (Negative) Urine Bilirubin Negative (Negative) Urine Urobilinogen Negative (Negative) Ur Leukocyte Esterase Negative (Negative) Urine WBC (Auto) 0-5 (0-5) /hpf Urine RBC (Auto) 0-2 (0-2) /hpf U Hyaline Cast (Auto) 6-10 H (0-2) /lpf U Epithel Cells (Auto) 0-2 (0-2) /hpf Urine Bacteria (Auto) None Seen (None Seen) 01/15/24 Range/Units 04:39 WBC (4.8-10.8) K/ul RBC (4.70-6.10) M/uL Hgb (14.0-18.0) g/dl Hct (42.0-52.0) % MCV (80.0-100.0) fL MCH (25.0-34.0) pg MCHC (32.0-36.0) g/dL RDW Std Deviation (36.4-46.3) fL RDW Coeff of Jill (11.5-14.5) % Plt Count (130-400) K/uL MPV (9.4-12.4) fL Immature Gran % (Auto) % Neut % (Auto) % Lymph % (Auto) % Warren % (Auto) % Eos % (Auto) % Baso % (Auto) % Neut # (Auto) (1.40-6.50) K/uL Lymph # (Auto) (1.20-3.40) K/uL Warren # (Auto) (0.11-0.59) K/uL Eos # (Auto) (0.00-0.50) K/uL Baso # (Auto) (0.00-0.20) K/uL Immature Gran # (Auto) (0.01-0.20) K/uL PT (9.0-12.0) Seconds INR (0.9-1.1) VBG pH 7.29 L (7.36-7.41) VBG pCO2 38 (38-50) mmHg VBG pO2 35 mmHg VBG HCO3 18 mmol/L VBG O2 Saturation < 60.0 % VBG Base Excess -7.7 mEq/L Sodium (136-145) mmol/L Potassium (3.5-5.1) mmol/L Chloride (98-107) mmol/L Carbon Dioxide (21-32) mmol/L Anion Gap (3-11) BUN (6-23) mg/dl Creatinine (0.6-1.4) mg/dl Est Cr Clr Drug Dosing ml/min eGFR BUN/Creatinine Ratio (10-20) Glucose (70-99(Fasting)) mg/dl POC Glucose (70-99) mg/dl Osmolality (280-300) mOsm/kg Calcium (8.6-10.3) mg/dl Phosphorus (2.5-4.9) mg/dl Magnesium (1.7-2.4) mg/dl Total Bilirubin (0.2-1.0) mg/dl AST (13-39) U/L ALT (7-52) U/L Alkaline Phosphatase (34-104) U/L Troponin I High Sens 24.1 H (0-20) pg/ml Total Protein (6.0-8.3) gm/dl Albumin (3.4-5.0) gm/dl Globulin (2.5-4.0) gm/dl Albumin/Globulin Ratio (0.9-2) Lipase (11-82) U/L TSH (0.300-4.500) uIu/ml Free T4 (0.61-1.60) ng/dl Urine Color Urine Appearance (Clear) Urine pH (4.5-7.5) Ur Specific [place] (1.000-1.030) Urine Protein (Negative) Urine Glucose (UA) (Negative) Urine Ketones (Negative) Urine Blood (Negative) Urine Nitrite (Negative) Urine Bilirubin (Negative) Urine Urobilinogen (Negative) Ur Leukocyte Esterase (Negative) Urine WBC (Auto) (0-5) /hpf Urine RBC (Auto) (0-2) /hpf U Hyaline Cast (Auto) (0-2) /lpf U Epithel Cells (Auto) (0-2) /hpf Urine Bacteria (Auto) (None Seen) Administered Medications Aspirin (Aspirin 81 Mg Ectab) 81 mg PO DAILY [facility] Stop: 02/14/24 08:59 Last Admin: 01/15/24 10:17 Dose: 81 mg Documented By: QIAN Bumetanide (Bumetanide 1 Mg Tab) 2 mg PO QAM [facility] Stop: 02/14/24 08:59 Last Admin: 01/15/24 10:17 Dose: 2 mg Documented By: QIAN Carvedilol (Carvedilol 3.125 Mg Tab) 3.125 mg PO BIDM [facility] Stop: 02/14/24 08:44 Last Admin: 01/15/24 10:17 Dose: 3.125 mg Documented By: QIAN Enoxaparin Sodium (Enoxaparin Inj 40 Mg/0.4 Ml Syr) 40 mg SQ Q12H [facility] Stop: 02/14/24 08:59 Last Admin: 01/15/24 10:18 Dose: 40 mg Documented By: QIAN Insulin Human Regular 250 (units/ Sodium Chloride) 250 mls @ 3.2 mls/hr IV .Q24H [facility]; Protocol Stop: 01/15/24 16:00 Last Titration: 01/15/24 14:10 Dose: 3.2 units/hr, 3.2 mls/hr Documented By: QIAN Co-signed By: VESTA Titration: 01/15/24 13:04 Dose: 3.2 units/hr, 3.2 mls/hr Documented By: VESTA Co-signed By: QIAN Titration: 01/15/24 12:02 Dose: 3.2 units/hr, 3.2 mls/hr Documented By: VESTA Co-signed By: QIAN Titration: 01/15/24 11:05 Dose: 4 units/hr, 4 mls/hr Documented By: VESTA Co-signed By: [facility] Titration: 01/15/24 10:46 Dose: 0 units/hr, 0 mls/hr Documented By: VESTA Co-signed By: JOSE ALBERTO Titration: 01/15/24 09:46 Dose: 7.7 units/hr, 7.7 mls/hr Documented By: VESTA Co-signed By: QIAN Titration: 01/15/24 08:48 Dose: 9.6 units/hr, 9.6 mls/hr Documented By: VESTA Co-signed By: QIAN Titration: 01/15/24 07:53 Dose: 12 units/hr, 12 mls/hr Documented By: ARS Co-signed By: TRISHA Admin: 01/15/24 06:38 Dose: 10 units/hr, 10 mls/hr Documented By: DEZ Co-signed By: AISLINN Potassium Chloride/Dextrose/Sod Cl (D5w And 1/2nss + 20meq Kcl) 20 meq in 1,000 mls @ 160 mls/hr IV .Q6H15M [facility] Stop: 02/14/24 10:29 Last Admin: 01/15/24 10:20 Dose: 160 mls/hr Documented By: QIAN Insulin Aspart (Insulin Aspart Per Unit Charge) 0 units SC ACHS [facility] Stop: 01/15/24 16:29 Last Admin: 01/15/24 06:58 Dose: Not Given Documented By: TRISHA Levothyroxine Sodium (Levothyroxine Sodium 25 Mcg Tablet) [facility] Stop: 02/14/24 08:44 Last Admin: 01/15/24 10:18 Dose: 25 mcg Documented By: QIAN Levothyroxine Sodium (Levothyroxine Sodium 200 Mcg Tablet) 200 mcg PO DAILYBB [facility] Stop: 02/14/24 08:44 Last Admin: 01/15/24 10:18 Dose: 200 mcg Documented By: QIAN Losartan Potassium (Losartan Potassium 50 Mg Tab) [facility] Stop: 02/14/24 08:59 Last Admin: 01/15/24 10:18 Dose: 100 mg Documented By: QIAN Pantoprazole Sodium (Pantoprazole 40 Mg Tab) 40 mg PO QAM [facility] Stop: 02/14/24 08:59 Last Admin: 01/15/24 10:18 Dose: 40 mg Documented By: QIAN Spironolactone (Spironolactone 25 Mg Tab) 25 [facility] [place] Stop: 02/14/24 08:59 Last Admin: 01/15/24 10:18 Dose: 25 mg Documented By: QIAN Discontinued Medications Sodium Chloride (Nss) 1,000 mls @ 999 mls/hr IV .Q1H1M ONE Stop: 01/15/24 05:13 Last Infusion: 01/15/24 06:12 Dose: Infused Documented By: Admin: 01/15/24 04:51 Dose: 999 mls/hr Documented By: DEZ Potassium Chloride/Sodium Chloride (1/2 Nss + 20meq Kcl 1000ml) 20 meq in 1,000 mls @ 160 mls/hr IV .Q6H15M [facility] Stop: 01/15/24 10:30 Last Infusion: 01/15/24 10:22 Dose: 0 mls/hr Documented By: Admin: 01/15/24 06:19 Dose: 160 mls/hr Documented By: DEZ Insulin Glargine (Lantus Per Unit Charge) 35 units SC ONE ONE; Protocol Stop: 01/15/24 13:01 Last Admin: 01/15/24 13:08 Dose: 35 units Documented By: VESTA Co-signed By: QIAN Insulin Human Regular (Novolin-R Bolus From Bag) 10 units IV ONE ONE Stop: 01/15/24 05:46 Last Admin: 01/15/24 06:39 Dose: 10 units Documented By: DEZ Co-signed By: AISLINN Miscellaneous (Pending 1/2nss+20meq Kcl Ivf) 1 each N/A Q2H [facility] Stop: 02/14/24 05:29 Last Admin: 01/15/24 06:59 Dose: Not Given Documented By: TRISHA Miscellaneous (Pending D5 1/2ns+20meq Kcl Ivf) 1 each N/A Q2H [facility] Stop: 02/14/24 05:59 Last Admin: 01/15/24 09:44 Dose: Not Given Documented By: Admin: 01/15/24 09:43 Dose: Not Given Documented By: VESTA Miscellaneous (Dka Goal Range 150-250 Mg/Dl) 1 each N/A ONE ONE Stop: 01/15/24 05:46 Last Admin: 01/15/24 09:44 Dose: 1 each Documented By: VESTA Imaging Data Radiologist's Impression: Chest X-Ray 01/15/24 02:23 EXAM: XR chest 1V portable CLINICAL HISTORY: TECHNIQUE: An X-ray image of the chest is obtained in AP projection. COMPARISON: A comparison is done with CXR dated 12/08/2023. FINDINGS: Suboptimal image due to significant rotation. Pulmonary Parenchyma: Lungs are clear bilaterally. There is no evidence of consolidation, collapse, or focal opacities. No pulmonary nodules are identified. No evidence of pleural effusion or pleural thickening. Heart and Mediastinum: Heart size and shape are normal. No mediastinal widening or masses. No hilar or mediastinal lymphadenopathy. Bony Thorax: The bony thorax appears intact without fractures or deformities. Soft Tissues: Soft tissues overlying the chest wall are unremarkable. IMPRESSION: 1. Unremarkable chest X-ray. No acute cardiopulmonary abnormalities are identified. 2. Left side pleural effusion seen in the previous study dated: 12/08/2023 shows radiographic resolution. 3. Clinical correlation. Electronically signed by Martina Hector 01-15-2024 04:[address] 01/15/24 04:46 CT head/brain wo con CLINICAL HISTORY: 63 years-old Male with weakness, solmnolent. Acute weakness with prior stroke TECHNIQUE: Multiple axial CT images of the head were obtained without contrast. A dose lowering technique was utilized adhering to the principles of ALARA. CT DOSE: 688.24 mGy.cm COMPARISON: Brain MRI 12/09/2023, head CT 12/08/2023 FINDINGS: No acute intracranial hemorrhage, midline shift, intracranial mass, hydrocephalus, territorial ischemia or abnormal extra-axial collection. Involutional changes with mild chronic microvascular ischemic disease. Prior small infarct within the periventricular left parietal lobe on image 19 series 2, unchanged from prior. The calvarium is intact. Prior ethmoidectomy. Mastoid air cells are clear. Prior bilateral lens repair. IMPRESSION: No acute intracranial abnormality. ACT 112: Negative or not required by law. The above report was generated using voice recognition software. It may contain grammatical, syntax or spelling errors. Electronically signed by: Jas Multani M.D. 01/15/2024 8:45 AM Discharge Plan Visit Data Chief Complaint: Hyperglycemia Stated Complaint: Hyperglycemia, Weakness ED Provider: Austin Moses Discharge Problem: Diabetic ketoacidosis, High anion gap metabolic acidosis, Generalized weakness Patient Disposition: Admitted As Inpatient Discharge Instructions Interventions: ED Discharge Assessment Last Done: 01/15/24 08:33 Discharge Problem: Diabetic ketoacidosis Qualifiers: Diabetes mellitus type: type 1 Diabetes mellitus complication detail: without coma Qualified Code(s): E10.10 - Type 1 diabetes mellitus with ketoacidosis without coma
[2024-01-15 02:45] LABS: Basophils # (auto) 0.11 K/uL (0.00-0.20); Basophils % (auto) 0.8 %; Eosinophils # (auto) 0.06 K/uL (0.00-0.50); Eosinophils % (auto) 0.4 %; Hematocrit (blood only) 44.6 % (42.0-52.0); Hemoglobin 14.7 g/dl (14.0-18.0); Immature Granulocytes # (auto) 0.06 K/uL (0.01-0.20); Immature Granulocytes % (auto) 0.4 %; Lymphocytes # (auto) 4.75 K/uL (1.20-3.40); Lymphocytes % (auto) 33.9 %; Mean Corpuscular Hemoglobin 28.9 pg (25.0-34.0); Mean Corpuscular Volume 87.6 fL (80.0-100.0); Mean Platelet Volume 12.6 fL (9.4-12.4); Monocytes # (auto) 1.08 K/uL (0.11-0.59); Monocytes % (auto) 7.7 %; Neutrophils # (auto) 7.95 K/uL (1.40-6.50); Neutrophils % (auto) 56.8 %; Platelet Count 268 K/uL (130-400); RDW Coefficient of Variation 13.6 % (11.5-14.5); RDW Standard Deviation 43.8 fL (36.4-46.3); Red Blood Count 5.09 M/uL (4.70-6.10); White Blood Count 14.01 K/ul (4.8-10.8)
[2024-01-15 03:07] LABS: Albumin Globulin Ratio 1.2 (0.9-2); Albumin Level 3.6 gm/dl (3.4-5.0); BUN Creatinine Ratio 12.8 (10-20); Bilirubin,Total 0.8 mg/dl (0.2-1.0); Calcium 9.9 mg/dl (8.6-10.3); Magnesium 1.7 mg/dl (1.7-2.4); Phosphorus 3.8 mg/dl (2.5-4.9); Potassium 4.7 mmol/L (3.5-5.1); Total Protein 6.6 gm/dl (6.0-8.3)
[2024-01-15 03:19] LABS: INR 0.9 (0.9-1.1); Prothrombin Time 10.1 Seconds (9.0-12.0)
[2024-01-15 03:27] LABS: Thyroid Stimulating Hormone 15.202 uIu/ml (0.300-4.500); Troponin I High Sensitivity 22.2 pg/ml (0-20)
[2024-01-15 04:29] LABS: Appearance Urine Clear (Clear); Bacteria Urine Automated None Seen (None Seen); Bilirubin Urine Negative (Negative); Blood Urine Trace (Negative); Color Urine Yellow; Epithelial Cell Urine Auto 0-2 /hpf (0-2); Glucose Urine UA 3+ (Negative); Ketones Urine 3+ (Negative); Leukocyte Esterase Urine Negative (Negative); Nitrite Urine Negative (Negative); Protein Urine 3+ (Negative); RBC Urine Automated 0-2 /hpf (0-2); Specific Gravity Urine 1.029 (1.000-1.030); Urobilinogen Urine Negative (Negative); WBC Urine Automated 0-5 /hpf (0-5)
[2024-01-15 04:30] LABS: T4 Free Thyroxine 1.04 ng/dl (0.61-1.60)
--- NOTE | 2024-01-15 04:30 | XRay Report ---
EXAM: XR chest 1V portable CLINICAL HISTORY: TECHNIQUE: An X-ray image of the chest is obtained in AP projection. COMPARISON: A comparison is done with CXR dated 12/08/2023. FINDINGS: Suboptimal image due to significant rotation. Pulmonary Parenchyma: Lungs are clear bilaterally. There is no evidence of consolidation, collapse, or focal opacities. No pulmonary nodules are identified. No evidence of pleural effusion or pleural thickening. Heart and Mediastinum: Heart size and shape are normal. No mediastinal widening or masses. No hilar or mediastinal lymphadenopathy. Bony Thorax: The bony thorax appears intact without fractures or deformities. Soft Tissues: Soft tissues overlying the chest wall are unremarkable. IMPRESSION: 1. Unremarkable chest X-ray. No acute cardiopulmonary abnormalities are identified. 2. Left side pleural effusion seen in the previous study dated: 12/08/2023 shows radiographic resolution. 3. Clinical correlation. Electronically signed by Martina Hector 01-15-2024 04:30 AM
[2024-01-15 04:49] LABS: Base Excess VBG -7.7 mEq/L; HCO3 VBG 18 mmol/L; Oxygen Saturation VBG < 60.0 %; PCO2 VBG 38 mmHg (38-50); PO2 VBG 35 mmHg; pH VBG 7.29 (7.36-7.41)
[2024-01-15] MEDS: SODIUM CHLORIDE 0.9% 1,000 ML IV ONE (04:51)
--- NOTE | 2024-01-15 04:57 | History & Physical Report ---
Date of Service January 15, 2024 Assessment & Plan (1) Diabetes mellitus type 1, uncontrolled: (2) Diabetic ketoacidosis: (3) High anion gap metabolic acidosis: (4) Morbid obesity with BMI of 45.0-49.9, adult: (5) Pseudohyponatremia: (6) Falls: (7) Hypertension: (8) Hypothyroidism: (9) Dyslipidemia: Hi Morris is a 63M w/ PMH of T1DM w/ neuropathy/retinopathy, hypothyroidism, HTN, HLD, LUCIA, BPH, lacunar stroke, CHF and morbid obesity who presents for weakness and hyperglycemia. ED: 1L NSS Hyperglycemia | HAGMA Uncontrolled T1DM w/ neuropathy, nephropathy and retinopathy * T1DM w/ CGM, pending pump, at baseline * 12/09/23 A1c 8.7 (rising) * Hemodynamically stable * Glucose 600+ on arrival, AG 19 * Urine w/o infection, though 3+ protein, ketones, and glucose * S/p 1L NSS in ED * Started insulin infusion on admission w/ 03/16 NSS + K * Zofran PRN for nausea, continue PPI * Goal to close anion gap * May benefit from CGM/Pump education while inpatient Hyponatremia * Pseudohyponatremia from hyperglycemia * Follow w/ BMP pending IVFs/Insulin Troponin Elevation * Likely demand in setting of volume depletion/hyperglycemia Weakness/Confusion * Denied by patient, though recent fall form bed an inability to get up * No known injury * CT Head pending * PT/OT ordered Chronic Conditions: * Hypothyroidism: continue home Levothyroxine Recheck TSH outpatient (elevated on presentation) * HTN - continue antihypertensive * HLD - hold statin * BPH - hold home medication * CHF - continue diuretics * Hx of Stroke Code Status:Full Diet:NPO IVF: 03/16 NSS + K @ 160 DVT PPx:Lovenox Dispo: Med/Tele History of Present Illness Chief Complaint: Hyperglycemia Primary Care Provider: NO PCP Arturo is a 63M w/ PMH of T1DM w/ neuropathy/retinopathy, hypothyroidism, HTN, HLD, LUCIA, BPH, lacunar stroke, CHF and morbid obesity who presents for weakness and hyperglycemia. ED: 1L LIUDMILA Phelps historian (states he has a 6 year old son Oscar and is largely uncertain of the events prior to his arrival) Missed his afternoon/evening insulin doses (unable to articulate why) Came because he slipped off his bed around 9 PM, was brought in via ambulance after family/friends couldn't get him off floor Friends came over to help but they couldn't get him up Was feeling his normal self when he slipped off the bed Denies chest pain, dyspnea, headache, LH, dizziness, weakness, or LE pain No new bowel/bladder changes Uses CGM, just received insulin pump, but not yet using (hasn't had the CGM training) No dietary changes per patient No recent illness No nausea or emesis, no abdominal pain Did not bump/injure anything slipping from bed Denies recent medication changes Patient repetitive throughout interview, noting 6 year old son and new CGM x 4 No family at bedside to corroborate history Allergies Allergy/AdvReac Type Severity Reaction Status Date / Time bacitracin Allergy Mild contact Verified 01/04/24 15:30 dermatitis with eye bacitracin dog dander Allergy Mild Congestion Verified 01/04/24 15:30 horse dander Allergy Unknown Allergy Verified 01/04/24 15:30 testing + house dust Allergy Unknown Allergy Verified 01/04/24 15:30 testing + Home Medications Medication Instructions Recorded Confirmed Type OneTouch Delica Lancets 33 gauge #300 ea 02/01/19 12/22/23 Rx (lancets) OneTouch Verio test strips (blood #300 ea 11/10/19 12/22/23 Rx sugar diagnostic) Dexcom Door Technician (blood-glucose #1 ea 03/07/20 12/22/23 Rx meter,continuous) fluticasone propionate 50 1 spray intranasal DAILY PRN 09/29/21 01/04/24 History mcg/actuation nasal Congestion spray,suspension Dexcom G7 Door Technician (blood-glucose #1 ea 07/07/22 12/22/23 Rx meter,continuous) gabapentin 300 mg capsule 300 mg PO .COMPLEX #540 caps 08/03/22 01/04/24 Rx insulin glargine 100 unit/mL (3 55 unit (0.55 mL) subcut BID #105 08/31/22 01/04/24 Rx mL) subcutaneous pen (Lantus mL Solostar U-100 Insulin) mecobalamin (vitamin B12) 1,000 2,000 mcg (2 x 1,000 mcg) 11/27/22 01/04/24 Rx mcg disintegrating sublingual DAILY #60 tabs tablet,sublingual omeprazole 40 mg capsule,delayed 40 mg PO QAM #90 caps 12/29/22 01/04/24 Rx release econazole 1 % topical cream 1 applic topical BID PRN skin 01/28/23 01/04/24 Rx irritation #30 grams Dexcom G7 Sensor (blood-glucose #9 ea 04/21/23 12/22/23 Rx sensor) Novolog FlexPen U-100 Insulin 100 See Rx Instructions .Route 05/03/23 01/04/24 Rx unit/mL (3 mL) subcutaneous .COMPLEX #90 mL (insulin aspart U-100) bumetanide 2 mg tablet 2 mg PO QAM #90 tabs 06/07/23 01/04/24 Rx minocycline 100 mg capsule 100 mg PO BID #180 caps 06/28/23 01/04/24 Rx pen needle, diabetic 31 gauge x #600 ea 07/15/23 12/22/23 Rx 5/16" (BD Ultra-Fine Short Pen Needle) ezetimibe 10 mg tablet (Zetia) 10 mg PO QPM #90 tabs 09/13/23 01/04/24 Rx levothyroxine 25 mcg tablet 25 mcg PO QAM #90 tabs 09/13/23 01/04/24 Rx montelukast 10 mg tablet 10 mg PO QPM 90 days #90 tabs 09/13/23 01/04/24 Rx alfuzosin 10 mg tablet,extended 10 mg PO BID #180 tabs 09/28/23 01/04/24 Rx release 24 hr betamethasone dipropionate 0.05 % 1 applic topical DAILY PRN Skin 08/02/24 10/22/24 History lotion Irritation glucagon 1 mg/0.2 mL subcutaneous 1 mg subcut DIRECTED PRN for 10/15/23 01/04/24 History auto-injector (Gvoke HypoPen hypoglycemic epidoses 2-Pack) ketoconazole 2 % shampoo 1 applic topical 2XWK 10/15/23 01/04/24 History spironolactone 25 mg tablet 25 mg PO QAM #90 tabs 11/02/23 01/04/24 Rx atorvastatin 80 mg tablet 80 mg PO QPM #90 tabs 11/16/23 01/04/24 Rx levothyroxine 200 mcg tablet 200 mcg PO QAM #90 tabs 11/16/23 01/04/24 Rx losartan 100 mg tablet 100 mg PO QAM #90 tabs 11/16/23 01/04/24 Rx triamcinolone acetonide 0.5 % 1 applic topical BID PRN Skin 12/10/23 01/04/24 Rx topical cream Irritation #15 grams aspirin 81 mg tablet,delayed 81 mg PO DAILY #30 tabs 12/11/23 01/04/24 Rx release (Enteric Coated Aspirin) carvedilol 3.125 mg tablet 3.125 mg PO BIDM #60 tabs 12/11/23 01/04/24 Rx magnesium oxide 400 mg (241.3 mg 400 mg PO BID #14 tabs 12/11/23 01/04/24 Rx magnesium) tablet peg 3350-electrolytes 236 240 ml PO .COMPLEX #4,000 mL 12/27/23 Rx gram-22.74 gram-6.74 gram-5.86 gram solution (Golytely) insulin lispro 200 unit/mL (3 mL) See Rx Instructions subcut DAILY 01/05/24 Rx subcutaneous pen (Humalog KwikPen #45 mL U-200 Insulin) Past Med/Surg History Problem List (Updated 01/15/24 @ 14:39 by Austin Moses MD) Generalized weakness (Acute) Diabetic ketoacidosis (Acute) Pseudohyponatremia High anion gap metabolic acidosis (Acute) Morbid obesity with BMI of 45.0-49.9, adult Chronic diastolic CHF (congestive heart failure) Encephalopathy acute Falls Memory impairment Hyperglycemia Lacunar stroke Hypomagnesemia Class 3 obesity Pancreatic abnormality Abdominal mass, right lower quadrant Blood in urine EKG abnormalities Albuminuria Diabetic nephropathy associated with type 1 diabetes mellitus Proliferative diabetic retinopathy associated with type 1 diabetes mellitus Vitamin B12 deficiency History of colon polyps Brow ptosis, bilateral Loss of protective sensation of skin of foot Dysesthesia Benign prostatic hyperplasia with elevated prostate specific antigen (PSA) Diabetes mellitus type 1, uncontrolled Diabetic peripheral neuropathy associated with type 1 diabetes mellitus Dyslipidemia Hypertension Hypothyroidism Obstructive sleep apnea of adult CPAP Medical History Memory impairment per chart, pt. reports no issues Hypothyroidism Hx of falling Hx of encephalopathy (11/2023) per hx, admit to [facility]/ lacunar stroke Diabetic peripheral neuropathy Diabetes mellitus type 1 with atherosclerosis of arteries of extremities LUCIA (obstructive sleep apnea) does not use cpap Lacunar stroke (11/2023) treated at [facility], admit x 4 days, pt reports no deficits Chronic diastolic (congestive) heart failure BPH (benign prostatic hyperplasia) Dermatochalasis of both upper eyelids Erectile dysfunction Allergic rhinitis Recurrent sinus infections nothing current GERD without esophagitis Psoriasis Mobitz (type) I (Wenckebach's) atrioventricular block Occasionally noted dating back to 2017 Holter monitor History of nephrolithiasis OA (osteoarthritis) of shoulder Paroxysmal atrial fibrillation Few episodes noted on 2017 sleep study, not noted on f/u 10/2016 48 hour holter monitor > no known recurrences Vitamin D deficiency Surgical History Hx of colonoscopy with polypectomy S/P blepharoplasty H/O sinus surgery x2 History of blepharoplasty (~08/19/20) bilt History of endoscopic sinus surgery Endoscopic sinus surgery (06/21/15) [facility] History of incision and drainage (12/06/19) Rt thumb wound I&D + closure: 12/06/19: [place] [facility] S/P trigger finger release Right thumb trigger finger release: 10/17/19: MAC sed[place] [facility] History of cataract surgery R/L History of carpal tunnel release R/L History of uvulopalatopharyngoplasty S/P appendectomy Family History Father Diabetes Sleep apnea Pacemaker Other No significant family history Denies family history of Ovarian cancer Prostate cancer Myocardial infarction Breast cancer Colorectal cancer Social History Smoking Status: Former smoker Second Hand Exposure: No; Do You Dip or Chew Tobacco: No; Tobacco Cessation Education Requested by Patient: Yes Hx Alcohol Use: Yes Alcohol type: hard liquor Hx Substance Use: No Preferred Language: Djiboutian Communication Ability: Effective Visual Impairment: No Limitations Hearing Ability: Normal Plant Scientist Required: No Beliefs That Will Affect Care: None marital status: Current Living Situation: Spouse Current Living Situation Comment: Frome home with current occupational status: employed 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 Other Information That Helps Us Care for You: No Feels Safe at Home: Yes Safety Concerns: Feels Safe At This Time Childhood Exposure to Second-Hand Smoke: No Dental Care, Regularly: Yes Physical Activity Frequency: Does not Exercise Seatbelt Use: always Sunscreen Use: Yes Assistive Devices: Walker Physical Exam Physical Exam: Gen: NAD, somnolent, repetitive, pleasant HEENT: Supple, no LAD, no thyromegaly, no JVD Resp:Non-labored, no wheezing/rhonchi/rales, CTAB CV:RRR, normal S1/S2, no M/R/G Abd: Soft, non-distended, mild epigastric TTP, normoactive bowels, no masses Extr: 2+ dp bilaterally, no edema Skin: No rashes lesions or erythema Results & Data Results & Data Vital Signs (Past 12 Hours) Vital Signs Temp Pulse Resp BP Pulse Ox O2 Del Method 01/15/24 02:23 84 01/15/24 02:04 36.6 C 88 24 149/75 H 96 Room Air 01/15/24 01:59 86 20 99 Room Air 01/15/24 01:59 149/75 H Supervising Physician Co-Signing Physician Notes Attending addendum: I have physically seen this patient, have supervised the medical residents activities, and agree with the H&P unless as otherwise noted. Assessment and Plan: Diabetic ketoacidosis/uncontrolled diabetes mellitus- Glucose 625 on admission, with creatinine 1.64 and anion gap 19 Placed on insulin drip per protocol, with an point normal anion gap Status post 1 L normal saline in the ED Continue IV fluids as noted BMP, venous blood gas and magnesium every 4 hours CBC with differential, hemoglobin A1c, fasting lipid panel in the a.m. Elevated troponin/hypertension- Likely demand ischemia, recheck labs per protocol Continue carvedilol Holding spironolactone and losartan due to ANEL Acute kidney injury- Creatinine 1.64, with base 1.02 IV fluids as noted, recheck laboratories in a.m. Holding spironolactone and losartan as noted Progressive weakness and confusion- Patient was noted to have a lacunar infarct at last admission on 12/[address] scan of head pending Likely associated with DKA Resident Activity Tracking Resident Involvement: Resident Care Provided Care Provided: Adult [facility]
[2024-01-15] MEDS ORDERED: PHARMACY GLYCEMIC MGMT CONSULT PRN (05:30)
[2024-01-15] MEDS ORDERED: STAT IV Infusion **Titration per Protocol STA (05:30)
[2024-01-15] MEDS ORDERED: GLUCAGON FOR INJ 1 MG VIAL SQ PRN (05:45)
[2024-01-15] MEDS ORDERED: GLUCOSE 10 TAB/TUBE PO PRN (05:45)
[2024-01-15] MEDS ORDERED: DEXTROSE 50% 50 ML SYRINGE IV PRN (05:45)
[2024-01-15] MEDS ORDERED: GLUCOSE 40% GEL 15 GM TUBE PO PRN (05:45)
[2024-01-15] MEDS ORDERED: CARBOHYDRATES FOR HYPOGLYCEMIA PO PRN (05:45)
[2024-01-15] MEDS: SODIUM CHLOR 0.45% + 20MEQ KCL 20 MEQ/1,000 ML BAG IV SCH (06:19)
[2024-01-15] MEDS: INSULIN REGULAR 250 UNITS in SODIUM CHLORIDE 0.9% 247.5 ML IV SCH (06:38)
[2024-01-15] MEDS: NovoLIN-R BOLUS FROM BAG IV ONE (06:39)
[2024-01-15] MEDS: INSULIN ASPART PER UNIT CHARGE SC SCH ×2 (06:58→18:14)
[2024-01-15] MEDS: PENDING 1/2NSS+20mEq KCL IVF SCH (06:59)
[2024-01-15 07:34] LABS: BUN Creatinine Ratio 13.9 (10-20); Calcium 9.3 mg/dl (8.6-10.3); Creatinine Clr Calc Pharmacy 70.6 ml/min; Magnesium 1.6 mg/dl (1.7-2.4); Phosphorus 3.7 mg/dl (2.5-4.9); Potassium 4.7 mmol/L (3.5-5.1)
[2024-01-15] MEDS ORDERED: ONDANSETRON INJ 2 MG/ML 2 ML VIAL IV PRN (08:32)
[2024-01-15] MEDS ORDERED: ACETAMINOPHEN 325 MG TAB PO PRN (08:32)
--- NOTE | 2024-01-15 08:46 | CT Scan Report ---
CT head/brain wo con CLINICAL HISTORY: 63 years-old Male with weakness, solmnolent. Acute weakness with prior stroke TECHNIQUE: Multiple axial CT images of the head were obtained without contrast. A dose lowering tech nique was utilized adhering to the principles of ALARA. CT DOSE: 688.24 mGy.cm COMPARISON: Brain MRI 12/09/2023, head CT 12/08/2023 FINDINGS: No acute intracranial hemorrhage, midline shift, intracranial mass, hydrocephalus, territorial ischem ia or abnormal extra-axial collection. Involutional changes with mild chronic microvascular ischemic disease. Prior small infarct within the periventricular left parietal lobe on image 19 series 2, unch anged from prior. The calvarium is intact. Prior ethmoidectomy. Mastoid air cells are clear. Prior b ilateral lens repair. IMPRESSION: No acute intracranial abnormality. ACT 112: Negative or not required by law. The above report was generated using voice recognition software. It may contain grammatical, syntax o r spelling errors. Electronically signed by: Jas Multani M.D. 01/15/2024 8:45 AM
[2024-01-15] MEDS: PENDING D5 1/2NS+20mEq KCL IVF SCH (09:43)
[2024-01-15] MEDS: DKA GOAL RANGE 150-250 mg/dl ONE (09:44)
[2024-01-15] MEDS ORDERED: PNEUMOCOCCAL VACCINE (PCV20) 20-VAL CONJ-DIP CRM/PF 0.5 ML SYR IM ONE (10:10)
[2024-01-15] MEDS ORDERED: INFLUENZA VACC TS2024-25(65y+)/PF (IIV3) 0.5mL Syr IM ONE (10:10)
[2024-01-15 10:17] LABS: BUN Creatinine Ratio 13.4 (10-20); Calcium 9.5 mg/dl (8.6-10.3); Creatinine Clr Calc Pharmacy 81.9 ml/min; Magnesium 1.6 mg/dl (1.7-2.4); Phosphorus 2.9 mg/dl (2.5-4.9)
[2024-01-15] MEDS: ASPIRIN 81 MG ECTAB PO SCH (10:17)
[2024-01-15] MEDS: carvediloL 3.125 MG TAB PO SCH (10:17)
[2024-01-15] MEDS: BUMETANIDE 1 MG TAB PO SCH (10:17)
[2024-01-15] MEDS: ENOXAPARIN INJ 40 MG/0.4 ML SYR SQ SCH (10:18)
[2024-01-15] MEDS: SPIRONOLACTONE 25 MG TAB PO SCH (10:18)
[2024-01-15] MEDS: LEVOTHYROXINE SODIUM 200 MCG TABLET PO SCH (10:18)
[2024-01-15] MEDS: LEVOTHYROXINE SODIUM 25 MCG TABLET PO SCH (10:18)
[2024-01-15] MEDS: PANTOprazole 40 MG TAB PO SCH (10:18)
[2024-01-15] MEDS: LOSARTAN POTASSIUM 50 MG TAB PO SCH (10:18)
[2024-01-15] MEDS: D5W AND 1/2NSS + 20MEQ KCL 20 MEQ/1,000 ML BAG IV SCH (10:20)
--- NOTE | 2024-01-15 11:05 | Pharmacy Report ---
Pharmacy Glycemic Short Note 2 - Date of Service January 15, 2024 - Glycemic Short BSG Results (Last 24 hours): 01/15/24 01/15/24 01/15/24 02:01 02:10 06:34 Glucose 625 H* POC Glucose 562 H* 498 H* 01/15/24 01/15/24 01/15/24 06:38 07:47 08:46 Glucose 552 H* POC Glucose 382 H* 255 H 01/15/24 01/15/24 01/15/24 09:39 09:42 10:45 Glucose 226 H POC Glucose 212 H 135 H OUTPATIENT ANTIDIABETIC REGIMEN: * Lantus 55 units SC BID * NovoLog * Correction factor: 10 mg/dL/unit * Carb ratio: 5 g/unit * Possibly Ozempic, although there may have been confusion with this * The above was confirmed via outpatient diabetes note from Dr. Li 11/24/23 * HbA1c 8.7% * Diabetes note indicates patient may be a high glycosylator - elevated HbA1c not necessarily reflective of poor glycemic control ASSESSMENT: 01/15/24 * 63 yo M with Type 1 diabetes, although high insulin requirements indicate patient may have mixed type 1 and type 2 diabetes * Required much less insulin than reported in outpatient regimen during last admission in November. * Admitted w/ mild DKA - started on insulin drip, DKA protocol, anion gap down to 12, other labs at goal. Insulin drip was running at 10 units/hr, then down to 7, now down to 3.2 units/hr. * Patient NPO, fluids changed at 1020 to incorporate dextrose. * At this time pt without N/V/ab pain - labs resolved - ok to transition to SC insulin and begin diet per hospitalist. PLAN FOR INPATIENT GLYCEMIC CONTROL: * IV insulin infusion per DKA protocol - running at 3.2units/hr * DC at 1600 (overlap w/ basal x3 hours) or sooner if drip turns off before then * Basal insulin * Lantus 35 units SQ x1 now, overlap with insulin drip x 3 hours. Additional 20 units tonight for BSG 180-220, 25 units for BSG > 220 * Bolus insulin * NovoLog per scale ACHS or Q6hrs while NPO * Goal Range: Low 110 mg/dL - High 140 mg/dL * Correction Factor: 15 mg/dL/unit * Nutritional / Prandial insulin per carb ratio of 1 unit per 5 grams CHO consumed
[2024-01-15] MEDS: LANTUS PER UNIT CHARGE SC ONE (13:08)
[2024-01-15 14:49] LABS: BUN Creatinine Ratio 13.7 (10-20); Calcium 9.6 mg/dl (8.6-10.3); Creatinine Clr Calc Pharmacy 88.9 ml/min; Magnesium 1.5 mg/dl (1.7-2.4); Phosphorus 2.5 mg/dl (2.5-4.9); Potassium 3.9 mmol/L (3.5-5.1)
--- NOTE | 2024-01-15 15:32 | Hospitalist Progress Note ---
"Date of Service January 15, 2024 Assessment & Plan (1) Diabetes mellitus type 1, uncontrolled: (2) High anion gap metabolic acidosis: (3) Morbid obesity with BMI of 45.0-49.9, adult: (4) Pseudohyponatremia: (5) Ambulatory dysfunction: (6) Hypertension: (7) Hypothyroidism: (8) Dyslipidemia: Hi Morris is a 63M w/ PMH of T1DM w/ neuropathy/retinopathy, hypothyroidism, HTN, HLD, LUCIA, BPH, lacunar stroke, CHF and morbid obesity who presents for weakness and hyperglycemia. ED: 1L NSS Hyperglycemia | HAGMA Uncontrolled T1DM w/ neuropathy, nephropathy and retinopathy * T1DM w/ CGM, pending pump, at baseline * 12/09/23 A1c 8.7 (rising) * Hemodynamically stable * Glucose 600+ on arrival, AG 19 * Urine w/o infection, though 3+ protein, ketones, and glucose * S/p 1L NSS in ED * Started insulin infusion on admission w/ 03/16 NSS + K * Zofran PRN for nausea, continue PPI * Goal to close anion gap * May benefit from CGM/Pump education while inpatient * Consulted chair car attendant to help patient with CGM pump placement * Glucose: 136, and anion gap has closed, A Hyponatremia * Pseudohyponatremia from hyperglycemia * Follow w/ BMP pending IVFs/Insulin * Hyponatremia now resolved, Na: 138 Troponin Elevation * Likely demand in setting of volume depletion/hyperglycemia * No chest pain, palpitations, tightness * Will continue to trend 22->24->35 Weakness/Confusion * Denied by patient, though recent fall form bed an inability to get up * No known injury * CT Head: Previous lacunar infarct finding from November * PT/OT ordered Chronic Conditions: * Hypothyroidism: continue home Levothyroxine Recheck TSH outpatient (elevated on presentation) * HTN - continue antihypertensive * HLD - hold statin * BPH - hold home medication * CHF - continue diuretics * Hx of Stroke Code Status:Full Diet:NPO IVF: 1/2 NSS + K @ 160 DVT PPx:Jair Dispo: Med/Tele Admission and Anticipated Discharge Date Admission Date: January 15, 2024 Supervising Physician Co-Signing Physician Notes Attending attestation Pt seen and examined in concert with Dr. Martinez. In agreement with the documented findings as noted in the resident documentation with any exceptions or additions as noted here. Resting comfortably in bed without acute complaint. On examination, S1/S2 nl RRR no MCG. CTAB. Abd NT/ND BS+ve T1DM with neuropathy, nephropathy, retinopathy in the setting of HAGMA - successfully completed insulin drip protocol, transitioning to SQ insulin and oral intake. Continue IV fluids, trend potassium, glucose, CBC. Some discord re: understanding of underlying pathology from HAGMA. Elevated troponin - mildly, likely demand, continue trending until downtrending Aphasia, mild, subacute - noted recently in the setting of lacunar infarct. Early this year w/ mildly +ve minicog (3/5) without further evaluation at that time. Stable per spouse. Else see resident documentation as noted. Subjective Arturo Rodríguez is a 63 y/o M arriving in the ED overnight via ambulance due to a fall. Patient reportedly fell out of bed, sustained no head trauma, but was unable to get up and family called EMS for transfer to ED. Patient was found to be overtly hyperglycemic with a glucose of 600+ also with a HAGMA, with anion gap of 19. Urine was not infected but had 3+ glucose, protein, and ketones. Patient was given 1L NSS and then insulin infusion with 1/2 NSS +K. Today patient was seen resting comfortably at bedside. Patient is a poor hist orian and seems to have a level of intellectual disability. Patient asks to leave AMA today, but after reassuring patient of importance of at least overnight stay, he seems more amenable to staying. Today patient denies nausea, vomiting, abdominal pain, chest pain, palpitations, chest tightness. Physical Exam Physical Exam: General: patient resting comfortably, NAD, non-toxic in appearance, answers questions appropriately. Skin: warm, dry, intact HEENT: NC/AT, anicteric sclera, conjunctiva without injection, moist mucus membranes. Heart: +S1/S2, regular, no m/r/g Lungs: equal air entry bilaterally, no rales/rhonchi/wheezes Abd: +BS, soft, NT/ND Ext: warm, no clubbing/cyanosis or edema, Magda's neg. Neuro: nonfocal, speech intact, no facial droop, moving all extremities. Results & Data Results & Data Vital Signs (Past 12 Hours) Vital Signs Temp Pulse Pulse Pulse Resp BP BP 01/15/24 11:34 36.4 C L 77 17 01/15/24 10:59 79 01/15/24 09:32 01/15/24 09:32 36.4 C L 80 24 166/75 H 01/15/24 08:32 01/15/24 08:32 36.4 C L 80 24 166/78 H 01/15/24 07:00 77 24 150/79 H 01/15/24 06:10 67 01/15/24 05:02 81 24 160/67 H 01/15/24 04:30 83 21 151/79 H 01/15/24 04:00 72 21 155/67 H BP Pulse Ox Pulse Ox O2 Del Method O2 Del Method 01/15/24 11:34 142/76 H 98 Room Air 01/15/24 10:59 01/15/24 09:32 Room Air 01/15/24 09:32 99 Room Air 01/15/24 08:32 98 Room Air 01/15/24 08:32 99 Room Air 01/15/24 07:00 100 Room Air 01/15/24 06:10 01/15/24 05:02 100 01/15/24 04:30 01/15/24 04:00 100 Resident Activity Tracking Resident Involvement: Resident Care Provided Care Provided: Adult Hospital Medicine"
[2024-01-15 18:57] LABS: BUN Creatinine Ratio 12.6 (10-20); Calcium 9.2 mg/dl (8.6-10.3); Creatinine Clr Calc Pharmacy 81.9 ml/min; Magnesium 1.4 mg/dl (1.7-2.4); Phosphorus 2.5 mg/dl (2.5-4.9); Potassium 3.8 mmol/L (3.5-5.1)
--- NOTE | 2024-01-15 19:40 | Electrocardiogram Report ---
Test Reason : Blood Pressure : */* mmHG Vent. Rate : 74 BPM Atrial Rate : 74 BPM P-R Int : 200 ms QRS Dur : 108 ms QT Int : 382 ms P-R-T Axes : 60 26 -12 degrees QTcB Int : 424 ms Sinus rhythm with Premature supraventricular complexes Incomplete right bundle branch block Nonspecific T wave abnormality Abnormal ECG When compared with ECG of 08-Dec-2023 15:42, Premature supraventricular complexes are now Present OR interval has decreased Confirmed by Kayy Liu (Dmitri) on 01/15/2024 7:40:32 PM Referred By: REFERRED SELF Confirmed By: Kayy Liu
[2024-01-15] MEDS: LANTUS PER UNIT CHARGE SC SCH (20:42)
[2024-01-15 22:01] LABS: BUN Creatinine Ratio 12.9 (10-20); Creatinine Clr Calc Pharmacy 83.8 ml/min; Magnesium 1.4 mg/dl (1.7-2.4); Phosphorus 2.5 mg/dl (2.5-4.9); Potassium 3.7 mmol/L (3.5-5.1)
--- NOTE | 2024-01-16 00:35 | Billing Data ---
Date of Service January 16, 2024 Coding Level of Care Code 62790 INT INP/OBS CARE
[2024-01-16 01:16] LABS: Magnesium 1.4 mg/dl (1.7-2.4); Phosphorus 2.6 mg/dl (2.5-4.9)
[2024-01-16] MEDS ORDERED: MAGNESIUM SULFATE / D5W 1 GM/100 ML BAG IV SCH (07:45)
--- NOTE | 2024-01-16 08:59 | Discharge Summary ---
Date of Service January 16, 2024 Admission HPI Per Admitting Provider Arturo is a 63M w/ PMH of T1DM w/ neuropathy/retinopathy, hypothyroidism, HTN, HLD, LUCIA, BPH, lacunar stroke, CHF and morbid obesity who presents for weakness and hyperglycemia. ED: 1L NSS Poor historian (states he has a 6 year old son Oscar and is largely uncertain of the events prior to his arrival) Missed his afternoon/evening insulin doses (unable to articulate why) Came because he slipped off his bed around 9 PM, was brought in via ambulance after family/friends couldn't get him off floor Friends came over to help but they couldn't get him up Was feeling his normal self when he slipped off the bed Denies chest pain, dyspnea, headache, LH, dizziness, weakness, or LE pain No new bowel/bladder changes Uses CGM, just received insulin pump, but not yet using (hasn't had the CGM training) No dietary changes per patient No recent illness No nausea or emesis, no abdominal pain Did not bump/injure anything slipping from bed Denies recent medication changes Patient repetitive throughout interview, noting 6 year old son and new CGM x 4 No family at bedside to corroborate history Principal Diagnosis Hyperglycemia/HAGMA Discharge Exam General: patient resting comfortably, NAD, non-toxic in appearance, answers questions appropriately. Skin: warm, dry, intact HEENT: NC/AT, anicteric sclera, conjunctiva without injection, moist mucus membranes. Heart: +S1/S2, regular, no m/r/g Lungs: equal air entry bilaterally, no rales/rhonchi/wheezes Abd: +BS, soft, NT/ND Ext: warm, no clubbing/cyanosis or edema, Magda's neg. Neuro: nonfocal, speech intact, no facial droop, moving all extremities. Discharge Data Allergies Allergy/AdvReac Type Severity Reaction Status Date / Time bacitracin Allergy Mild contact Verified 01/04/24 15:30 dermatitis with eye bacitracin dog dander Allergy Mild Congestion Verified 01/04/24 15:30 horse dander Allergy Unknown Allergy Verified 01/04/24 15:30 testing + house dust Allergy Unknown Allergy Verified 01/04/24 15:30 testing + Consultations 01/15/24 04:47 ED Decision to Admit Stat Ordered Studies 01/15/24 04:46 CT head/brain wo con Stat Laboratory Results WBC 14.01 K/ul (4.8-10.8) H 01/15/24 02:10 RBC 5.09 M/uL (4.70-6.10) 01/15/24 02:10 Hgb 14.7 g/dl (14.0-18.0) 01/15/24 02:10 Hct 44.6 % (42.0-52.0) 01/15/24 02:10 MCV 87.6 fL (80.0-100.0) 01/15/24 02:10 MCH 28.9 pg (25.0-34.0) 01/15/24 02:10 MCHC 33.0 g/dL (32.0-36.0) 01/15/24 02:10 RDW Std Deviation 43.8 fL (36.4-46.3) 01/15/24 02:10 RDW Coeff of Jill 13.6 % (11.5-14.5) 01/15/24 02:10 Plt Count 268 K/uL (130-400) 01/15/24 02:10 MPV 12.6 fL (9.4-12.4) H 01/15/24 02:10 Immature Gran % (Auto) 0.4 % 01/15/24 02:10 Neut % (Auto) 56.8 % 01/15/24 02:10 Lymph % (Auto) 33.9 % 01/15/24 02:10 Bartholomew % (Auto) 7.7 % 01/15/24 02:10 Eos % (Auto) 0.4 % 01/15/24 02:10 Baso % (Auto) 0.8 % 01/15/24 02:10 Neut # (Auto) 7.95 K/uL (1.40-6.50) H 01/15/24 02:10 Lymph # (Auto) 4.75 K/uL (1.20-3.40) H 01/15/24 02:10 Bartholomew # (Auto) 1.08 K/uL (0.11-0.59) H 01/15/24 02:10 Eos # (Auto) 0.06 K/uL (0.00-0.50) 01/15/24 02:10 Baso # (Auto) 0.11 K/uL (0.00-0.20) 01/15/24 02:10 Immature Gran # (Auto) 0.06 K/uL (0.01-0.20) 01/15/24 02:10 PT 10.1 Seconds (9.0-12.0) 01/15/24 02:10 INR 0.9 (0.9-1.1) 01/15/24 02:10 VBG pH 7.38 (7.36-7.41) 01/16/24 00:39 VBG pCO2 38 mmHg (38-50) 01/15/24 04:39 VBG pO2 35 mmHg 01/15/24 04:39 VBG HCO3 18 mmol/L 01/15/24 04:39 VBG O2 Saturation < 60.0 % 01/15/24 04:39 VBG Base Excess -7.7 mEq/L 01/15/24 04:39 Sodium 138 mmol/L (136-145) 01/15/24 21:27 Potassium 3.7 mmol/L (3.5-5.1) 01/15/24 21:27 Chloride 106 mmol/L (98-107) 01/15/24 21:27 Carbon Dioxide 25 mmol/L (21-32) 01/15/24 21:27 Anion Gap 7 (3-11) 01/15/24 21:27 BUN 16 mg/dl (6-23) 01/15/24 21:27 Creatinine 1.24 mg/dl (0.6-1.4) 01/15/24 21:27 Est Cr Clr Drug Dosing 83.8 ml/min 01/15/24 21:27 eGFR 64.52 01/15/24 21:27 BUN/Creatinine Ratio 12.9 (10-20) 01/15/24 21:27 Glucose 176 mg/dl (70-99(Fasting)) H 01/15/24 21:27 POC Glucose 304 mg/dl (70-99) H* 01/16/24 08:31 Osmolality 316 mOsm/kg (280-300) H 01/15/24 02:10 Calcium 9.0 mg/dl (8.6-10.3) 01/15/24 21:27 Phosphorus 2.6 mg/dl (2.5-4.9) 01/16/24 00:39 Magnesium 1.4 mg/dl (1.7-2.4) L 01/16/24 00:39 Total Bilirubin 0.8 mg/dl (0.2-1.0) 01/15/24 02:10 AST 13 U/L (13-39) 01/15/24 02:10 ALT 11 U/L (7-52) 01/15/24 02:10 Alkaline Phosphatase 90 U/L (34-104) 01/15/24 02:10 Troponin I High Sens 26.1 pg/ml (0-20) H 01/15/24 21:27 Total Protein 6.6 gm/dl (6.0-8.3) 01/15/24 02:10 Albumin 3.6 gm/dl (3.4-5.0) 01/15/24 02:10 Globulin 3.0 gm/dl (2.5-4.0) 01/15/24 02:10 Albumin/Globulin Ratio 1.2 (0.9-2) 01/15/24 02:10 Lipase 22 U/L (11-82) 01/15/24 02:10 TSH 15.202 uIu/ml (0.300-4.500) H 01/15/24 02:10 Free T4 1.04 ng/dl (0.61-1.60) 01/15/24 02:10 Urine Color Yellow 01/15/24 03:30 Urine Appearance Clear (Clear) 01/15/24 03:30 Urine pH 5.0 (4.5-7.5) 01/15/24 03:30 Ur Specific [place] 1.029 (1.000-1.030) 01/15/24 03:30 Urine Protein 3+ (Negative) H 01/15/24 03:30 Urine Glucose (UA) 3+ (Negative) H 01/15/24 03:30 Urine Ketones 3+ (Negative) H 01/15/24 03:30 Urine Blood Trace (Negative) H 01/15/24 03:30 Urine Nitrite Negative (Negative) 01/15/24 03:30 Urine Bilirubin Negative (Negative) 01/15/24 03:30 Urine Urobilinogen Negative (Negative) 01/15/24 03:30 Ur Leukocyte Esterase Negative (Negative) 01/15/24 03:30 Urine WBC (Auto) 0-5 /hpf (0-5) 01/15/24 03:30 Urine RBC (Auto) 0-2 /hpf (0-2) 01/15/24 03:30 U Hyaline Cast (Auto) 6-10 /lpf (0-2) H 01/15/24 03:30 U Epithel Cells (Auto) 0-2 /hpf (0-2) 01/15/24 03:30 Urine Bacteria (Auto) None Seen (None Seen) 01/15/24 03:30 Impressions Chest X-Ray 01/15/24 02:23 EXAM: XR chest 1V portable CLINICAL HISTORY: TECHNIQUE: An X-ray image of the chest is obtained in AP projection. COMPARISON: A comparison is done with CXR dated 12/08/2023. FINDINGS: Suboptimal image due to significant rotation. Pulmonary Parenchyma: Lungs are clear bilaterally. There is no evidence of consolidation, collapse, or focal opacities. No pulmonary nodules are identified. No evidence of pleural effusion or pleural thickening. Heart and Mediastinum: Heart size and shape are normal. No mediastinal widening or masses. No hilar or mediastinal lymphadenopathy. Bony Thorax: The bony thorax appears intact without fractures or deformities. Soft Tissues: Soft tissues overlying the chest wall are unremarkable. IMPRESSION: 1. Unremarkable chest X-ray. No acute cardiopulmonary abnormalities are identified. 2. Left side pleural effusion seen in the previous study dated: 12/08/2023 shows radiographic resolution. 3. Clinical correlation. Electronically signed by Martina Hector 01-15-2024 04:[address] 01/15/24 04:46 CT head/brain wo con CLINICAL HISTORY: 63 years-old Male with weakness, solmnolent. Acute weakness with prior stroke TECHNIQUE: Multiple axial CT images of the head were obtained without contrast. A dose lowering technique was utilized adhering to the principles of ALARA. CT DOSE: 688.24 mGy.cm COMPARISON: Brain MRI 12/09/2023, head CT 12/08/2023 FINDINGS: No acute intracranial hemorrhage, midline shift, intracranial mass, hydrocephalus, territorial ischemia or abnormal extra-axial collection. Involutional changes with mild chronic microvascular ischemic disease. Prior small infarct within the periventricular left parietal lobe on image 19 series 2, unchanged from prior. The calvarium is intact. Prior ethmoidectomy. Mastoid air cells are clear. Prior bilateral lens repair. IMPRESSION: No acute intracranial abnormality. ACT 112: Negative or not required by law. The above report was generated using voice recognition software. It may contain grammatical, syntax or spelling errors. Electronically signed by: Jas Multani M.D. 01/15/2024 8:45 AM Hospital Course (1) Diabetes mellitus type 1, uncontrolled: (2) Morbid obesity with BMI of 45.0-49.9, adult: (3) Pseudohyponatremia: (4) Hypertension: (5) Hypothyroidism: (6) Dyslipidemia: Hi Morris is a 63M w/ PMH of T1DM w/ neuropathy/retinopathy, hypothyroidism, HTN, HLD, LUCIA, BPH, lacunar stroke, CHF and morbid obesity who presents for weakness and hyperglycemia. ED: 1L NSS Hyperglycemia | HAGMA Uncontrolled T1DM w/ neuropathy, nephropathy and retinopathy * T1DM w/ CGM, pending pump, at baseline * 12/09/23 A1c 8.7 (rising) * Glucose 600+ on arrival, AG 19, Urine w/o infection, though 3+ protein, ketones, and glucose * Started insulin infusion on admission w/ 03/16 NSS + K * Consulted elementary educator to help patient with CGM pump placement, patient defers education at this time in favor of discharge and follow up * Borderline glycemic control prior to discharge with glucose in 220s on home regimen, patient aware and educated Hyponatremia * Hyponatremia now resolved s/p IVF and insulin Troponin Elevation * Likely demand in setting of volume depletion/hyperglycemia * No chest pain, palpitations, tightness Weakness/Confusion * Denied by patient, though recent fall form bed and inability to get up * No known injury * CT Head: Previous lacunar infarct finding from November * PT/OT ordered, declines rehab services in favor of discharge Chronic Conditions: * Hypothyroidism: continue home Levothyroxine Recheck TSH outpatient (elevated on presentation) * HTN - continue antihypertensive * HLD - hold statin * BPH - hold home medication * CHF - continue diuretics * Hx of Stroke Total Time Total Time Spent Total Time Spent (In Minutes): See attending attestation Discharge Plan Discharge Items Patient Disposition: Home - Self-Care Reason For Visit: HYPERGLYCEMIA Discharge Diagnosis: Hyperglycemia/HAG Activity: Per Instructions section Non-emergency contact: Primary Care Provider Call non-emergency contact if: your pain is not controlled and your pain is worsening Follow-up/Referrals: PCP,NO [Primary Care Provider] - Diet: Carb Consistent or DM2 Addtl Attending Provider Instructions: You were admitted to the hospital for hyperglycemia and High anion gap metabolic acidosis. When you arrived you had fallen and could not get up after missing your evening dose of Lantus because you fell asleep. In the hospital you were treated with insulin and fluids until your anion gap closed and your blood glucose levels normalized. While here in the hospital you declined further lab work up for management of your diabetes and checks to make sure your electrolyte levels were stable. However, while here in the hospital your status did quickly improve, with electrolytes normalizing. It is important that you take you Lantus doses consistently so that another similar event does not occur. You were advised to meet with a clinical nurse educator in the hospital but refused this, so it is important that when following up with your pcp you are educated on proper use of your new blood glucose monitor. Throughout your hospital stay you denied any chest pain, palpitations, SOB, cough, abdominal pain, nausea, or vomiting. You consistently were asymptomatic and are considered safe for discharge, but close follow-up with your pcp for your diabetes management is recommended. A discharge summary will be sent to your primary care physician to ensure continuity of care. Please bring this discharge summary with you to your next office appointment so that your provider can review it at that time. Follow-up appointments: Make a follow-up appointment with your PCP within the next week. It is very important that you follow up with them shortly after discharge from the hospital. Medications: Your medication list has been reviewed and reconciled upon discharge to ensure accuracy and continuity of care. An updated list of all your medications is incl uded with your hospital discharge paperwork. Please review this list closely, and make note of any changes. If you have any issues filling these prescriptions, please call [phone] and ask to leave a message for Dr. Luisito Martinez. Take your medications as instructed; do not skip a dose of your medicines. Make sure all of your doctors know every medicine you are taking (including ocgz-mdd-vrutxvg medicines, vitamins, and supplements). Call your primary care provider before taking any new medicines (including kxpp-que-wihnutm medicines, vitamins, and supplements), because some of these may interact with your current medications, or may make your symptoms worse. Tell your primary care provider if you cannot afford your medications. CONTACT YOUR PRIMARY CARE PROVIDER if you experience any of the following: Difficulty following your treatment plan, or difficulty taking medications CALL 911 OR GO TO THE EMERGENCY DEPARTMENT if you experience any of the following: Sudden, severe abdominal pain or nausea/vomiting Severe chest pain, or chest pain that radiates (moves) to your jaw or arm Sudden, severe shortness of breath or difficulty breathing Thank you for allowing us to participate in your care. Pending Studies at Discharge: No Stand-Alone Forms: My [facility], Smoking Cessation Medications and DC Order Prescriptions: Continued (DME) lancets [OneTouch Delica Lancets] 33 gauge misc See Rx Instructions .ROUTE .MEDSUPPLY Qty: 300 3RF Rx Instructions: test 3 times daily (DME) OneTouch Verio test strips Strip See Dose Instructions .ROUTE .MEDSUPPLY Qty: 300 3RF Dose Instruction: As directed Rx Instructions: test blood sugars 3 x daily (DME) Dexcom Dray Driver Misc See Rx Instructions .ROUTE .MEDSUPPLY Qty: 1 0RF Rx Instructions: As directed (DME) Dexcom G7 Dray Driver Misc See Rx Instructions .Route Qty: 1 0RF Rx Instructions: use as directed with CGM gabapentin 300 mg capsule 300 mg PO .COMPLEX Qty: 540 3RF Rx Instructions: TAKE 2 CAPSULES IN THE MORNING AND 4 CAPSULES AT BEDTIME; insulin glargine [Lantus Solostar U-100 Insulin] 100 unit/mL (3 mL) insulin pen 55 unit subcut BID Qty: 105 3RF Rx Instructions: subcut Inject 55 units in AM and 55 units and PM subcut ; mecobalamin (vitamin B12) 1,000 mcg tablet,disintegrating 2,000 mcg sublingual DAILY Qty: 60 0RF Rx Instructions: place tablet under tongue and allow to dissolve for at least30 secs before swallowing omeprazole 40 mg capsule,delayed release(DR/EC) 40 mg PO QAM Qty: 90 3RF Rx Instructions: qam econazole 1 % cream 1 applic TOP BID PRN (Reason: skin irritation) Qty: 30 5RF (DME) Dexcom G7 Sensor Device See Rx Instructions .ROUTE .MEDSUPPLY Qty: 9 3RF Rx Instructions: change every 10 days insulin aspart U-100 [Novolog FlexPen U-100 Insulin] 100 unit/mL (3 mL) insulin pen See Rx Instructions .ROUTE .COMPLEX Qty: 90 3RF Rx Instructions: Inject 80- 100 units daily; bumetanide 2 mg tablet 2 mg PO QAM Qty: 90 3RF Rx Instructions: qam minocycline 100 mg capsule 100 mg PO BID Qty: 180 3RF Hold Instructions: Resume on 12/17/23. Hold while you are taking oral antibiotic cephalexin and resume once you are finished 5 days of cephalexin (DME) pen needle, diabetic [BD Ultra-Fine Short Pen Needle] 31 gauge x 5/16" needle See Dose Instructions .ROUTE .MEDSUPPLY Qty: 600 3RF Dose Instruction: As directed Rx Instructions: use pen needles with insulin pens 6 times daily ezetimibe [Zetia] 10 mg tablet 10 mg PO QPM Qty: 90 3RF levothyroxine 25 mcg tablet 25 mcg PO QAM Qty: 90 3RF Hold Instructions: low TSH Rx Instructions: TOTAL DOSE 225 MCG--TAKES WITH 200 MCG TAB. montelukast 10 mg tablet 10 mg PO QPM 90 Days Qty: 90 3RF alfuzosin 10 mg tablet extended release 24 hr 10 mg PO BID Qty: 180 3RF Rx Instructions: administer after the same meal each day spironolactone 25 mg tablet 25 mg PO QAM Qty: 90 1RF triamcinolone acetonide 0.5 % cream 1 applic TOP BID PRN (Reason: Skin Irritation) Qty: 15 1RF Rx Instructions: 1 application topical twice a day; peg 3350-electrolytes [Golytely] 236-22.74-6.74 -5.86 gram recon soln 240 ml PO .COMPLEX Qty: 4000 0RF Rx Instructions: 240 mL PO take as directed per split dose instructions fluticasone propionate 50 mcg/actuation spray,suspension 1 spray intranasal DAILY PRN (Reason: Congestion) atorvastatin 80 mg tablet 80 mg PO QPM Qty: 90 3RF levothyroxine 200 mcg tablet 200 mcg PO QAM Qty: 90 3RF Rx Instructions: TOTAL DOSE 225 MCG--TAKES WITH 25 MCG TAB. losartan 100 mg tablet 100 mg PO QAM Qty: 90 3RF Rx Instructions: qam carvedilol 3.125 mg Tablet 3.125 mg PO BIDM Qty: 60 0RF Rx Instructions: TAKE TWICE DAILY WITH MEALS (BREAKFAST AND DINNER) magnesium oxide 400 mg (241.3 mg magnesium) Tablet 400 mg PO BID Qty: 14 0RF aspirin [Enteric Coated Aspirin] 81 mg tablet,delayed release (DR/EC) 81 mg PO DAILY Qty: 30 0RF ketoconazole 2 % shampoo 1 applic TOP 2XWK Rx Instructions: APPLY TO SCALP TWICE WEEKLY betamethasone dipropionate 0.05 % lotion 1 applic TOP DAILY PRN (Reason: Skin Irritation) Rx Instructions: Apply to scalp once daily for up to 2 weeks as needed for flaring. Gvoke HypoPen 2-Pack 1 mg/0.2 mL auto-injector 1 mg subcut DIRECTED PRN (Reason: for hypoglycemic epidoses) No Action Humalog KwikPen Insulin 200 unit/mL (3 mL) insulin pen 180 unit subcut DAILY Qty: 81 3RF Discharge Orders: Discharge Order (Routine); Ordered 01/16/24 Ordered By: Luisito Martinez Admission Data Admit Date/Time: 01/15/24 05:45 Attending Provider: Orlando Steven Admit Provider: Orlando Steven Primary Care Provider: PCP,NO Other Interventions: Discharge Summary Assessment (RN) Last Done: 01/16/24 09:46 Supervising Physician Co-Signing Physician Notes Attending attestation Pt seen and examined in concert with Dr. Martinez. In agreement with the documented findings as noted in the resident documentation with any exceptions or additions as noted here. Declines to provide history this AM beyond that he is feeling at baseline and wants to leave. Refuses AM labs at present and with encouragement, declines physician examination at this time. T1DM with neuropathy, nephropathy, retinopathy in the setting of HAGMA - tolerating SQ insulin at basal dose with last glucose in 300s, declines further surveillance at present. Declines diabetic education re: new insulin pump. Endorses he will follow up with outpatient endo and primary care in short order. Encourage PO hydration and dietary support. Extensive concerns/precautions reviewed prior to patient declining further conversation. Elevated troponin - likely demand, downtrended with improvement in HAGMA Aphasia, mild, subacute - noted recently in the setting of lacunar infarct. Early this year w/ mildly +ve minicog (3/5) without further evaluation at that time. Stable per spouse on 01.15.24 Else see resident documentation as noted. Total attending physician time spent with this patient's care on the day of discharge: 40 minutes. Resident Activity Tracking Resident Involvement: Resident Care Provided Care Provided: Adult [facility]
[2024-01-16] MEDS ORDERED: MAGNESIUM OXIDE 400 MG TAB PO SCH (09:00)
[2024-01-16] MEDS ORDERED: LANTUS PER UNIT CHARGE SC SCH (09:00)
[2024-01-16] MEDS: LANTUS PER UNIT CHARGE SC ONE (09:06)
[2024-01-16 09:07] VITALS: BP 140/78; PULSE 84; RESP 16; TEMP 97.9; O2SAT 98
== END 2024-01-16 11:13 | disposition home or self-care (01) | DRG 638 ==
LOC: SUATTDRO → ED 01:53 → 2N 05:45 → SUATTDRO 05:45 → INTOOBSV 05:45 → 2N 08:33

== ENCOUNTER 2024-03-01 00:47 | Inpatient (IN) ==
[2024-03-01 01:15] LABS: HCO3 VBG 19 mmol/L; Oxygen Saturation VBG < 60.0 %; PCO2 VBG 45 mmHg (38-50); PO2 VBG 32 mmHg; pH VBG 7.24 (7.36-7.41)
[2024-03-01 01:20] LABS: Basophils # (auto) 0.09 K/uL (0.00-0.20); Basophils % (auto) 1.1 %; Eosinophils # (auto) 0.09 K/uL (0.00-0.50); Eosinophils % (auto) 1.1 %; Hematocrit (blood only) 41.6 % (42.0-52.0); Hemoglobin 13.5 g/dl (14.0-18.0); Immature Granulocytes # (auto) 0.03 K/uL (0.01-0.20); Immature Granulocytes % (auto) 0.4 %; Lymphocytes # (auto) 3.54 K/uL (1.20-3.40); Lymphocytes % (auto) 41.9 %; Mean Corpuscular Hgb Conc 32.5 g/dL (32.0-36.0); Mean Corpuscular Volume 89.5 fL (80.0-100.0); Mean Platelet Volume 11.6 fL (9.4-12.4); Monocytes # (auto) 0.55 K/uL (0.11-0.59); Monocytes % (auto) 6.5 %; Neutrophils # (auto) 4.15 K/uL (1.40-6.50); Platelet Count 252 K/uL (130-400); RDW Coefficient of Variation 14.5 % (11.5-14.5); RDW Standard Deviation 47.1 fL (36.4-46.3); Red Blood Count 4.65 M/uL (4.70-6.10); White Blood Count 8.45 K/ul (4.8-10.8)
[2024-03-01 01:32] LABS: Appearance Urine Clear (Clear); Bacteria Urine Automated None Seen (None Seen); Bilirubin Urine Negative (Negative); Blood Urine 2+ (Negative); Color Urine Yellow; Epithelial Cell Urine Auto 0-2 /hpf (0-2); Glucose Urine UA 3+ (Negative); Ketones Urine 4+ (Negative); Leukocyte Esterase Urine Negative (Negative); Nitrite Urine Negative (Negative); Protein Urine 4+ (Negative); RBC Urine Automated 0-2 /hpf (0-2); Specific Gravity Urine 1.028 (1.000-1.030); Urobilinogen Urine Negative (Negative); WBC Urine Automated 0-5 /hpf (0-5); pH Urine 5.5 (4.5-7.5)
[2024-03-01 01:41] LABS: Albumin Globulin Ratio 1.2 (0.9-2); Albumin Level 3.3 gm/dl (3.4-5.0); BUN Creatinine Ratio 15.9 (10-20); Bilirubin,Total 0.6 mg/dl (0.2-1.0); Calcium 9.9 mg/dl (8.6-10.3); Creatinine Clr Calc Pharmacy 70.3 ml/min; Globulin 2.7 gm/dl (2.5-4.0); Magnesium 1.7 mg/dl (1.7-2.4); Potassium 4.8 mmol/L (3.5-5.1)
[2024-03-01 01:43] LABS: Amphetamines+Metham, Urine Neg (Neg); Barbiturates, Urine Neg (Neg); Benzodiazepine, Urine Neg (Neg); Cocaine, Urine Neg (Neg); Fentanyl, Urine Neg (Neg); MDMA (Ecstacy), Urine Neg (Neg); Marijuana, Urine Neg (Neg); Methadone, Urine Neg (Neg); Opiate, Urine Neg (Neg); Phencyclidine, Urine Neg (Neg)
[2024-03-01 01:52] LABS: Troponin I High Sensitivity 37.4 pg/ml (0-20)
[2024-03-01 01:55] LABS: Thyroid Stimulating Hormone 18.947 uIu/ml (0.300-4.500)
[2024-03-01] MEDS: NovoLIN-R INSULIN PER UNIT CHARGE IV STA (01:55)
[2024-03-01] MEDS: SODIUM CHLORIDE 0.9% 1,000 ML IV ONE ×2 (02:01→04:58)
[2024-03-01 02:32] LABS: T4 Free Thyroxine 0.91 ng/dl (0.61-1.60)
--- NOTE | 2024-03-01 02:35 | CT Scan Report ---
EXAM: CT head/brain wo con CLINICAL HISTORY: weakness/ams TECHNIQUE: Multiple axial images are obtained from the skull base to the vertex without contrast. CT scan was performed according to ALARA (as low as reasonable achievable). COMPARISON: 01/15/2024 07:04:09 SPECIMEN PREPARATION ASSISTANT FINDINGS: There is cerebral atrophy. No evidence of space occupying lesion, hemorrhage, edema, mass effect, midline shift, extra axial collection, or hydrocephalus is noted. Basal cisterns are symmetric and normal in size and configuration. There are scattered periventricular hypodensities as can be seen with chronic microvascular ischemic changes. The maldonado-white matter differentiation is preserved. Visualized paranasal sinuses and mastoid air cells are well aerated. Orbital contents are within normal limits. Bony structures are intact. IMPRESSION: 1. No evidence of acute intracranial abnormality is demonstrated. 2. Chronic microvascular ischemic changes. 3. Cerebral atrophy. No other new interval abnormality since prior study. Electronically signed by Cortez Blanco 03-01-2024 02:35 AM
--- NOTE | 2024-03-01 03:49 | History & Physical Report ---
Date of Service March 01, 2024 Assessment & Plan (1) Diabetes mellitus type 1, uncontrolled: Plan: DM-1 with hyperglycemia, possibly mild DKA with elevated anion gap=19, serum HCO3=19 and pH=7.24. Patient does not provide clear details of what occurred. He has no complaints. He thinks that his insulin pump is working fine. Given 1L NSS at 5u IV insulin with improvement in BSG from 479 --> 357 -Will admit to Medical with Telemetry -1L NSS bolus then NSS at 125mL/hr x 1 additional liter -Lantus 20u BID - will give dose now -ISS -BSG checks q 4 hours -BMP q 6 hours -If AG and blood sugar do not improve with above measures will then proceed to insulin drip -Diabetes education -PT/OT evaluation -Continue Gabapentin (2) Elevated troponin: Plan: Patient with history of the same. No report of chest pain. No ischemic changes on EKG -Telemetry monitoring -Repeat troponin (3) Hypothyroidism: Plan: Chronic. Elevated TSH with normal T4 -Continue Synthroid 225 mcg po daily (4) Hypertension: Plan: Elevated blood pressure currently -Continue Spironolactone -Continue Losartan History of Present Illness Chief Complaint: hyperglycemia Primary Care Provider: Jorje Iyer MD Arturo Rodríguez is a 63yo male with history of DM-I, LUCIA, GERD, HLP presenting from home with hyperglycemia. Patient provides little history. He is not certain why he is here. Per report, his insulin pump may have malfunctioned and he is presenting with hyperglycemia. Patient denies fever, chills, chest pain, cough, SOB, abdominal pain, nausea. Patient is unable to provide details of his insulin pump settings. In the ER he is afebrile, HD stable, NAD ER Course: NSS x 1L Regular insulin 5u IV Allergies Allergy/AdvReac Type Severity Reaction Status Date / Time bacitracin Allergy Mild contact Verified 02/25/24 15:40 dermatitis with eye bacitracin dog dander Allergy Mild Congestion Verified 02/25/24 15:40 horse dander Allergy Unknown Allergy Verified 02/25/24 15:40 testing + house dust Allergy Unknown Allergy Verified 02/25/24 15:40 testing + Home Medications Medication Instructions Recorded Confirmed Type OneTouch Delica Lancets 33 gauge #300 ea 02/01/19 02/25/24 Rx (lancets) OneTouch Verio test strips (blood #300 ea 11/10/19 02/25/24 Rx sugar diagnostic) Dexcom Inclusion Special Educator (blood-glucose #1 ea 03/07/20 02/25/24 Rx meter,continuous) fluticasone propionate 50 1 spray intranasal DAILY PRN 09/29/21 02/25/24 History mcg/actuation nasal Congestion spray,suspension Dexcom G7 Inclusion Special Educator (blood-glucose #1 ea 07/07/22 02/25/24 Rx meter,continuous) gabapentin 300 mg capsule 300 mg PO .COMPLEX #540 caps 08/03/22 02/25/24 Rx insulin glargine 100 unit/mL (3 55 unit (0.55 mL) subcut BID #105 08/31/22 02/25/24 Rx mL) subcutaneous pen (Lantus mL Solostar U-100 Insulin) mecobalamin (vitamin B12) 1,000 2,000 mcg (2 x 1,000 mcg) 11/27/22 02/25/24 Rx mcg disintegrating sublingual DAILY #60 tabs tablet,sublingual omeprazole 40 mg capsule,delayed 40 mg PO QAM #90 caps 12/29/22 02/25/24 Rx release econazole 1 % topical cream 1 applic topical BID PRN skin 01/28/23 02/25/24 Rx irritation #30 grams Dexcom G7 Sensor (blood-glucose #9 ea 04/21/23 02/25/24 Rx sensor) Novolog FlexPen U-100 Insulin 100 See Rx Instructions .Route 05/03/23 02/25/24 Rx unit/mL (3 mL) subcutaneous .COMPLEX #90 mL (insulin aspart U-100) bumetanide 2 mg tablet 2 mg PO QAM #90 tabs 06/07/23 02/25/24 Rx minocycline 100 mg capsule 100 mg PO BID #180 caps 06/28/23 02/25/24 Rx pen needle, diabetic 31 gauge x #600 ea 07/15/23 02/25/24 Rx 5/16" (BD Ultra-Fine Short Pen Needle) ezetimibe 10 mg tablet (Zetia) 10 mg PO QPM #90 tabs 09/13/23 02/25/24 Rx levothyroxine 25 mcg tablet 25 mcg PO QAM #90 tabs 09/13/23 02/25/24 Rx montelukast 10 mg tablet 10 mg PO QPM 90 days #90 tabs 09/13/23 02/25/24 Rx alfuzosin 10 mg tablet,extended 10 mg PO BID #180 tabs 09/28/23 02/25/24 Rx release 24 hr betamethasone dipropionate 0.05 % 1 applic topical DAILY PRN Skin 10/15/23 02/25/24 History lotion Irritation glucagon 1 mg/0.2 mL subcutaneous 1 mg subcut DIRECTED PRN for 10/15/23 02/25/24 History auto-injector (Gvoke HypoPen hypoglycemic epidoses 2-Pack) ketoconazole 2 % shampoo 1 applic topical 2XWK 10/15/23 02/25/24 History spironolactone 25 mg tablet 25 mg PO QAM #90 tabs 11/02/23 02/25/24 Rx atorvastatin 80 mg tablet 80 mg PO QPM #90 tabs 11/16/23 02/25/24 Rx losartan 100 mg tablet 100 mg PO QAM #90 tabs 11/16/23 02/25/24 Rx triamcinolone acetonide 0.5 % 1 applic topical BID PRN Skin 12/10/23 02/25/24 Rx topical cream Irritation #15 grams aspirin 81 mg tablet,delayed 81 mg PO DAILY #30 tabs 12/11/23 02/25/24 Rx release (Enteric Coated Aspirin) carvedilol 3.125 mg tablet 3.125 mg PO BIDM #60 tabs 12/11/23 02/25/24 Rx magnesium oxide 400 mg (241.3 mg 400 mg PO BID #14 tabs 12/11/23 02/25/24 Rx magnesium) tablet peg 3350-electrolytes 236 240 ml PO .COMPLEX #4,000 mL 12/27/23 02/25/24 Rx gram-22.74 gram-6.74 gram-5.86 gram solution (Golytely) levothyroxine 200 mcg tablet 200 mcg PO QAM #90 tabs 01/21/24 02/25/24 Rx insulin lispro 200 unit/mL (3 mL) 180 unit (0.9 mL) subcut DAILY #84 02/08/24 02/25/24 Rx subcutaneous pen (Humalog KwikPen mL U-200 Insulin) Past Med/Surg History Problem List Hypothyroidism Elevated troponin Neuroendocrine tumor of pancreas Weight loss Decreased appetite BPH (benign prostatic hyperplasia) Hypertension Chronic diastolic CHF (congestive heart failure) Memory impairment Lacunar stroke Class 3 obesity Pancreatic abnormality Abdominal mass, right lower quadrant Blood in urine EKG abnormalities Albuminuria Diabetic nephropathy associated with type 1 diabetes mellitus Proliferative diabetic retinopathy associated with type 1 diabetes mellitus Vitamin B12 deficiency History of colon polyps Brow ptosis, bilateral Loss of protective sensation of skin of foot Dysesthesia Benign prostatic hyperplasia with elevated prostate specific antigen (PSA) Diabetes mellitus type 1, uncontrolled Diabetic peripheral neuropathy associated with type 1 diabetes mellitus Obstructive sleep apnea of adult CPAP Medical History Hypothyroidism High anion gap metabolic acidosis Encephalopathy acute Hyperglycemia Hypomagnesemia Generalized weakness Diabetic ketoacidosis Pseudohyponatremia Morbid obesity with BMI of 45.0-49.9, adult Falls Dyslipidemia Memory impairment per chart, pt. reports no issues Hx of falling Hx of encephalopathy (11/2023) per hx, admit to [facility]/ lacunar stroke Diabetic peripheral neuropathy Diabetes mellitus type 1 with atherosclerosis of arteries of extremities LUCIA (obstructive sleep apnea) does not use cpap Lacunar stroke (11/2023) treated at [facility], admit x 4 days, pt reports no deficits Chronic diastolic (congestive) heart failure Dermatochalasis of both upper eyelids Erectile dysfunction Allergic rhinitis Recurrent sinus infections nothing current GERD without esophagitis Psoriasis Mobitz (type) I (Wenckebach's) atrioventricular block Occasionally noted dating back to 2017 Holter monitor History of nephrolithiasis OA (osteoarthritis) of shoulder Paroxysmal atrial fibrillation Few episodes noted on 2016 sleep study, not noted on f/u 10/2016 48 hour holter monitor > no known recurrences Vitamin D deficiency Surgical History Hx of colonoscopy with polypectomy S/P blepharoplasty H/O sinus surgery x2 History of blepharoplasty (~08/19/20) bilt History of endoscopic sinus surgery Endoscopic sinus surgery (06/21/15) [facility] History of incision and drainage (12/06/19) Rt thumb wound I&D + closure: 12/06/19: [place] [facility] [place] trigger finger release Right thumb trigger finger release: 10/17/19: MAC sedation [place] [facility] [place] History of cataract surgery R/L History of carpal tunnel release R/L History of uvulopalatopharyngoplasty S/P appendectomy Family History Father Diabetes Sleep apnea Pacemaker Other No significant family history Denies family history of Ovarian cancer Prostate cancer Myocardial infarction Breast cancer Colorectal cancer Social History Smoking Status: Never smoker Tobacco Type: Cigarettes Age Started Using Tobacco: 23; Age Quit Using Tobacco: 33; packs per day: 0.3; Second Hand Exposure: No; Do You Dip or Chew Tobacco: No; Hx Alcohol Use: Yes Alcohol type: hard liquor Hx Substance Use: No Preferred Language: Macedonian Communication Ability: Effective Visual Impairment: No Limitations Hearing Ability: Normal Plaster Model And Mold Maker Required: No Beliefs That Will Affect Care: None marital status: Current Living Situation: Spouse Current Living Situation Comment: Frome home with current occupational status: employed 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 Feels Safe at Home: Yes Childhood Exposure to Second-Hand Smoke: No Dental Care, Regularly: Yes Physical Activity Frequency: Does not Exercise Seatbelt Use: always Sunscreen Use: Yes Assistive Devices: Walker Review of Systems Review of Systems: All systems reviewed & are unremarkable except as noted in HPI & below Physical Exam Physical Exam: General: patient resting comfortably, NAD, non-toxic in appearance, AA&O x 4 Skin: warm, dry, intact, no rashes or lesions HEENT: NC/AT, PERRL, EOMI, anicteric sclera, conjunctiva without injection, external ear normal to inspection and nontender, nares patent, dry mucus membranes, dentition intact, no oropharyngeal lesions, neck supple, trachea midline, no LAD, no thyromegaly, no JVD Heart: +S1/S2, regular, no m/r/g Lungs: equal air entry bilaterally, no rales/rhonchi/wheezes Abd: +BS, soft, NT/ND, no masses/organomegaly/ascites Ext: warm, 2+ pulses in UE/LE bilaterally, no clubbing/cyanosis or edema Neuro: nonfocal, patient AA&O x 4, speech intact, no facial droop, moving all extremities on command with equal strength 5/5 Results & Data Results & Data Vital Signs (Past 12 Hours) Vital Signs Temp Pulse Resp BP Pulse Ox O2 Del Method 03/01/24 02:19 70 20 186/135 H 97 03/01/24 01:14 75 03/01/24 00:50 37 C 93 H 16 179/83 H 98 Room Air Laboratory Results Laboratory Results WBC 8.45 K/ul (4.8-10.8) 03/01/24 00:59 RBC 4.65 M/uL (4.70-6.10) L 03/01/24 00:59 Hgb 13.5 g/dl (14.0-18.0) L 03/01/24 00:59 Hct 41.6 % (42.0-52.0) L 03/01/24 00:59 MCV 89.5 fL (80.0-100.0) 03/01/24 00:59 MCH 29.0 pg (25.0-34.0) 03/01/24 00:59 MCHC 32.5 g/dL (32.0-36.0) 03/01/24 00:59 RDW Std Deviation 47.1 fL (36.4-46.3) H 03/01/24 00:59 RDW Coeff of Jill 14.5 % (11.5-14.5) 03/01/24 00:59 Plt Count 252 K/uL (130-400) 03/01/24 00:59 MPV 11.6 fL (9.4-12.4) 03/01/24 00:59 Immature Gran % (Auto) 0.4 % 03/01/24 00:59 Neut % (Auto) 49.0 % 03/01/24 00:59 Lymph % (Auto) 41.9 % 03/01/24 00:59 Brantley % (Auto) 6.5 % 03/01/24 00:59 Eos % (Auto) 1.1 % 03/01/24 00:59 Baso % (Auto) 1.1 % 03/01/24 00:59 Neut # (Auto) 4.15 K/uL (1.40-6.50) 03/01/24 00:59 Lymph # (Auto) 3.54 K/uL (1.20-3.40) H 03/01/24 00:59 Brantley # (Auto) 0.55 K/uL (0.11-0.59) 03/01/24 00:59 Eos # (Auto) 0.09 K/uL (0.00-0.50) 03/01/24 00:59 Baso # (Auto) 0.09 K/uL (0.00-0.20) 03/01/24 00:59 Immature Gran # (Auto) 0.03 K/uL (0.01-0.20) 03/01/24 00:59 VBG pH 7.24 (7.36-7.41) L 03/01/24 00:59 VBG pCO2 45 mmHg (38-50) 03/01/24 00:59 VBG pO2 32 mmHg 03/01/24 00:59 VBG HCO3 19 mmol/L 03/01/24 00:59 VBG O2 Saturation < 60.0 % 03/01/24 00:59 VBG Base Excess -8.0 mEq/L 03/01/24 00:59 Sodium 134 mmol/L (136-145) L 03/01/24 00:59 Potassium 4.8 mmol/L (3.5-5.1) 03/01/24 00:59 Chloride 96 mmol/L (98-107) L 03/01/24 00:59 Carbon Dioxide 19 mmol/L (21-32) L 03/01/24 00:59 Anion Gap 19 (3-11) H 03/01/24 00:59 BUN 21 mg/dl (6-23) 03/01/24 00:59 Creatinine 1.32 mg/dl (0.6-1.4) 03/01/24 00:59 Est Cr Clr Drug Dosing 70.3 ml/min 03/01/24 00:59 eGFR 59.86 03/01/24 00:59 BUN/Creatinine Ratio 15.9 (10-20) 03/01/24 00:59 Glucose 478 mg/dl (70-99(Fasting)) H* 03/01/24 00:59 POC Glucose 357 mg/dl (70-99) H* 03/01/24 02:39 Calcium 9.9 mg/dl (8.6-10.3) 03/01/24 00:59 Magnesium 1.7 mg/dl (1.7-2.4) 03/01/24 00:59 Total Bilirubin 0.6 mg/dl (0.2-1.0) 03/01/24 00:59 AST 14 U/L (13-39) 03/01/24 00:59 ALT 10 U/L (7-52) 03/01/24 00:59 Alkaline Phosphatase 76 U/L (34-104) 03/01/24 00:59 Total Creatine Kinase 192 U/L (30-223) 03/01/24 00:59 Troponin I High Sens 38.7 pg/ml (0-20) H 03/01/24 02:00 Total Protein 6.0 gm/dl (6.0-8.3) 03/01/24 00:59 Albumin 3.3 gm/dl (3.4-5.0) L 03/01/24 00:59 Globulin 2.7 gm/dl (2.5-4.0) 03/01/24 00:59 Albumin/Globulin Ratio 1.2 (0.9-2) 03/01/24 00:59 Lipase 22 U/L (11-82) 03/01/24 00:59 TSH 18.947 uIu/ml (0.300-4.500) H 03/01/24 00:59 Free T4 0.91 ng/dl (0.61-1.60) 03/01/24 00:59 Urine Color Yellow 03/01/24 00:59 Urine Appearance Clear (Clear) 03/01/24 00:59 Urine pH 5.5 (4.5-7.5) 03/01/24 00:59 Ur Specific Raven 1.028 (1.000-1.030) 03/01/24 00:59 Urine Protein 4+ (Negative) H 03/01/24 00:59 Urine Glucose (UA) 3+ (Negative) H 03/01/24 00:59 Urine Ketones 4+ (Negative) H 03/01/24 00:59 Urine Blood 2+ (Negative) H 03/01/24 00:59 Urine Nitrite Negative (Negative) 03/01/24 00:59 Urine Bilirubin Negative (Negative) 03/01/24 00:59 Urine Urobilinogen Negative (Negative) 03/01/24 00:59 Ur Leukocyte Esterase Negative (Negative) 03/01/24 00:59 Urine WBC (Auto) 0-5 /hpf (0-5) 03/01/24 00:59 Urine RBC (Auto) 0-2 /hpf (0-2) 03/01/24 00:59 U Hyaline Cast (Auto) 11-20 /lpf (0-2) H 03/01/24 00:59 U Epithel Cells (Auto) 0-2 /hpf (0-2) 03/01/24 00:59 Urine Bacteria (Auto) None Seen (None Seen) 03/01/24 00:59 Urine Opiates Screen Neg (Neg) 03/01/24 01:06 Ur Methadone, Qual Neg (Neg) 03/01/24 01:06 Urine Fentanyl Screen Neg (Neg) 03/01/24 01:06 Urine Barbiturates Neg (Neg) 03/01/24 01:06 Ur Phencyclidine (PCP) Neg (Neg) 03/01/24 01:06 U Amphetamin/Meth Scrn Neg (Neg) 03/01/24 01:06 MDMA (Ecstasy) Screen Neg (Neg) 03/01/24 01:06 U Benzodiazepines Scrn Neg (Neg) 03/01/24 01:06 Ur Cocaine Metabolite Neg (Neg) 03/01/24 01:06 U Marijuana (THC) Screen Neg (Neg) 03/01/24 01:06 Ethyl Alcohol mg/dL < 10.0 mg/dl (<10.0) 03/01/24 02:[address] 03/01/24 00:58 EXAM: CT head/brain wo con CLINICAL HISTORY: weakness/ams TECHNIQUE: Multiple axial images are obtained from the skull base to the vertex without contrast. CT scan was performed according to ALARA (as low as reasonable achievable). COMPARISON: 01/15/2024 07:04:09 STEP FINISHER FINDINGS: There is cerebral atrophy. No evidence of space occupying lesion, hemorrhage, edema, mass effect, midline shift, extra axial collection, or hydrocephalus is noted. Basal cisterns are symmetric and normal in size and configuration. There are scattered periventricular hypodensities as can be seen with chronic microvascular ischemic changes. The maldonado-white matter differentiation is preserved. Visualized paranasal sinuses and mastoid air cells are well aerated. Orbital contents are within normal limits. Bony structures are intact. IMPRESSION: 1. No evidence of acute intracranial abnormality is demonstrated. 2. Chronic microvascular ischemic changes. 3. Cerebral atrophy. No other new interval abnormality since prior study. Electronically signed by Cortez Blanco 03-01-2024 02:35 AM Code Status & VTE Plan VTE Prophylaxis Plan VTE Prophylaxis will be ordered: Yes PG Care Time/CCT Total # of Minutes Spent Total Time Spent with Patient: Total time spent is greater than 50% in coordination of care (as documented) at patient's floor/unit and/or counseling patient: Coding Level of Care Code 36114 INT INP/OBS CARE 3/75MIN Diagnoses Diabetes mellitus type 1, uncontrolled E10.65 Elevated troponin R79.89 Hypothyroidism E03.9 Hypertension I10
[2024-03-01] MEDS: LANTUS PER UNIT CHARGE SQ STA (04:59)
--- NOTE | 2024-03-01 05:31 | CT Scan Report ---
EXAM: CT head/brain wo con CLINICAL HISTORY: Fall in ER, right posterior hematoma TECHNIQUE: Axial non-contrast CT scan of the brain was performed from the skull base to the high parietal region. One of the following dose reduction techniques were utilized for this exam: Automated exposure control, adjustment of the mA and/or kV according to patient size, use of iterative reconstruction. COMPARISON: 03/01/2024 00:29:00 TRUCK JUMPER FINDINGS: Brain Parenchyma: Cerebral atrophy. Unchanged scattered periventricular hypodensities as can be seen with chronic microvascular ischemic changes. The maldonado-white matter differentiation is preserved. Normal attenuation of the cerebral hemispheres, cerebellum, and brainstem. No evidence of acute infarct, hemorrhage, or mass effect. No abnormal areas of hypo- or hyperattenuation. Ventricular System: Prominent ventricular system, cisterns and cortical sulci proportionate to the degree of cerebral atrophy. Subarachnoid Spaces: No evidence of subarachnoid hemorrhage or extra-axial fluid collections. Cerebellum and Brainstem: Normal size and signal. No masses, lesions Orbits: Normal appearance of the globes, optic nerves, and extraocular muscles. Sinuses: Clear paranasal sinuses. No evidence of sinusitis or mucosal thickening. Mastoid Air Cells: Clear mastoid air cells. No evidence of mastoiditis. Skull: Normal skull morphology. IMPRESSION: 1. No evidence of acute intracranial abnormality is demonstrated. 2. Chronic microvascular ischemic changes. 3. Cerebral atrophy. 4. No other new interval abnormality since the prior study. 5. Early changes of a stroke may not be detected on a CT scan. If strong clinical suspicion of stroke then suggest MRI with diffusion-weighted imaging. Electronically signed by Martina Hector 03-01-2024 05:30 AM
--- NOTE | 2024-03-01 05:33 | XRay Report ---
EXAM: XR chest 1V portable CLINICAL HISTORY: HYPERGLYCEMIA. TECHNIQUE: X-ray image of the chest is obtained in AP projection. COMPARISON: 01/15/2024 CR. FINDINGS: Patient slightly rotated. Pulmonary Parenchyma: Lungs are clear bilaterally. No evidence of consolidation, collapse, or focal opacities. No pulmonary nodules are identified. No evidence of pleural effusion or pleural thickening. Heart and Mediastinum: Heart size and shape are normal. No mediastinal widening or masses. No hilar or mediastinal lymphadenopathy. Bony Thorax: Bony thorax appears intact without fractures or deformities. Soft Tissues: Soft tissues overlying the chest wall are unremarkable. IMPRESSION: 1. No acute cardiopulmonary abnormalities are identified. 2. No changes since the last study. Electronically signed by Martina Hector 03-01-2024 05:33 AM
[2024-03-01 05:55] LABS: Base Excess VBG -8.8 mEq/L; HCO3 VBG 18 mmol/L; Oxygen Saturation VBG 76.1 %; PCO2 VBG 41 mmHg (38-50); PO2 VBG 44 mmHg; pH VBG 7.25 (7.36-7.41)
--- NOTE | 2024-03-01 06:18 | Emergency Department Note ---
History of Present Illness General Chief complaint: Hyperglycemia Stated complaint: HYPERGLYCEMIA, WEAKNESS Time Seen by Provider: 03/01/24 00:50 History of Present Illness This is a 63-year-old male presenting to the emergency department via EMS from home for evaluation of elevated blood sugar and weakness. Patient is a diabetic and evidently his insulin pump was malfunctioning today. He is a type I diabetic and has gone several hours without insulin. The patient does have a and son at home, however they are not at bedside. Patient is confused on arrival and very slow to answer questions. He is moving arms and legs without difficulty. He does not report any pain, injury, or trauma. No chest discomfort or breathing difficulty. Home Medications Medication Instructions Recorded Confirmed Type OneTouch Delica Lancets 33 gauge #300 ea 02/01/19 02/25/24 Rx (lancets) OneTouch Verio test strips (blood #300 ea 11/10/19 02/25/24 Rx sugar diagnostic) Dexcom [place] (blood-glucose #1 ea 03/07/20 02/25/24 Rx meter,continuous) fluticasone propionate 50 1 spray intranasal DAILY PRN 09/29/21 02/25/24 History mcg/actuation nasal Congestion spray,suspension Dexcom G7 [place] (blood-glucose #1 ea 07/07/22 02/25/24 Rx meter,continuous) gabapentin 300 mg capsule 300 mg PO .COMPLEX #540 caps 08/03/22 02/25/24 Rx insulin glargine 100 unit/mL (3 55 unit (0.55 mL) subcut BID #105 08/31/22 02/25/24 Rx mL) subcutaneous pen (Lantus mL Solostar U-100 Insulin) mecobalamin (vitamin B12) 1,000 2,000 mcg (2 x 1,000 mcg) 11/27/22 02/25/24 Rx mcg disintegrating sublingual DAILY #60 tabs tablet,sublingual omeprazole 40 mg capsule,delayed 40 mg PO QAM #90 caps 12/29/22 02/25/24 Rx release econazole 1 % topical cream 1 applic topical BID PRN skin 01/28/23 02/25/24 Rx irritation #30 grams Dexcom G7 Sensor (blood-glucose #9 ea 04/21/23 02/25/24 Rx sensor) Novolog FlexPen U-100 Insulin 100 See Rx Instructions .Route 05/03/23 02/25/24 Rx unit/mL (3 mL) subcutaneous .COMPLEX #90 mL (insulin aspart U-100) bumetanide 2 mg tablet 2 mg PO QAM #90 tabs 06/07/23 02/25/24 Rx minocycline 100 mg capsule 100 mg PO BID #180 caps 06/28/23 02/25/24 Rx pen needle, diabetic 31 gauge x #600 ea 07/15/23 02/25/24 Rx 5/16" (BD Ultra-Fine Short Pen Needle) ezetimibe 10 mg tablet (Zetia) 10 mg PO QPM #90 tabs 09/13/23 02/25/24 Rx levothyroxine 25 mcg tablet 25 mcg PO QAM #90 tabs 09/13/23 02/25/24 Rx montelukast 10 mg tablet 10 mg PO QPM 90 days #90 tabs 09/13/23 02/25/24 Rx alfuzosin 10 mg tablet,extended 10 mg PO BID #180 tabs 09/28/23 02/25/24 Rx release 24 hr betamethasone dipropionate 0.05 % 1 applic topical DAILY PRN Skin 10/15/23 02/25/24 History lotion Irritation glucagon 1 mg/0.2 mL subcutaneous 1 mg subcut DIRECTED PRN for 10/15/23 02/25/24 History auto-injector (Gvoke HypoPen hypoglycemic epidoses 2-Pack) ketoconazole 2 % shampoo 1 applic topical 2XWK 10/15/23 02/25/24 History spironolactone 25 mg tablet 25 mg PO QAM #90 tabs 11/02/23 02/25/24 Rx atorvastatin 80 mg tablet 80 mg PO QPM #90 tabs 11/16/23 02/25/24 Rx losartan 100 mg tablet 100 mg PO QAM #90 tabs 11/16/23 02/25/24 Rx triamcinolone acetonide 0.5 % 1 applic topical BID PRN Skin 12/10/23 02/25/24 Rx topical cream Irritation #15 grams aspirin 81 mg tablet,delayed 81 mg PO DAILY #30 tabs 12/11/23 02/25/24 Rx release (Enteric Coated Aspirin) carvedilol 3.125 mg tablet 3.125 mg PO BIDM #60 tabs 12/11/23 02/25/24 Rx magnesium oxide 400 mg (241.3 mg 400 mg PO BID #14 tabs 12/11/23 02/25/24 Rx magnesium) tablet peg 3350-electrolytes 236 240 ml PO .COMPLEX #4,000 mL 12/27/23 02/25/24 Rx gram-22.74 gram-6.74 gram-5.86 gram solution (Golytely) levothyroxine 200 mcg tablet 200 mcg PO QAM #90 tabs 01/21/24 02/25/24 Rx insulin lispro 200 unit/mL (3 mL) 180 unit (0.9 mL) subcut DAILY #84 02/08/24 02/25/24 Rx subcutaneous pen (Humalog KwikPen mL U-200 Insulin) Allergies Allergy/AdvReac Type Severity Reaction Status Date / Time bacitracin Allergy Mild contact Verified 02/25/24 15:40 dermatitis with eye bacitracin dog dander Allergy Mild Congestion Verified 02/25/24 15:40 horse dander Allergy Unknown Allergy Verified 02/25/24 15:40 testing + house dust Allergy Unknown Allergy Verified 02/25/24 15:40 testing + Past Med/Surg History Problem List (Updated 03/01/24 @ 06:22 by Roddy Burr PA-C) Hypothyroidism Elevated troponin (Acute) Neuroendocrine tumor of pancreas Weight loss Decreased appetite BPH (benign prostatic hyperplasia) Hypertension Chronic diastolic CHF (congestive heart failure) Memory impairment Lacunar stroke Class 3 obesity Pancreatic abnormality Abdominal mass, right lower quadrant Blood in urine EKG abnormalities Albuminuria Diabetic nephropathy associated with type 1 diabetes mellitus Proliferative diabetic retinopathy associated with type 1 diabetes mellitus Vitamin B12 deficiency History of colon polyps Brow ptosis, bilateral Loss of protective sensation of skin of foot Dysesthesia Benign prostatic hyperplasia with elevated prostate specific antigen (PSA) Diabetes mellitus type 1, uncontrolled (Acute) Diabetic peripheral neuropathy associated with type 1 diabetes mellitus Obstructive sleep apnea of adult CPAP Medical History Hypothyroidism High anion gap metabolic acidosis Encephalopathy acute Hyperglycemia Hypomagnesemia Generalized weakness Diabetic ketoacidosis Pseudohyponatremia Morbid obesity with BMI of 45.0-49.9, adult Falls Dyslipidemia Memory impairment per chart, pt. reports no issues Hx of falling Hx of encephalopathy (11/2023) per hx, admit to [facility], [place]/ lacunar stroke Diabetic peripheral neuropathy Diabetes mellitus type 1 with atherosclerosis of arteries of extremities LUCIA (obstructive sleep apnea) does not use cpap Lacunar stroke (11/2023) treated at [facility], [place], admit x 4 days, pt reports no deficits Chronic diastolic (congestive) heart failure Dermatochalasis of both upper eyelids Erectile dysfunction Allergic rhinitis Recurrent sinus infections nothing current GERD without esophagitis Psoriasis Mobitz (type) I (Wenckebach's) atrioventricular block Occasionally noted dating back to 2016 Holter monitor History of nephrolithiasis OA (osteoarthritis) of shoulder Paroxysmal atrial fibrillation Few episodes noted on 2017 sleep study, not noted on f/u 10/2016 48 hour holter monitor > no known recurrences Vitamin D deficiency Surgical History Hx of colonoscopy with polypectomy S/P blepharoplasty H/O sinus surgery x2 History of blepharoplasty (~08/19/20) bilt History of endoscopic sinus surgery Endoscopic sinus surgery (06/21/15) [facility] History of incision and drainage (12/06/19) Rt thumb wound I&D + closure: 12/06/19: MAC sedation at [facility] [place] S/P trigger finger release Right thumb trigger finger release: 10/17/19: MAC sedation at [facility] [place] History of cataract surgery R/L History of carpal tunnel release R/L History of uvulopalatopharyngoplasty S/P appendectomy Family History Father Diabetes Sleep apnea Pacemaker Other No significant family history Denies family history of Ovarian cancer Prostate cancer Myocardial infarction Breast cancer Colorectal cancer Social History Smoking Status: Never smoker Tobacco Type: Cigarettes Age Started Using Tobacco: 23; Age Quit Using Tobacco: 33; packs per day: 0.3; Second Hand Exposure: No; Do You Dip or Chew Tobacco: No; Hx Alcohol Use: No Hx Substance Use: No Preferred Language: French Communication Ability: Effective Visual Impairment: No Limitations Hearing Ability: Normal Customer Service Dispatcher Required: No Beliefs That Will Affect Care: None marital status: Current Living Situation: Spouse Current Living Situation Comment: Frome home with current occupational status: employed 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 Feels Safe at Home: Yes Childhood Exposure to Second-Hand Smoke: No Dental Care, Regularly: Yes Physical Activity Frequency: Does not Exercise Seatbelt Use: always Sunscreen Use: Yes Assistive Devices: Walker Review of Systems A total of 10 systems reviewed and were otherwise negative Physical Exam Vital Signs Vital Signs - 24 hr 03/01/24 00:50 03/01/24 01:14 03/01/24 02:19 Temperature 37 C Temperature Source Oral Pulse Rate 93 H 75 70 Pulse Rate from SpO2 Sensor Respiratory Rate 16 20 Blood Pressure 179/83 H 186/135 H Blood Pressure Mean 115 152 Pulse Oximetry 98 97 Oxygen Delivery Method Room Air Sepsis Recent Fever Within 48 Hours No Sepsis New/Unexplained Change in Mental Status N/A Sepsis Action Taken by Nursing No Action Required 03/01/24 02:21 03/01/24 02:27 03/01/24 02:29 Temperature Temperature Source Pulse Rate 71 74 Pulse Rate from SpO2 Sensor Respiratory Rate 18 19 Blood Pressure 167/91 H Blood Pressure Mean 118 Pulse Oximetry Oxygen Delivery Method Sepsis Recent Fever Within 48 Hours Sepsis New/Unexplained Change in Mental Status Sepsis Action Taken by Nursing 03/01/24 02:30 03/01/24 02:30 03/01/24 03:00 Temperature Temperature Source Pulse Rate 86 75 Pulse Rate from SpO2 Sensor 78 Respiratory Rate 18 20 Blood Pressure 161/85 H 161/85 H 197/95 H Blood Pressure Mean 94 110 129 Pulse Oximetry 100 Oxygen Delivery Method Room Air Sepsis Recent Fever Within 48 Hours Sepsis New/Unexplained Change in Mental Status Sepsis Action Taken by Nursing 03/01/24 03:33 Temperature Temperature Source Pulse Rate Pulse Rate from SpO2 Sensor 83 Respiratory Rate Blood Pressure 185/97 H Blood Pressure Mean 126 Pulse Oximetry 98 Oxygen Delivery Method Room Air Sepsis Recent Fever Within 48 Hours Sepsis New/Unexplained Change in Mental Status Sepsis Action Taken by Nursing VITALS: Vitals are noted on the nurse's note and reviewed by myself. Vital signs stable. GENERAL: White male who appears older than his stated age. He is very slow to answer questions and appears somewhat confused on arrival. HEAD: Normocephalic atraumatic. NECK: Supple without nuchal rigidity. No lymphadenopathy. No thyromegaly. Cervical spine is nontender. HEART: Regular rate and rhythm without murmurs gallops or rubs. LUNGS: Clear to auscultation bilaterally without wheezes, rales or rhonchi. No retractions or accessory muscle use. ABDOMEN: Positive normal bowel sounds x 4. Soft, nontender, without masses or organomegaly. No guarding or rebound tenderness. MUSCULOSKELETAL: No muscle atrophy, erythema, or edema noted. Full range of motion in all extremities. Course Administered Medications Aspirin (Aspirin 81 Mg Ectab) 81 mg PO DAILY GON[facility]ALO Stop: 03/31/24 08:59 Last Admin: 03/01/24 07:58 Dose: 81 mg Documented By: JUAN Atorvastatin Calcium (Atorvastatin 40 Mg Tab) 80 mg PO QPM [facility] Stop: 03/31/24 20:59 Last Admin: 03/01/24 20:54 Dose: 80 mg Documented By: SAMANTHA Carvedilol (Carvedilol 3.125 Mg Tab) 3.125 mg PO BIDM [facility] Stop: 03/31/24 07:59 Last Admin: 03/01/24 18:11 Dose: 3.125 mg Documented By: Admin: 03/01/24 07:58 Dose: 3.125 mg Documented By: JUAN Ezetimibe (Ezetimibe 10 Mg Tab) 10 mg PO QPM [facility] Stop: 03/31/24 20:59 Last Admin: 03/01/24 20:54 Dose: 10 mg Documented By: SAMANTHA Enoxaparin Sodium (Enoxaparin Inj 40 Mg/0.4 Ml Syr) 40 mg SQ BID [facility] Stop: 03/31/24 07:14 Last Admin: 03/01/24 20:57 Dose: Not Given Documented By: Admin: 03/01/24 08:03 Dose: Not Given Documented By: JUAN Gabapentin (Gabapentin 600 Mg Tab) 600 mg PO DAILY [facility] Stop: 03/31/24 08:59 Last Admin: 03/01/24 07:58 Dose: 600 mg Documented By: JUAN Gabapentin (Gabapentin 600 Mg Tab) 1,200 mg PO HS [facility] Stop: 03/31/24 20:59 Last Admin: 03/01/24 20:55 Dose: 1,200 mg Documented By: SAMANTHA Insulin Human Regular 250 (units/ Sodium Chloride) 250 mls @ 0 mls/hr IV .Q0M [facility]; Protocol Stop: 03/31/24 06:29 Last Titration: 03/01/24 17:12 Dose: 0 units/hr, 0 mls/hr Documented By: JUAN Co-signed By: PK Titration: 03/01/24 14:57 Dose: 3.8 units/hr, 3.8 mls/hr Documented By: JUAN Co-signed By: PK Titration: 03/01/24 12:12 Dose: 4.8 units/hr, 4.8 mls/hr Documented By: JUAN Co-signed By: BT Titration: 03/01/24 11:10 Dose: 4.8 units/hr, 4.8 mls/hr Documented By: JUAN Co-signed By: BT Titration: 03/01/24 09:37 Dose: 0 units/hr, 0 mls/hr Documented By: JUAN Co-signed By: BT Titration: 03/01/24 08:34 Dose: 8 units/hr, 8 mls/hr Documented By: JUAN Co-signed By: KATRIN Admin: 03/01/24 07:22 Dose: 10 units/hr, 10 mls/hr Documented By: JUAN Co-signed By: ASTRID Insulin Aspart (Insulin Aspart Per Unit Charge) 0 units SC Q4 [facility] Stop: 03/31/24 17:14 Last Admin: 03/01/24 20:55 Dose: Not Given Documented By: Admin: 03/01/24 18:33 Dose: 5 units Documented By: JUAN Co-signed By: ASTRID Insulin Glargine (Lantus Per Unit Charge) 0 units SC HS [facility]; Protocol Stop: 03/31/24 20:59 Last Admin: 03/01/24 20:54 Dose: 10 units Documented By: SAMANTHA Co-signed By: WILFRID Levothyroxine Sodium (Levothyroxine Sodium 25 Mcg Tablet) 25 mcg PO DAILYBB [facility] Stop: 03/31/24 06:59 Last Admin: 03/01/24 07:57 Dose: 25 mcg Documented By: JUAN Levothyroxine Sodium (Levothyroxine Sodium 200 Mcg Tablet) 200 mcg PO DAILYBB [facility] Stop: 03/31/24 06:59 Last Admin: 03/01/24 07:57 Dose: 200 mcg Documented By: JUAN Losartan Potassium (Losartan Potassium 50 Mg Tab) 100 mg PO QAM [facility] Stop: 03/31/24 08:59 Last Admin: 03/01/24 07:58 Dose: 100 mg Documented By: JUAN Magnesium Oxide (Magnesium Oxide 400 Mg Tab) 400 mg PO BID [facility] Stop: 03/31/24 08:59 Last Admin: 12/18/24 20:55 Dose: 400 mg Documented By: Admin: 03/01/24 07:57 Dose: 400 mg Documented By: JUAN Montelukast Sodium (Montelukast Sodium 10 Mg Tablet) 10 mg PO QPM [facility] Stop: 03/31/24 20:59 Last Admin: 03/01/24 20:54 Dose: 10 mg Documented By: SAMANTHA Pantoprazole Sodium (Pantoprazole 40 Mg Tab) 40 mg PO QAM [facility]; Protocol Stop: 03/31/24 08:59 Last Admin: 03/01/24 07:58 Dose: 40 mg Documented By: JUAN Spironolactone (Spironolactone 25 Mg Tab) 25 mg PO QAM [facility] Stop: 03/31/24 08:59 Last Admin: 03/01/24 07:58 Dose: 25 mg Documented By: JUAN Tamsulosin HCl (Tamsulosin Hcl 0.4 Mg Cap) 0.4 mg PO BID [facility]; Protocol Stop: 03/31/24 08:59 Last Admin: 03/01/24 20:54 Dose: 0.4 mg Documented By: Admin: 03/01/24 07:58 Dose: 0.4 mg Documented By: JUAN Discontinued Medications Sodium Chloride (Nss) 1,000 mls @ 999 mls/hr IV .Q1H1M ONE Stop: 03/01/24 02:49 Last Infusion: 03/01/24 03:15 Dose: Infused Documented By: Admin: 03/01/24 02:01 Dose: 999 mls/hr Documented By: DAYO Sodium Chloride (Nss) 1,000 mls @ 999 mls/hr IV .Q1H1M ONE Stop: 03/01/24 04:58 Last Infusion: 03/01/24 07:33 Dose: Infused Documented By: Admin: 03/01/24 04:58 Dose: 999 mls/hr Documented By: DAYO Sodium Chloride (Nss) 1,000 mls @ 125 mls/hr IV .Q8H [facility] Stop: 03/01/24 22:23 Last Infusion: 03/01/24 10:30 Dose: Infused Documented By: Admin: 03/01/24 07:22 Dose: 125 mls/hr Documented By: JUAN Potassium Chloride/Dextrose/Sod Cl (D5w And 1/2nss + 20meq Kcl) 20 meq in 1,000 mls @ 125 mls/hr IV .Q8H [facility] Stop: 03/31/24 10:29 Last Infusion: 03/01/24 17:41 Dose: Infused Documented By: Admin: 03/01/24 11:10 Dose: 125 mls/hr Documented By: JUAN Insulin Aspart (Insulin Aspart Per Unit Charge) 0 units SC ACHS [facility] Stop: 03/31/24 07:29 Last Admin: 03/01/24 17:14 Dose: Not Given Documented By: Admin: 03/01/24 11:55 Dose: Not Given Documented By: Admin: 03/01/24 07:34 Dose: Not Given Documented By: JUAN Insulin Glargine (Lantus Per Unit Charge) 20 units SQ NOW STA Stop: 03/01/24 03:59 Last Admin: 03/01/24 04:59 Dose: 20 units Documented By: DAYO Co-signed By: ROBIN Insulin Glargine (Lantus Per Unit Charge) 20 units SC NOW STA Stop: 03/01/24 12:07 Last Admin: 03/01/24 12:12 Dose: 20 units Documented By: JUAN Co-signed By: MOSES Insulin Human Regular (Novolin-R Insulin Per Unit Charge) 5 units IV NOW STA Stop: 03/01/24 01:50 Last Admin: 03/01/24 01:55 Dose: 5 units Documented By: DAYO Co-signed By: LA Medical Decision Making Differential Diagnosis Differential diagnosis: Etiologies such as vasovagal event, infection, anemia, hypoglycemia, hypovolemia, electrolyte abnormalities, dysrhythmias, cardiac ischemia, cardiac tamponade, valvular heart disease, structural heart disease, seizure, vascular stenosis/dissection, pulmonary embolism, intracerebral event, toxicological process, neurologic event, as well as others were entertained. Laboratory Data 03/01/24 00:59 03/01/24 14:33 Lab Results 03/01/24 03/01/24 03/01/24 Range/Units 00:53 00:59 01:06 WBC 8.45 (4.8-10.8) K/ul RBC 4.65 L (4.70-6.10) M/uL Hgb 13.5 L (14.0-18.0) g/dl Hct 41.6 L (42.0-52.0) % MCV 89.5 (80.0-100.0) fL MCH 29.0 (25.0-34.0) pg MCHC 32.5 (32.0-36.0) g/dL RDW Std Deviation 47.1 H (36.4-46.3) fL RDW Coeff of Jill 14.5 (11.5-14.5) % Plt Count 252 (130-400) K/uL MPV 11.6 (9.4-12.4) fL Immature Gran % (Auto) 0.4 % Neut % (Auto) 49.0 % Lymph % (Auto) 41.9 % [place] % (Auto) 6.5 % Eos % (Auto) 1.1 % Baso % (Auto) 1.1 % Neut # (Auto) 4.15 (1.40-6.50) K/uL Lymph # (Auto) 3.54 H (1.20-3.40) K/uL [place] # (Auto) 0.55 (0.11-0.59) K/uL Eos # (Auto) 0.09 (0.00-0.50) K/uL Baso # (Auto) 0.09 (0.00-0.20) K/uL Immature Gran # (Auto) 0.03 (0.01-0.20) K/uL VBG pH 7.24 L (7.36-7.41) VBG pCO2 45 (38-50) mmHg VBG pO2 32 mmHg VBG HCO3 19 mmol/L VBG O2 Saturation < 60.0 % VBG Base Excess -8.0 mEq/L Sodium 134 L (136-145) mmol/L Potassium 4.8 (3.5-5.1) mmol/L Chloride 96 L (98-107) mmol/L Carbon Dioxide 19 L (21-32) mmol/L Anion Gap 19 H (3-11) BUN 21 (6-23) mg/dl Creatinine 1.32 (0.6-1.4) mg/dl Est Cr Clr Drug Dosing 70.3 ml/min eGFR 59.86 BUN/Creatinine Ratio 15.9 (10-20) Glucose 478 H* (70-99(Fasting)) mg/dl POC Glucose 438 H* (70-99) mg/dl Calcium 9.9 (8.6-10.3) mg/dl Magnesium 1.7 (1.7-2.4) mg/dl Total Bilirubin 0.6 (0.2-1.0) mg/dl AST 14 (13-39) U/L ALT 10 (7-52) U/L Alkaline Phosphatase 76 (34-104) U/L Total Creatine Kinase 192 (30-223) U/L Troponin I High Sens 37.4 H (0-20) pg/ml Total Protein 6.0 (6.0-8.3) gm/dl Albumin 3.3 L (3.4-5.0) gm/dl Globulin 2.7 (2.5-4.0) gm/dl Albumin/Globulin Ratio 1.2 (0.9-2) Lipase 22 (11-82) U/L TSH 18.947 H (0.300-4.500) uIu/ml Free T4 0.91 (0.61-1.60) ng/dl Urine Color Yellow Urine Appearance Clear (Clear) Urine pH 5.5 (4.5-7.5) Ur Specific [place] 1.028 (1.000-1.030) Urine Protein 4+ H (Negative) Urine Glucose (UA) 3+ H (Negative) Urine Ketones 4+ H (Negative) Urine Blood 2+ H (Negative) Urine Nitrite Negative (Negative) Urine Bilirubin Negative (Negative) Urine Urobilinogen Negative (Negative) Ur Leukocyte Esterase Negative (Negative) Urine WBC (Auto) 0-5 (0-5) /hpf Urine RBC (Auto) 0-2 (0-2) /hpf U Hyaline Cast (Auto) 11-20 H (0-2) /lpf U Epithel Cells (Auto) 0-2 (0-2) /hpf Urine Bacteria (Auto) None Seen (None Seen) Urine Opiates Screen Neg (Neg) Ur Methadone, Qual Neg (Neg) Urine Fentanyl Screen Neg (Neg) Urine Barbiturates Neg (Neg) Ur Phencyclidine (PCP) Neg (Neg) U Amphetamin/Meth Scrn Neg (Neg) MDMA (Ecstasy) Screen Neg (Neg) U Benzodiazepines Scrn Neg (Neg) Ur Cocaine Metabolite Neg (Neg) U Marijuana (THC) Screen Neg (Neg) Ethyl Alcohol mg/dL (<10.0) mg/dl 03/01/24 03/01/24 Range/Units 02:00 02:39 WBC (4.8-10.8) K/ul RBC (4.70-6.10) M/uL Hgb (14.0-18.0) g/dl Hct (42.0-52.0) % MCV (80.0-100.0) fL MCH (25.0-34.0) pg MCHC (32.0-36.0) g/dL RDW Std Deviation (36.4-46.3) fL RDW Coeff of Jill (11.5-14.5) % Plt Count (130-400) K/uL MPV (9.4-12.4) fL Immature Gran % (Auto) % Neut % (Auto) % Lymph % (Auto) % [place] % (Auto) % Eos % (Auto) % Baso % (Auto) % Neut # (Auto) (1.40-6.50) K/uL Lymph # (Auto) (1.20-3.40) K/uL [place] # (Auto) (0.11-0.59) K/uL Eos # (Auto) (0.00-0.50) K/uL Baso # (Auto) (0.00-0.20) K/uL Immature Gran # (Auto) (0.01-0.20) K/uL VBG pH (7.36-7.41) VBG pCO2 (38-50) mmHg VBG pO2 mmHg VBG HCO3 mmol/L VBG O2 Saturation % VBG Base Excess mEq/L Sodium (136-145) mmol/L Potassium (3.5-5.1) mmol/L Chloride (98-107) mmol/L Carbon Dioxide (21-32) mmol/L Anion Gap (3-11) BUN (6-23) mg/dl Creatinine (0.6-1.4) mg/dl Est Cr Clr Drug Dosing ml/min eGFR BUN/Creatinine Ratio (10-20) Glucose (70-99(Fasting)) mg/dl POC Glucose 357 H* (70-99) mg/dl Calcium (8.6-10.3) mg/dl Magnesium (1.7-2.4) mg/dl Total Bilirubin (0.2-1.0) mg/dl AST (13-39) U/L ALT (7-52) U/L Alkaline Phosphatase (34-104) U/L Total Creatine Kinase (30-223) U/L Troponin I High Sens 38.7 H (0-20) pg/ml Total Protein (6.0-8.3) gm/dl Albumin (3.4-5.0) gm/dl Globulin (2.5-4.0) gm/dl Albumin/Globulin Ratio (0.9-2) Lipase (11-82) U/L TSH (0.300-4.500) uIu/ml Free T4 (0.61-1.60) ng/dl Urine Color Urine Appearance (Clear) Urine pH (4.5-7.5) Ur Specific [place] (1.000-1.030) Urine Protein (Negative) Urine Glucose (UA) (Negative) Urine Ketones (Negative) Urine Blood (Negative) Urine Nitrite (Negative) Urine Bilirubin (Negative) Urine Urobilinogen (Negative) Ur Leukocyte Esterase (Negative) Urine WBC (Auto) (0-5) /hpf Urine RBC (Auto) (0-2) /hpf U Hyaline Cast (Auto) (0-2) /lpf U Epithel Cells (Auto) (0-2) /hpf Urine Bacteria (Auto) (None Seen) Urine Opiates Screen (Neg) Ur Methadone, Qual (Neg) Urine Fentanyl Screen (Neg) Urine Barbiturates (Neg) Ur Phencyclidine (PCP) (Neg) U Amphetamin/Meth Scrn (Neg) MDMA (Ecstasy) Screen (Neg) U Benzodiazepines Scrn (Neg) Ur Cocaine Metabolite (Neg) U Marijuana (THC) Screen (Neg) Ethyl Alcohol mg/dL < 10.0 (<10.0) mg/dl Imaging Data Radiologist's Impression: Chest X-Ray 03/01/24 00:58 EXAM: XR chest 1V portable CLINICAL HISTORY: HYPERGLYCEMIA. TECHNIQUE: X-ray image of the chest is obtained in AP projection. COMPARISON: 01/15/2024 CR. FINDINGS: Patient slightly rotated. Pulmonary Parenchyma: Lungs are clear bilaterally. No evidence of consolidation, collapse, or focal opacities. No pulmonary nodules are identified. No evidence of pleural effusion or pleural thickening. Heart and Mediastinum: Heart size and shape are normal. No mediastinal widening or masses. No hilar or mediastinal lymphadenopathy. Bony Thorax: Bony thorax appears intact without fractures or deformities. Soft Tissues: Soft tissues overlying the chest wall are unremarkable. IMPRESSION: 1. No acute cardiopulmonary abnormalities are identified. 2. No changes since the last study. Electronically signed by Martina Hector 03-01-2024 05:[address] 03/01/24 00:58 EXAM: CT head/brain wo con CLINICAL HISTORY: weakness/ams TECHNIQUE: Multiple axial images are obtained from the skull base to the vertex without contrast. CT scan was performed according to ALARA (as low as reasonable achievable). COMPARISON: 01/15/2024 07:04:09 CAREER COUNSELOR FINDINGS: There is cerebral atrophy. No evidence of space occupying lesion, hemorrhage, edema, mass effect, midline shift, extra axial collection, or hydrocephalus is noted. Basal cisterns are symmetric and normal in size and configuration. There are scattered periventricular hypodensities as can be seen with chronic microvascular ischemic changes. The maldonado-white matter differentiation is preserved. Visualized paranasal sinuses and mastoid air cells are well aerated. Orbital contents are within normal limits. Bony structures are intact. IMPRESSION: 1. No evidence of acute intracranial abnormality is demonstrated. 2. Chronic microvascular ischemic changes. 3. Cerebral atrophy. No other new interval abnormality since prior study. Electronically signed by Cortez Blanco 03-01-2024 02:35 AM MDM Narrative Physical exam and history were performed. Nursing notes, EMR, and Medication List were personally reviewed. No social concerns were identified as barriers to patients care. Patient appears to have confusion with elevated blood sugar bringing him to the ER. On arrival to the ER the patient does appear with normal vital signs. He has difficulty answering questions. No family is at bedside. IV access was established and labs were obtained. Patient was sent to CT scan for imaging of his head. Patient's blood work is as above and was reviewed. He does not have a significantly elevated white blood cell count. He is mildly anemic at 13.5. Glucose is markedly elevated at 478 and he was given 5 units IV regular insulin as well as 1 L normal saline. Transaminases are not diagnostic. Troponin is slightly elevated, which may be chronic. EKG is nonischemic. CT scan of the head was reviewed by myself and radiology showing no acute process. As the patient was waiting for his results, he did attempt to get out of bed, and suffered a fall in the ER. On repeat exam he does have a new right posterior hematoma to the scalp. Charge nurse was made aware and patient was assisted back into bed. He does not seem to have other injuries, and was sent back to CT scan for a second CT of his head that was essentially unremarkable. Patient sugar did improve to 347 with insulin. Unfortunately he is acidotic on his VBG. Initial anion gap is 19. Overall escalation of care is necessary for the patient. The case was discussed with the on-call hospitalist team, who did agree to evaluate the patient here in the ER. Please see their dictation for further patient course, plan, and disposition. The chart was completed utilizing [employer] Speech Voice Recognition Software. Grammatical errors, random word insertions, pronoun errors, and incomplete sentences are an occasional consequence of this system due to software limitations, ambient noise, and hardware issues. Any formal questions or concerns about the content, text, or information contained within the body of this dictation should be directly addressed to the provider for clarification. Impression & Plan Diabetes mellitus type 1, uncontrolled, Elevated troponin Discharge Plan Visit Data Chief Complaint: Hyperglycemia Stated Complaint: HYPERGLYCEMIA, WEAKNESS ED Provider: José Manuel Coe ED Midlevel Provider: Roddy Burr Discharge Problem: Diabetes mellitus type 1, uncontrolled, Elevated troponin Patient Disposition: Admitted As Inpatient Discharge Instructions Interventions: ED Discharge Assessment Last Done: 03/01/24 05:29
[2024-03-01 06:22] LABS: BUN Creatinine Ratio 17.2 (10-20); Calcium 9.5 mg/dl (8.6-10.3); Potassium 4.3 mmol/L (3.5-5.1)
[2024-03-01] MEDS ORDERED: PHARMACY GLYCEMIC MGMT CONSULT PRN ×2 (06:24)
[2024-03-01] MEDS ORDERED: GLUCOSE 40% GEL 15 GM TUBE PO PRN (06:24)
[2024-03-01] MEDS ORDERED: DKA GOAL RANGE 150-250 mg/dl ONE (06:24)
[2024-03-01] MEDS ORDERED: DEXTROSE 50% 50 ML SYRINGE IV PRN (06:24)
[2024-03-01] MEDS ORDERED: ACETAMINOPHEN 325 MG TAB PO PRN (06:24)
[2024-03-01] MEDS ORDERED: STAT IV Infusion **Titration per Protocol STA (06:24)
[2024-03-01] MEDS ORDERED: GLUCOSE 10 TAB/TUBE PO PRN (06:24)
[2024-03-01] MEDS ORDERED: FLUTICASONE PROPIONATE NA SPR 16 GM BTL PRN (06:24)
[2024-03-01] MEDS ORDERED: GLUCAGON FOR INJ 1 MG VIAL SQ PRN (06:24)
[2024-03-01] MEDS ORDERED: ONDANSETRON INJ 2 MG/ML 2 ML VIAL IV PRN (06:24)
[2024-03-01] MEDS ORDERED: PENDING D5 1/2NS+40mEq KCL IVF SCH (06:30)
[2024-03-01] MEDS ORDERED: PENDING 1/2NSS+40mEq KCL IVF SCH (06:30)
[2024-03-01] MEDS ORDERED: INSULIN HUMAN REGULAR IV BOLUS 10 UNITS in SYRINGE 0 ML IV ONE (06:45)
[2024-03-01] MEDS: SODIUM CHLORIDE 0.9% 1,000 ML IV SCH (07:22)
[2024-03-01] MEDS: INSULIN REGULAR 250 UNITS in SODIUM CHLORIDE 0.9% 247.5 ML IV SCH (07:22)
[2024-03-01 07:29] LABS: Magnesium 1.6 mg/dl (1.7-2.4); Phosphorus 3.2 mg/dl (2.5-4.9)
[2024-03-01] MEDS ORDERED: INSULIN ASPART PER UNIT CHARGE SC SCH ×2 (07:30)
[2024-03-01] MEDS: INSULIN ASPART PER UNIT CHARGE SC SCH ×2 (07:34→18:33)
[2024-03-01] MEDS: LEVOTHYROXINE SODIUM 200 MCG TABLET PO SCH (07:57)
[2024-03-01] MEDS: ENOXAPARIN INJ 40 MG/0.4 ML SYR SQ SCH (07:57)
[2024-03-01] MEDS: LEVOTHYROXINE SODIUM 25 MCG TABLET PO SCH (07:57)
[2024-03-01] MEDS: MAGNESIUM OXIDE 400 MG TAB PO SCH (07:57)
[2024-03-01] MEDS: ASPIRIN 81 MG ECTAB PO SCH (07:58)
[2024-03-01] MEDS: carvediloL 3.125 MG TAB PO SCH (07:58)
[2024-03-01] MEDS: TAMSULOSIN HCL 0.4 MG CAP PO SCH (07:58)
[2024-03-01] MEDS: LOSARTAN POTASSIUM 50 MG TAB PO SCH (07:58)
[2024-03-01] MEDS: PANTOprazole 40 MG TAB PO SCH (07:58)
[2024-03-01] MEDS: SPIRONOLACTONE 25 MG TAB PO SCH (07:58)
[2024-03-01] MEDS: GABAPENTIN 600 MG TAB PO SCH ×2 (07:58→20:55)
[2024-03-01 08:14] LABS: BUN Creatinine Ratio 15.4 (10-20); Calcium 9.5 mg/dl (8.6-10.3); Creatinine Clr Calc Pharmacy 74.8 ml/min; Phosphorus 3.4 mg/dl (2.5-4.9); Potassium 4.2 mmol/L (3.5-5.1)
[2024-03-01] MEDS: D5W AND 1/2NSS + 20MEQ KCL 20 MEQ/1,000 ML BAG IV SCH (11:10)
[2024-03-01 11:35] LABS: BUN Creatinine Ratio 16.1 (10-20); Calcium 9.5 mg/dl (8.6-10.3); Creatinine Clr Calc Pharmacy 77.9 ml/min; Magnesium 1.7 mg/dl (1.7-2.4); Phosphorus 2.8 mg/dl (2.5-4.9); Potassium 4.1 mmol/L (3.5-5.1)
--- NOTE | 2024-03-01 11:37 | History & Physical Bridge Note ---
Date of Service March 01, 2024 History & Physical Bridge Note I have examined the patient, reviewed the History & Physical and in the interval since the performance of the History & Physical I have noted the following changes of clinical significance: Pt still drowsy and a bit confused when I saw him in the AM. He kept sayin ghe wanted to go home. Denies CP, SOB, denies headache. He had a fall in the ER after admission apparently. came into room and I discussed his care with her Reviewed serial BMPs, VBGs, gap closed through the day and started on Lantus, weaned off insulin gtt Vitals reviewed RRR no mgr CTAB no wcr Abd +BS soft NT, obsese Ext chronic venous stasis changes, trace edema Dc IVFs, advance diet No evidence of stroke,, [place], infection Pump malfunction is culprit for DKA hold home aldactone
[2024-03-01] MEDS: LANTUS PER UNIT CHARGE SC STA (12:12)
--- NOTE | 2024-03-01 14:26 | Pharmacy Report ---
Pharmacy Glycemic Short Note 2 - Date of Service March 01, 2024 - Glycemic Short BSG Results (Last 24 hours): 03/01/24 03/01/24 03/01/24 00:53 00:59 02:39 Glucose 478 H* POC Glucose 438 H* 357 H* 03/01/24 03/01/24 03/01/24 04:56 05:46 06:30 Glucose 345 H* POC Glucose 344 H* 326 H* 03/01/24 03/01/24 03/01/24 07:21 07:28 08:28 Glucose 351 H* POC Glucose 373 H* 263 H 03/01/24 03/01/24 03/01/24 09:36 10:32 10:57 Glucose 169 H POC Glucose 169 H 158 H 03/01/24 03/01/24 12:00 12:57 Glucose POC Glucose 178 H 180 H OUTPATIENT ANTIDIABETIC REGIMEN: * iLet bionic pancreas (AIP insulin pump): * TDD = 106 units/day; basal = 62.4 units/day; 9.4 units w/ breakfast, 8.3 units w/ lunch & dinner HbA1c: * pending ASSESSMENT: * 63 yo M admitted on 03/01/24 secondary to DKA. Pharmacy has been consulted to assist with inpatient glycemic management. Patient is a Type 1 diabetic as an outpatient. Please refer to outpatient regimen and most recent HbA1c above. Patient does not have any pump supplies with him so will transition to subcutaneous basal bolus insulin when necessary. * Presenting labs: BSG 478 mg/dL, AG 19, CO2 19, K 4.8, VBG pH 7.24, 4+ ketones in urine. * Patient started on insulin drip upon transfer to the floor: 5 unit bolus followed by 10 units/hr. * Remains on drip at this time (4.8 units/hr). Repeat labs due at 1430. Most recent labs at 1030 almost showed a closed gap. * Patient received 20 units of basal this morning followed by another 20 units at lunchtime. See plan below for transitioning recommendations. PLAN FOR INPATIENT GLYCEMIC CONTROL: * Continue insulin drip: * Current parameters: goal range of 150-250 with rate at 4.8 units/hr * The following parameters must be met in order to transition insulin drip: * Anion gap < 12 * CO2 > 15 * pH > 7.30 * Insulin drip rate 3 units/hr or less * Basal insulin * Lantus 20 units SC x 1 early AM * Lantus 20 units SC x 1 with lunch * * Bolus insulin - per insulin calculator for now * * * *
[2024-03-01 15:21] LABS: BUN Creatinine Ratio 14.6 (10-20); Calcium 9.3 mg/dl (8.6-10.3); Creatinine Clr Calc Pharmacy 74.8 ml/min; Magnesium 1.7 mg/dl (1.7-2.4); Phosphorus 2.7 mg/dl (2.5-4.9); Potassium 3.8 mmol/L (3.5-5.1)
[2024-03-01 15:27] LABS: Troponin I High Sensitivity 49.7 pg/ml (0-20)
[2024-03-01] MEDS: EZETIMIBE 10 MG TAB PO SCH (20:54)
[2024-03-01] MEDS: ATORVASTATIN 40 MG TAB PO SCH (20:54)
[2024-03-01] MEDS: MONTELUKAST SODIUM 10 MG TABLET PO SCH (20:54)
[2024-03-01] MEDS: LANTUS PER UNIT CHARGE SC SCH (20:54)
[2024-03-01] MEDS ORDERED: LANTUS PER UNIT CHARGE SQ SCH (21:00)
[2024-03-02 07:42] LABS: Hematocrit (blood only) 41.4 % (42.0-52.0); Hemoglobin 13.6 g/dl (14.0-18.0); Mean Corpuscular Hemoglobin 29.7 pg (25.0-34.0); Mean Corpuscular Hgb Conc 32.9 g/dL (32.0-36.0); Mean Corpuscular Volume 90.4 fL (80.0-100.0); Mean Platelet Volume 11.9 fL (9.4-12.4); Platelet Count 210 K/uL (130-400); RDW Coefficient of Variation 14.8 % (11.5-14.5); RDW Standard Deviation 49.1 fL (36.4-46.3); Red Blood Count 4.58 M/uL (4.70-6.10); White Blood Count 7.64 K/ul (4.8-10.8)
[2024-03-02 07:51] LABS: Estimated Average Glucose 223 mg/dl; Hemoglobin A1C 9.4 % (4.5-5.6)
[2024-03-02] MEDS: INSULIN ASPART PER UNIT CHARGE SC SCH ×2 (08:49→23:34)
[2024-03-02] MEDS: LANTUS PER UNIT CHARGE SC SCH (08:49)
--- NOTE | 2024-03-02 10:37 | Pharmacy Report ---
Pharmacy Glycemic Short Note 2 - Date of Service March 02, 2024 - Glycemic Short BSG Results (Last 24 hours): 03/01/24 03/01/24 03/01/24 10:32 10:57 12:00 Glucose 169 H POC Glucose 158 H 178 H 03/01/24 03/01/24 03/01/24 12:57 14:33 14:52 Glucose 112 H POC Glucose 180 H 130 H 03/01/24 03/01/24 03/01/24 16:05 16:59 17:02 Glucose POC Glucose 160 H 78 74 03/01/24 03/01/24 03/01/24 17:20 18:17 20:35 Glucose POC Glucose 81 102 H 128 H 03/02/24 03/02/24 03/02/24 00:45 04:31 07:07 Glucose POC Glucose 176 H 126 H 148 H OUTPATIENT ANTIDIABETIC REGIMEN: * iLet bionic pancreas (AIP insulin pump): * TDD = 106 units/day; basal = 62.4 units/day; 9.4 units w/ breakfast, 8.3 units w/ lunch & dinner HbA1c: * 9.4 ASSESSMENT: 03/02 * Patient transitioned off insulin drip yesterday evening as labs improving. Fasting BSG 148 mg/dL - received total of 50 units of basal insulin. Will trial with same total basal insulin today and schedule as once daily dosing, diet ordered - patient tolerating diet 03/01 * 63 yo M admitted on 03/01/24 secondary to DKA. Pharmacy has been consulted to assist with inpatient glycemic management. Patient is a Type 1 diabetic as an outpatient. Please refer to outpatient regimen and most recent HbA1c above. Patient does not have any pump supplies with him so will transition to subcutaneous basal bolus insulin when necessary. * Presenting labs: BSG 478 mg/dL, AG 19, CO2 19, K 4.8, VBG pH 7.24, 4+ ketones in urine. * Patient started on insulin drip upon transfer to the floor: 5 unit bolus followed by 10 units/hr. * Remains on drip at this time (4.8 units/hr). Repeat labs due at 1430. Most recent labs at 1030 almost showed a closed gap. * Patient received 20 units of basal this morning followed by another 20 units at lunchtime. See plan below for transitioning recommendations. PLAN FOR INPATIENT GLYCEMIC CONTROL: * Basal insulin * Lantus 50 units once daily * Bolus insulin - ACHS / 120-160 / CF 15 / CR 5
[2024-03-02 10:47] LABS: BUN Creatinine Ratio 14.6 (10-20); Calcium 9.5 mg/dl (8.6-10.3); Creatinine Clr Calc Pharmacy 70.8 ml/min; Magnesium 1.9 mg/dl (1.7-2.4); Potassium 4.2 mmol/L (3.5-5.1)
[2024-03-02] MEDS: CARBOHYDRATES FOR HYPOGLYCEMIA PO PRN (16:16)
--- NOTE | 2024-03-02 20:44 | Electrocardiogram Report ---
Test Reason : Blood Pressure : */* mmHG Vent. Rate : 78 BPM Atrial Rate : 78 BPM P-R Int : 206 ms QRS Dur : 120 ms QT Int : 400 ms P-R-T Axes : * 47 -12 degrees QTcB Int : 456 ms Normal sinus rhythm Right bundle branch block Nonspecific T wave abnormality Abnormal ECG When compared with ECG of 15-Jan-2024 02:50, Premature supraventricular complexes are no longer Present Confirmed by Demarco Dan ([id number]) on 03/02/2024 8:44:18 PM Referred By: REFERRED SELF Confirmed By: Demarco Dan
--- NOTE | 2024-03-03 00:37 | Hospitalist Progress Note ---
Date of Service March 02, 2024 Assessment & Plan (1) Diabetes mellitus type 1, uncontrolled: Plan: P/w confusion, encephalopathy, secondary to DKA in setting of Type 1 DM and poor insulin pump compliance or lack of understanding No infection, [place], new CVA as cause of DKA Given IVFs, insulin gtt, lyte replacement. AG closed and now on Lantus and Novolog Pt remains a bit confused and irritable at times but seems to think this is his baseline Appreciate epic ambulatory analysts assistance- needs guidance on how to help pt with pump-unfortunately, won't be in town on Wednesday May be safer to have pt do Lantus and Novolog on discharge until next Endocrine appt beginning of Mar? I am not sure pt has capacity to manage his pump safely at this point HgbA1C elevated at 9.4% Follow BMP, Mag (2) Elevated troponin: Plan: Patient with history of the same. No report of chest pain. No ischemic changes on EKG -Telemetry monitoring -Repeat troponin trended down (3) Hypothyroidism: Plan: Chronic. Elevated TSH with normal T4 -Continue Synthroid 225 mcg po daily -he says he is compliant with taking LT4 F/u with Endocrine (4) Hypertension: Plan: Held Spironolactone while hydrating with DKA-can now resume spironolactone tomorrow Continue Losartan, Coreg Plan Chronic medical problems: H/o CVA-continue ASA, statin, Zetia, BP control Neuropathy-continue gabapentin GERD-continue flomax, no acut eissues GERD-continue PPI DVT proph-Lovenox sq Dispo-continued stay, PT recommending rehab and pt refusing this at this point, Need PT to re-evaluate as he is very unsteady on his feet and would be unsafe to go home Admission and Anticipated Discharge Date Admission Date: March 01, 2024 Subjective Pt remains slightly confused vs irritable. His brought in his insulin pump supplies and would like education on how to use the pump. I discussed his care with the epic ambulatory analysts and she reviewed his pump-it seems he did not notice it was persistently showing hyperglycemia and then it ran out of insulin on 02/24. Tele with NST rates 60-70s Physical Exam Constitutional: WD/WN, vitals as above + morbidly obese Respiratory: normal respiratory effort, lungs clear to auscultation Cardiovascular: RRR, no murmur, no edema Psychiatric: Orientation: alert, oriented to person and oriented to place Affect: + irritable affect Results & Data Results & Data Vital Signs (Past 12 Hours) Vital Signs Temp Pulse Pulse Resp BP BP Pulse Ox 03/02/24 23:12 36.8 C 77 18 146/73 H 96 03/02/24 23:05 36.9 C 73 18 148/76 H 99 03/02/24 20:00 03/02/24 19:55 36.7 C 73 16 138/75 97 03/02/24 14:51 77 03/02/24 14:50 36.3 C L 77 17 118/68 97 O2 Del Method 03/02/24 23:12 Room Air 03/02/24 23:05 Room Air 03/02/24 20:00 Room Air 03/02/24 19:55 Room Air 03/02/24 14:51 03/02/24 14:50 Room Air Laboratory Results CBC, BMP, magnesium, HgbA1C reviewed PG Care Time/CCT Total # of Minutes Spent Total Time Spent with Patient: Total time spent is greater than 50% in coordination of care (as documented) at patient's floor/unit and/or counseling patient: Coding Level of Care Code 16446 SUB INP/OBS CARE 2/35MIN Diagnoses Diabetes mellitus type 1, uncontrolled E10.65 Elevated troponin R79.89 Hypothyroidism E03.9 Hypertension I10
--- NOTE | 2024-03-03 08:38 | Hospitalist Progress Note ---
Date of Service March 03, 2024 Assessment & Plan (1) Diabetic ketoacidosis: Plan: Secondary to suspected user error of insulin pump (multiple notifications ignored and ran out of insulin 02/24) No infection, [place], new CVA as cause of DKA. Now resolved. Present on Admission?: Yes (2) Acute metabolic encephalopathy: Plan: ?at baseline but appears significant confused today. UA negative for infection WBC normal CXR clear CT head x2 negative for new intracranial abnormality If felt not to be at baseline would pursue Brain MRI but not available to discuss today. (3) Diabetes mellitus type 1, uncontrolled: Plan: Planning on discharging with Lantus/Novolog regimen as patient clearly unable to manage insulin pump at this time Appreciate pharmacy ongoing insulin management during inpatient admission HgbA1C 9.4% (4) Hypothyroidism: Plan: Chronic. Elevated TSH with normal T4 -Continue Synthroid 225 mcg po daily -he says he is compliant with taking LT4 F/u with Endocrine (5) Elevated troponin: Plan: Stable at baseline (6) Hypertension: Plan: Continue Losartan, carvedilol, spironolactone Plan Chronic medical problems: H/o CVA - Continue ASA, statin, Zetia Neuropathy - Continue gabapentin GERD - continue PPI VTE Prophylaxis - Lovenox 40mg SQ BID (increased dose due to BMI > 40) Diet - T1DM Dispo- continued stay (stable for downgrade to med/surg), PT recommending rehab and pt refusing this at this point, Need PT to re-evaluate as he is very unsteady on his feet and would be unsafe to go home, also concern he dose not have capacity to manage insulin pump, plan on discussing with his tomorrow when back in town, no answer on number provider today Admission and Anticipated Discharge Date Admission Date: March 01, 2024 Subjective Patient appears confused regarding his insulin pump. Struggling to work his phone and get to the right [place]. Thinks he wasn't getting notifications. Discussed clinical unit educator found the pump warned him multiple occasions and ran out of insulin on 02/24. Discussed planning on switching back to SQ insulin for now. Continues to appear confused by per prior provider note patient at his baseline per his . Recent Brain MRI in November showing lacunar infarct. CT head x2 this admission - no evidence of acute intracranial abnormality Labs, prior imaging, EKG and prior hospital notes reviewed Review of Systems Review of Systems: All systems reviewed & are unremarkable except as noted in HPI & below Physical Exam Constitutional: WD/WN, vitals as above Respiratory: normal respiratory effort, lungs clear to auscultation Cardiovascular: RRR, no murmur, no edema Gastrointestinal (Abdomen): normal bowel sounds, soft, nontender, no hepatosplenomegaly Results & Data Results & Data Vital Signs (Past 12 Hours) Vital Signs Temp Pulse Pulse Resp BP BP Pulse Ox 03/03/24 08:04 36.6 C 83 20 167/73 H 95 03/03/24 07:35 03/03/24 03:28 36.4 C L 79 20 137/74 97 03/03/24 00:30 72 03/02/24 23:12 36.8 C 77 18 146/73 H 96 03/02/24 23:05 36.9 C 73 18 148/76 H 99 O2 Del Method 03/03/24 08:04 Room Air 03/03/24 07:35 Room Air 03/03/24 03:28 Room Air 03/03/24 00:30 03/02/24 23:12 Room Air 03/02/24 23:05 Room Air PG Care Time/CCT Total # of Minutes Spent Total Time Spent with Patient: Total time spent is greater than 50% in coordination of care (as documented) at patient's floor/unit and/or counseling patient: Coding Level of Care Code 33109 SUB INP/OBS CARE 2/35MIN Diagnoses Diabetic ketoacidosis E10.10 Diabetes mellitus complication detail: without coma Diabetes mellitus type: type 1 Acute metabolic encephalopathy G93.41 Diabetes mellitus type 1, uncontrolled E10.65 Hypothyroidism E03.9 Elevated troponin R79.89 Hypertension I10 (1) Diabetic ketoacidosis Diabetes mellitus complication detail: without coma Diabetes mellitus type: type 1 Qualified Code(s): E10.10 - Type 1 diabetes mellitus with ketoacidosis without coma
[2024-03-03] MEDS: BUMETANIDE 1 MG TAB PO SCH (08:53)
--- NOTE | 2024-03-03 15:39 | Pharmacy Report ---
Pharmacy Glycemic Short Note 2 - Date of Service March 03, 2024 - Glycemic Short BSG Results (Last 24 hours): 03/02/24 03/02/24 03/02/24 16:16 16:18 16:38 POC Glucose 66 L* 76 66 L* 03/02/24 03/02/24 03/02/24 16:39 17:00 20:28 POC Glucose 79 79 105 H 03/02/24 03/03/24 03/03/24 23:27 05:56 07:42 POC Glucose 152 H 201 H 213 H 03/03/24 03/03/24 11:54 11:56 POC Glucose 360 H* 333 H* OUTPATIENT ANTIDIABETIC REGIMEN: * iLet bionic pancreas (AIP insulin pump): * TDD = 106 units/day; basal = 62.4 units/day; 9.4 units w/ breakfast, 8.3 units w/ lunch & dinner HbA1c: * 9.4 ASSESSMENT: 03/03 * Arturo received 91 units of insulin yesterday (50 were basal) * Fasting BSG this AM elevated, will continue current basal dose at this time and monitor for trends. Keep once daily dosing for easier transition back to insulin pump. Discharge plan uncertain at this time. * Post prandials elevated, overcorrected yesterday with dinner, will loosen correction factor and tighten carbohydrate ratio to hopefully reduce BSGs swings 03/02 * Patient transitioned off insulin drip yesterday evening as labs improving. Fasting BSG 148 mg/dL - received total of 50 units of basal insulin. Will trial with same total basal insulin today and schedule as once daily dosing, diet ordered - patient tolerating diet 03/01 * 63 yo M admitted on 03/01/24 secondary to DKA. Pharmacy has been consulted to assist with inpatient glycemic management. Patient is a Type 1 diabetic as an outpatient. Please refer to outpatient regimen and most recent HbA1c above. Patient does not have any pump supplies with him so will transition to subcutaneous basal bolus insulin when necessary. * Presenting labs: BSG 478 mg/dL, AG 19, CO2 19, K 4.8, VBG pH 7.24, 4+ ketones in urine. * Patient started on insulin drip upon transfer to the floor: 5 unit bolus followed by 10 units/hr. * Remains on drip at this time (4.8 units/hr). Repeat labs due at 1430. Most recent labs at 1030 almost showed a closed gap. * Patient received 20 units of basal this morning followed by another 20 units at lunchtime. See plan below for transitioning recommendations. PLAN FOR INPATIENT GLYCEMIC CONTROL: * Continue to hold insulin pump * Basal insulin * Lantus 50 units SQ QAM * Bolus insulin * NovoLog per scale ACHS or Q6hrs while NPO * Goal Range: Low 120 mg/dL - High 160 mg/dL * Correction Factor: 20 mg/dL/unit * Nutritional / Prandial insulin per carb ratio of 1 unit per 3.5 grams CHO consumed
[2024-03-03] MEDS: INSULIN ASPART PER UNIT CHARGE SC SCH (23:45)
--- NOTE | 2024-03-04 09:20 | Hospitalist Progress Note ---
Date of Service March 04, 2024 Assessment & Plan (1) Diabetic ketoacidosis: Plan: Secondary to suspected user error of insulin pump (multiple notifications ignored and ran out of insulin 02/24) No infection, [place], new CVA as cause of DKA. Now resolved. (2) Acute metabolic encephalopathy: Plan: Remains confused and off balance - will get brain MRI today to assess for new acute stroke, if no new stroke he would be medically stable for discharge but very concerning if he was to go home with his current physical limitations Adamant he does not want to go anywhere for rehabilitation UA negative for infection WBC normal CXR clear CT head x2 negative for new intracranial abnormality (3) Diabetes mellitus type 1, uncontrolled: Plan: Planning on discharging with Lantus/Novolog regimen as patient clearly unable to manage insulin pump at this time Appreciate pharmacy ongoing insulin management during inpatient admission - agre e with loosening correction factor HgbA1C 9.4% (4) Hypothyroidism: Plan: Chronic. Elevated TSH with normal T4 -Continue Synthroid 225 mcg po daily -he says he is compliant with taking LT4 F/u with Endocrine (5) Elevated troponin: Plan: Stable at baseline (6) Hypertension: Plan: Continue Losartan, carvedilol, spironolactone Plan Chronic medical problems: H/o CVA - Continue ASA, statin, Zetia Neuropathy - Continue gabapentin GERD - continue PPI VTE Prophylaxis - Lovenox 40mg SQ BID (increased dose due to BMI > 40) Diet - T1DM Dispo- continued on med/surg, very high risk for discharge home (likely to return shortly to the ER), he doesn't clearly have capacity to make this decision as has poor insight into his physical limitations, PT recommending rehab and pt refusing this at this point, will discuss more following his brain MRI Admission and Anticipated Discharge Date Admission Date: March 01, 2024 Subjective Ongoing confusion but especially balance issues concerning to family at bedside. No one sided weakness, change in sensation, change in speech, hearing or vision. Adamant he does not want to go to rehabilitation. Review of Systems Review of Systems: All systems reviewed & are unremarkable except as noted in HPI & below Physical Exam Constitutional: WD/WN, vitals as above Respiratory: normal respiratory effort, lungs clear to auscultation Cardiovascular: Rate/Rhythm: regular rate and regular rhythm Heart Sounds: no murmur Extremities: + pedal edema Gastrointestinal (Abdomen): normal bowel sounds, soft, nontender, no hepatosplenomegaly Neurologic: moves all extremities and awake; no focal motor deficits and not confused Cranial Nerves: PERRL, EOM intact bilaterally, normal facial strength, tongue midline, able to rotate head bilaterally, able to elevate shoulders bilaterally, no nystagmus and symmetric palate elevation Results & Data Results & Data Vital Signs (Past 12 Hours) Vital Signs Temp Pulse Resp BP Pulse Ox O2 Del Method 03/04/24 07:14 36.7 C 73 18 163/89 H 98 Room Air PG Care Time/CCT Total # of Minutes Spent Total Time Spent with Patient: Total time spent is greater than 50% in coordination of care (as documented) at patient's floor/unit and/or counseling patient: Coding Level of Care Code 14369 SUB INP/OBS CARE 2/35MIN Diagnoses Diabetic ketoacidosis E10.10 Diabetes mellitus complication detail: without coma Diabetes mellitus type: type 1 Acute metabolic encephalopathy G93.41 Diabetes mellitus type 1, uncontrolled E10.65 Hypothyroidism E03.9 Elevated troponin R79.89 Hypertension I10 (1) Diabetic ketoacidosis Diabetes mellitus complication detail: without coma Diabetes mellitus type: type 1 Qualified Code(s): E10.10 - Type 1 diabetes mellitus with ketoacidosis without coma
--- NOTE | 2024-03-04 15:14 | Magnetic Resonance Report ---
EXAM: MR brain wo con CLINICAL HISTORY: ongoing weakness, confused, new cva? TECHNIQUE: MRI of the brain was performed without contrast with multiplanar sequences obtained. COMPARISON: CT 03/01/2024. FINDINGS: Brain Parenchyma: Background of senile atrophic changes of the brain evidenced by prominent ventricles and extra-axial CSF spaces. Bilateral periventricular and deep white matter high signal foci in T2 and FLAIR suggesting chronic microvascular ischemic disease. A well-defined, high signal intensity area noted adjacent to the posterior part of the body of the left lateral ventricle within the white matter showed no diffusion restriction suggesting chronic infarction. No evidence of acute infarction or hemorrhage. Normal maldonado-white matter differentiation. No mass lesions or focal cortical abnormalities identified. Ventricles and Sulci: The ventricular system, sulci, and extra-axial CSF-containing spaces are dilated as expected for the patient's age, with no hydrocephalus. Posterior Fossa: Cerebellum and brainstem appear normal without evidence of mass lesions or signal abnormalities. Cranial Nerves: Normal course and appearance of cranial nerves identified. Vessels: No evidence of vascular malformations or aneurysms. Intracranial arteries and veins appear normal without evidence of stenosis or occlusion. Orbits and Skull Base: Orbits and skull base structures are normal without evidence of abnormalities. IMPRESSION: 1. Background of senile atrophic changes of the brain with bilateral chronic microvascular ischemic changes. 2. Small chronic infarction identified at the left posterior parietal deep white matter. 3. No acute infarction or diffusion restriction detected. 4. No significant interval changes compared to last CT. Electronically signed by Martina Hector 03-04-2024 3:13 PM
[2024-03-05 08:42] LABS: Basophils # (auto) 0.07 K/uL (0.00-0.20); Basophils % (auto) 1.1 %; Eosinophils # (auto) 0.26 K/uL (0.00-0.50); Eosinophils % (auto) 4.1 %; Hemoglobin 13.2 g/dl (14.0-18.0); Immature Granulocytes # (auto) 0.02 K/uL (0.01-0.20); Immature Granulocytes % (auto) 0.3 %; Lymphocytes # (auto) 3.17 K/uL (1.20-3.40); Lymphocytes % (auto) 49.5 %; Mean Corpuscular Hemoglobin 29.5 pg (25.0-34.0); Mean Corpuscular Volume 89.5 fL (80.0-100.0); Mean Platelet Volume 12.3 fL (9.4-12.4); Monocytes # (auto) 0.72 K/uL (0.11-0.59); Monocytes % (auto) 11.3 %; Neutrophils # (auto) 2.16 K/uL (1.40-6.50); Neutrophils % (auto) 33.7 %; Platelet Count 182 K/uL (130-400); RDW Coefficient of Variation 14.6 % (11.5-14.5); RDW Standard Deviation 48.1 fL (36.4-46.3); Red Blood Count 4.47 M/uL (4.70-6.10)
[2024-03-05 09:31] LABS: Calcium 9.2 mg/dl (8.6-10.3); Potassium 3.9 mmol/L (3.5-5.1)
[2024-03-05 09:37] LABS: BUN Creatinine Ratio 23.5 (10-20); Creatinine Clr Calc Pharmacy 76.7 ml/min
--- NOTE | 2024-03-05 15:26 | Hospitalist Progress Note ---
Date of Service March 05, 2024 Assessment & Plan (1) Diabetic ketoacidosis: Plan: Secondary to suspected user error of insulin pump (multiple notifications ignored and ran out of insulin 02/24) No infection, [place], new CVA as cause of DKA. Now resolved. (2) Acute metabolic encephalopathy: Plan: Adamant he does not want to go anywhere for rehabilitation and accepts the risk of falls at home Brain MRI without new acute stroke UA negative for infection WBC normal CXR clear CT head x2 negative for new intracranial abnormality Unable to contact today to discuss how off his baseline he is (3) Diabetes mellitus type 1, uncontrolled: Plan: Planning on discharging with Lantus/Novolog regimen as patient clearly unable to manage insulin pump at this time, although will need help with this from his Patient today is resistant to this and wants to go back on the insulin pump but has little insight into the functioning of this and how it led to his admission - plan on reviewing with certified lactation educator tomorrow Appreciate pharmacy ongoing insulin management during inpatient admission HgbA1C 9.4% (4) Hypothyroidism: Plan: Chronic. Elevated TSH with normal T4 -Continue Synthroid 225 mcg po daily -he says he is compliant with taking LT4 F/u with Endocrine (5) Elevated troponin: Plan: Stable at baseline (6) Hypertension: Plan: Continue Losartan, carvedilol, spironolactone Plan Chronic medical problems: H/o CVA - Continue ASA, statin, Zetia Neuropathy - Continue gabapentin GERD - continue PPI VTE Prophylaxis - Lovenox 40mg SQ BID (increased dose due to BMI > 40) Diet - T1DM Dispo- continued on med/surg, very high risk for discharge home (likely to return shortly to the ER), he appears to have capacity to make the decision regarding discharge home rather than rehabilitation but lacks capacity to use his insulin pump, plan on discharging when discharge needs can be met. Admission and Anticipated Discharge Date Admission Date: March 01, 2024 Subjective Does not appear as confused today but remains having poor insight in his medical needs. Appears to be confused between his insulin pump and continuous glucose monitor. When asking him what insulin he had at home he could not mention any names but on asking about Lantus, Novolog and Humalog he mentions he has all of these. They are in various fridges in his house. No one helps him with his insulin at home but he is willing to have his help. He now wants to get back on the insulin pump but has no insight in that this running out of insulin is what led to his admission, he feels it was because it wasn't giving him the right strength on insulin but in fact had run out entirely. I tried calling his but no answer on number in EHR. Physical Exam Constitutional: WD/WN, vitals as above Respiratory: normal respiratory effort, lungs clear to auscultation Cardiovascular: Rate/Rhythm: regular rate and regular rhythm Neurologic: moves all extremities and awake; no focal motor deficits and not confused Results & Data Results & Data Vital Signs (Past 12 Hours) Vital Signs Temp Pulse Resp BP BP Pulse Ox O2 Del Method 03/05/24 11:32 36.8 C 73 16 136/84 97 Room Air 03/05/24 07:58 36.3 C L 69 15 137/85 93 Room Air PG Care Time/CCT Total # of Minutes Spent Total Time Spent with Patient: Total time spent is greater than 50% in coordination of care (as documented) at patient's floor/unit and/or counseling patient: Coding Level of Care Code 38791 SUB INP/OBS CARE 2/35MIN Diagnoses Diabetic ketoacidosis E10.10 Diabetes mellitus complication detail: without coma Diabetes mellitus type: type 1 Acute metabolic encephalopathy G93.41 Diabetes mellitus type 1, uncontrolled E10.65 Hypothyroidism E03.9 Elevated troponin R79.89 Hypertension I10 (1) Diabetic ketoacidosis Diabetes mellitus complication detail: without coma Diabetes mellitus type: type 1 Qualified Code(s): E10.10 - Type 1 diabetes mellitus with ketoacidosis without coma
[2024-03-06 07:36] VITALS: PULSE 65; RESP 18; TEMP 97.5; O2SAT 97
--- NOTE | 2024-03-06 12:34 | Pharmacy Report ---
Pharmacy Glycemic Short Note 2 - Date of Service March 06, 2024 - Glycemic Short BSG Results (Last 24 hours): 03/05/24 03/05/24 03/06/24 16:32 20:42 07:30 POC Glucose 195 H 106 H 136 H 03/06/24 11:31 POC Glucose 212 H OUTPATIENT ANTIDIABETIC REGIMEN: * iLet bionic pancreas (AIP insulin pump): * TDD = 106 units/day; basal = 62.4 units/day; 9.4 units w/ breakfast, 8.3 units w/ lunch & dinner HbA1c: * 9.4% on 03/02/24 ASSESSMENT: 03/06 * Patient received 113units of insulin yesterday (50units were basal). * Fasting BSG this morning was 136mg/dL so will continue current basal dose. * Lunch BSG readings have been consistently elevated (was 285mg/dl yesterday and 212 mg/dl today). Will tighten CR with breakfast only. (patient has had a few lows in the PM when he had tighter bolus parameters through the day) 03/03 * Arturo received 91 units of insulin yesterday (50 were basal) * Fasting BSG this AM elevated, will continue current basal dose at this time and monitor for trends. Keep once daily dosing for easier transition back to insulin pump. Discharge plan uncertain at this time. * Post prandials elevated, overcorrected yesterday with dinner, will loosen correction factor and tighten carbohydrate ratio to hopefully reduce BSGs swings 03/02 * Patient transitioned off insulin drip yesterday evening as labs improving. Fasting BSG 148 mg/dL - received total of 50 units of basal insulin. Will trial with same total basal insulin today and schedule as once daily dosing, diet ordered - patient tolerating diet 03/01 * 63 yo M admitted on 03/01/24 secondary to DKA. Pharmacy has been consulted to assist with inpatient glycemic management. Patient is a Type 1 diabetic as an outpatient. Please refer to outpatient regimen and most recent HbA1c above. Patient does not have any pump supplies with him so will transition to subcutaneous basal bolus insulin when necessary. * Presenting labs: BSG 478 mg/dL, AG 19, CO2 19, K 4.8, VBG pH 7.24, 4+ ketones in urine. * Patient started on insulin drip upon transfer to the floor: 5 unit bolus followed by 10 units/hr. * Remains on drip at this time (4.8 units/hr). Repeat labs due at 1430. Most recent labs at 1030 almost showed a closed gap. * Patient received 20 units of basal this morning followed by another 20 units at lunchtime. See plan below for transitioning recommendations. PLAN FOR INPATIENT GLYCEMIC CONTROL: * Continue to hold insulin pump * Basal insulin * Lantus 50 units SQ QAM * Bolus insulin * NovoLog per scale ACHS or Q6hrs while NPO * Goal Range: Low 120 mg/dL - High 160 mg/dL * Breakfast: -Correction Factor: 20 mg/dL/unit -Nutritional / Prandial insulin per carb ratio of 1 unit per 3 grams CHO consumed. * Lunch, supper, HS: -Correction Factor: 20 mg/dL/unit --Nutritional / Prandial insulin per carb ratio of 1 unit per 4 grams CHO consumed.
--- NOTE | 2024-03-06 14:12 | Discharge Summary ---
Date of Service March 06, 2024 Admission HPI Per Admitting Provider Arturo Rodríguez is a 63yo male with history of DM-I, LUCIA, GERD, HLP presenting from home with hyperglycemia. Patient provides little history. He is not certain why he is here. Per report, his insulin pump may have malfunctioned and he is presenting with hyperglycemia. Patient denies fever, chills, chest pain, cough, SOB, abdominal pain, nausea. Patient is unable to provide details of his insulin pump settings. In the ER he is afebrile, HD stable, NAD ER Course: NSS x 1L Regular insulin 5u IV Admission Exam Per Admitting Provider General: patient resting comfortably, NAD, non-toxic in appearance, AA&O x 4 Skin: warm, dry, intact, no rashes or lesions HEENT: NC/AT, PERRL, EOMI, anicteric sclera, conjunctiva without injection, external ear normal to inspection and nontender, nares patent, dry mucus membranes, dentition intact, no oropharyngeal lesions, neck supple, trachea midline, no LAD, no thyromegaly, no JVD Heart: +S1/S2, regular, no m/r/g Lungs: equal air entry bilaterally, no rales/rhonchi/wheezes Abd: +BS, soft, NT/ND, no masses/organomegaly/ascites Ext: warm, 2+ pulses in UE/LE bilaterally, no clubbing/cyanosis or edema Neuro: nonfocal, patient AA&O x 4, speech intact, no facial droop, moving all extremities on command with equal strength 5/5 Principal Diagnosis Diabetic ketoacidosis Discharge Exam General: patient resting comfortably, NAD, non-toxic in appearance, answers questions appropriately. Skin: warm, dry, intact HEENT: NC/AT, anicteric sclera, conjunctiva without injection, moist mucus membranes. Heart: +S1/S2, regular, no m/r/g Lungs: equal air entry bilaterally, no rales/rhonchi/wheezes Abd: +BS, soft, NT/ND Ext: warm, no clubbing/cyanosis or edema, Magda's neg. Neuro: nonfocal, speech intact, no facial droop, moving all extremities. Discharge Data Allergies Allergy/AdvReac Type Severity Reaction Status Date / Time bacitracin Allergy Mild contact Verified 02/25/24 15:40 dermatitis with eye bacitracin dog dander Allergy Mild Congestion Verified 02/25/24 15:40 horse dander Allergy Unknown Allergy Verified 02/25/24 15:40 testing + house dust Allergy Unknown Allergy Verified 02/25/24 15:40 testing + Consultations 03/01/24 03:27 ED Decision to Admit Stat Ordered Studies 03/01/24 00:58 CT head/brain wo con Stat 03/01/24 04:14 CT head/brain wo con Stat 03/04/24 10:05 MRI Brain [MR brain wo con] Routine Hospital Course (1) Diabetic ketoacidosis: - Secondary to suspected user error of insulin pump (multiple notifications ignored and ran out of insulin 02/24) - No infection, [place], new CVA as cause of DKA. - Brain MRI/CT head x2 negative for acute stroke. CBC, CXR wnl - Now resolved. (2) Diabetes mellitus type 1, uncontrolled: - Will restart insulin pump post discharge, patient educated on proper use with regular senior it assistant visits - HgbA1C 9.4% - senior it assistant recommendations: select "More" for larger meals, educated on staying on top of insulin pump alerts - Continue to f/u with [facility] Endocrinology, next appt. 03/17/24 (3) Hypothyroidism: - Chronic. Elevated TSH with normal T4 - Continue Synthroid 225 mcg po daily - F/u with Endocrine 03/17/24 (4) Hypertension: Continue Losartan, carvedilol, spironolactone Plan Chronic medical problems: H/o CVA - Continue ASA, statin, Zetia Neuropathy - Continue gabapentin GERD - continue PPI VTE Prophylaxis - Lovenox 40mg SQ BID (increased dose due to BMI > 40) Diet - T1DM Dispo- Discharge and restart insulin pump, patient received instruction from senior it assistant on upkeep, maintenance, and proper use of device. Total Time Total Time Spent Total Time Spent (In Minutes): See attending attestation Discharge Plan Discharge Items Patient Disposition: Home - Self-Care Reason For Visit: HYPERGLYCEMIA Discharge Diagnosis: Diabetic ketoacidosis Activity: Per Instructions section Non-emergency contact: Primary Care Provider Call non-emergency contact if: your symptoms worsen and your pain is not controlled Follow-up/Referrals: Jorje Iyer MD [Primary Care Provider] - 03/09/24 11:20 am Diet: Carb Count or DM1 Addtl Attending Provider Instructions: You were admitted to [facility] due to hyperglycemia and confusion. You were treated with subcutaneous short acting and long acting insulin. Your hyperglycemia and diabetic ketoacidosis quickly improved during your hospital stay and as your sugars came under control your confusion also quickly improved. It is important that you consistently monitor your blood sugar with your Dexcom device and also use your insulin pump and instructed by the senior it assistant. It is important to keep consistent alarms and alerts when these devices need to be changed and when your insulin reservoir needs to be filled. After instruction at [facility] and more education from the senior it assistant you have reported that you feel confident in managing your glucose levels at home with the help of your . Please stay up to date with your [facility] endocrinology appointments, as your next appointment is scheduled on 04/08, and report any questions about maintenance and upkeep of your devices at this next appointment. A discharge summary will be sent to your primary care physician to ensure continuity of care. Please bring this discharge summary with you to your next office appointment so that your provider can review it at that time. Medications: Your medication list has been reviewed and reconciled upon discharge to ensure accuracy and continuity of care. An updated list of all your medications is included with your hospital discharge paperwork. Please review this list closely, and make note of any changes. Take your medications as instructed; do not skip a dose of your medicines. Make sure all of your doctors know every medicine you are taking (including vodj-xap-nitljuu medicines, vitamins, and supplements). Call your primary care provider before taking any new medicines (including szal-ytz-aeqnucg medicines, vitamins, and supplements), because some of these may interact with your current medications, or may make your symptoms worse. Tell your primary care provider if you cannot afford your medications. CALL 911 OR GO TO THE EMERGENCY DEPARTMENT if you experience any of the following: Sudden, severe abdominal pain or nausea/vomiting Severe chest pain, or chest pain that radiates (moves) to your jaw or arm Sudden, severe shortness of breath or difficulty breathing Thank you for allowing us to participate in your care. Pending Studies at Discharge: No Stand-Alone Forms: My [employer], Smoking Cessation Medications and DC Order Prescriptions: Continued (DME) lancets [OneTouch Delica Lancets] 33 gauge misc See Rx Instructions .ROUTE .MEDSUPPLY Qty: 300 3RF Rx Instructions: test 3 times daily (DME) OneTouch Verio test strips Strip See Dose Instructions .ROUTE .MEDSUPPLY Qty: 300 3RF Dose Instruction: As directed Rx Instructions: test blood sugars 3 x daily (DME) Dexcom Concrete Mixing Truck Driver Misc See Rx Instructions .ROUTE .MEDSUPPLY Qty: 1 0RF Rx Instructions: As directed (DME) Dexcom G7 [employer] Mixing Truck Driver Misc See Rx Instructions .Route Qty: 1 0RF Rx Instructions: use as directed with CGM gabapentin 300 mg capsule 300 mg PO .COMPLEX Qty: 540 3RF Rx Instructions: TAKE 2 CAPSULES IN THE MORNING AND 4 CAPSULES AT BEDTIME; insulin glargine [Lantus Solostar U-100 Insulin] 100 unit/mL (3 mL) insulin pen 55 unit subcut BID Qty: 105 3RF Rx Instructions: subcut Inject 55 units in AM and 55 units and PM subcut ; mecobalamin (vitamin B12) 1,000 mcg tablet,disintegrating 2,000 mcg sublingual DAILY Qty: 60 0RF Rx Instructions: place tablet under tongue and allow to dissolve for at least30 secs before swallowing omeprazole 40 mg capsule,delayed release(DR/EC) 40 mg PO QAM Qty: 90 3RF Rx Instructions: qam econazole 1 % cream 1 applic TOP BID PRN (Reason: skin irritation) Qty: 30 5RF (DME) Dexcom G7 Sensor Device See Rx Instructions .ROUTE .MEDSUPPLY Qty: 9 3RF Rx Instructions: change every 10 days insulin aspart U-100 [Novolog FlexPen U-100 Insulin] 100 unit/mL (3 mL) insulin pen See Rx Instructions .ROUTE .COMPLEX Qty: 90 3RF Rx Instructions: Inject 80- 100 units daily; bumetanide 2 mg tablet 2 mg PO QAM Qty: 90 3RF Rx Instructions: qam minocycline 100 mg capsule 100 mg PO BID Qty: 180 3RF Hold Instructions: Resume on 12/17/23. Hold while you are taking oral antibiotic cephalexin and resume once you are finished 5 days of cephalexin (DME) pen needle, diabetic [BD Ultra-Fine Short Pen Needle] 31 gauge x 5/16" needle See Dose Instructions .ROUTE .MEDSUPPLY Qty: 600 3RF Dose Instruction: As directed Rx Instructions: use pen needles with insulin pens 6 times daily ezetimibe [Zetia] 10 mg tablet 10 mg PO QPM Qty: 90 3RF levothyroxine 25 mcg tablet 25 mcg PO QAM Qty: 90 3RF Hold Instructions: low TSH Rx Instructions: TOTAL DOSE 225 MCG--TAKES WITH 200 MCG TAB. montelukast 10 mg tablet 10 mg PO QPM 90 Days Qty: 90 3RF alfuzosin 10 mg tablet extended release 24 hr 10 mg PO BID Qty: 180 3RF Rx Instructions: administer after the same meal each day spironolactone 25 mg tablet 25 mg PO QAM Qty: 90 1RF triamcinolone acetonide 0.5 % cream 1 applic TOP BID PRN (Reason: Skin Irritation) Qty: 15 1RF Rx Instructions: 1 application topical twice a day; peg 3350-electrolytes [Golytely] 236-22.74-6.74 -5.86 gram recon soln 240 ml PO .COMPLEX Qty: 4000 0RF Rx Instructions: 240 mL PO take as directed per split dose instructions levothyroxine 200 mcg tablet 200 mcg PO QAM Qty: 90 0RF Humalog KwikPen Insulin 200 unit/mL (3 mL) insulin pen 180 unit subcut DAILY Qty: 84 3RF Rx Instructions: prior auth approved from 10/14/23 - 03/14/24 fluticasone propionate 50 mcg/actuation spray,suspension 1 spray intranasal DAILY PRN (Reason: Congestion) atorvastatin 80 mg tablet 80 mg PO QPM Qty: 90 3RF losartan 100 mg tablet 100 mg PO QAM Qty: 90 3RF Rx Instructions: qam carvedilol 3.125 mg Tablet 3.125 mg PO BIDM Qty: 60 0RF Rx Instructions: TAKE TWICE DAILY WITH MEALS (BREAKFAST AND DINNER) magnesium oxide 400 mg (241.3 mg magnesium) Tablet 400 mg PO BID Qty: 14 0RF aspirin [Enteric Coated Aspirin] 81 mg tablet,delayed release (DR/EC) 81 mg PO DAILY Qty: 30 0RF ketoconazole 2 % shampoo 1 applic TOP 2XWK Rx Instructions: APPLY TO SCALP TWICE WEEKLY betamethasone dipropionate 0.05 % lotion 1 applic TOP DAILY PRN (Reason: Skin Irritation) Rx Instructions: Apply to scalp once daily for up to 2 weeks as needed for flaring. Gvoke HypoPen 2-Pack 1 mg/0.2 mL auto-injector 1 mg subcut DIRECTED PRN (Reason: for hypoglycemic epidoses) Discharge Orders: Discharge Order (Routine); Ordered 03/06/24 Ordered By: Luisito Martinez Admission Data Admit Date/Time: 03/01/24 03:37 Attending Provider: Orlando Steven Admit Provider: Cherry Rosario Primary Care Provider: Jorje Iyer V. Other Providers: Cherry Rosario; [facility] Other Interventions: Discharge Summary Assessment (RN) Last Done: 03/06/24 14:56 Supervising Physician Co-Signing Physician Notes Attending attestation Pt seen and examined in concert with Dr. Martinez. In agreement with the documented findings as noted in the resident documentation with any exceptions or additions as noted here. No acute complaints at bedside. Tolerating current insulin regimen and reports comfort with administration and consistent use at home. Declines PT/OT on repeated conversation. On examination, S1/S2 nl RRR no MCG. CTAB. Abd NT/ND BS+ve Type 1 diabetes with episode of DKA prompting admission - A1c 9.4% - restarted insulin pump and CGM with extensive precautions, reminders for use and close follow up Else see resident documentation as noted. Total attending time spent with this patient's care on the day of discharge: 35 minutes. Resident Activity Tracking Resident Involvement: Resident Care Provided Care Provided: Adult Hospital Medicine
[2024-03-06 14:58] VITALS: BP 114/78
[2024-03-06] MEDS ORDERED: INSULIN ASPART PER UNIT CHARGE SC SCH (16:30)
[2024-03-07] MEDS ORDERED: INSULIN ASPART PER UNIT CHARGE SC SCH (07:30)
== END 2024-03-06 16:53 | disposition home or self-care (01) | DRG 919 ==
LOC: SUATTDRO → ED 00:47 → 4W 03:37 → SUATTDRO 03:37 → 4W 05:29 → 2N 03-02 23:06 → 3N 03-03 21:05
DX: R79.89 Other specified abnormal findings of blood chemistry; Z79.890 Hormone replacement therapy; I13.0 Hypertensive heart and chronic kidney disease with heart failure and stage 1 through stage 4 chronic kidney disease, or unspecified chronic kidney disease; E10.21 Type 1 diabetes mellitus with diabetic nephropathy; I50.32 Chronic diastolic (congestive) heart failure; E10.51 Type 1 diabetes mellitus with diabetic peripheral angiopathy without gangrene; E78.5 Hyperlipidemia, unspecified; N18.9 Chronic kidney disease, unspecified; Y92.019 Unspecified place in single-family (private) house as the place of occurrence of the external cause; E03.9 Hypothyroidism, unspecified; Y81.2 Prosthetic and other implants, materials and accessory general- and plastic-surgery devices associated with adverse incidents; G93.41 Metabolic encephalopathy; Z79.82 Long term (current) use of aspirin; Z91.148 Patient's other noncompliance with medication regimen for other reason; E10.10 Type 1 diabetes mellitus with ketoacidosis without coma; T85.694A Other mechanical complication of insulin pump, initial encounter

== ENCOUNTER 2024-03-13 05:32 | Observation (INO) ==
[2024-03-13] MEDS: DEXTROSE 50% 50 ML SYRINGE IV ONE ×2 (05:58→06:30)
[2024-03-13 06:12] LABS: Base Excess VBG 4.8 mEq/L; HCO3 VBG 32 mmol/L; Oxygen Saturation VBG 63.4 %; PCO2 VBG 60 mmHg (38-50); PO2 VBG 39 mmHg; pH VBG 7.34 (7.36-7.41)
[2024-03-13 06:20] LABS: Basophils # (auto) 0.07 K/uL (0.00-0.20); Basophils % (auto) 0.7 %; Eosinophils # (auto) 0.14 K/uL (0.00-0.50); Eosinophils % (auto) 1.4 %; Hemoglobin 12.1 g/dl (14.0-18.0); Immature Granulocytes # (auto) 0.03 K/uL (0.01-0.20); Immature Granulocytes % (auto) 0.3 %; Lymphocytes # (auto) 3.07 K/uL (1.20-3.40); Lymphocytes % (auto) 29.6 %; Mean Corpuscular Hemoglobin 29.2 pg (25.0-34.0); Mean Corpuscular Hgb Conc 32.7 g/dL (32.0-36.0); Mean Corpuscular Volume 89.2 fL (80.0-100.0); Mean Platelet Volume 11.7 fL (9.4-12.4); Monocytes # (auto) 1.06 K/uL (0.11-0.59); Monocytes % (auto) 10.2 %; Neutrophils # (auto) 5.99 K/uL (1.40-6.50); Neutrophils % (auto) 57.8 %; Platelet Count 258 K/uL (130-400); RDW Coefficient of Variation 14.6 % (11.5-14.5); Red Blood Count 4.15 M/uL (4.70-6.10); White Blood Count 10.36 K/ul (4.8-10.8)
--- NOTE | 2024-03-13 06:36 | Emergency Department Note ---
Impression & Plan Hypoglycemia Admission ED Provider Note HPI: History obtained from patient, bedside RN via report. The patient is a 63-year-old gentleman with history of insulin-dependent diabetes, presents the emergency department with a chief complaint of altered mental status and hypoglycemia. Patient reportedly was found by his this morning. He was noted to be lethargic with his insulin pump alarming that his blood sugar was low. Patient reportedly had a blood sugar in the 50s in the field and patient was given dextrose via EMS and mentation improved. On my assessment here in the ED the patient is drowsy appearing but he is alert to verbal stimuli and he is oriented to place. Patient is otherwise a poor historian and frequently falls asleep during my assessment. Patient is hemodynamically stable on arrival, he does ambulate all extremity spontaneously when prompted. ROS: - Per HPI Differential Diagnosis: Unintentional insulin overdose, seizure, sepsis, stroke, intracranial hemorrhage, amongst other potential pathologies. *Outpatient medications and allergy history reviewed. PE: General: Listless appearing but otherwise alert to verbal stimuli HEENT: Normocephalic, trachea midline Eyes: Extraocular eye movement is intact, no scleral erythema Pulmonary: Clear to auscultation bilaterally, no wheezing Cardio: Regular rate and irregular rhythm GI: Abdomen is soft to palpation : No suprapubic tenderness MSK: No evidence of trauma or malformation of the extremities, no edema Skin: No evidence of rash Neuro: Alert to verbal stimuli, no focal deficits Psychiatric: Cooperative INDEPENDENT INTERPRETATIONS: varnish melter: (As interpreted by myself): - An order was placed for continuous cardiac monitoring - Patient was noted to be in atrial fibrillation with a rate of 58 EKG: (As interpreted by myself): Rate: 68 Rhythm: Atrial fibrillation Intervals: QRS 122 ms, otherwise within normal limits ST changes: No ST elevation Time: 0808 Interventions provided in ED: -D10 half-normal saline infusion, D50, potassium chloride Medical Decision Making: Patient appears somewhat listless on arrival but he is alert to verbal stimuli, he is oriented to place. Patient states that last evening he was given extra insulin by his because his blood sugar was high. He states he recently stopped taking his insulin pump at the advice of his porter baggage because he states "my blood pressure was going too low". He states he took off his pump yesterday at some point but he is not sure exactly when. Lab work here in the ED shows no leukocytosis, hemoglobin is stable at 12.1, platelet count is normal, CMP showed hypoglycemia at 42, BUN was 27, potassium 3.3, patient was given oral potassium repletion. Patient's mentation improved with a second amp of D50 here in the ED and he was started on dextrose containing fluids with good improvement in his mentation. Given the unclear amount of insulin he took overnight I feel that he should be admitted to the hospital for observation, patient was in agreement to this plan. Case was discussed with the on-call hospitalist, Dr. Mathew, and the patient was placed for admission in stable condition. Consultants/Discussions held with other healthcare providers: -Hospitalist, Dr. Mathew Disposition discussion held by myself with: -Patient Diagnosis: 1. Hypoglycemic event, acute 2. Hypokalemia, acute 3. Altered mental status, acute Disposition: Admission Siddhartha Gracia DO Emergency Medicine Past Med/Surg History Problem List (Updated 03/13/24 @ 09:45 by Siddhartha Gracia DO) Hypoglycemia (Acute) Pleural effusion Hypomagnesemia Hypokalemia Atrial fibrillation Hypoglycemia due to type 1 diabetes mellitus Type 1 diabetes mellitus Hypothyroidism Neuroendocrine tumor of pancreas Weight loss BPH (benign prostatic hyperplasia) Hypertension Chronic diastolic CHF (congestive heart failure) Memory impairment Lacunar stroke Class 3 obesity Pancreatic abnormality Blood in urine EKG abnormalities Albuminuria Diabetic nephropathy associated with type 1 diabetes mellitus Proliferative diabetic retinopathy associated with type 1 diabetes mellitus Vitamin B12 deficiency History of colon polyps Brow ptosis, bilateral Loss of protective sensation of skin of foot Dysesthesia Benign prostatic hyperplasia with elevated prostate specific antigen (PSA) Diabetes mellitus type 1, uncontrolled (Acute) Diabetic peripheral neuropathy associated with type 1 diabetes mellitus Obstructive sleep apnea of adult CPAP Medical History (Updated 03/13/24 @ 09:45 by Siddhartha Gracia DO) Diabetic ketoacidosis Abdominal mass, right lower quadrant Hypothyroidism High anion gap metabolic acidosis Encephalopathy acute Hyperglycemia Generalized weakness Pseudohyponatremia Morbid obesity with BMI of 45.0-49.9, adult Falls Dyslipidemia Memory impairment per chart, pt. 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 LUCIA (obstructive sleep apnea) does not use cpap Lacunar stroke (11/2023) treated at [facility], admit x 4 days, pt reports no deficits Chronic diastolic (congestive) heart failure Dermatochalasis of both upper eyelids Erectile dysfunction Allergic rhinitis Recurrent sinus infections nothing current GERD without esophagitis Psoriasis Mobitz (type) I (Wenckebach's) atrioventricular block Occasionally noted dating back to 2016 Holter monitor History of nephrolithiasis OA (osteoarthritis) of shoulder Paroxysmal atrial fibrillation Few episodes noted on 2017 sleep study, not noted on f/u 10/2016 48 hour holter monitor > no known recurrences Vitamin D deficiency Surgical History Hx of colonoscopy with polypectomy S/P blepharoplasty H/O sinus surgery x2 History of blepharoplasty (~08/19/20) bilt History of endoscopic sinus surgery Endoscopic sinus surgery (06/21/15) [facility] History of incision and drainage (12/06/19) Rt thumb wound I&D + closure: 12/06/19: MAC sedation at [facility] S/P trigger finger release Right thumb trigger finger release: 10/17/19: MAC sedation at [facility] History of cataract surgery R/L History of carpal tunnel release R/L History of uvulopalatopharyngoplasty S/P appendectomy Family History Father Diabetes Sleep apnea Pacemaker Other No significant family history Denies family history of Ovarian cancer Prostate cancer Myocardial infarction Breast cancer Colorectal cancer Social History Smoking Status: Never smoker Tobacco Type: Cigarettes packs per day: 0.3; Second Hand Exposure: No; Do You Dip or Chew Tobacco: No; Hx Alcohol Use: No Hx Substance Use: No Preferred Language: Iraqi Communication Ability: Effective Visual Impairment: No Limitations Hearing Ability: Normal Re Dye Hand Required: No Beliefs That Will Affect Care: None marital status: Current Living Situation: Spouse Current Living Situation Comment: Frome home with current occupational status: employed 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 Feels Safe at Home: Yes Childhood Exposure to Second-Hand Smoke: No Dental Care, Regularly: Yes Physical Activity Frequency: Does not Exercise Seatbelt Use: always Sunscreen Use: Yes Assistive Devices: Walker Allergies Allergies Allergy/AdvReac Type Severity Reaction Status Date / Time bacitracin Allergy Mild contact Verified 03/13/24 09:33 dermatitis with eye bacitracin dog dander Allergy Mild Congestion Verified 03/13/24 09:33 horse dander Allergy Unknown Allergy Verified 03/13/24 09:33 testing + house dust Allergy Unknown Allergy Verified 03/13/24 09:33 testing + Home Meds Home Medications Medication Instructions Recorded Confirmed fluticasone propionate 50 1 spray intranasal DAILY PRN 09/29/21 03/09/24 mcg/actuation nasal Congestion spray,suspension betamethasone dipropionate 0.05 % 1 applic topical DAILY PRN Skin 10/15/23 03/09/24 lotion Irritation ketoconazole 2 % shampoo 1 applic topical 2XWK 10/15/23 03/09/24 Previous Rx's Medication Instructions Recorded OneTouch Delica Lancets 33 gauge #300 ea 02/01/19 (lancets) OneTouch Verio test strips (blood #300 ea 11/10/19 sugar diagnostic) Dexcom Radio Communication Coordinator (blood-glucose #1 ea 03/07/20 meter,continuous) Dexcom G7 Radio Communication Coordinator (blood-glucose #1 ea 07/07/22 meter,continuous) gabapentin 300 mg capsule 300 mg PO .COMPLEX #540 caps 08/03/22 insulin glargine 100 unit/mL (3 55 unit (0.55 mL) subcut BID #105 08/31/22 mL) subcutaneous pen (Lantus mL Solostar U-100 Insulin) mecobalamin (vitamin B12) 1,000 2,000 mcg (2 x 1,000 mcg) 11/27/22 mcg disintegrating sublingual DAILY #60 tabs tablet,sublingual omeprazole 40 mg capsule,delayed 40 mg PO QAM #90 caps 12/29/22 release econazole 1 % topical cream 1 applic topical BID PRN skin 01/28/23 irritation #30 grams Dexcom G7 Sensor (blood-glucose #9 ea 04/21/23 sensor) Novolog FlexPen U-100 Insulin 100 See Rx Instructions .Route 05/03/23 unit/mL (3 mL) subcutaneous .COMPLEX #90 mL (insulin aspart U-100) bumetanide 2 mg tablet 2 mg PO QAM #90 tabs 06/07/23 minocycline 100 mg capsule 100 mg PO BID #180 caps 06/28/23 pen needle, diabetic 31 gauge x #600 ea 07/15/2307/28" (BD Ultra-Fine Short Pen Needle) ezetimibe 10 mg tablet (Zetia) 10 mg PO QPM #90 tabs 09/13/23 levothyroxine 25 mcg tablet 25 mcg PO QAM #90 tabs 09/13/23 montelukast 10 mg tablet 10 mg PO QPM 90 days #90 tabs 09/13/23 alfuzosin 10 mg tablet,extended 10 mg PO BID #180 tabs 09/28/23 release 24 hr spironolactone 25 mg tablet 25 mg PO QAM #90 tabs 11/02/23 atorvastatin 80 mg tablet 80 mg PO QPM #90 tabs 11/16/23 losartan 100 mg tablet 100 mg PO QAM #90 tabs 11/16/23 triamcinolone acetonide 0.5 % 1 applic topical BID PRN Skin 12/10/23 topical cream Irritation #15 grams aspirin 81 mg tablet,delayed 81 mg PO DAILY #30 tabs 12/11/23 release (Enteric Coated Aspirin) carvedilol 3.125 mg tablet 3.125 mg PO BIDM #60 tabs 12/11/23 magnesium oxide 400 mg (241.3 mg 400 mg PO BID #14 tabs 12/11/23 magnesium) tablet peg 3350-electrolytes 236 240 ml PO .COMPLEX #4,000 mL 12/27/23 gram-22.74 gram-6.74 gram-5.86 gram solution (Golytely) levothyroxine 200 mcg tablet 200 mcg PO QAM #90 tabs 01/21/24 insulin lispro 200 unit/mL (3 mL) 180 unit (0.9 mL) subcut DAILY #84 02/08/24 subcutaneous pen (Humalog KwikPen mL U-200 Insulin) acetone (urine) test (Ketostix #100 ea 03/09/24 strips) glucagon 1 mg/0.2 mL subcutaneous 1 mg (0.2 mL) subcut DIRECTED 03/13/24 auto-injector (Gvoke HypoPen PRN for hypoglycemic epidoses #0.4 2-Pack) mL Results & Data (ED) Vital Signs Vital Signs - 24 hr 03/13/24 05:33 03/13/24 05:39 03/13/24 05:48 Temperature 36.9 C Temperature Source Oral Pulse Rate 58 L 59 L Pulse Rate from SpO2 Sensor 59 L Respiratory Rate 16 17 Respiratory Effort / Characteristics Non-Labored Spontaneous Respiratory Depth Normal Respiratory Pattern Regular Blood Pressure Blood Pressure Mean Blood Pressure Position Lying Pulse Oximetry 97 Oxygen Delivery Method Room Air Sepsis Recent Fever Within 48 Hours No Sepsis New/Unexplained Change in Mental Status N/A Sepsis Action Taken by Nursing No Action Required 03/13/24 06:05 03/13/24 06:12 03/13/24 06:33 Temperature Temperature Source Pulse Rate 55 L 66 56 L Pulse Rate from SpO2 Sensor 65 54 L Respiratory Rate 18 13 16 Respiratory Effort / Characteristics Respiratory Depth Respiratory Pattern Blood Pressure 135/71 135/71 Blood Pressure Mean 92 92 Blood Pressure Position Pulse Oximetry 96 97 97 Oxygen Delivery Method Room Air Room Air Room Air Sepsis Recent Fever Within 48 Hours Sepsis New/Unexplained Change in Mental Status Sepsis Action Taken by Nursing Laboratory Data 03/13/24 05:54 03/13/24 05:54 Lab Results 03/13/24 03/13/24 03/13/24 Range/Units 05:40 05:54 05:55 WBC 10.36 (4.8-10.8) K/ul RBC 4.15 L (4.70-6.10) M/uL Hgb 12.1 L (14.0-18.0) g/dl Hct 37.0 L (42.0-52.0) % MCV 89.2 (80.0-100.0) fL MCH 29.2 (25.0-34.0) pg MCHC 32.7 (32.0-36.0) g/dL RDW Std Deviation 47.0 H (36.4-46.3) fL RDW Coeff of Jill 14.6 H (11.5-14.5) % Plt Count 258 (130-400) K/uL MPV 11.7 (9.4-12.4) fL Immature Gran % (Auto) 0.3 % Neut % (Auto) 57.8 % Lymph % (Auto) 29.6 % Dewitt % (Auto) 10.2 % Eos % (Auto) 1.4 % Baso % (Auto) 0.7 % Neut # (Auto) 5.99 (1.40-6.50) K/uL Lymph # (Auto) 3.07 (1.20-3.40) K/uL Dewitt # (Auto) 1.06 H (0.11-0.59) K/uL Eos # (Auto) 0.14 (0.00-0.50) K/uL Baso # (Auto) 0.07 (0.00-0.20) K/uL Immature Gran # (Auto) 0.03 (0.01-0.20) K/uL VBG pH 7.34 L (7.36-7.41) VBG pCO2 60 H (38-50) mmHg VBG pO2 39 mmHg VBG HCO3 32 mmol/L VBG O2 Saturation 63.4 % VBG Base Excess 4.8 mEq/L Sodium 139 (136-145) mmol/L Potassium 3.3 L (3.5-5.1) mmol/L Chloride 103 (98-107) mmol/L Carbon Dioxide 30 (21-32) mmol/L Anion Gap 6 (3-11) BUN 27 H (6-23) mg/dl Creatinine 1.35 (0.6-1.4) mg/dl Est Cr Clr Drug Dosing 69.6 ml/min eGFR 58.27 BUN/Creatinine Ratio 20.0 (10-20) Glucose 42 L* (70-99(Fasting)) mg/dl POC Glucose 108 H 51 L* (70-99) mg/dl Calcium 8.8 (8.6-10.3) mg/dl Magnesium 1.6 L (1.7-2.4) mg/dl Total Bilirubin 0.3 (0.2-1.0) mg/dl AST 14 (13-39) U/L ALT 20 (7-52) U/L Alkaline Phosphatase 82 (34-104) U/L Total Creatine Kinase 51 (30-223) U/L Troponin I High Sens 16.3 (0-20) pg/ml Total Protein 5.7 L (6.0-8.3) gm/dl Albumin 3.0 L (3.4-5.0) gm/dl Globulin 2.7 (2.5-4.0) gm/dl Albumin/Globulin Ratio 1.1 (0.9-2) TSH 10.894 H (0.300-4.500) uIu/ml Free T4 1.13 (0.61-1.60) ng/dl Adenovirus (PCR) (NotDetected) B. pertussis DNA (PCR) (NotDetected) B.parapertussis DNA PCR (NotDetected) C. pneumoniae DNA (PCR) (NotDetected) Coronavirus OC43 (PCR) (NotDetected) Coronavirus HKU1 (PCR) (NotDetected) Coronavirus 229E (PCR) (NotDetected) SARS-CoV-2 (PCR) (NotDetected) Coronavirus NL63 (PCR) (NotDetected) Human Metapneumovir PCR (NotDetected) Influenza Type A (PCR) (NotDetected) Influenza Type B (PCR) (NotDetected) M. pneumoniae (PCR) (NotDetected) Parainfluenza 1 (PCR) (NotDetected) Parainfluenza 2 (PCR) (NotDetected) Parainfluenza 3 (PCR) (NotDetected) Parainfluenza 4 (PCR) (NotDetected) RSV (PCR) (NotDetected) Entero/Rhino (PCR) (NotDetected) 03/13/24 03/13/24 03/13/24 Range/Units 05:56 06:00 06:16 WBC (4.8-10.8) K/ul RBC (4.70-6.10) M/uL Hgb (14.0-18.0) g/dl Hct (42.0-52.0) % MCV (80.0-100.0) fL MCH (25.0-34.0) pg MCHC (32.0-36.0) g/dL RDW Std Deviation (36.4-46.3) fL RDW Coeff of Jill (11.5-14.5) % Plt Count (130-400) K/uL MPV (9.4-12.4) fL Immature Gran % (Auto) % Neut % (Auto) % Lymph % (Auto) % Dewitt % (Auto) % Eos % (Auto) % Baso % (Auto) % Neut # (Auto) (1.40-6.50) K/uL Lymph # (Auto) (1.20-3.40) K/uL Dewitt # (Auto) (0.11-0.59) K/uL Eos # (Auto) (0.00-0.50) K/uL Baso # (Auto) (0.00-0.20) K/uL Immature Gran # (Auto) (0.01-0.20) K/uL VBG pH (7.36-7.41) VBG pCO2 (38-50) mmHg VBG pO2 mmHg VBG HCO3 mmol/L VBG O2 Saturation % VBG Base Excess mEq/L Sodium (136-145) mmol/L Potassium (3.5-5.1) mmol/L Chloride (98-107) mmol/L Carbon Dioxide (21-32) mmol/L Anion Gap (3-11) BUN (6-23) mg/dl Creatinine (0.6-1.4) mg/dl Est Cr Clr Drug Dosing ml/min eGFR BUN/Creatinine Ratio (10-20) Glucose (70-99(Fasting)) mg/dl POC Glucose 50 L* 88 (70-99) mg/dl Calcium (8.6-10.3) mg/dl Magnesium (1.7-2.4) mg/dl Total Bilirubin (0.2-1.0) mg/dl AST (13-39) U/L ALT (7-52) U/L Alkaline Phosphatase (34-104) U/L Total Creatine Kinase (30-223) U/L Troponin I High Sens (0-20) pg/ml Total Protein (6.0-8.3) gm/dl Albumin (3.4-5.0) gm/dl Globulin (2.5-4.0) gm/dl Albumin/Globulin Ratio (0.9-2) TSH (0.300-4.500) uIu/ml Free T4 (0.61-1.60) ng/dl Adenovirus (PCR) Not Detected (NotDetected) B. pertussis DNA (PCR) Not Detected (NotDetected) B.parapertussis DNA PCR Not Detected (NotDetected) C. pneumoniae DNA (PCR) Not Detected (NotDetected) Coronavirus OC43 (PCR) Not Detected (NotDetected) Coronavirus HKU1 (PCR) Not Detected (NotDetected) Coronavirus 229E (PCR) Not Detected (NotDetected) SARS-CoV-2 (PCR) Not Detected (NotDetected) Coronavirus NL63 (PCR) Not Detected (NotDetected) Human Metapneumovir PCR Not Detected (NotDetected) Influenza Type A (PCR) Not Detected (NotDetected) Influenza Type B (PCR) Not Detected (NotDetected) M. pneumoniae (PCR) Not Detected (NotDetected) Parainfluenza 1 (PCR) Not Detected (NotDetected) Parainfluenza 2 (PCR) Not Detected (NotDetected) Parainfluenza 3 (PCR) Not Detected (NotDetected) Parainfluenza 4 (PCR) Not Detected (NotDetected) RSV (PCR) Not Detected (NotDetected) Entero/Rhino (PCR) Not Detected (NotDetected) 03/13/24 03/13/24 03/13/24 Range/Units 06:17 06:23 06:41 WBC (4.8-10.8) K/ul RBC (4.70-6.10) M/uL Hgb (14.0-18.0) g/dl Hct (42.0-52.0) % MCV (80.0-100.0) fL MCH (25.0-34.0) pg MCHC (32.0-36.0) g/dL RDW Std Deviation (36.4-46.3) fL RDW Coeff of Jill (11.5-14.5) % Plt Count (130-400) K/uL MPV (9.4-12.4) fL Immature Gran % (Auto) % Neut % (Auto) % Lymph % (Auto) % Dewitt % (Auto) % Eos % (Auto) % Baso % (Auto) % Neut # (Auto) (1.40-6.50) K/uL Lymph # (Auto) (1.20-3.40) K/uL Dewitt # (Auto) (0.11-0.59) K/uL Eos # (Auto) (0.00-0.50) K/uL Baso # (Auto) (0.00-0.20) K/uL Immature Gran # (Auto) (0.01-0.20) K/uL VBG pH (7.36-7.41) VBG pCO2 (38-50) mmHg VBG pO2 mmHg VBG HCO3 mmol/L VBG O2 Saturation % VBG Base Excess mEq/L Sodium (136-145) mmol/L Potassium (3.5-5.1) mmol/L Chloride (98-107) mmol/L Carbon Dioxide (21-32) mmol/L Anion Gap (3-11) BUN (6-23) mg/dl Creatinine (0.6-1.4) mg/dl Est Cr Clr Drug Dosing ml/min eGFR BUN/Creatinine Ratio (10-20) Glucose (70-99(Fasting)) mg/dl POC Glucose 76 58 L* 115 H (70-99) mg/dl Calcium (8.6-10.3) mg/dl Magnesium (1.7-2.4) mg/dl Total Bilirubin (0.2-1.0) mg/dl AST (13-39) U/L ALT (7-52) U/L Alkaline Phosphatase (34-104) U/L Total Creatine Kinase (30-223) U/L Troponin I High Sens (0-20) pg/ml Total Protein (6.0-8.3) gm/dl Albumin (3.4-5.0) gm/dl Globulin (2.5-4.0) gm/dl Albumin/Globulin Ratio (0.9-2) TSH (0.300-4.500) uIu/ml Free T4 (0.61-1.60) ng/dl Adenovirus (PCR) (NotDetected) B. pertussis DNA (PCR) (NotDetected) B.parapertussis DNA PCR (NotDetected) C. pneumoniae DNA (PCR) (NotDetected) Coronavirus OC43 (PCR) (NotDetected) Coronavirus HKU1 (PCR) (NotDetected) Coronavirus 229E (PCR) (NotDetected) SARS-CoV-2 (PCR) (NotDetected) Coronavirus NL63 (PCR) (NotDetected) Human Metapneumovir PCR (NotDetected) Influenza Type A (PCR) (NotDetected) Influenza Type B (PCR) (NotDetected) M. pneumoniae (PCR) (NotDetected) Parainfluenza 1 (PCR) (NotDetected) Parainfluenza 2 (PCR) (NotDetected) Parainfluenza 3 (PCR) (NotDetected) Parainfluenza 4 (PCR) (NotDetected) RSV (PCR) (NotDetected) Entero/Rhino (PCR) (NotDetected) 03/13/24 03/13/24 03/13/24 Range/Units 06:49 07:08 07:24 WBC (4.8-10.8) K/ul RBC (4.70-6.10) M/uL Hgb (14.0-18.0) g/dl Hct (42.0-52.0) % MCV (80.0-100.0) fL MCH (25.0-34.0) pg MCHC (32.0-36.0) g/dL RDW Std Deviation (36.4-46.3) fL RDW Coeff of Jill (11.5-14.5) % Plt Count (130-400) K/uL MPV (9.4-12.4) fL Immature Gran % (Auto) % Neut % (Auto) % Lymph % (Auto) % Dewitt % (Auto) % Eos % (Auto) % Baso % (Auto) % Neut # (Auto) (1.40-6.50) K/uL Lymph # (Auto) (1.20-3.40) K/uL Dewitt # (Auto) (0.11-0.59) K/uL Eos # (Auto) (0.00-0.50) K/uL Baso # (Auto) (0.00-0.20) K/uL Immature Gran # (Auto) (0.01-0.20) K/uL VBG pH (7.36-7.41) VBG pCO2 (38-50) mmHg VBG pO2 mmHg VBG HCO3 mmol/L VBG O2 Saturation % VBG Base Excess mEq/L Sodium (136-145) mmol/L Potassium (3.5-5.1) mmol/L Chloride (98-107) mmol/L Carbon Dioxide (21-32) mmol/L Anion Gap (3-11) BUN (6-23) mg/dl Creatinine (0.6-1.4) mg/dl Est Cr Clr Drug Dosing ml/min eGFR BUN/Creatinine Ratio (10-20) Glucose (70-99(Fasting)) mg/dl POC Glucose 86 56 L* 54 L* (70-99) mg/dl Calcium (8.6-10.3) mg/dl Magnesium (1.7-2.4) mg/dl Total Bilirubin (0.2-1.0) mg/dl AST (13-39) U/L ALT (7-52) U/L Alkaline Phosphatase (34-104) U/L Total Creatine Kinase (30-223) U/L Troponin I High Sens (0-20) pg/ml Total Protein (6.0-8.3) gm/dl Albumin (3.4-5.0) gm/dl Globulin (2.5-4.0) gm/dl Albumin/Globulin Ratio (0.9-2) TSH (0.300-4.500) uIu/ml Free T4 (0.61-1.60) ng/dl Adenovirus (PCR) (NotDetected) B. pertussis DNA (PCR) (NotDetected) B.parapertussis DNA PCR (NotDetected) C. pneumoniae DNA (PCR) (NotDetected) Coronavirus OC43 (PCR) (NotDetected) Coronavirus HKU1 (PCR) (NotDetected) Coronavirus 229E (PCR) (NotDetected) SARS-CoV-2 (PCR) (NotDetected) Coronavirus NL63 (PCR) (NotDetected) Human Metapneumovir PCR (NotDetected) Influenza Type A (PCR) (NotDetected) Influenza Type B (PCR) (NotDetected) M. pneumoniae (PCR) (NotDetected) Parainfluenza 1 (PCR) (NotDetected) Parainfluenza 2 (PCR) (NotDetected) Parainfluenza 3 (PCR) (NotDetected) Parainfluenza 4 (PCR) (NotDetected) RSV (PCR) (NotDetected) Entero/Rhino (PCR) (NotDetected) 03/13/24 03/13/24 03/13/24 Range/Units 07:26 08:01 08:38 WBC (4.8-10.8) K/ul RBC (4.70-6.10) M/uL Hgb (14.0-18.0) g/dl Hct (42.0-52.0) % MCV (80.0-100.0) fL MCH (25.0-34.0) pg MCHC (32.0-36.0) g/dL RDW Std Deviation (36.4-46.3) fL RDW Coeff of Jill (11.5-14.5) % Plt Count (130-400) K/uL MPV (9.4-12.4) fL Immature Gran % (Auto) % Neut % (Auto) % Lymph % (Auto) % Dewitt % (Auto) % Eos % (Auto) % Baso % (Auto) % Neut # (Auto) (1.40-6.50) K/uL Lymph # (Auto) (1.20-3.40) K/uL Dewitt # (Auto) (0.11-0.59) K/uL Eos # (Auto) (0.00-0.50) K/uL Baso # (Auto) (0.00-0.20) K/uL Immature Gran # (Auto) (0.01-0.20) K/uL VBG pH (7.36-7.41) VBG pCO2 (38-50) mmHg VBG pO2 mmHg VBG HCO3 mmol/L VBG O2 Saturation % VBG Base Excess mEq/L Sodium (136-145) mmol/L Potassium (3.5-5.1) mmol/L Chloride (98-107) mmol/L Carbon Dioxide (21-32) mmol/L Anion Gap (3-11) BUN (6-23) mg/dl Creatinine (0.6-1.4) mg/dl Est Cr Clr Drug Dosing ml/min eGFR BUN/Creatinine Ratio (10-20) Glucose (70-99(Fasting)) mg/dl POC Glucose 62 L* 67 L* 86 (70-99) mg/dl Calcium (8.6-10.3) mg/dl Magnesium (1.7-2.4) mg/dl Total Bilirubin (0.2-1.0) mg/dl AST (13-39) U/L ALT (7-52) U/L Alkaline Phosphatase (34-104) U/L Total Creatine Kinase (30-223) U/L Troponin I High Sens (0-20) pg/ml Total Protein (6.0-8.3) gm/dl Albumin (3.4-5.0) gm/dl Globulin (2.5-4.0) gm/dl Albumin/Globulin Ratio (0.9-2) TSH (0.300-4.500) uIu/ml Free T4 (0.61-1.60) ng/dl Adenovirus (PCR) (NotDetected) B. pertussis DNA (PCR) (NotDetected) B.parapertussis DNA PCR (NotDetected) C. pneumoniae DNA (PCR) (NotDetected) Coronavirus OC43 (PCR) (NotDetected) Coronavirus HKU1 (PCR) (NotDetected) Coronavirus 229E (PCR) (NotDetected) SARS-CoV-2 (PCR) (NotDetected) Coronavirus NL63 (PCR) (NotDetected) Human Metapneumovir PCR (NotDetected) Influenza Type A (PCR) (NotDetected) Influenza Type B (PCR) (NotDetected) M. pneumoniae (PCR) (NotDetected) Parainfluenza 1 (PCR) (NotDetected) Parainfluenza 2 (PCR) (NotDetected) Parainfluenza 3 (PCR) (NotDetected) Parainfluenza 4 (PCR) (NotDetected) RSV (PCR) (NotDetected) Entero/Rhino (PCR) (NotDetected) 03/13/24 Range/Units 09:18 WBC (4.8-10.8) K/ul RBC (4.70-6.10) M/uL Hgb (14.0-18.0) g/dl Hct (42.0-52.0) % MCV (80.0-100.0) fL MCH (25.0-34.0) pg MCHC (32.0-36.0) g/dL RDW Std Deviation (36.4-46.3) fL RDW Coeff of Jill (11.5-14.5) % Plt Count (130-400) K/uL MPV (9.4-12.4) fL Immature Gran % (Auto) % Neut % (Auto) % Lymph % (Auto) % Dewitt % (Auto) % Eos % (Auto) % Baso % (Auto) % Neut # (Auto) (1.40-6.50) K/uL Lymph # (Auto) (1.20-3.40) K/uL Dewitt # (Auto) (0.11-0.59) K/uL Eos # (Auto) (0.00-0.50) K/uL Baso # (Auto) (0.00-0.20) K/uL Immature Gran # (Auto) (0.01-0.20) K/uL VBG pH (7.36-7.41) VBG pCO2 (38-50) mmHg VBG pO2 mmHg VBG HCO3 mmol/L VBG O2 Saturation % VBG Base Excess mEq/L Sodium (136-145) mmol/L Potassium (3.5-5.1) mmol/L Chloride (98-107) mmol/L Carbon Dioxide (21-32) mmol/L Anion Gap (3-11) BUN (6-23) mg/dl Creatinine (0.6-1.4) mg/dl Est Cr Clr Drug Dosing ml/min eGFR BUN/Creatinine Ratio (10-20) Glucose (70-99(Fasting)) mg/dl POC Glucose 80 (70-99) mg/dl Calcium (8.6-10.3) mg/dl Magnesium (1.7-2.4) mg/dl Total Bilirubin (0.2-1.0) mg/dl AST (13-39) U/L ALT (7-52) U/L Alkaline Phosphatase (34-104) U/L Total Creatine Kinase (30-223) U/L Troponin I High Sens (0-20) pg/ml Total Protein (6.0-8.3) gm/dl Albumin (3.4-5.0) gm/dl Globulin (2.5-4.0) gm/dl Albumin/Globulin Ratio (0.9-2) TSH (0.300-4.500) uIu/ml Free T4 (0.61-1.60) ng/dl Adenovirus (PCR) (NotDetected) B. pertussis DNA (PCR) (NotDetected) B.parapertussis DNA PCR (NotDetected) C. pneumoniae DNA (PCR) (NotDetected) Coronavirus OC43 (PCR) (NotDetected) Coronavirus HKU1 (PCR) (NotDetected) Coronavirus 229E (PCR) (NotDetected) SARS-CoV-2 (PCR) (NotDetected) Coronavirus NL63 (PCR) (NotDetected) Human Metapneumovir PCR (NotDetected) Influenza Type A (PCR) (NotDetected) Influenza Type B (PCR) (NotDetected) M. pneumoniae (PCR) (NotDetected) Parainfluenza 1 (PCR) (NotDetected) Parainfluenza 2 (PCR) (NotDetected) Parainfluenza 3 (PCR) (NotDetected) Parainfluenza 4 (PCR) (NotDetected) RSV (PCR) (NotDetected) Entero/Rhino (PCR) (NotDetected) Administered Medications Sodium Chloride 77 meq/ (Dextrose) 1,030.8 mls @ 125 mls/hr IV .[id number] [facility] Stop: 04/12/24 06:44 Last Admin: 03/13/24 06:51 Dose: 125 mls/hr Documented By: ERICK Discontinued Medications Dextrose (Dextrose 50% 50 Ml Syringe) 50 ml IV NOW ONE Stop: 03/13/24 05:57 Last Admin: 03/13/24 05:58 Dose: 50 ml Documented By: ERICK Dextrose (Dextrose 50% 50 Ml Syringe) 50 ml IV NOW ONE Stop: 03/13/24 06:38 Last Admin: 03/13/24 06:30 Dose: 50 ml Documented By: Imaging Data Radiologist's Impression: Chest X-Ray 03/13/24 05:47 EXAM: XR chest 1V portable CLINICAL HISTORY: WEAKNESS. TECHNIQUE: An X-ray image of the chest was obtained in 1 view: AP projection. COMPARISON: X-ray dated 03/01/2024. FINDINGS: Suboptimal image due to significant rotation. Pulmonary Parenchyma: Prominent bronchovascular markings. Obliterated left costophrenic angle with underlying lower zone opacity obscuring left diaphragmatic border, partly progressed since the last study. No evidence of consolidation, collapse, or focal opacities. No pulmonary nodules are identified. Limited assessment of the left costophrenic angle due to patient rotation. No evidence of right sided pleural effusion or pleural thickening. Heart and Mediastinum: Heart size and shape are normal. No mediastinal widening or masses. No hilar or mediastinal lymphadenopathy. Bony Thorax: Bony thorax appears intact without fractures or deformities. Soft Tissues: Soft tissues overlying the chest wall are unremarkable. IMPRESSION: 1. Prominent bronchovascular markings, progressed on the right lung. 2. Evidence of left pleural effusion with underlying partial collapse, partly progressed. 3. No other changes since the last study. 4. Clinical correlation and follow up are recommended. Electronically signed by Martina Hector 03-13-2024 07:33 AM Discharge Plan Visit Data Chief Complaint: Hypoglycemia Stated Complaint: Hypoglycemia, AMS ED Provider: Siddhartha Gracia Discharge Problem: Hypoglycemia Forms Stand Alone Forms: [facility] [place] Prescriptions Prescriptions: No Action (DME) lancets [OneTouch Delica Lancets] 33 gauge misc See Rx Instructions .ROUTE .MEDSUPPLY Qty: 300 3RF Rx Instructions: test 3 times daily (DME) OneTouch Verio test strips Strip See Dose Instructions .ROUTE .MEDSUPPLY Qty: 300 3RF Dose Instruction: As directed Rx Instructions: test blood sugars 3 x daily (DME) Dexcom Radio Communication Coordinator Misc See Rx Instructions .ROUTE .MEDSUPPLY Qty: 1 0RF Rx Instructions: As directed (DME) Dexcom G7 Radio Communication Coordinator Misc See Rx Instructions .Route Qty: 1 0RF Rx Instructions: use as directed with CGM gabapentin 300 mg capsule 300 mg PO .COMPLEX Qty: 540 3RF Rx Instructions: TAKE 2 CAPSULES IN THE MORNING AND 4 CAPSULES AT BEDTIME; insulin glargine [Lantus Solostar U-100 Insulin] 100 unit/mL (3 mL) insulin pen 55 unit subcut BID Qty: 105 3RF Rx Instructions: subcut Inject 55 units in AM and 55 units and PM subcut ; mecobalamin (vitamin B12) 1,000 mcg tablet,disintegrating 2,000 mcg sublingual DAILY Qty: 60 0RF Rx Instructions: place tablet under tongue and allow to dissolve for at least30 secs before swallowing omeprazole 40 mg capsule,delayed release(DR/EC) 40 mg PO QAM Qty: 90 3RF Rx Instructions: qam econazole 1 % cream 1 applic TOP BID PRN (Reason: skin irritation) Qty: 30 5RF (DME) Dexcom G7 Sensor Device See Rx Instructions .ROUTE .MEDSUPPLY Qty: 9 3RF Rx Instructions: change every 10 days insulin aspart U-100 [Novolog FlexPen U-100 Insulin] 100 unit/mL (3 mL) insulin pen See Rx Instructions .ROUTE .COMPLEX Qty: 90 3RF Rx Instructions: Inject 80- 100 units daily; bumetanide 2 mg tablet 2 mg PO QAM Qty: 90 3RF Rx Instructions: qam minocycline 100 mg capsule 100 mg PO BID Qty: 180 3RF Hold Instructions: Resume on 12/17/23. Hold while you are taking oral antibiotic cephalexin and resume once you are finished 5 days of cephalexin (DME) pen needle, diabetic [BD Ultra-Fine Short Pen Needle] 31 gauge x 5/16" needle See Dose Instructions .ROUTE .MEDSUPPLY Qty: 600 3RF Dose Instruction: As directed Rx Instructions: use pen needles with insulin pens 6 times daily ezetimibe [Zetia] 10 mg tablet 10 mg PO QPM Qty: 90 3RF levothyroxine 25 mcg tablet 25 mcg PO QAM Qty: 90 3RF Hold Instructions: low TSH Rx Instructions: TOTAL DOSE 225 MCG--TAKES WITH 200 MCG TAB. montelukast 10 mg tablet 10 mg PO QPM 90 Days Qty: 90 3RF alfuzosin 10 mg tablet extended release 24 hr 10 mg PO BID Qty: 180 3RF Rx Instructions: administer after the same meal each day spironolactone 25 mg tablet 25 mg PO QAM Qty: 90 1RF triamcinolone acetonide 0.5 % cream 1 applic TOP BID PRN (Reason: Skin Irritation) Qty: 15 1RF Rx Instructions: 1 application topical twice a day; peg 3350-electrolytes [Golytely] 236-22.74-6.74 -5.86 gram recon soln 240 ml PO .COMPLEX Qty: 4000 0RF Rx Instructions: 240 mL PO take as directed per split dose instructions levothyroxine 200 mcg tablet 200 mcg PO QAM Qty: 90 0RF Humalog KwikPen Insulin 200 unit/mL (3 mL) insulin pen 180 unit subcut DAILY Qty: 84 3RF Rx Instructions: prior auth approved from 10/14/23 - 03/14/24 Gvoke HypoPen 2-Pack 1 mg/0.2 mL auto-injector 1 mg subcut DIRECTED PRN (Reason: for hypoglycemic epidoses) Qty: 0.4 5RF fluticasone propionate 50 mcg/actuation spray,suspension 1 spray intranasal DAILY PRN (Reason: Congestion) atorvastatin 80 mg tablet 80 mg PO QPM Qty: 90 3RF losartan 100 mg tablet 100 mg PO QAM Qty: 90 3RF Rx Instructions: qam (DME) Ketostix Strip See Rx Instructions .Route Qty: 100 3RF Rx Instructions: Check every 2-4 hours during hyperglycemia carvedilol 3.125 mg Tablet 3.125 mg PO BIDM Qty: 60 0RF Rx Instructions: TAKE TWICE DAILY WITH MEALS (BREAKFAST AND DINNER) magnesium oxide 400 mg (241.3 mg magnesium) Tablet 400 mg PO BID Qty: 14 0RF aspirin [Enteric Coated Aspirin] 81 mg tablet,delayed release (DR/EC) 81 mg PO DAILY Qty: 30 0RF ketoconazole 2 % shampoo 1 applic TOP 2XWK Rx Instructions: APPLY TO SCALP TWICE WEEKLY betamethasone dipropionate 0.05 % lotion 1 applic TOP DAILY PRN (Reason: Skin Irritation) Rx Instructions: Apply to scalp once daily for up to 2 weeks as needed for flaring. Referrals Referrals: Jorje Iyer MD [Primary Care Provider] -
[2024-03-13 06:40] LABS: Albumin Globulin Ratio 1.1 (0.9-2); Bilirubin,Total 0.3 mg/dl (0.2-1.0); Calcium 8.8 mg/dl (8.6-10.3); Creatinine Clr Calc Pharmacy 69.6 ml/min; Globulin 2.7 gm/dl (2.5-4.0); Magnesium 1.6 mg/dl (1.7-2.4); Potassium 3.3 mmol/L (3.5-5.1); Total Protein 5.7 gm/dl (6.0-8.3)
[2024-03-13 06:41] LABS: Troponin I High Sensitivity 16.3 pg/ml (0-20)
[2024-03-13 06:51] LABS: Thyroid Stimulating Hormone 10.894 uIu/ml (0.300-4.500)
[2024-03-13] MEDS: SODI CHLOR 2.5MEQ/ML 14.6% 77 MEQ in DEXTROSE 10% 1,000 ML IV SCH (06:51)
[2024-03-13 07:03] LABS: Adenovirus PCR Not Detected (NotDetected); Bordetella parapertussis PCR Not Detected (NotDetected); Bordetella pertussis PCR Not Detected (NotDetected); Chlamydia pneumoniae PCR Not Detected (NotDetected); Coronavirus 229E PCR Not Detected (NotDetected); Coronavirus CoV-2 (COVID19)PCR Not Detected (NotDetected); Coronavirus HKU1 PCR Not Detected (NotDetected); Coronavirus NL63 PCR Not Detected (NotDetected); Coronavirus OC43PCR Not Detected (NotDetected); Human Metapneumovirus PCR Not Detected (NotDetected); Influenza A PCR Not Detected (NotDetected); Influenza B PCR Not Detected (NotDetected); Mycoplasma pneumoniae PCR Not Detected (NotDetected); Parainfluenza Virus 1 PCR Not Detected (NotDetected); Parainfluenza Virus 2 PCR Not Detected (NotDetected); Parainfluenza Virus 3 PCR Not Detected (NotDetected); Parainfluenza Virus 4 PCR Not Detected (NotDetected); Respiratory Syncytial VirusPCR Not Detected (NotDetected); Rhinovirus/Enterovirus PCR Not Detected (NotDetected)
[2024-03-13 07:28] LABS: T4 Free Thyroxine 1.13 ng/dl (0.61-1.60)
--- NOTE | 2024-03-13 07:34 | XRay Report ---
EXAM: XR chest 1V portable CLINICAL HISTORY: WEAKNESS. TECHNIQUE: An X-ray image of the chest was obtained in 1 view: AP projection. COMPARISON: X-ray dated 03/01/2024. FINDINGS: Suboptimal image due to significant rotation. Pulmonary Parenchyma: Prominent bronchovascular markings. Obliterated left costophrenic angle with underlying lower zone opacity obscuring left diaphragmatic border, partly progressed since the last study. No evidence of consolidation, collapse, or focal opacities. No pulmonary nodules are identified. Limited assessment of the left costophrenic angle due to patient rotation. No evidence of right sided pleural effusion or pleural thickening. Heart and Mediastinum: Heart size and shape are normal. No mediastinal widening or masses. No hilar or mediastinal lymphadenopathy. Bony Thorax: Bony thorax appears intact without fractures or deformities. Soft Tissues: Soft tissues overlying the chest wall are unremarkable. IMPRESSION: 1. Prominent bronchovascular markings, progressed on the right lung. 2. Evidence of left pleural effusion with underlying partial collapse, partly progressed. 3. No other changes since the last study. 4. Clinical correlation and follow up are recommended. Electronically signed by Martina Hector 03-13-2024 07:33 AM
[2024-03-13] MEDS ORDERED: POTASSIUM CHLORIDE PWD 20 MEQ PACK PO STA (07:50)
--- NOTE | 2024-03-13 08:21 | History & Physical Report ---
<Statement entered by Kathy Mathew MD - 03/13/24 14:42> I have reviewed vital signs, chart notes, labs and imaging. I have personally seen, evaluated and examined the patient. I have also discussed the management of the patient with the DINORAH and I agree with the exam findings documented in the history and physical examination and the documented assessment and plan unless otherwise stated below. Type I diabetic with recently labile blood glucose, admitted with severe sustained hypoglycemia after doses of subcu insulin. Treating hide for glycemia with D10 drip, plan to wean off then we will figure out what his subcu insulin needs are. pump was discontinued recently because of a malfunction he follows with endocrinology Dr. Proctor he may be quite brittle and hard to control without a pump. The urinalysis is pending otherwise I do not see any acute issues to provoke the lability second new issue is that he is found to be in atrial fibrillation, this appears to be a new diagnosis. He will benefit from anticoagulation because his stroke risk is quite high. Continue carvedilol. TTE was obtained today he has normal LV systolic function no RWMA's no significant valvular disease. He has a left pleural effusion which is moderate and asymptomatic. He does have significant extremity edema so thought perhaps this was heart failure related. Plan to diuresis with IV Bumex however he is not intravascularly volume overloaded based on his echo so we will simply continue his oral diuretics. I wonder whether the left-sided effusion is related to his pancreas pathologyhe was recently diagnosed with neuroendocrine tumor of the pancreas consider diagnostic left-sided thoracentesis, will hold off on initiating apixaban he has untreated sleep apnea and severe obesity with BMI of 36 Date of Service March 13, 2024 Assessment & Plan (1) Hypoglycemia due to type 1 diabetes mellitus: Plan: patient recently discharged due to DKA, discharged on insulin pump Insulin pump malfunction 03/09, was transition back to insulin injections Patient's stated that she gave him the following insulin dosages on 03/12: 2940 units Lantus a.m., 1615 units Novolog, 2330 15 units NovoLog at 0400 03/13 she found him to have a glucose in the 30s and patient was unresponsive EMS gave 2 bags D10 2450 mL 25g ER gave 100 mL Iv dextrose and started patient on D10 drip admit to PCU - titrate off D10 drip Q1H glucose checks correct electrolytes below BMP recheck 1500 trend BMP pharmacy glycemia consult consult certified breastfeeding educator continue with scheduled endocrine out pt appointment 03/17/24 (2) Atrial fibrillation: Plan: New onset EKG on admission showed a fib with RBBB, rate 61 telemetry showing continued a fib TSH WNL [id number] score 6 = 9.7% stroke risk per year HAS-BLED score 3 = 5.8% risk for major bleeding start Eliquis 5mg BID continue home Carvedilol 3.125 BID with holding parameters given bradycardia correct electrolytes will order echo Continue to monitor on Telemetry (3) Pleural effusion: Plan: history of chronic diastolic heart failure possibly 2/2 to CHF vs new onset a fib; likely chronic progression CXR showing bronchovascular markings progressed on right lung, evidence of left pleural effusion with underlying partial collapse patient with +1 bilateral LE pitting edema echo 12/09/23 showed EF 55 to 60%, moderate LVH, mild atrial dilation, type II diastolic dysfunction incentive spirometry continue spironolactone on 2mg PO Bumex daily at home -> transition to 2mg IV BID Bumex trend and correct electrolytes below Heart healthy, low-sodium diet Strict I&O monitoring Daily weights dillon stockings, promote leg elevation Hypoxia - wean O2 as tolerated, does not use oxygen at baseline (4) Hypokalemia: Plan: 2/2 to hypoglycemia 3.3 on admission -> 40 MeQ PO in ED repeat BMP at 1500, addition of PO supplement when resulted (5) Hypomagnesemia: Plan: 1.6 on admission -> 1 G IV ordered continue home mag ox BID; missed AM dose - ordered trend mg (6) Memory impairment: Plan: 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 - continue ASA and statin appears to be baseline, possibly acute decline with hypoglycemia aspiration and fall precautions (7) Hypothyroidism: Plan: TSH chronically elevated T4 WNL continue levothyroxine 225 mcg daily (8) Pancreatic abnormality: Plan: S/p pancreas biopsy October 2023 with [facility] Well differentiated neuroendocrine tumor of pancreas CA 19/9 WNL Had appointment with oncology scheduled for today 03/13, patient's to reschedule and continue to follow Plan Chronic stable diagnoses: LUCIA - does not use home CPAP HLD - continue statin and Zetia neuropathy - continue gabapentin b12 deficiency - continue supplement GERD - continue PPI BPH - continue alfuzosin HTN - continue losartan VTE ppx: started on Eliquis 5mg BID with new onset afib Diet: t1dm, low Na, hert healthy Dispo: PCU, titrate off D10 drip Admission and Anticipated Discharge Date Admission Date: 03/13/24 History of Present Illness Chief Complaint: hypoglycemia Primary Care Provider: Jorje Iyer MD Patient is a 63-year-old male with a past medical history of type I DM, LUCIA, GERD, hypothyroidism, hypertension, history of acute lacunar CVA November 2023, neuropathy, type II diastolic dysfunction, BPH, hyperlipidemia, neuroendocrine tumor of pancreas. Patient was recently discharged 03/06 after being admitted for DKA. The patient was sent home on an insulin pump which appeared to have malfunction 03/09, the certified breastfeeding educator informed the patient to go back on injections and discontinue the pump at this point. The patient's stated that the patient was transition from Lantus 55 units to 40 units. He also was to take 20 units of short acting before meals which was decreased to 15 units. The patient is cognitively impaired and the following history was obtained by the patient's . She stated that roughly 2 days ago the patient did have low glucose trending in the 40s, and improved with sugary foods. Yesterday, the patient's noted his glucose was 280 in the morning, she then gave him his 40 units of Lantus. The patient then went to take a nap. At 4 PM he woke up to eat and his glucose was 220, she gave him his 15 units of short acting insulin. At 9 PM she rechecked his glucose and it was in the 400s. She gave it more time because she knows that the insulin peaks around 4/5 hours, at 11:30 PM she gave him 15 more units of short acting insulin due to the glucose still being in the 400s. She rechecked his glucose at 4 AM this morning and it was low in the 30s, the patient was unresponsive, she also stated that he was cold. She then called 911. EMS gave the patient 2 bags of D10 250 mL 25 g each. Upon arrival to the ER the patient had a glucose of 42, he was given 100 mL IV dextrose along with 40 mEq of potassium p.o.p.o. He was then started on a D10 drip. On examination the patient responded to verbal stimuli although was lethargic. Patient denies dizziness, lightheadedness, dyspnea, chest pain, numbness, tingling. Spoke with patient's on the phone, she stated he did not take his morning medications today, will order on admission. He does not use oxygen at baseline; he is on 2 L O2 via nasal cannula on exam. He does not use his home CPAP for sleep apnea, he has not used in many years. He was to have an appointment with oncology today that she is going to call and reschedule. She stated that he has no known history of A-fib that she can recall. Had a lengthy discussion about code status, she believes that the patient would want to be DNR/DNI status. Allergies Allergy/AdvReac Type Severity Reaction Status Date / Time bacitracin Allergy Mild contact Verified 03/13/24 09:33 dermatitis with eye bacitracin dog dander Allergy Mild Congestion Verified 03/13/24 09:33 horse dander Allergy Unknown Allergy Verified 03/13/24 09:33 testing + house dust Allergy Unknown Allergy Verified 03/13/24 09:33 testing + Home Medications Medication Instructions Recorded Confirmed Type OneTouch Delica Lancets 33 gauge #300 ea 02/01/19 03/09/24 Rx (lancets) OneTouch Verio test strips (blood #300 ea 11/10/19 03/09/24 Rx sugar diagnostic) Dexcom Data Base Design Analyst (blood-glucose #1 ea 03/07/20 03/09/24 Rx meter,continuous) fluticasone propionate 50 1 spray intranasal DAILY PRN 09/29/21 03/13/24 History mcg/actuation nasal Congestion spray,suspension Dexcom G7 Data Base Design Analyst (blood-glucose #1 ea 07/07/22 03/09/24 Rx meter,continuous) gabapentin 300 mg capsule 300 mg PO .COMPLEX #540 caps 08/03/22 03/13/24 Rx mecobalamin (vitamin B12) 1,000 2,000 mcg (2 x 1,000 mcg) 11/27/22 03/13/24 Rx mcg disintegrating sublingual DAILY #60 tabs tablet,sublingual omeprazole 40 mg capsule,delayed 40 mg PO QAM #90 caps 12/29/22 03/13/24 Rx release econazole 1 % topical cream 1 applic topical BID PRN skin 01/28/23 03/13/24 Rx irritation #30 grams Dexcom G7 Sensor (blood-glucose #9 ea 04/21/23 03/09/24 Rx sensor) bumetanide 2 mg tablet 2 mg PO QAM #90 tabs 06/07/23 03/13/24 Rx minocycline 100 mg capsule 100 mg PO BID #180 caps 06/28/23 03/13/24 Rx pen needle, diabetic 31 gauge x #600 ea 07/15/23 03/09/24 Rx 5/16" (BD Ultra-Fine Short Pen Needle) ezetimibe 10 mg tablet (Zetia) 10 mg PO QPM #90 tabs 09/13/23 03/13/24 Rx levothyroxine 25 mcg tablet 25 mcg PO QAM #90 tabs 09/13/23 03/13/24 Rx montelukast 10 mg tablet 10 mg PO QPM 90 days #90 tabs 09/13/23 03/13/24 Rx alfuzosin 10 mg tablet,extended 10 mg PO BID #180 tabs 09/28/23 03/13/24 Rx release 24 hr betamethasone dipropionate 0.05 % 1 applic topical DAILY PRN Skin 10/15/23 03/13/24 History lotion Irritation ketoconazole 2 % shampoo 1 applic topical 2XWK 10/15/23 03/13/24 History spironolactone 25 mg tablet 25 mg PO QAM #90 tabs 11/02/23 03/13/24 Rx atorvastatin 80 mg tablet 80 mg PO QPM #90 tabs 11/16/23 03/13/24 Rx losartan 100 mg tablet 100 mg PO QAM #90 tabs 11/16/23 03/13/24 Rx triamcinolone acetonide 0.5 % 1 applic topical BID PRN Skin 12/10/23 03/13/24 Rx topical cream Irritation #15 grams aspirin 81 mg tablet,delayed 81 mg PO DAILY #30 tabs 12/11/23 03/13/24 Rx release (Enteric Coated Aspirin) carvedilol 3.125 mg tablet 3.125 mg PO BIDM #60 tabs 12/11/23 03/13/24 Rx magnesium oxide 400 mg (241.3 mg 400 mg PO BID #14 tabs 12/11/23 03/13/24 Rx magnesium) tablet levothyroxine 200 mcg tablet 200 mcg PO QAM #90 tabs 01/21/24 03/13/24 Rx acetone (urine) test (Ketostix #100 ea 03/09/24 03/09/24 Rx strips) glucagon 1 mg/0.2 mL subcutaneous 1 mg (0.2 mL) subcut DIRECTED 03/13/24 03/13/24 Rx auto-injector (Gvoke HypoPen PRN for hypoglycemic epidoses #0.4 2-Pack) mL insulin aspart U-100 100 unit/mL 0 unit subcut DAILY 03/13/24 03/13/24 History (3 mL) subcutaneous pen (Novolog FlexPen U-100 Insulin aspart) insulin glargine 100 unit/mL (3 0 unit subcut BID 03/13/24 03/13/24 History mL) subcutaneous pen (Lantus Solostar U-100 Insulin) insulin lispro 200 unit/mL (3 mL) 0 unit subcut DAILY 03/13/24 03/13/24 History subcutaneous pen (Humalog KwikPen U-200 Insulin) Past Med/Surg History Problem List (Updated 03/13/24 @ 09:45 by Siddhartha Gracia DO) Hypoglycemia (Acute) Pleural effusion Hypomagnesemia Hypokalemia Atrial fibrillation Hypoglycemia due to type 1 diabetes mellitus Type 1 diabetes mellitus Hypothyroidism Neuroendocrine tumor of pancreas Weight loss BPH (benign prostatic hyperplasia) Hypertension Chronic diastolic CHF (congestive heart failure) Memory impairment Lacunar stroke Class 3 obesity Pancreatic abnormality Blood in urine EKG abnormalities Albuminuria Diabetic nephropathy associated with type 1 diabetes mellitus Proliferative diabetic retinopathy associated with type 1 diabetes mellitus Vitamin B12 deficiency History of colon polyps Brow ptosis, bilateral Loss of protective sensation of skin of foot Dysesthesia Benign prostatic hyperplasia with elevated prostate specific antigen (PSA) Diabetes mellitus type 1, uncontrolled (Acute) Diabetic peripheral neuropathy associated with type 1 diabetes mellitus Obstructive sleep apnea of adult CPAP Medical History (Updated 03/13/24 @ 09:45 by Siddhartha Gracia DO) Diabetic ketoacidosis Abdominal mass, right lower quadrant Hypothyroidism High anion gap metabolic acidosis Encephalopathy acute Hyperglycemia Generalized weakness Pseudohyponatremia Morbid obesity with BMI of 45.0-49.9, adult Falls Dyslipidemia Memory impairment per chart, pt. reports no issues Hx of falling Hx of encephalopathy (11/2023) per hx, admit to [facility]/ lacunar stroke Diabetic peripheral neuropathy Diabetes mellitus type 1 with atherosclerosis of arteries of extremities LUCIA (obstructive sleep apnea) does not use cpap Lacunar stroke (11/2023) treated at [facility], admit x 4 days, pt reports no deficits Chronic diastolic (congestive) heart failure Dermatochalasis of both upper eyelids Erectile dysfunction Allergic rhinitis Recurrent sinus infections nothing current GERD without esophagitis Psoriasis Mobitz (type) I (Wenckebach's) atrioventricular block Occasionally noted dating back to 2017 Holter monitor History of nephrolithiasis OA (osteoarthritis) of shoulder Paroxysmal atrial fibrillation Few episodes noted on 2017 sleep study, not noted on f/u 10/2016 48 hour holter monitor > no known recurrences Vitamin D deficiency Surgical History Hx of colonoscopy with polypectomy S/P blepharoplasty H/O sinus surgery x2 History of blepharoplasty (~08/19/20) bilt History of endoscopic sinus surgery Endoscopic sinus surgery (06/21/15) [facility] History of incision and drainage (12/06/19) Rt thumb wound I&D + closure: 12/06/19: MAC sedation at [facility] [place] S/P trigger finger release Right thumb trigger finger release: 10/17/19: MAC sedation at [facility] [place] [place] History of cataract surgery R/L History of carpal tunnel release R/L History of uvulopalatopharyngoplasty S/P appendectomy Family History Father Diabetes Sleep apnea Pacemaker Other No significant family history Denies family history of Ovarian cancer Prostate cancer Myocardial infarction Breast cancer Colorectal cancer Social History Smoking Status: Never smoker Tobacco Type: Cigarettes packs per day: 0.3; Second Hand Exposure: No; Do You Dip or Chew Tobacco: No; Hx Alcohol Use: No Hx Substance Use: No Preferred Language: Kazakh Communication Ability: Effective Visual Impairment: No Limitations Hearing Ability: Normal Spool Worker Required: No Beliefs That Will Affect Care: None marital status: Current Living Situation: Spouse Current Living Situation Comment: Frome home with current occupational status: employed 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 Non-toxic appearing. HEENT- EOMI, mucous membranes moist. Hearing grossly intact. Heart-irregular rhythm. normal S1 and S2. No murmurs, rubs or gallops. Lungs-decreased bilaterally, no respiratory distress, no accessory muscle use. 2L O2 via NC. Abdomen-normal bowel sounds and soft. No ascites noted. Non-tender. Extremities- no clubbing, cyanosis. +1 pitting edema BL LE. Psychiatric-normal affect. Results & Data Results & Data Vital Signs (Past 12 Hours) Vital Signs Temp Pulse Resp BP Pulse Ox O2 Del Method 03/13/24 06:33 56 L 16 135/71 97 Room Air 03/13/24 06:12 66 13 135/71 97 Room Air 03/13/24 06:05 55 L 18 96 Room Air 03/13/24 05:48 17 97 03/13/24 05:39 59 L 03/13/24 05:33 36.9 C 58 L 16 Room Air Laboratory Results Reviewed CBC, CMP, magnesium, VBG, TSH, bio fire Diagnostic Findings reviewed CXR ECG Additional Comments: A-fib with right bundle branch block, vent rate 61 Code Status & VTE Plan Code Status DNR/DNI, discussed with patient's as patient does not have capacity VTE Prophylaxis Plan VTE Prophylaxis will be ordered: Yes PG Care Time/CCT Total # of Minutes Spent Total Time Spent with Patient: Total time spent is greater than 50% in coordination of care (as documented) at patient's floor/unit and/or counseling patient: Coding Level of Care Code 87890 INT INP/OBS CARE 3/75MIN Diagnoses Hypoglycemia due to type 1 diabetes mellitus E10.649 Atrial fibrillation I48.91 Pleural effusion J90 Hypokalemia E87.6 Hypomagnesemia E83.42 Memory impairment R41.3 Hypothyroidism E03.9 Pancreatic abnormality Q45.3
[2024-03-13] MEDS: APIXABAN 5 MG TABLET PO SCH (10:09)
[2024-03-13] MEDS: POTASSIUM CHLORIDE PWD 20 MEQ PACK PO SCH (10:09)
--- NOTE | 2024-03-13 10:33 | Electrocardiogram Report ---
Test Reason : Blood Pressure : */* mmHG Vent. Rate : 61 BPM Atrial Rate : * BPM P-R Int : * ms QRS Dur : 126 ms QT Int : 510 ms P-R-T Axes : * 45 -2 degrees QTcB Int : 513 ms Atrial fibrillation Right bundle branch block Abnormal ECG When compared with ECG of 01-Mar-2024 01:08, Atrial fibrillation has replaced Sinus rhythm QT has lengthened Confirmed by Freddy Seo ([id number]) on 03/13/2024 10:32:45 AM Referred By: Confirmed By: Freddy Seo
[2024-03-13] MEDS: MAGNESIUM SULFATE / D5W 1 GM/100 ML BAG IV ONE (11:55)
--- NOTE | 2024-03-13 13:22 | XCELERA ---
[id number] [id number]
[2024-03-13] MEDS ORDERED: PHARMACY GLYCEMIC MGMT CONSULT PRN (15:18)
[2024-03-13] MEDS ORDERED: GLUCOSE 40% GEL 15 GM TUBE PO PRN ×2 (15:18→17:15)
[2024-03-13] MEDS ORDERED: DOCUSATE SODIUM 100 MG CAP PO PRN (15:18)
[2024-03-13] MEDS ORDERED: CARBOHYDRATES FOR HYPOGLYCEMIA PO PRN ×2 (15:18→17:15)
[2024-03-13] MEDS ORDERED: GLUCOSE 10 TAB/TUBE PO PRN ×2 (15:18→17:15)
[2024-03-13] MEDS ORDERED: ACETAMINOPHEN 325 MG TAB PO PRN (15:18)
[2024-03-13] MEDS ORDERED: GLUCAGON FOR INJ 1 MG VIAL SQ PRN ×2 (15:18→17:15)
[2024-03-13] MEDS ORDERED: DEXTROSE 50% 50 ML SYRINGE IV PRN ×2 (15:18→17:15)
[2024-03-13] MEDS: ASPIRIN 81 MG ECTAB PO SCH (15:31)
[2024-03-13 15:49] LABS: BUN Creatinine Ratio 19.6 (10-20); Calcium 8.4 mg/dl (8.6-10.3); Creatinine Clr Calc Pharmacy 63.5 ml/min; Potassium 5.1 mmol/L (3.5-5.1)
[2024-03-13] MEDS ORDERED: BUMETANIDE 2 MG in SYRINGE 0 ML IV SCH (17:00)
[2024-03-13] MEDS: SPIRONOLACTONE 25 MG TAB PO SCH (17:13)
--- NOTE | 2024-03-13 17:22 | Communication Note ---
Date of Service: March 13, 2024 Has been off D10 for awhile with BG in 200 range About to eat dinner Needs some basal insulin or will go back into DKA. Pump rate is unknown - he doesn't know, not in outpatient notes. Regimen his started was glargine 40 daily, short acting premeal 15 units tid Weight based would be glargine 30 a day CF 25 and CR 9 Discussed with bedside RN Complex because he's had severe hyper and hypoglycemia in last 24h Ordered the weight based regimen for now with glargine 15 bid (first dose now). Most likely needs higher doses. q4h BG checks
[2024-03-13] MEDS: carvediloL 3.125 MG TAB PO SCH (17:59)
[2024-03-13] MEDS: LOSARTAN POTASSIUM 50 MG TAB PO SCH (18:00)
[2024-03-13] MEDS: LEVOTHYROXINE SODIUM 75 MCG TABLET PO SCH (18:00)
[2024-03-13] MEDS: TAMSULOSIN HCL 0.4 MG CAP PO SCH (18:01)
[2024-03-13] MEDS: PANTOprazole 40 MG TAB PO SCH (18:01)
[2024-03-13] MEDS: INSULIN ASPART PER UNIT CHARGE SC SCH (18:02)
[2024-03-13] MEDS: INSULIN ASPART PER UNIT CHARGE ONE (18:08)
[2024-03-13] MEDS: MAGNESIUM OXIDE 400 MG TAB PO SCH (20:44)
[2024-03-13] MEDS: MINOCYCLINE HCL 50 MG CAP PO SCH (20:44)
[2024-03-13] MEDS: EZETIMIBE 10 MG TAB PO SCH (20:44)
[2024-03-13] MEDS: ATORVASTATIN 40 MG TAB PO SCH (20:44)
[2024-03-13] MEDS: GABAPENTIN 300 MG CAP PO SCH (20:44)
[2024-03-13] MEDS: MONTELUKAST SODIUM 10 MG TABLET PO SCH (20:45)
[2024-03-13] MEDS: LANTUS PER UNIT CHARGE SQ SCH (20:46)
[2024-03-13] MEDS ORDERED: INSULIN ASPART PER UNIT CHARGE SC SCH (21:00)
[2024-03-13] MEDS ORDERED: LANTUS PER UNIT CHARGE SQ SCH (21:00)
[2024-03-13 21:07] LABS: Appearance Urine Clear (Clear); Bacteria Urine Automated None Seen (None Seen); Bilirubin Urine Negative (Negative); Blood Urine Negative (Negative); Color Urine Yellow; Epithelial Cell Urine Auto 0-2 /hpf (0-2); Glucose Urine UA 1+ (Negative); Hyaline Casts Urine Present /lpf (None Presnt); Ketones Urine Trace (Negative); Leukocyte Esterase Urine Negative (Negative); Nitrite Urine Negative (Negative); Protein Urine 3+ (Negative); RBC Urine Automated 0-2 /hpf (0-2); Specific Gravity Urine 1.025 (1.000-1.030); Urobilinogen Urine Negative (Negative); WBC Urine Automated 0-5 /hpf (0-5)
[2024-03-14] MEDS: INSULIN ASPART PER UNIT CHARGE SC SCH (00:07)
[2024-03-14 06:27] LABS: Basophils # (auto) 0.08 K/uL (0.00-0.20); Eosinophils # (auto) 0.29 K/uL (0.00-0.50); Eosinophils % (auto) 3.7 %; Hematocrit (blood only) 35.9 % (42.0-52.0); Hemoglobin 11.7 g/dl (14.0-18.0); Immature Granulocytes # (auto) 0.04 K/uL (0.01-0.20); Immature Granulocytes % (auto) 0.5 %; Lymphocytes # (auto) 3.73 K/uL (1.20-3.40); Mean Corpuscular Hemoglobin 29.1 pg (25.0-34.0); Mean Corpuscular Hgb Conc 32.6 g/dL (32.0-36.0); Mean Corpuscular Volume 89.3 fL (80.0-100.0); Monocytes # (auto) 0.71 K/uL (0.11-0.59); Monocytes % (auto) 8.9 %; Neutrophils # (auto) 3.09 K/uL (1.40-6.50); Neutrophils % (auto) 38.9 %; Platelet Count 233 K/uL (130-400); RDW Coefficient of Variation 14.5 % (11.5-14.5); RDW Standard Deviation 47.3 fL (36.4-46.3); Red Blood Count 4.02 M/uL (4.70-6.10); White Blood Count 7.94 K/ul (4.8-10.8)
[2024-03-14 06:43] LABS: BUN Creatinine Ratio 25.6 (10-20); Calcium 8.2 mg/dl (8.6-10.3); Creatinine Clr Calc Pharmacy 75.5 ml/min; Magnesium 1.8 mg/dl (1.7-2.4)
[2024-03-14] MEDS: CYANOCOBALAMIN (B-12) 500 MCG TABLET PO SCH (09:11)
[2024-03-14] MEDS: GABAPENTIN 300 MG CAP PO SCH (09:12)
[2024-03-14] MEDS: BUMETANIDE 1 MG TAB PO SCH (09:13)
[2024-03-14] MEDS: LANTUS PER UNIT CHARGE SQ SCH (09:15)
--- NOTE | 2024-03-14 10:04 | Electrocardiogram Report ---
Test Reason : Blood Pressure : */* mmHG Vent. Rate : 67 BPM Atrial Rate : 67 BPM P-R Int : 236 ms QRS Dur : 108 ms QT Int : 398 ms P-R-T Axes : * 29 -16 degrees QTcB Int : 420 ms Sinus rhythm with marked sinus arrhythmia with 1st degree A-V block Nonspecific T wave abnormality Abnormal ECG When compared with ECG of 13-Mar-2024 08:07, (unconfirmed) Right bundle branch block is no longer Present Confirmed by Freddy Seo ([id number]) on 03/14/2024 10:03:47 AM Referred By: REFERRED SELF Confirmed By: Freddy Seo
--- NOTE | 2024-03-14 10:45 | Pharmacy Report ---
Pharmacy Glycemic Short Note 2 - Date of Service March 14, 2024 - Glycemic Short BSG Results (Last 24 hours): 03/13/24 03/13/24 03/13/24 10:46 11:02 11:27 Glucose POC Glucose 85 77 72 03/13/24 03/13/24 03/13/24 12:34 13:51 15:21 Glucose 228 H POC Glucose 64 L* 142 H 03/13/24 03/13/24 03/13/24 15:24 16:27 17:04 Glucose POC Glucose 193 H 201 H 202 H 03/13/24 03/14/24 03/14/24 20:25 00:00 04:03 Glucose POC Glucose 375 H* 210 H 151 H 03/14/24 03/14/24 05:37 07:38 Glucose 136 H POC Glucose 126 H OUTPATIENT ANTIDIABETIC REGIMEN: * Lantus 40 units daily, short acting insulin 15 units TID - per provider notes ASSESSMENT: * 63 year old admitted with hypoglycemia, started on D10 infusion. Last Lantus dose was 03/12 AM per notes. BSGS yesterday AM PRESIDING STEWARD in the 30s and patient unresponsive. Patient previously been managed on insulin pump, however transitioned to SQ insulin 03/09 due to pump malfunction. Notes suggest patient having repeated low BSGs prior to admission, but then also BSGs >300s. * D10 infusion d/c last evening, gave Lantus 20 units x 1 (half of outpatient dose). BSGs stable this AM, however anticipate BSGs to rise with only partial dose given last evening. Will slowing titrate up basal insulin over the next couple of days to ensure stable. PLAN FOR INPATIENT GLYCEMIC CONTROL: * Hold outpatient oral diabetes medications * Basal insulin * Lantus 15-20 units bid * Bolus insulin * NovoLog per scale ACHS or Q6hrs while NPO * Goal Range: Low 120 mg/dL - High 180 mg/dL * Correction Factor: 20 mg/dL/unit * Nutritional / Prandial insulin per carb ratio of 1 unit per 7 grams CHO consumed
[2024-03-14 15:32] VITALS: BP 121/70; RESP 18; TEMP 97.5; O2SAT 100
[2024-03-14 17:07] VITALS: PULSE 87
[2024-03-14] MEDS ORDERED: LANTUS PER UNIT CHARGE SQ SCH (21:00)
--- NOTE | 2024-03-16 12:30 | Electrocardiogram Report ---
Test Reason : Blood Pressure : */* mmHG Vent. Rate : 68 BPM Atrial Rate : * BPM P-R Int : * ms QRS Dur : 122 ms QT Int : 434 ms P-R-T Axes : * 9 -24 degrees QTcB Int : 461 ms Atrial fibrillation Right bundle branch block Abnormal ECG When compared with ECG of 13-Mar-2024 05:52, QT has shortened Confirmed by Freddy Seo ([id number]) on 03/16/2024 12:30:02 PM Referred By: REFERRED SELF Confirmed By: Freddy Seo
== END 2024-03-14 18:28 | disposition left against medical advice (07) ==
LOC: ED 05:32 → EDINP 05:32 → SUATTDRO 09:16 → 4W 11:07

== ENCOUNTER 2025-01-15 15:30 | Observation (INO) ==
[2025-01-15] MEDS: DEXTROSE 50% 50 ML SYRINGE IV ONE ×3 (15:45→18:24)
[2025-01-15 16:17] LABS: Hematocrit (blood only) 39.2 % (42.0-52.0); Hemoglobin 12.8 g/dl (14.0-18.0); Immature Granulocytes # (auto) 0.03 K/uL (0.01-0.20); Immature Granulocytes % (auto) 0.4 %; Mean Corpuscular Hemoglobin 29.8 pg (25.0-34.0); Mean Corpuscular Volume 91.2 fL (80.0-100.0); Platelet Count 260 K/uL (130-400); RDW Standard Deviation 46.8 fL (36.4-46.3); Red Blood Count 4.30 M/uL (4.70-6.10); White Blood Count 6.88 K/ul (4.8-10.8)
--- NOTE | 2025-01-15 16:35 | Emergency Department Note ---
Impression & Plan Hypoglycemia, Fall, Episode of unresponsiveness ED Provider Note NAME: SAM CHAVEZ AGE: 64 SEX: M : 1960 ARRIVES VIA: Ambulance INFORMANT: Patient, ED PROVIDER(S): James Herring MD CHIEF COMPLAINT: Fall, found down HPI: This is a 64-year-old male with history of diabetes presenting for fall and found down. Patient was last seen by his at around 8:30 in the morning. He was found at 3 PM, unresponsive on the ground. As per nursing note, upon EMS arrival blood sugar was in the 50s. given 250 mg of D10 which increases blood glucose to about 110. On arrival here, back down to 45. Patient found to be hypothermic. Patient unable to provide significant history. ROS: Unable to obtain PHYSICAL EXAMINATION: General: Chronically ill-appearing Head: Normocephalic, right facial abrasion Eyes: Normal inspection, extraocular muscles intact Ear, nose, throat: Normal external exam Neck: Normal range of motion Respiratory: lungs clear to auscultation bilaterally Cardiovascular: Regular rate/rhythm, no murmur GI: soft, nontender, no guarding or rebound Extremities: nontender, moves all extremities Neuro: The patient awake and alert, appropriately conversive, no focal deficits, symmetric faces Skin: Warm, dry, and intact MEDICAL DECISION MAKING: This is a 64-year-old male presenting for found unresponsive. Patient able to be aroused after dextrose administration. Was given D50 amp in the emergency department with improvement in glucose to 100s. It continues to fall down to 70s after recheck 15 minutes later. The patient was found to be hypothermic to 33.7 degrees. - Patient otherwise is sleepy, arousable. He states he has head pain. Otherwise he has no pain to his neck, chest, abdomen, pelvis or extremities. - Will do screening blood work, EKG, CT of the head -CT imaging of the head is currently negative for traumatic injury -No leukocytosis, no significant anemia. Electrodes within normal limits, no DKA. -Patient still hypoglycemic on [id number] testing. He keeps downtrending. He was given multiple amps of D50 over the course of his ER stay. He was started on D10 at 125 mL/h and then increased to 250 as he was persistently hypoglycemic after checking. -At this time we will with the patient for further workup and admission. Care discussed with Dr. Rich for admission Differential diagnosis: Sepsis, insulin overdose, hypoglycemia, hypothermia Diagnostics interpreted by me: ECG: ECG independently interpreted by me with sinus bradycardia rate of 52, first-degree AV block, right bundle branch block normal QTc, no ST segment elevations consistent with STEMI criteria Cardiac Monitoring: An order was placed for continuous cardiac monitoring. The monitor shows a rate of 45 with sinus bradycardia rhythm. Critical Care Note: I have personally spent 46 minutes of critical care time in the direct management of this patient. This includes bedside care, interpretation of diagnostic studies, and testing, discussion with consultants, patient, and family members, and other required patient management activities. This 46 minutes is in excess of all separately billable procedures. Past Med/Surg History Problem List (Updated 01/15/25 @ 23:48 by James Herring MD) Episode of unresponsiveness (Acute) Fall (Acute) Hypoglycemia (Acute) Driving safety issue Swelling of both lower extremities Hypothyroidism Health care maintenance Right knee pain Cerebrovascular disease Mild cognitive impairment Morbid obesity with BMI of 40.0-44.9, adult Hypoglycemia (Acute) Pleural effusion Atrial fibrillation Short run during hospital stay fall 2023 Hypoglycemia due to type 1 diabetes mellitus Type 1 diabetes mellitus Neuroendocrine tumor of pancreas Weight loss BPH (benign prostatic hyperplasia) Chronic diastolic CHF (congestive heart failure) Lacunar stroke Hypomagnesemia Class 3 obesity Blood in urine EKG abnormalities Albuminuria Diabetic nephropathy associated with type 1 diabetes mellitus Proliferative diabetic retinopathy associated with type 1 diabetes mellitus Vitamin B12 deficiency History of colon polyps Brow ptosis, bilateral Loss of protective sensation of skin of foot Dysesthesia Benign prostatic hyperplasia with elevated prostate specific antigen (PSA) Diabetes mellitus type 1, uncontrolled (Acute) Diabetic peripheral neuropathy associated with type 1 diabetes mellitus Obstructive sleep apnea of adult CPAP Medical History Hypokalemia Right leg swelling Type 1 diabetes mellitus "has an insulin pump but not currently using, was having trouble keeping blood sugars under control with it, back to injections for now" Hx of pleural effusion pt unsure, documented 02/2024 thru [facility] Mild cognitive impairment per chart, pt. reports no issues Hx of colonic polyps Cerebrovascular disease hx, lacunar stroke 11/2023 History of BPH Pancreatic abnormality hx Hypertension Diabetic ketoacidosis hx, pt unsure of details Abdominal mass, right lower quadrant pt unsure? High anion gap metabolic acidosis hx Generalized weakness Pseudohyponatremia hx Morbid obesity with BMI of 45.0-49.9, adult Dyslipidemia Hx of falling pt stated "not a lot of falls anymore, just wobbly when he walks" Hx of encephalopathy (11/2023) per hx, admit to [facility]/ lacunar stroke Diabetic peripheral neuropathy Diabetes mellitus type 1 with atherosclerosis of arteries of extremities LUCIA (obstructive sleep apnea) does not use cpap Lacunar stroke (11/2023) treated at [facility], admit x 4 days, pt reports no deficits Chronic diastolic (congestive) heart failure Dermatochalasis of both upper eyelids hx, had bilat. blepharoplasty sx. Erectile dysfunction Allergic rhinitis Recurrent sinus infections nothing current GERD without esophagitis Psoriasis Mobitz (type) I (Wenckebach's) atrioventricular block Occasionally noted dating back to 2017 Holter monitor ; does not see cardiology per pt. History of nephrolithiasis OA (osteoarthritis) of shoulder hx Paroxysmal atrial fibrillation Few episodes noted on 2016 sleep study, not noted on f/u 10/2016 48 hour holter monitor > no known recurrences Vitamin D deficiency Surgical History Hx of colonoscopy with polypectomy S/P blepharoplasty History of blepharoplasty (~08/19/20) History of endoscopic sinus surgery History of incision and drainage (12/06/19) S/P trigger finger release History of cataract surgery History of carpal tunnel release History of uvulopalatopharyngoplasty S/P appendectomy Family History Father Diabetes Sleep apnea Pacemaker Other No significant family history Denies family history of Ovarian cancer Prostate cancer Myocardial infarction Breast cancer Colorectal cancer Social History Smoking Status: Never smoker packs per day: 0.3; Second Hand Exposure: No; Do You Dip or Chew Tobacco: No; Tobacco Cessation Education Requested by Patient: No Hx Alcohol Use: No Hx Substance Use: No Preferred Language: Yoruba Communication Ability: Effective Visual Impairment: No Limitations Hearing Ability: Normal Mixing Technician Required: No Beliefs That Will Affect Care: None marital status: Current Living Situation: Spouse Current Living Situation Comment: Frome home with current occupational status: employed 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 Other Information That Helps Us Care for You: No Feels Safe at Home: Yes Safety Concerns: Feels Safe At This Time Childhood Exposure to Second-Hand Smoke: No Dental Care, Regularly: Yes Physical Activity Frequency: Does not Exercise Seatbelt Use: always Sunscreen Use: Yes Assistive Devices: Walker Allergies Allergies Allergy/AdvReac Type Severity Reaction Status Date / Time bacitracin Allergy Mild contact Verified 01/15/25 18:45 dermatitis with eye bacitracin dog dander Allergy Mild Congestion Verified 01/15/25 18:45 horse dander Allergy Unknown Allergy Verified 01/15/25 18:45 testing + house dust Allergy Unknown Allergy Verified 01/15/25 18:45 testing + Home Meds Home Medications Medication Instructions Recorded Confirmed fluticasone propionate 50 1 spray intranasal DAILY PRN 09/29/21 01/15/25 mcg/actuation nasal Congestion spray,suspension betamethasone dipropionate 0.05 % 1 applic topical DAILY PRN Skin 10/15/23 01/15/25 lotion Irritation ketoconazole 2 % shampoo 1 applic topical 2XWK 10/15/23 01/15/25 insulin glargine 100 unit/mL (3 40 unit subcut BID 03/17/24 01/15/25 mL) subcutaneous pen (Lantus Solostar U-100 Insulin) Previous Rx's Medication Instructions Recorded OneTouch Delica Lancets 33 gauge #300 ea 02/01/19 (lancets) OneTouch Verio test strips (blood #300 ea 11/10/19 sugar diagnostic) Dexcom Earth Science Professor #1 ea 03/07/20 (blood-glucose,clothing supervisor,cont) Dexcom G7 Earth Science Professor #1 ea 07/07/22 (blood-glucose,clothing supervisor,cont) gabapentin 300 mg capsule 300 mg PO .COMPLEX #540 caps 08/03/22 mecobalamin (vitamin B12) 1,000 2,000 mcg (2 x 1,000 mcg) 11/27/22 mcg disintegrating sublingual DAILY #60 tabs tablet,sublingual omeprazole 40 mg capsule,delayed 40 mg PO QAM #90 caps 12/29/22 release econazole nitrate 1 % topical cream 1 applic topical BID PRN skin 01/28/23 irritation #30 grams pen needle, diabetic 31 gauge x #600 ea 07/15/23 5/16" (BD Ultra-Fine Short Pen Needle) atorvastatin 80 mg tablet 80 mg PO QPM #90 tabs 11/16/23 triamcinolone acetonide 0.5 % 1 applic topical BID PRN Skin 12/10/23 topical cream Irritation #15 grams aspirin 81 mg tablet,delayed 81 mg PO DAILY #30 tabs 12/11/23 release (Enteric Coated Aspirin) carvedilol 3.125 mg tablet 3.125 mg PO BIDM #60 tabs 12/11/23 magnesium oxide 400 mg (241.3 mg 400 mg PO BID #14 tabs 12/11/23 magnesium) tablet acetone (urine) test (Ketostix #100 ea 03/09/24 strips) glucagon 1 mg/0.2 mL subcutaneous 1 mg (0.2 mL) subcut DIRECTED 03/13/24 auto-injector (Gvoke HypoPen PRN for hypoglycemic epidoses #0.4 2-Pack) mL bumetanide 2 mg tablet 2 mg PO QAM #90 tabs 04/17/24 minocycline 100 mg capsule 100 mg PO BID #180 caps 05/17/24 montelukast 10 mg tablet 10 mg PO QPM 90 days #90 tabs 05/17/24 cholecalciferol (vitamin D3) 50 50 mcg PO DAILY #90 caps 06/23/24 mcg (2,000 unit) capsule levothyroxine 50 mcg tablet 50 mcg PO QAM #30 tabs 06/23/24 ezetimibe 10 mg tablet (Zetia) 10 mg PO QPM #90 tabs 07/16/24 losartan 100 mg tablet 100 mg PO QAM #90 tabs 07/16/24 alfuzosin 10 mg tablet,extended 10 mg PO BID #180 tabs 08/16/24 release 24 hr apixaban 5 mg tablet (Eliquis) 5 mg PO BID #180 tabs 08/31/24 flecainide 50 mg tablet 50 mg PO Q12H #60 tabs 08/31/24 levothyroxine 200 mcg tablet 200 mcg PO QAM #90 tabs 10/15/24 Dexcom G7 Sensor (blood-glucose #9 ea 11/08/24 sensor) Novolog FlexPen U-100 Insulin 100 15 unit (0.15 mL) subcut TIDM #45 11/30/24 unit/mL (3 mL) subcutaneous mL (insulin aspart U-100) spironolactone 25 mg tablet 25 mg PO QAM #90 tabs 01/12/25 Results & Data (ED) Vital Signs Vital Signs - 24 hr 01/15/25 16:01 01/15/25 16:14 01/15/25 16:41 Temperature 33.7 C L Temperature Source Rectal Pulse Rate 61 Pulse Rate [Apical] 57 L Pulse Rhythm Pulse Rhythm [Apical] Regular Respiratory Rate 18 18 16 Respiratory Effort / Characteristics Non-Labored Spontaneous Non-Labored Spontaneous Respiratory Depth Normal Normal Respiratory Pattern Regular Regular Blood Pressure 149/97 H Blood Pressure [Right Arm] 154/93 H 140/80 Blood Pressure Mean 114 Blood Pressure Mean [Right Arm] 113 100 Pulse Oximetry 98 99 92 Oxygen Delivery Method Room Air Room Air Sepsis Recent Fever Within 48 Hours No Sepsis New/Unexplained Change in Mental Status No Sepsis Action Taken by Nursing No Action Required 01/15/25 17:00 01/15/25 17:07 01/15/25 17:51 Temperature Temperature Source Pulse Rate 66 43 L Pulse Rate [Apical] 56 L Pulse Rhythm Regular Pulse Rhythm [Apical] Regular Respiratory Rate 14 14 Respiratory Effort / Characteristics Respiratory Depth Respiratory Pattern Blood Pressure Blood Pressure [Right Arm] 125/71 Blood Pressure Mean Blood Pressure Mean [Right Arm] 89 Pulse Oximetry 95 96 Oxygen Delivery Method Room Air Room Air Sepsis Recent Fever Within 48 Hours Sepsis New/Unexplained Change in Mental Status Sepsis Action Taken by Nursing 01/15/25 18:00 01/15/25 18:00 01/15/25 19:00 Temperature 34.1 C L 34.1 C L Temperature Source Rectal Rectal Pulse Rate Pulse Rate [Apical] 53 L 48 L 44 L Pulse Rhythm Pulse Rhythm [Apical] Regular Regular Respiratory Rate 15 14 18 Respiratory Effort / Characteristics Non-Labored Spontaneous Respiratory Depth Normal Respiratory Pattern Regular Blood Pressure Blood Pressure [Right Arm] 150/85 H 150/85 H 148/99 H Blood Pressure Mean Blood Pressure Mean [Right Arm] 106 106 115 Pulse Oximetry 96 96 98 Oxygen Delivery Method Room Air Room Air Room Air Sepsis Recent Fever Within 48 Hours Sepsis New/Unexplained Change in Mental Status Sepsis Action Taken by Nursing 01/15/25 20:00 Temperature 34.9 C L Temperature Source Rectal Pulse Rate Pulse Rate [Apical] 37 L Pulse Rhythm Pulse Rhythm [Apical] Respiratory Rate 13 Respiratory Effort / Characteristics Respiratory Depth Respiratory Pattern Blood Pressure Blood Pressure [Right Arm] 146/94 H Blood Pressure Mean Blood Pressure Mean [Right Arm] 111 Pulse Oximetry 98 Oxygen Delivery Method Room Air Sepsis Recent Fever Within 48 Hours Sepsis New/Unexplained Change in Mental Status Sepsis Action Taken by Nursing Laboratory Data 01/15/25 15:48 01/15/25 20:24 Lab Results 01/15/25 01/15/25 01/15/25 Range/Units 15:41 15:48 16:00 WBC 6.88 (4.8-10.8) K/ul RBC 4.30 L (4.70-6.10) M/uL Hgb 12.8 L (14.0-18.0) g/dl Hct 39.2 L (42.0-52.0) % MCV 91.2 (80.0-100.0) fL MCH 29.8 (25.0-34.0) pg MCHC 32.7 (32.0-36.0) g/dL RDW Std Deviation 46.8 H (36.4-46.3) fL RDW Coeff of Jill 14.1 (11.5-14.5) % Plt Count 260 (130-400) K/uL MPV 10.8 (9.4-12.4) fL Immature Gran % (Auto) 0.4 % Neut % (Auto) 63.3 % Lymph % (Auto) 27.2 % Latimer % (Auto) 8.0 % Eos % (Auto) 0.4 % Baso % (Auto) 0.7 % Neut # (Auto) 4.35 (1.40-6.50) K/uL Lymph # (Auto) 1.87 (1.20-3.40) K/uL Latimer # (Auto) 0.55 (0.11-0.59) K/uL Eos # (Auto) 0.03 (0.00-0.50) K/uL Baso # (Auto) 0.05 (0.00-0.20) K/uL Immature Gran # (Auto) 0.03 (0.01-0.20) K/uL Sodium 140 (136-145) mmol/L Potassium 3.6 (3.5-5.1) mmol/L Chloride 102 (98-107) mmol/L Carbon Dioxide 31 (21-32) mmol/L Anion Gap 7 (3-11) BUN 21 (6-23) mg/dl Creatinine 1.01 (0.6-1.4) mg/dl Est Cr Clr Drug Dosing Not Reportable eGFR 82.02 BUN/Creatinine Ratio 20.8 H (10-20) Glucose 40 L* (70-99(Fasting)) mg/dl POC Glucose 45 L* 101 H (70-99) mg/dl Lactate (0.4-2.0) mmol/L Calcium 9.0 (8.6-10.3) mg/dl Total Bilirubin 0.4 (0.2-1.0) mg/dl AST 19 (13-39) U/L ALT 16 (7-52) U/L Alkaline Phosphatase 79 (34-104) U/L Total Creatine Kinase 178 (30-223) U/L Troponin I High Sens 11.6 (0-20) pg/ml Total Protein 5.7 L (6.0-8.3) gm/dl Albumin 3.0 L (3.4-5.0) gm/dl Globulin 2.7 (2.5-4.0) gm/dl Albumin/Globulin Ratio 1.1 (0.9-2) TSH 39.427 H (0.300-4.500) uIu/ml Free T4 0.84 (0.61-1.60) ng/dl 01/15/25 01/15/25 01/15/25 Range/Units 16:23 16:58 17:21 WBC (4.8-10.8) K/ul RBC (4.70-6.10) M/uL Hgb (14.0-18.0) g/dl Hct (42.0-52.0) % MCV (80.0-100.0) fL MCH (25.0-34.0) pg MCHC (32.0-36.0) g/dL RDW Std Deviation (36.4-46.3) fL RDW Coeff of Jill (11.5-14.5) % Plt Count (130-400) K/uL MPV (9.4-12.4) fL Immature Gran % (Auto) % Neut % (Auto) % Lymph % (Auto) % Latimer % (Auto) % Eos % (Auto) % Baso % (Auto) % Neut # (Auto) (1.40-6.50) K/uL Lymph # (Auto) (1.20-3.40) K/uL Latimer # (Auto) (0.11-0.59) K/uL Eos # (Auto) (0.00-0.50) K/uL Baso # (Auto) (0.00-0.20) K/uL Immature Gran # (Auto) (0.01-0.20) K/uL Sodium (136-145) mmol/L Potassium (3.5-5.1) mmol/L Chloride (98-107) mmol/L Carbon Dioxide (21-32) mmol/L Anion Gap (3-11) BUN (6-23) mg/dl Creatinine (0.6-1.4) mg/dl Est Cr Clr Drug Dosing eGFR BUN/Creatinine Ratio (10-20) Glucose (70-99(Fasting)) mg/dl POC Glucose 72 51 L* 142 H (70-99) mg/dl Lactate (0.4-2.0) mmol/L Calcium (8.6-10.3) mg/dl Total Bilirubin (0.2-1.0) mg/dl AST (13-39) U/L ALT (7-52) U/L Alkaline Phosphatase (34-104) U/L Total Creatine Kinase (30-223) U/L Troponin I High Sens (0-20) pg/ml Total Protein (6.0-8.3) gm/dl Albumin (3.4-5.0) gm/dl Globulin (2.5-4.0) gm/dl Albumin/Globulin Ratio (0.9-2) TSH (0.300-4.500) uIu/ml Free T4 (0.61-1.60) ng/dl 01/15/25 01/15/25 01/15/25 Range/Units 18:08 18:14 18:38 WBC (4.8-10.8) K/ul RBC (4.70-6.10) M/uL Hgb (14.0-18.0) g/dl Hct (42.0-52.0) % MCV (80.0-100.0) fL MCH (25.0-34.0) pg MCHC (32.0-36.0) g/dL RDW Std Deviation (36.4-46.3) fL RDW Coeff of Jill (11.5-14.5) % Plt Count (130-400) K/uL MPV (9.4-12.4) fL Immature Gran % (Auto) % Neut % (Auto) % Lymph % (Auto) % Latimer % (Auto) % Eos % (Auto) % Baso % (Auto) % Neut # (Auto) (1.40-6.50) K/uL Lymph # (Auto) (1.20-3.40) K/uL Latimer # (Auto) (0.11-0.59) K/uL Eos # (Auto) (0.00-0.50) K/uL Baso # (Auto) (0.00-0.20) K/uL Immature Gran # (Auto) (0.01-0.20) K/uL Sodium (136-145) mmol/L Potassium (3.5-5.1) mmol/L Chloride (98-107) mmol/L Carbon Dioxide (21-32) mmol/L Anion Gap (3-11) BUN (6-23) mg/dl Creatinine (0.6-1.4) mg/dl Est Cr Clr Drug Dosing eGFR BUN/Creatinine Ratio (10-20) Glucose (70-99(Fasting)) mg/dl POC Glucose 65 L* 130 H (70-99) mg/dl Lactate 1.7 (0.4-2.0) mmol/L Calcium (8.6-10.3) mg/dl Total Bilirubin (0.2-1.0) mg/dl AST (13-39) U/L ALT (7-52) U/L Alkaline Phosphatase (34-104) U/L Total Creatine Kinase (30-223) U/L Troponin I High Sens (0-20) pg/ml Total Protein (6.0-8.3) gm/dl Albumin (3.4-5.0) gm/dl Globulin (2.5-4.0) gm/dl Albumin/Globulin Ratio (0.9-2) TSH (0.300-4.500) uIu/ml Free T4 (0.61-1.60) ng/dl 01/15/25 Range/Units 19:17 WBC (4.8-10.8) K/ul RBC (4.70-6.10) M/uL Hgb (14.0-18.0) g/dl Hct (42.0-52.0) % MCV (80.0-100.0) fL MCH (25.0-34.0) pg MCHC (32.0-36.0) g/dL RDW Std Deviation (36.4-46.3) fL RDW Coeff of Jill (11.5-14.5) % Plt Count (130-400) K/uL MPV (9.4-12.4) fL Immature Gran % (Auto) % Neut % (Auto) % Lymph % (Auto) % Latimer % (Auto) % Eos % (Auto) % Baso % (Auto) % Neut # (Auto) (1.40-6.50) K/uL Lymph # (Auto) (1.20-3.40) K/uL Latimer # (Auto) (0.11-0.59) K/uL Eos # (Auto) (0.00-0.50) K/uL Baso # (Auto) (0.00-0.20) K/uL Immature Gran # (Auto) (0.01-0.20) K/uL Sodium (136-145) mmol/L Potassium (3.5-5.1) mmol/L Chloride (98-107) mmol/L Carbon Dioxide (21-32) mmol/L Anion Gap (3-11) BUN (6-23) mg/dl Creatinine (0.6-1.4) mg/dl Est Cr Clr Drug Dosing eGFR BUN/Creatinine Ratio (10-20) Glucose (70-99(Fasting)) mg/dl POC Glucose 171 H (70-99) mg/dl Lactate (0.4-2.0) mmol/L Calcium (8.6-10.3) mg/dl Total Bilirubin (0.2-1.0) mg/dl AST (13-39) U/L ALT (7-52) U/L Alkaline Phosphatase (34-104) U/L Total Creatine Kinase (30-223) U/L Troponin I High Sens (0-20) pg/ml Total Protein (6.0-8.3) gm/dl Albumin (3.4-5.0) gm/dl Globulin (2.5-4.0) gm/dl Albumin/Globulin Ratio (0.9-2) TSH (0.300-4.500) uIu/ml Free T4 (0.61-1.60) ng/dl Administered Medications Dextrose (D10w) 1,000 mls @ 250 mls/hr IV .Q4H GONZALO Stop: 01/18/25 18:59 Last Admin: 01/15/25 22:03 Dose: 250 mls/hr Documented By: AISLINN Discontinued Medications Dextrose (Dextrose 50% 50 Ml Syringe) Confirm Administered Dose 50 ml IV .STK- MED ONE Stop: 01/15/25 15:44 Last Admin: 01/15/25 15:45 Dose: 50 ml Documented By: RE Dextrose (Dextrose 50% 50 Ml Syringe) Confirm Administered Dose 50 ml IV .STK- MED ONE Stop: 01/15/25 17:03 Last Admin: 01/15/25 17:04 Dose: 50 ml Documented By: AUBREY Dextrose (Dextrose 50% 50 Ml Syringe) Confirm Administered Dose 50 ml IV .STK- MED ONE Stop: 01/15/25 18:18 Last Admin: 01/15/25 18:24 Dose: 50 ml Documented By: AUBREY Dextrose (D10w) 1,000 mls @ 125 mls/hr IV .Q8H GOZNALO Stop: 01/18/25 16:44 Last Infusion: 01/15/25 22:03 Dose: Infused Documented By: Infusion: 01/15/25 18:24 Dose: 250 mls/hr Documented By: Admin: 01/15/25 17:08 Dose: 125 mls/hr Documented By: AUBREY Potassium Chloride (K Fam / Wtr) 10 meq in 100 mls @ 100 mls/hr IV Q1H GONZALO Stop: 01/15/25 22:44 Last Infusion: 01/15/25 23:06 Dose: Infused Documented By: Infusion: 01/15/25 23:03 Dose: Infused Documented By: Admin: 01/15/25 22:03 Dose: 100 mls/hr Documented By: Infusion: 01/15/25 22:03 Dose: Infused Documented By: Admin: 01/15/25 21:04 Dose: 100 mls/hr Documented By: AISLINN Imaging Data Radiologist's Impression: Head CT 01/15/25 16:05 CT head without contrast History: Trauma Comparison: None Technique: Using multidetector thin collimation helical acquisition technique, axial, coronal and sagittal CT images from the skull base to the vertex were obtained without intravenous contrast. Dose reduction techniques were achieved by using automatic exposure control and/or adjustment of mA and/or kV according to patient size and/or use of iterative reconstruction technique. Findings: No intracranial hemorrhage, mass-effect, or midline shift. The ventricles are proportionate to the cerebral sulci. The maldonado to white matter differentiation of the cerebral hemispheres is preserved. The basal cisterns are patent. There is moderate cerebral atrophy. Moderate, patchy low-attenuation changes in the white matter, most suggestive of sequelae of chronic small vessel ischemic disease. The visualized paranasal sinuses are clear. Mastoid air cells are clear. Impression: No acute intracranial pathology. Electronically signed by Orlando Martines 01-15-2025 6:15 PM Chest X-Ray 01/15/25 16:16 Chest radiograph, one view History: Trauma Comparison: None Findings: Single AP view of the chest performed. No focal consolidation. Small left pleural effusion again seen with subjacent atelectasis. No pneumothorax. The cardiomediastinal silhouette is within normal limits. Normal pulmonary vascularity. No evidence for lymphadenopathy. No visualized bony or soft tissue abnormality. Impression: Persistent small left pleural effusion and subjacent atelectasis. No other acute finding. Electronically signed by Orlando Martines 01-15-2025 5:18 PM Hip/Pelvis X-Ray 01/15/25 16:16 History: Pain Comparison: None Findings: There is no acute fracture or dislocation. Alignment is anatomic. Mild degenerative joint space loss of the left hip. There is no joint effusion or significant soft tissue swelling. Impression: No acute bony abnormality Electronically signed by Orlando Martines 01-15-2025 5:32 PM Discharge Plan Visit Data Chief Complaint: Fall Stated Complaint: FALL ED Provider: James Herring Discharge Problem: Hypoglycemia, Fall, Episode of unresponsiveness Patient Disposition: Admitted As Inpatient Condition: Serious Discharge Instructions Interventions: ED Discharge Assessment Last Done: 01/15/25 22:20
[2025-01-15 16:52] LABS: Alanine Aminotransferase 16 U/L (7-52); Albumin Globulin Ratio 1.1 (0.9-2); Albumin Level 3.0 gm/dl (3.4-5.0); Alkaline Phosphatase 79 U/L (34-104); Anion Gap 7 (3-11); Bilirubin,Total 0.4 mg/dl (0.2-1.0); Blood Urea Nitrogen 21 mg/dl (6-23); Calcium 9.0 mg/dl (8.6-10.3); Carbon Dioxide 31 mmol/L (21-32); Chloride 102 mmol/L (98-107); Creatine Kinase 178 U/L (30-223); Globulin 2.7 gm/dl (2.5-4.0); Glucose 40 mg/dl (70-99(Fasting)); Potassium 3.6 mmol/L (3.5-5.1); Sodium 140 mmol/L (136-145); Total Protein 5.7 gm/dl (6.0-8.3)
[2025-01-15] MEDS: DEXTROSE 10% 1,000 ML IV SCH ×2 (17:08→22:03)
--- NOTE | 2025-01-15 17:19 | XRay Report ---
Chest radiograph, one view History: Trauma Comparison: None Findings: Single AP view of the chest performed. No focal consolidation. Small left pleural effusion again seen with subjacent atelectasis. No pneumothorax. The cardiomediastinal silhouette is within normal limits. Normal pulmonary vascularity. No evidence for lymphadenopathy. No visualized bony or soft tissue abnormality. Impression: Persistent small left pleural effusion and subjacent atelectasis. No other acute finding. Electronically signed by Orlando Martines 01-15-2025 5:18 PM
[2025-01-15 17:28] LABS: T4 Free Thyroxine 0.84 ng/dl (0.61-1.60)
--- NOTE | 2025-01-15 17:33 | XRay Report ---
History: Pain Comparison: None Findings: There is no acute fracture or dislocation. Alignment is anatomic. Mild degenerative joint space loss of the left hip. There is no joint effusion or significant soft tissue swelling. Impression: No acute bony abnormality Electronically signed by Orlando Martines 01-15-2025 5:32 PM
--- NOTE | 2025-01-15 18:16 | CT Scan Report ---
CT head without contrast History: Trauma Comparison: None Technique: Using multidetector thin collimation helical acquisition technique, axial, coronal and sagittal CT images from the skull base to the vertex were obtained without intravenous contrast. Dose reduction techniques were achieved by using automatic exposure control and/or adjustment of mA and/or kV according to patient size and/or use of iterative reconstruction technique. Findings: No intracranial hemorrhage, mass-effect, or midline shift. The ventricles are proportionate to the cerebral sulci. The maldonado to white matter differentiation of the cerebral hemispheres is preserved. The basal cisterns are patent. There is moderate cerebral atrophy. Moderate, patchy low-attenuation changes in the white matter, most suggestive of sequelae of chronic small vessel ischemic disease. The visualized paranasal sinuses are clear. Mastoid air cells are clear. Impression: No acute intracranial pathology. Electronically signed by Orlando Martines 01-15-2025 6:15 PM
--- NOTE | 2025-01-15 20:20 | History & Physical Report ---
Date of Service January 15, 2025 Assessment & Plan (1) Episode of unresponsiveness: (2) Bradycardia: (3) Hypothermia: (4) Hypoglycemia due to type 1 diabetes mellitus: Plan The patient is a 64-year-old male with a past medical history including hypothyroidism, cerebrovascular disease, mild cognitive impairment status post CVA, morbid obesity, pleural effusion, atrial fibrillation, hypoglycemia due to diabetes mellitus type 1, neuroendocrine tumor of pancreas, BPH, chronic diast olic CHF, diabetic nephropathy and retinopathy, and obstructive sleep apnea. The patient was last seen by his at 830 this morning, in which she found him at 3 in the afternoon is on the floor down and unresponsive. She called EMS, found his glucose was in the 50s. He was given to the 50 mL of D10, which improved his glucose to 110 and he is brought to the ED for assessment. Upon arrival to the ED glucose was now back 45. While in the ED received 50 mL of D50 x 3, was then started on D10 at 125 mL/h, which was then increased to 50 mL/h. Patient's glucose was ultimately stabilized in the low 100s. He was also found to be hypothermic with temperature 34.1 and placed on Kenia hugger. He was found to be bradycardic, with heart rate when he would fall asleep down into the mid 30s, with short 2 to 3-second pauses on monitor. His heart rate with immediately resumed back to 50s to 60s, with being awoken. The patient has a known history of poor ability to administer his own insulin, and he was warned by Dr. Li at their last office visit on 01/08/2025 that he had documented giving himself insulin and 2 to 3-minute intervals on them on a number of occasions. Patient is likely pathology is that he took excessive amounts of insulin, and likely took excessive amounts of negative inotropes, flecainide and carvedilol. The patient was referred for evaluation for admission to the [facility] Episode of unresponsiveness/hypoglycemia- CT scan of head was negative, lactate was 1.7, and troponin 11.6. Patient had been last seen normal at 8:30 AM, and then was found on the floor at 3:00 PM by his , having been down for an unknown interval of time. He was found to be hypoglycemic with glucose in the mid 40s. Review of endocrinology note from 01/08/2025 notes that his brain activity is not well enough for him to make his own decisions about insulin doses. He had documented taking doses every 2 or 3 minutes several times in the previous few days, and was resulting in him having low blood sugar. This is likely the mechanism that resulted in him having severe hypoglycemia and causing his unresponsive episode. He received 50 mL of D50 x 3 from the ED, was then placed on D10 at 125 mL/h, then increased to D10 at 250 mL/h, to maintain his glucose above 100. He will be continued on D10 until his glucose is normalized and every hour checks, or in between frequency if needed. He is more alert, will place on diabetic diet with insulin coverage. There will be some type of intervention with patient and insulin administration, as he has had a severe noncompliance episode today. Bradycardia/hypothermia- Will continue Kenia collins per protocol. Patient's heart rate was in the 40s to 50s for the most part, but with decreased into the 30s very rapidly when he was sleeping. His systolic blood pressure was being maintained in the 140s to the 150s for the most part. Suspect that the patient had taken additional dosages of his carvedilol and flecainide, however, this cannot be verified unless someone does a pill count in his bottles at home. Since his blood pressure is being maintained, he will not require at this point inotrope support such as dopamine, but he will be admitted to PCU overflow in the ICU in the event that this becomes necessary. EKG today shows sinus bradycardia at 52, with first-degree heart block, and right bundle branch block, without acute ST-T changes Most recent echocardiogram from 03/13/2024 with ejection fraction 60-65%. Potassium was low normal at 3.6, and will be given to K riders empirically after being given large volumes of glucose as noted. Will receive a total of 4K riders Magnesium 1.7, will receive 2 g of mag sulfate IV Hypothyroidism- TSH was 39.427. Unclear but likely was not taking his thyroid medications as directed. Atrial fibrillation/CHF- Holding apixaban, spironolactone, losartan, flecainide, carvedilol, bumetanide, aspirin at this time. Again safety is going to need to be determined, patient should not be allowed to control this medication really any of his medications. GERD- Changing omeprazole to pantoprazole IV BPH with LUTS- For now holding medications alfuzosin Mild cognitive impairment- technical services analyst will work with his regarding services that may be available for him at home versus assisted facility or assisted living History of Present Illness Chief Complaint: The patient was found down on the floor by his at about 3 PM this afternoon. She had seen him last at 8:30 in the morning, and he was well at that time. At 3 PM he was found unresponsive, and EMS was called and found that his blood sugar was in the 50s. He was given 250 mL of D10, which increase his blood glucose to about 110, however, on arrival to the emergency department his glucose was back down to 45. Patient was also found to be hypothermic, with a temperature 34.1. Primary Care Provider: Jorje Iyer MD - Allergies Allergy/AdvReac Type Severity Reaction Status Date / Time bacitracin Allergy Mild contact Verified 01/15/25 18:45 dermatitis with eye bacitracin dog dander Allergy Mild Congestion Verified 01/15/25 18:45 horse dander Allergy Unknown Allergy Verified 01/15/25 18:45 testing + house dust Allergy Unknown Allergy Verified 01/15/25 18:45 testing + Home Medications Medication Instructions Recorded Confirmed Type OneTouch Delica Lancets 33 gauge #300 ea 02/01/19 01/08/25 Rx (lancets) OneTouch Verio test strips (blood #300 ea 11/10/19 01/08/25 Rx sugar diagnostic) Dexcom Putty Tinter Maker #1 ea 03/07/20 01/08/25 Rx (blood-glucose,telegraphic typewriter operator chief,cont) fluticasone propionate 50 1 spray intranasal DAILY PRN 09/29/21 01/15/25 History mcg/actuation nasal Congestion spray,suspension Dexcom G7 Putty Tinter Maker #1 ea 07/07/22 01/08/25 Rx (blood-glucose,telegraphic typewriter operator chief,cont) gabapentin 300 mg capsule 300 mg PO .COMPLEX #540 caps 08/03/22 01/15/25 Rx mecobalamin (vitamin B12) 1,000 2,000 mcg (2 x 1,000 mcg) 11/27/22 01/15/25 Rx mcg disintegrating sublingual DAILY #60 tabs tablet,sublingual omeprazole 40 mg capsule,delayed 40 mg PO QAM #90 caps 12/29/22 01/15/25 Rx release econazole nitrate 1 % topical cream 1 applic topical BID PRN skin 01/28/23 01/15/25 Rx irritation #30 grams pen needle, diabetic 31 gauge x #600 ea 07/15/23 01/08/25 Rx 5/16" (BD Ultra-Fine Short Pen Needle) betamethasone dipropionate 0.05 % 1 applic topical DAILY PRN Skin 10/15/2306/06 History lotion Irritation ketoconazole 2 % shampoo 1 applic topical 2XWK 10/15/23 01/15/25 History atorvastatin 80 mg tablet 80 mg PO QPM #90 tabs 11/16/23 01/15/25 Rx triamcinolone acetonide 0.5 % 1 applic topical BID PRN Skin 12/10/23 01/15/25 Rx topical cream Irritation #15 grams aspirin 81 mg tablet,delayed 81 mg PO DAILY #30 tabs 12/11/23 01/15/25 Rx release (Enteric Coated Aspirin) carvedilol 3.125 mg tablet 3.125 mg PO BIDM #60 tabs 12/11/23 01/15/25 Rx magnesium oxide 400 mg (241.3 mg 400 mg PO BID #14 tabs 12/11/23 01/15/25 Rx magnesium) tablet acetone (urine) test (Ketostix #100 ea 03/09/24 01/08/25 Rx strips) glucagon 1 mg/0.2 mL subcutaneous 1 mg (0.2 mL) subcut DIRECTED 03/13/24 01/15/25 Rx auto-injector (Gvoke HypoPen PRN for hypoglycemic epidoses #0.4 2-Pack) mL insulin glargine 100 unit/mL (3 40 unit subcut BID 03/17/24 01/15/25 History mL) subcutaneous pen (Lantus Solostar U-100 Insulin) bumetanide 2 mg tablet 2 mg PO QAM #90 tabs 04/17/24 01/15/25 Rx minocycline 100 mg capsule 100 mg PO BID #180 caps 05/17/24 01/15/25 Rx montelukast 10 mg tablet 10 mg PO QPM 90 days #90 tabs 05/17/24 01/15/25 Rx cholecalciferol (vitamin D3) 50 50 mcg PO DAILY #90 caps 06/23/24 01/15/25 Rx mcg (2,000 unit) capsule levothyroxine 50 mcg tablet 50 mcg PO QAM #30 tabs 06/23/24 01/15/25 Rx ezetimibe 10 mg tablet (Zetia) 10 mg PO QPM #90 tabs 07/16/24 01/15/25 Rx losartan 100 mg tablet 100 mg PO QAM #90 tabs 07/16/24 01/15/25 Rx alfuzosin 10 mg tablet,extended 10 mg PO BID #180 tabs 08/16/24 01/15/25 Rx release 24 hr apixaban 5 mg tablet (Eliquis) 5 mg PO BID #180 tabs 08/31/24 01/15/25 Rx flecainide 50 mg tablet 50 mg PO Q12H #60 tabs 08/31/24 01/15/25 Rx levothyroxine 200 mcg tablet 200 mcg PO QAM #90 tabs 10/15/24 01/15/25 Rx Dexcom G7 Sensor (blood-glucose #9 ea 11/08/24 01/08/25 Rx sensor) Novolog FlexPen U-100 Insulin 100 15 unit (0.15 mL) subcut TIDM #45 11/30/24 01/15/25 Rx unit/mL (3 mL) subcutaneous mL (insulin aspart U-100) spironolactone 25 mg tablet 25 mg PO QAM #90 tabs 01/12/25 01/15/25 Rx Past Med/Surg History Problem List (Updated 01/16/25 @ 04:35 by Paul Lockhart MD) Hypothermia Bradycardia Episode of unresponsiveness (Acute) Fall (Acute) Hypoglycemia (Acute) Driving safety issue Swelling of both lower extremities Hypothyroidism Health care maintenance Right knee pain Cerebrovascular disease Mild cognitive impairment Morbid obesity with BMI of 40.0-44.9, adult Hypoglycemia (Acute) Pleural effusion Atrial fibrillation Short run during hospital stay fall 2023 Hypoglycemia due to type 1 diabetes mellitus Type 1 diabetes mellitus Neuroendocrine tumor of pancreas Weight loss BPH (benign prostatic hyperplasia) Chronic diastolic CHF (congestive heart failure) Lacunar stroke Hypomagnesemia Class 3 obesity Blood in urine EKG abnormalities Albuminuria Diabetic nephropathy associated with type 1 diabetes mellitus Proliferative diabetic retinopathy associated with type 1 diabetes mellitus Vitamin B12 deficiency History of colon polyps Brow ptosis, bilateral Loss of protective sensation of skin of foot Dysesthesia Benign prostatic hyperplasia with elevated prostate specific antigen (PSA) Diabetes mellitus type 1, uncontrolled (Acute) Diabetic peripheral neuropathy associated with type 1 diabetes mellitus Obstructive sleep apnea of adult CPAP Medical History Hypokalemia Right leg swelling Type 1 diabetes mellitus "has an insulin pump but not currently using, was having trouble keeping blood sugars under control with it, back to injections for now" Hx of pleural effusion pt unsure, documented 02/2024 thru [place] Mild cognitive impairment per chart, pt. reports no issues Hx of colonic polyps Cerebrovascular disease hx, lacunar stroke 11/2023 History of BPH Pancreatic abnormality hx Hypertension Diabetic ketoacidosis hx, pt unsure of details Abdominal mass, right lower quadrant pt unsure? High anion gap metabolic acidosis hx Generalized weakness Pseudohyponatremia hx Morbid obesity with BMI of 45.0-49.9, adult Dyslipidemia Hx of falling pt stated "not a lot of falls anymore, just wobbly when he walks" Hx of encephalopathy (11/2023) per hx, admit to [facility]/ lacunar stroke Diabetic peripheral neuropathy Diabetes mellitus type 1 with atherosclerosis of arteries of extremities LUCIA (obstructive sleep apnea) does not use cpap Lacunar stroke (11/2023) treated at [facility], admit x 4 days, pt reports no deficits Chronic diastolic (congestive) heart failure Dermatochalasis of both upper eyelids hx, had bilat. blepharoplasty sx. Erectile dysfunction Allergic rhinitis Recurrent sinus infections nothing current GERD without esophagitis Psoriasis Mobitz (type) I (Wenckebach's) atrioventricular block Occasionally noted dating back to 2017 Holter monitor ; does not see cardiology per pt. History of nephrolithiasis OA (osteoarthritis) of shoulder hx Paroxysmal atrial fibrillation Few episodes noted on 2017 sleep study, not noted on f/u 10/2016 48 hour holter monitor > no known recurrences Vitamin D deficiency Surgical History Hx of colonoscopy with polypectomy S/P blepharoplasty History of blepharoplasty (~08/19/20) History of endoscopic sinus surgery History of incision and drainage (12/06/19) S/P trigger finger release History of cataract surgery History of carpal tunnel release History of uvulopalatopharyngoplasty S/P appendectomy Family History Father Diabetes Sleep apnea Pacemaker Other No significant family history Denies family history of Ovarian cancer Prostate cancer Myocardial infarction Breast cancer Colorectal cancer Social History Smoking Status: Never smoker packs per day: 0.3; Second Hand Exposure: No; Do You Dip or Chew Tobacco: No; Tobacco Cessation Education Requested by Patient: No Hx Alcohol Use: No Hx Substance Use: No Preferred Language: Latvian Communication Ability: Effective Visual Impairment: No Limitations Hearing Ability: Normal Insurance Professional Required: No Beliefs That Will Affect Care: None marital status: Current Living Situation: Spouse Current Living Situation Comment: Frome home with current occupational status: employed 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 Information was obtained from his , and EMS. Physical Exam Physical Exam: The patient is lethargic, but awakens to verbal stimuli. normocephalic and atraumatic, lying in bed and in no acute distress. HEENT--PERRL, EOMI, mucous membranes and oropharynx dry. Neck--supple. No JVD. No bruits. Thyroid normal, trachea midline, no adenopathy. Heart--bradycardic. No murmurs, rubs or gallops. Lungs--clear bilaterally, no respiratory distress, no accessory muscle use. Abdomen--normal bowel sounds and soft. Nontender. Nondistended. Obese. Extremities--no cyanosis or clubbing. No edema. There are good distal pulses b/l. Dermatologic--normal skin turgor, normal color, no abnormal lymph nodes, no rash. Neurologic--cranial nerves II through XII grossly intact. Limited exam Rheumatologic--moves all extremities Psychiatric--lethargic and confused Results & Data Results & Data Vital Signs (Past 12 Hours) Vital Signs Temp Pulse Pulse Resp BP BP Pulse Ox 01/15/25 19:00 44 L 18 148/99 H 98 01/15/25 18:00 34.1 C L 48 L 14 150/85 H 96 01/15/25 18:00 34.1 C L 53 L 15 150/85 H 96 01/15/25 17:51 43 L 01/15/25 17:07 66 14 96 01/15/25 17:00 56 L 14 125/71 95 01/15/25 16:41 57 L 16 140/80 92 01/15/25 16:14 18 154/93 H 99 01/15/25 16:01 33.7 C L 61 18 149/97 H 98 O2 Del Method 01/15/25 19:00 Room Air 01/15/25 18:00 Room Air 01/15/25 18:00 Room Air 01/15/25 17:51 01/15/25 17:07 Room Air 01/15/25 17:00 Room Air 01/15/25 16:41 Room Air 01/15/25 16:14 01/15/25 16:01 Room Air Laboratory Results Laboratory Results WBC 6.99 K/ul (4.8-10.8) 01/16/25 03:59 RBC 3.61 M/uL (4.70-6.10) L 01/16/25 03:59 Hgb 11.2 g/dl (14.0-18.0) L 01/16/25 03:59 Hct 32.3 % (42.0-52.0) L 01/16/25 03:59 MCV 89.5 fL (80.0-100.0) 01/16/25 03:59 MCH 31.0 pg (25.0-34.0) 01/16/25 03:59 MCHC 34.7 g/dL (32.0-36.0) 01/16/25 03:59 RDW Std Deviation 44.9 fL (36.4-46.3) 01/16/25 03:59 RDW Coeff of Jill 13.7 % (11.5-14.5) 01/16/25 03:59 Plt Count 229 K/uL (130-400) 01/16/25 03:59 MPV 11.1 fL (9.4-12.4) 01/16/25 03:59 Immature Gran % (Auto) 0.3 % 01/16/25 03:59 Neut % (Auto) 54.6 % 01/16/25 03:59 Lymph % (Auto) 33.0 % 01/16/25 03:59 [place] % (Auto) 9.9 % 01/16/25 03:59 Eos % (Auto) 1.3 % 01/16/25 03:59 Baso % (Auto) 0.9 % 01/16/25 03:59 Neut # (Auto) 3.82 K/uL (1.40-6.50) 01/16/25 03:59 Lymph # (Auto) 2.31 K/uL (1.20-3.40) 01/16/25 03:59 [place] # (Auto) 0.69 K/uL (0.11-0.59) H 01/16/25 03:59 Eos # (Auto) 0.09 K/uL (0.00-0.50) 01/16/25 03:59 Baso # (Auto) 0.06 K/uL (0.00-0.20) 01/16/25 03:59 Immature Gran # (Auto) 0.02 K/uL (0.01-0.20) 01/16/25 03:59 Sodium 138 mmol/L (136-145) 01/15/25 20:24 Potassium 3.4 mmol/L (3.5-5.1) L 01/15/25 20:24 Chloride 103 mmol/L (98-107) 01/15/25 20:24 Carbon Dioxide 30 mmol/L (21-32) 01/15/25 20:24 Anion Gap 5 (3-11) 01/15/25 20:24 BUN 19 mg/dl (6-23) 01/15/25 20:24 Creatinine 0.98 mg/dl (0.6-1.4) 01/15/25 20:24 Est Cr Clr Drug Dosing 91.7 ml/min 01/15/25 20:24 eGFR 85.04 01/15/25 20:24 BUN/Creatinine Ratio 19.4 (10-20) 01/15/25 20:24 Glucose 113 mg/dl (70-99(Fasting)) H 01/15/25 20:24 POC Glucose 111 mg/dl (70-99) H 01/15/25 23:25 Lactate 1.7 mmol/L (0.4-2.0) 01/15/25 18:08 Calcium 8.2 mg/dl (8.6-10.3) L 01/15/25 20:24 Magnesium 1.7 mg/dl (1.7-2.4) 01/15/25 20:24 Total Bilirubin 0.4 mg/dl (0.2-1.0) 01/15/25 15:48 AST 19 U/L (13-39) 01/15/25 15:48 ALT 16 U/L (7-52) 01/15/25 15:48 Alkaline Phosphatase 79 U/L (34-104) 01/15/25 15:48 Total Creatine Kinase 178 U/L (30-223) 01/15/25 15:48 Troponin I High Sens 11.6 pg/ml (0-20) 01/15/25 15:48 Total Protein 5.7 gm/dl (6.0-8.3) L 01/15/25 15:48 Albumin 3.0 gm/dl (3.4-5.0) L 01/15/25 15:48 Globulin 2.7 gm/dl (2.5-4.0) 01/15/25 15:48 Albumin/Globulin Ratio 1.1 (0.9-2) 01/15/25 15:48 TSH 39.427 uIu/ml (0.300-4.500) H 01/15/25 15:48 Free T4 0.84 ng/dl (0.61-1.60) 01/15/25 15:48 Nasal Screen MRSA (PCR) Negative (Negative) 01/15/[address] 01/15/25 16:05 CT head without contrast History: Trauma Comparison: None Technique: Using multidetector thin collimation helical acquisition technique, axial, coronal and sagittal CT images from the skull base to the vertex were obtained without intravenous contrast. Dose reduction techniques were achieved by using automatic exposure control and/or adjustment of mA and/or kV according to patient size and/or use of iterative reconstruction technique. Findings: No intracranial hemorrhage, mass-effect, or midline shift. The ventricles are proportionate to the cerebral sulci. The maldonado to white matter differentiation of the cerebral hemispheres is preserved. The basal cisterns are patent. There is moderate cerebral atrophy. Moderate, patchy low-attenuation changes in the white matter, most suggestive of sequelae of chronic small vessel ischemic disease. The visualized paranasal sinuses are clear. Mastoid air cells are clear. Impression: No acute intracranial pathology. Electronically signed by Orlando Martines 01-15-2025 6:15 PM Chest X-Ray 01/15/25 16:16 Chest radiograph, one view History: Trauma Comparison: None Findings: Single AP view of the chest performed. No focal consolidation. Small left pleural effusion again seen with subjacent atelectasis. No pneumothorax. The cardiomediastinal silhouette is within normal limits. Normal pulmonary vascularity. No evidence for lymphadenopathy. No visualized bony or soft tissue abnormality. Impression: Persistent small left pleural effusion and subjacent atelectasis. No other acute finding. Electronically signed by Orlando Martines 01-15-2025 5:18 PM Hip/Pelvis X-Ray 01/15/25 16:16 History: Pain Comparison: None Findings: There is no acute fracture or dislocation. Alignment is anatomic. Mild degenerative joint space loss of the left hip. There is no joint effusion or significant soft tissue swelling. Impression: No acute bony abnormality Electronically signed by Orlando Martines 01-15-2025 5:32 PM Code Status & VTE Plan Code Status DNR/DNI VTE Prophylaxis Plan VTE Prophylaxis will be ordered: Yes PG Care Time/CCT Total # of Minutes Spent Total Time Spent with Patient: Total time spent is greater than 50% in coordination of care (as documented) at patient's floor/unit and/or counseling patient: 53 minutes Coding Level of Care Code 17462 INT INP/OBS CARE 3/75MIN Diagnoses Episode of unresponsiveness R40.4 Bradycardia R00.1 Hypothermia T68.XXXA Hypoglycemia due to type 1 diabetes mellitus E10.649
[2025-01-15 20:53] LABS: Anion Gap 5.0 (3-11); Blood Urea Nitrogen 19.0 mg/dl (6-23); Calcium 8.2 mg/dl (8.6-10.3); Carbon Dioxide 30.0 mmol/L (21-32); Chloride 103.0 mmol/L (98-107); Creatinine Clr Calc Pharmacy 91.7 ml/min; Glucose 113.0 mg/dl (70-99(Fasting)); Magnesium 1.7 mg/dl (1.7-2.4); Potassium 3.4 mmol/L (3.5-5.1); Sodium 138.0 mmol/L (136-145)
[2025-01-15] MEDS: POTASSIUM CHLORIDE / WTR 10 MEQ/100 ML PLCT IV SCH (21:04)
[2025-01-15] MEDS ORDERED: ONDANSETRON INJ 2 MG/ML 2 ML VIAL IV PRN (22:45)
[2025-01-16 04:24] LABS: Hematocrit (blood only) 32.3 % (42.0-52.0); Hemoglobin 11.2 g/dl (14.0-18.0); Immature Granulocytes # (auto) 0.02 K/uL (0.01-0.20); Immature Granulocytes % (auto) 0.3 %; Mean Corpuscular Hemoglobin 31.0 pg (25.0-34.0); Mean Corpuscular Volume 89.5 fL (80.0-100.0); Platelet Count 229 K/uL (130-400); RDW Standard Deviation 44.9 fL (36.4-46.3); Red Blood Count 3.61 M/uL (4.70-6.10); White Blood Count 6.99 K/ul (4.8-10.8)
[2025-01-16 04:50] LABS: Alanine Aminotransferase 12.0 U/L (7-52); Albumin Globulin Ratio 1.1 (0.9-2); Albumin Level 2.3 gm/dl (3.4-5.0); Alkaline Phosphatase 64.0 U/L (34-104); Anion Gap 5.0 (3-11); Bilirubin,Total 0.4 mg/dl (0.2-1.0); Blood Urea Nitrogen 21.0 mg/dl (6-23); Calcium 8.1 mg/dl (8.6-10.3); Carbon Dioxide 26.0 mmol/L (21-32); Chloride 101.0 mmol/L (98-107); Creatinine Clr Calc Pharmacy 86.8 ml/min; Globulin 2.1 gm/dl (2.5-4.0); Glucose 456.0 mg/dl (70-99(Fasting)); Magnesium 1.6 mg/dl (1.7-2.4); Potassium 4.1 mmol/L (3.5-5.1); Sodium 132.0 mmol/L (136-145); Total Protein 4.4 gm/dl (6.0-8.3)
--- NOTE | 2025-01-16 04:53 | Billing Data ---
Date of Service January 16, 2025 Coding Level of Care Code 95599 CRITICAL CARE
[2025-01-16 04:57] LABS: INR 0.9 (0.9-1.1); Partial Thromboplastin Time 22 Seconds (21-31); Prothrombin Time 9.9 Seconds (9.0-12.0)
[2025-01-16] MEDS ORDERED: DEXTROSE 50% 50 ML SYRINGE IV PRN (05:06)
[2025-01-16] MEDS ORDERED: GLUCOSE 40% GEL 15 GM TUBE PO PRN (05:06)
[2025-01-16] MEDS ORDERED: GLUCAGON FOR INJ 1 MG VIAL SQ PRN (05:06)
[2025-01-16] MEDS ORDERED: GLUCOSE 10 TAB/TUBE PO PRN (05:06)
[2025-01-16] MEDS ORDERED: CARBOHYDRATES FOR HYPOGLYCEMIA PO PRN (05:06)
[2025-01-16] MEDS: INSULIN HUMAN REGULAR PER UNIT 6 UNITS in SYRINGE 5.94 ML IV STA (05:25)
[2025-01-16] MEDS: MAGNESIUM SULFATE / D5W 1 GM/100 ML BAG IV SCH (05:26)
[2025-01-16] MEDS: INSULIN ASPART PER UNIT CHARGE SC SCH ×2 (06:10→12:02)
[2025-01-16] MEDS: POTASSIUM CHLORIDE / WTR 10 MEQ/100 ML PLCT IV ONE (06:10)
[2025-01-16] MEDS ORDERED: PHARMACY GLYCEMIC MGMT CONSULT PRN ×2 (07:12→07:22)
[2025-01-16 07:31] LABS: Hemoglobin A1C 9.1 % (4.5-5.6)
[2025-01-16] MEDS ORDERED: MAGNESIUM SULFATE / D5W 1 GM/100 ML BAG IV SCH (08:45)
[2025-01-16] MEDS ORDERED: PANTOprazole 40 MG/10 ML SYR IV SCH (09:00)
[2025-01-16] MEDS: TAMSULOSIN HCL 0.4 MG CAP PO SCH (09:14)
[2025-01-16] MEDS: APIXABAN 5 MG TABLET PO SCH (09:14)
[2025-01-16] MEDS: FLECAINIDE ACETATE 100 MG TABLET PO SCH (09:15)
[2025-01-16] MEDS: LOSARTAN POTASSIUM 50 MG TAB PO SCH (09:15)
[2025-01-16] MEDS: MAGNESIUM OXIDE 400 MG TAB PO SCH (09:16)
[2025-01-16] MEDS: GABAPENTIN 300 MG CAP PO SCH (09:16)
[2025-01-16] MEDS: BUMETANIDE 1 MG TAB PO SCH (09:16)
[2025-01-16] MEDS: ASPIRIN 81 MG ECTAB PO SCH (09:16)
[2025-01-16] MEDS: SPIRONOLACTONE 25 MG TAB PO SCH (09:16)
[2025-01-16] MEDS: MAGNESIUM SULFATE / D5W 1 GM/100 ML BAG IV ONE (09:44)
--- NOTE | 2025-01-16 10:52 | Pharmacy Report ---
Pharmacy Glycemic Short Note 2 - Date of Service January 16, 2025 - Glycemic Short BSG Results (Last 24 hours): 01/15/25 01/15/25 01/15/25 15:41 15:48 16:00 Glucose 40 L* POC Glucose 45 L* 101 H 01/15/25 01/15/25 01/15/25 16:23 16:58 17:21 Glucose POC Glucose 72 51 L* 142 H 01/15/25 01/15/25 01/15/25 18:14 18:38 19:17 Glucose POC Glucose 65 L* 130 H 171 H 01/15/25 01/15/25 01/15/25 20:23 20:24 22:06 Glucose 113 H POC Glucose 105 H 122 H 01/15/25 01/16/25 01/16/25 23:25 03:59 06:04 Glucose 456 H* POC Glucose 111 H 414 H* 01/16/25 01/16/25 01/16/25 07:15 08:11 09:05 Glucose POC Glucose 346 H* 283 H 239 H OUTPATIENT ANTIDIABETIC REGIMEN: * Per Dr. Li's 12/2024 note: Lantus 40 units BID and Humalog 15 units twice or three times daily with meals * A1c: 9.1% 01/16/25 ASSESSMENT: * T1DM presented after being found down at 3pm yesterday with profound and sustained hypoglycemia. Patient was started on a dextrose infusion which was discontinued this morning when BSG reached 456 mg/dL ~0400. Since then, BSG has surprisingly downtrended quickly, despite patient also eating breakfast: [phone] mg/dL. Because of this and as we do not definitively know what insulin was taken yesterday, it was determined through multidisciplinary discussion to hold AM basal insulin administration and further assess trend. BSG seemed to stabilize in the mid 200s around lunch time and thus conservative basal insulin dosing was initiated. * Per provider, patient noting he is not taking basal insulin at home, despite recent endocrine note confirming above regimen. It is noted by the providers that patient appears confused and may not be able to manage insulin regimen appropriately, further confounding the true picture. PLAN FOR INPATIENT GLYCEMIC CONTROL: * Hold outpatient oral diabetes medications * Basal insulin * Lantus 15 units SQ X 1 * Lantus scale this evening based on bSG-See MAR for details * Bolus insulin * NovoLog per scale ACHS or Q6hrs while NPO * Goal Range: Low 120 mg/dL - High 160 mg/dL * Correction Factor: 20 mg/dL/unit * Nutritional / Prandial insulin per carb ratio of 1 unit per 7 grams CHO consumed
[2025-01-16] MEDS: LANTUS PER UNIT CHARGE SC STA (11:34)
--- NOTE | 2025-01-16 11:52 | Electrocardiogram Report ---
Test Reason : Blood Pressure : */* mmHG Vent. Rate : 52 BPM Atrial Rate : 52 BPM P-R Int : 256 ms QRS Dur : 134 ms QT Int : 472 ms P-R-T Axes : 59 16 -11 degrees QTcB Int : 438 ms Sinus bradycardia with sinus arrhythmia with 1st degree A-V block with occasional Premature ventricul ar complexes Right bundle branch block Abnormal ECG When compared with ECG of 14-Dec-2024 15:05, Premature ventricular complexes are now Present Sinus rhythm is no longer with 2nd degree A-V block (Mobitz I) Confirmed by Freddy Seo ([id number]) on 01/16/2025 11:52:09 AM Referred By: REFERRED SELF Confirmed By: Freddy Seo
--- NOTE | 2025-01-16 16:30 | XRay Report ---
History: Trauma Comparison: None Findings: There is no acute fracture or dislocation. Alignment is anatomic. Joint spaces are well maintained. Small suprapatellar joint effusion. There is diffuse subcutaneous edema seen about the region of the knee. There are heavy arterial calcifications. Impression: No acute bony abnormality Electronically signed by Orlando Martines 01-16-2025 4:30 PM
--- NOTE | 2025-01-16 18:57 | Magnetic Resonance Report ---
MRI of the brain performed without IV contrast History: Comparison: Technique: Sagittal T1-weighted and axial T2-weighted, T2/FLAIR and diffusion-weighted with ADC map images of the brain were obtained without IV contrast. Findings: No evidence for intracranial mass lesion, mass-effect, midline shift, or abnormal extra-axial fluid collection. Moderate cerebral atrophy. Mild chronic microvascular ischemic changes. No abnormally reduced diffusion or evidence for acute infarct. Normal intravascular flow voids. Bilateral pseudophakia. Impression: Age-related changes without acute intracranial otology Electronically signed by Orlando Martines 01-16-2025 6:56 PM
[2025-01-16] MEDS: ATORVASTATIN 40 MG TAB PO SCH (20:29)
[2025-01-16] MEDS: LANTUS PER UNIT CHARGE SC ONE (20:30)
[2025-01-16] MEDS: EZETIMIBE 10 MG TAB PO SCH (20:30)
[2025-01-16] MEDS: MONTELUKAST SODIUM 10 MG TABLET PO SCH (20:30)
--- NOTE | 2025-01-16 23:18 | Hospitalist Progress Note ---
Date of Service January 16, 2025 Assessment & Plan (1) Episode of unresponsiveness: (2) Bradycardia: (3) Hypothermia: (4) Hypoglycemia due to type 1 diabetes mellitus: Plan The patient is a 64-year-old male with a past medical history including hypothyroidism, cerebrovascular disease, mild cognitive impairment status post CVA, morbid obesity, pleural effusion, atrial fibrillation, hypoglycemia due to diabetes mellitus type 1, neuroendocrine tumor of pancreas, BPH, chronic diast olic CHF, diabetic nephropathy and retinopathy, and obstructive sleep apnea. The patient was last seen by his at 830 this morning, in which she found him at 3 in the afternoon is on the floor down and unresponsive. She called EMS, found his glucose was in the 50s. He was given to the 50 mL of D10, which improved his glucose to 110 and he is brought to the ED for assessment. Upon arrival to the ED glucose was now back 45. While in the ED received 50 mL of D50 x 3, was then started on D10 at 125 mL/h, which was then increased to 50 mL/h. Patient's glucose was ultimately stabilized in the low 100s. He was also found to be hypothermic with temperature 34.1 and placed on Kenia hugger. He was found to be bradycardic, with heart rate when he would fall asleep down into the mid 30s, with short 2 to 3-second pauses on monitor. His heart rate with immediately resumed back to 50s to 60s, with being awoken. The patient has a known history of poor ability to administer his own insulin, and he was warned by Dr. Li at their last office visit on 01/08/2025 that he had documented giving himself insulin and 2 to 3-minute intervals on them on a number of occasions. Patient is likely pathology is that he took excessive amounts of insulin, and likely took excessive amounts of negative inotropes, flecainide and carvedilol. [facility] #Capacity assessment Patient asking to leave this morning however he could not tell me how he ended up in the hospital except that he tripped. Very confused about his insulin taking and only using humalog instead of both humalog and Lantus. Unable to explain to me how to use carb ratio and correction factor and getting confused between the two. Using a calculation not suitable for his correction factor (he uses (BSG -100) / 3) which would be way too tight. Given these concepts that he is not able to understand and weigh up the risks therefore he does not have capacity to decide to leave against medical advice at this time. He has no insight into the dangerous way he is doing insulin and not understanding he ended up in hospital with hypoglycemia. #Left lower extremity weakness CT head normal MRI brain w/o IV contrast ordered #Left knee pain He reports falling on this. Joint line pain on exam without erythema or swelling noted XR left knee #Episode of unresponsiveness/hypoglycemia, medication non complaince He was found to be hypoglycemic with glucose in the mid 40s. Review of endocrinology note from 01/08/2025 notes that his brain activity is not well enough for him to make his own decisions about insulin doses. He had documented taking doses every 2 or 3 minutes several times in the previous few days, and was resulting in him having low blood sugar. On discussion with his he continues to insist on doing his own insulin and not taking lantus, only using humalog Discussed with pharmacy regarding glycemic control while here. D10W stopped and Lantus started. Unclear what regimen he should be on longer term currently. Disbetic educator to arrange for glucagon nasal spray for his to use. #Chronic Lipodermatosclerosis on right sebastian Some concern for infection/shingles from nursing however this is consistent with fat rather than blisters #Bradycardia/hypothermia Resolved, restarted on his medication to see if his usual doses will continue to cause bradycardia with hold parameters Concern for over dosing his carvedilol +/- flecainide #Hypothyroidism TSH was 39.427. He reports taking all his thyroid medication although suspect this is doubtful Continue his usual dose of levothyroxine #Atrial fibrillation/CHF- Continue his usual medications to assess safety of these #GERD Changing omeprazole to pantoprazole PO #BPH with LUTS Continue alfuzosin #Mild cognitive impairment student services counselor will work with his regarding services that may be available for him at home versus group home facility or assisted living VTE Prophylaxis - apixaban Disposition - continue on PCU Admission and Anticipated Discharge Date Admission Date: January 15, 2025 Subjective Extensive conversation with patient this morning as he wanted to leave against medical advice as soon as he woke up but unable to get around the room independently and when transfer up to PCU he fell forwards onto the bed and would have fallen onto the floor if it wasn't for nurses helping him. Clearly poor insight into his current mobility. This appears to be consistent however with his wishes from multiple previous hospitalizations including when he had a stroke he was determined not to have capcity to make the decision regarding rehabilitation. On discussion with his insulin regimen he reports only using one type of insulin ie. Humalog. He does not appear to understand why he would need a basal dose of insulin. He reports he has been doing his insulin since he was 16 years old and is doing fine. When mentioned it clearly isn't working as I read Dr Li's note to him and pointed out that he arrived with a low glucose he did not have a response to this. He appears to be confused between a carb ratio and correction factor as when talking about both he says he subtracts 100 then divides by 3 which is obviously not correct for a carb ratio and is likely much too tight for correction factor. His over the phone confirms he is still doing his insulin and only using the one humalog. He does not let her try to help him do the insulin. Physical Exam Constitutional: well developed; + not well nourished and no acute distress Eyes: PERRL, conjunctivae normal, anicteric sclerae Respiratory: normal respiratory effort, lungs clear to auscultation Cardiovascular: Rate/Rhythm: regular rate and regular rhythm Heart Sounds: no murmur Extremities: + pedal edema (2+ bilateral equal) Gastrointestinal (Abdomen): normal bowel sounds, soft, nontender, no hepatosplenomegaly Skin: hard fat appearing plaque on right sebastian without significant erythema Neurologic: + focal motor deficit (reduced strength of L > R lower extremity) and awake Results & Data Results & Data Vital Signs (Past 12 Hours) Vital Signs Temp Pulse Resp BP Pulse Ox O2 Del Method 01/16/25 20:44 Room Air 01/16/25 19:30 36.6 C 61 18 166/79 H 97 Room Air 01/16/25 17:00 Room Air 01/16/25 12:39 36.8 C 72 16 131/72 95 Room Air PG Care Time/CCT Total # of Minutes Spent Total Time Spent with Patient: Total time spent is greater than 50% in coordination of care (as documented) at patient's floor/unit and/or counseling patient: Coding Level of Care Code 37658 SUB INP/OBS CARE 3/50MIN Diagnoses Episode of unresponsiveness R40.4 Bradycardia R00.1 Hypothermia T68.XXXA Hypoglycemia due to type 1 diabetes mellitus E10.649
[2025-01-17] MEDS: LEVOTHYROXINE SODIUM 50 MCG TABLET PO SCH (05:57)
[2025-01-17] MEDS: LEVOTHYROXINE SODIUM 200 MCG TABLET PO SCH (05:57)
[2025-01-17 06:36] LABS: Hematocrit (blood only) 35.7 % (42.0-52.0); Hemoglobin 12.2 g/dl (14.0-18.0); Immature Granulocytes # (auto) 0.02 K/uL (0.01-0.20); Immature Granulocytes % (auto) 0.3 %; Mean Corpuscular Hemoglobin 31.1 pg (25.0-34.0); Mean Corpuscular Volume 91.1 fL (80.0-100.0); Platelet Count 227 K/uL (130-400); RDW Standard Deviation 46.3 fL (36.4-46.3); Red Blood Count 3.92 M/uL (4.70-6.10); White Blood Count 7.09 K/ul (4.8-10.8)
[2025-01-17 07:01] LABS: Alanine Aminotransferase 14.0 U/L (7-52); Albumin Globulin Ratio 1.1 (0.9-2); Albumin Level 2.5 gm/dl (3.4-5.0); Alkaline Phosphatase 74.0 U/L (34-104); Anion Gap 4.0 (3-11); Bilirubin,Total 0.6 mg/dl (0.2-1.0); Blood Urea Nitrogen 23.0 mg/dl (6-23); Calcium 8.4 mg/dl (8.6-10.3); Carbon Dioxide 31.0 mmol/L (21-32); Chloride 102.0 mmol/L (98-107); Creatinine Clr Calc Pharmacy 72.4 ml/min; Globulin 2.2 gm/dl (2.5-4.0); Glucose 259.0 mg/dl (70-99(Fasting)); Magnesium 1.9 mg/dl (1.7-2.4); Potassium 4.3 mmol/L (3.5-5.1); Sodium 137.0 mmol/L (136-145); Total Protein 4.7 gm/dl (6.0-8.3)
[2025-01-17 07:21] LABS: INR 0.9 (0.9-1.1); Partial Thromboplastin Time 23 Seconds (21-31); Prothrombin Time 9.9 Seconds (9.0-12.0)
[2025-01-17] MEDS ORDERED: LANTUS PER UNIT CHARGE SC SCH (09:00)
[2025-01-17] MEDS: LANTUS PER UNIT CHARGE SC SCH ×2 (09:45→20:30)
--- NOTE | 2025-01-17 12:31 | Electrocardiogram Report ---
Test Reason : Blood Pressure : */* mmHG Vent. Rate : 46 BPM Atrial Rate : * BPM P-R Int : * ms QRS Dur : 132 ms QT Int : 492 ms P-R-T Axes : * 21 -4 degrees QTcB Int : 430 ms Sinus bradycardia with 2nd degree A-V block (Mobitz I) Premature ventricular complexes Right bundle branch block Abnormal ECG When compared with ECG of 15-Jan-2025 16:11, Mobitz I now present Confirmed by Freddy Seo ([id number]) on 01/17/2025 12:30:53 PM Referred By: REFERRED SELF Confirmed By: Freddy Seo
--- NOTE | 2025-01-17 12:43 | Electrocardiogram Report ---
Test Reason : Blood Pressure : */* mmHG Vent. Rate : 46 BPM Atrial Rate : 65 BPM P-R Int : * ms QRS Dur : 126 ms QT Int : 436 ms P-R-T Axes : 44 72 10 degrees QTcB Int : 381 ms Sinus rhythm with 2nd degree A-V block (Mobitz I) Right bundle branch block Abnormal ECG When compared with ECG of 15-Jan-2025 17:27, (unconfirmed) No significant change Confirmed by Freddy Seo ([id number]) on 01/17/2025 12:42:50 PM Referred By: REFERRED SELF Confirmed By: Freddy Seo
--- NOTE | 2025-01-17 12:46 | Electrocardiogram Report ---
Test Reason : Blood Pressure : */* mmHG Vent. Rate : 60 BPM Atrial Rate : * BPM P-R Int : * ms QRS Dur : 120 ms QT Int : 430 ms P-R-T Axes : * 7 -15 degrees QTcB Int : 430 ms Normal sinus rhythm with 1st degree A-V block Right bundle branch block Abnormal ECG When compared with ECG of 17-Jan-2025 01:27, (unconfirmed) Mobitz I no longer present Confirmed by Freddy Seo ([id number]) on 01/17/2025 12:45:26 PM Referred By: REFERRED SELF Confirmed By: Freddy Seo
--- NOTE | 2025-01-17 14:24 | Pharmacy Report ---
Pharmacy Glycemic Short Note 2 - Date of Service January 17, 2025 - Glycemic Short BSG Results (Last 24 hours): 01/16/25 01/16/25 01/16/25 15:09 16:24 18:00 Glucose POC Glucose 91 76 76 01/16/25 01/16/25 01/17/25 19:30 22:52 00:04 Glucose POC Glucose 89 224 H 209 H 01/17/25 01/17/25 01/17/25 03:02 04:09 05:45 Glucose POC Glucose 208 H 233 H 235 H 01/17/25 01/17/25 01/17/25 05:50 08:04 11:24 Glucose 259 H POC Glucose 316 H* 312 H* OUTPATIENT ANTIDIABETIC REGIMEN: * Per Dr. Li's 12/2024 note: Lantus 40 units BID and Humalog 15 units twice or three times daily with meals * A1c: 9.1% 01/16/25 ASSESSMENT: 01/17: * Arturo received a total of 41 units of insulin yesterday (15 units were basal and 26 units were bolus). Although he received much less insulin than what he uses at home his blood glucose started to drop around dinner time yesterday and was 89mg/dL at HS. Bolus insulin parameters were loosened. * Fasting BSG was 316mg/dL this morning. Will add/adjust insulin cautiously as his blood glucose levels seem to be bouncing up and down. Added Lantus 10 units SQ daily and will continue Lantus scale at HS * Lunch BSG still > 300mg/dL, so tightened bolus insulin parameters to a stress of 2. 01/16: * T1DM presented after being found down at 3pm yesterday with profound and sustained hypoglycemia. Patient was started on a dextrose infusion which was discontinued this morning when BSG reached 456 mg/dL ~0400. Since then, BSG has surprisingly downtrended quickly, despite patient also eating breakfast: [phone] mg/dL. Because of this and as we do not definitively know what insulin was taken yesterday, it was determined through multidisciplinary discussion to hold AM basal insulin administration and further assess trend. BSG seemed to stabilize in the mid 200s around lunch time and thus conservative basal insulin dosing was initiated. * Per provider, patient noting he is not taking basal insulin at home, despite recent endocrine note confirming above regimen. It is noted by the providers that patient appears confused and may not be able to manage insulin regimen appropriately, further confounding the true picture. PLAN FOR INPATIENT GLYCEMIC CONTROL: * Hold outpatient diabetes medications * Basal insulin * Lantus 10 units SQ q AM * Lantus scale this evening based on bSG-See MAR for details * Bolus insulin * NovoLog per scale ACHS or Q6hrs while NPO * Goal Range: Low 120 mg/dL - High 160 mg/dL * Correction Factor: 25 mg/dL/unit * Nutritional / Prandial insulin per carb ratio of 1 unit per 8 grams CHO consumed
--- NOTE | 2025-01-17 20:58 | Hospitalist Progress Note ---
Date of Service January 17, 2025 Assessment & Plan (1) Episode of unresponsiveness: (2) Bradycardia: (3) Hypothermia: (4) Hypoglycemia due to type 1 diabetes mellitus: (5) Mobitz (type) I (Wenckebach's) atrioventricular block: (6) Paroxysmal atrial fibrillation: (7) Hypothyroidism: (8) Type 1 diabetes mellitus: (9) Neuroendocrine tumor of pancreas: (10) Obstructive sleep apnea of adult: Plan The patient is a 64-year-old male with a past medical history including hypothyroidism, cerebrovascular disease, mild cognitive impairment status post CVA, morbid obesity, pleural effusion, paroxysmal atrial fibrillation, hypoglycemia due to diabetes mellitus type 1, neuroendocrine tumor of pancreas, BPH, chronic diastolic CHF, diabetic nephropathy and retinopathy, and obstructive sleep apnea. Found on the floor at home unresponsive by his . EMS summoned; glucose was in the 50s. Given D50W by EMS - brought to [facility]. Hypothermic with temperature 34.1 and placed on Kenia hugger. He was found to be bradycardic, with heart rate when he would fall asleep down into the mid 30s, with short 2 to 3-second pauses on monitor. His heart rate with immediately resumed back to 50s to 60s, with being awoken. #fall at home with head injury; fall today 01/17 in his hospital room - -head CT neg -MRI brain neg -no injury on exam today fortunately -consider CT c-spine although he does not c/o pain on examination, but c-spine DJD or other pathology could be contributing to fall risk and ambulatory dysfunction #Episode of unresponsiveness/hypoglycemia/T1DM - -fall/unresponsiveness at home - just prior to presentation to [facility] -patient unable to appropriately manage his T1DM with complex insulin regimen -this has been an ongoing problem for some time -follows with Dr Li, [facility] Endo/DM -by report - per his he continues to insist on doing his own insulin and not taking lantus (only using humalog at home) -appreciate pharmacy glycemic team recs; appreciate informatics educator and recs; by report informatics educator to arrange for glucagon nasal spray for his to use at home if he lands home (but he needs placement) #Chronic Lipodermatosclerosis on right sebastian - stable #hypothermia - present on admission - -2nd to severe hypoglycemia -no infectious source found -resolved, has not recurred #Hypothyroidism - -TSH 39 -doubt compliance with replacement meds -would not change dosing -continue his usual dose of levothyroxine -repeat level in 4 weeks #Atrial fibrillation - paroxysmal - -followed by [facility] Cardiology -difficult to control by report hence flecainide usage -with the Mobitz 1 and propensity for bradycardia will STOP coreg -will discuss this complicated case with Dr Seo who is on-call for cards this week -cont Eliquis CAUTIOUSLY in light of recurrent falls #GERD - -PPI #BPH with LUTS - -cont flomax #Mild cognitive impairment - -due to prior CVA, etc. -can't rule out other factors -MRI brain neg for acute CVA or other acute pathology #HTN - -stop coreg -cont losartan -cont bumex -cont aldactone VTE Prophylaxis - apixaban 5mg BID agree with Dr See that patient lacks capacity to make informed medical decisions at this time Admission and Anticipated Discharge Date Admission Date: January 15, 2025 Subjective was contacted by staff that patient was sitting in the chair, did not ring for staff, and while attempting to get up he slid to the ground in a controlled fashion he needed 5-6 staff members to get up from the floor and placed back in bed I came to bedside to eval for injury he had his eyes closed he did not want to talk, asking to be left alone I asked him if he was hurting anywhere and he said -- "no - and if I did have pain I would tell you all" unable to obtain ROS as he seemed upset/angry and did not want to be bothered Review of Systems Review of Systems: could not obtain ROS as noted above Physical Exam Physical Exam: gen - resting in bed comfortably, NAD head - evidence of old head injury with bruising and healed abrasions R face mouth - MMM neck - no JVD; no pain with passive ROM of the neck heart - lisa, s1 s2, no murmur lungs - CTA b/l abd - soft NT ND BS+ ext - no evidence of trauma of any arm or leg, pulses b/l feet 2+, <1+ edema b/l skin - bubbling/blistering vs adipose deposits right anterior sebastian, no rash however neuro - strength 5/5 x 4 exts, no facial droop, speech clear musculo - passive ROM of all 4 limbs without pain or signs of fracture/trauma from his controlled fall Results & Data Results & Data Vital Signs (Past 12 Hours) Vital Signs Temp Pulse Pulse Resp BP Pulse Ox O2 Del Method 01/17/25 19:31 36.8 C 66 20 137/91 96 Room Air 01/17/25 16:05 36.5 C 72 18 130/76 99 Room Air 01/17/25 16:00 52 L 01/17/25 12:47 36.3 C L 64 18 127/73 97 Room Air Laboratory Results Laboratory Results - last 48 hr 01/16/25 01/16/25 01/16/25 11:01 13:00 15:09 WBC RBC Hgb Hct MCV MCH MCHC RDW Std Deviation RDW Coeff of Jill Plt Count MPV Immature Gran % (Auto) Neut % (Auto) Lymph % (Auto) [place] % (Auto) Eos % (Auto) Baso % (Auto) Neut # (Auto) Lymph # (Auto) [place] # (Auto) Eos # (Auto) Baso # (Auto) Immature Gran # (Auto) PT INR APTT PTT Ratio Sodium Potassium Chloride Carbon Dioxide Anion Gap BUN Creatinine Est Cr Clr Drug Dosing eGFR BUN/Creatinine Ratio Glucose POC Glucose 237 H 250 H 91 Calcium Magnesium Total Bilirubin AST ALT Alkaline Phosphatase Total Protein Albumin Globulin Albumin/Globulin Ratio 01/16/25 01/16/25 01/16/25 16:24 18:00 19:30 WBC RBC Hgb Hct MCV MCH MCHC RDW Std Deviation RDW Coeff of Jill Plt Count MPV Immature Gran % (Auto) Neut % (Auto) Lymph % (Auto) [place] % (Auto) Eos % (Auto) Baso % (Auto) Neut # (Auto) Lymph # (Auto) [place] # (Auto) Eos # (Auto) Baso # (Auto) Immature Gran # (Auto) PT INR APTT PTT Ratio Sodium Potassium Chloride Carbon Dioxide Anion Gap BUN Creatinine Est Cr Clr Drug Dosing eGFR BUN/Creatinine Ratio Glucose POC Glucose 76 76 89 Calcium Magnesium Total Bilirubin AST ALT Alkaline Phosphatase Total Protein Albumin Globulin Albumin/Globulin Ratio 01/16/25 01/17/25 01/17/25 22:52 00:04 03:02 WBC RBC Hgb Hct MCV MCH MCHC RDW Std Deviation RDW Coeff of Jill Plt Count MPV Immature Gran % (Auto) Neut % (Auto) Lymph % (Auto) [place] % (Auto) Eos % (Auto) Baso % (Auto) Neut # (Auto) Lymph # (Auto) [place] # (Auto) Eos # (Auto) Baso # (Auto) Immature Gran # (Auto) PT INR APTT PTT Ratio Sodium Potassium Chloride Carbon Dioxide Anion Gap BUN Creatinine Est Cr Clr Drug Dosing eGFR BUN/Creatinine Ratio Glucose POC Glucose 224 H 209 H 208 H Calcium Magnesium Total Bilirubin AST ALT Alkaline Phosphatase Total Protein Albumin Globulin Albumin/Globulin Ratio 01/17/25 01/17/25 01/17/25 04:09 05:45 05:50 WBC 7.09 RBC 3.92 L Hgb 12.2 L Hct 35.7 L MCV 91.1 MCH 31.1 MCHC 34.2 RDW Std Deviation 46.3 RDW Coeff of Jill 13.8 Plt Count 227 MPV 11.1 Immature Gran % (Auto) 0.3 Neut % (Auto) 40.3 Lymph % (Auto) 46.8 [place] % (Auto) 8.2 Eos % (Auto) 2.7 Baso % (Auto) 1.7 Neut # (Auto) 2.86 Lymph # (Auto) 3.32 [place] # (Auto) 0.58 Eos # (Auto) 0.19 Baso # (Auto) 0.12 Immature Gran # (Auto) 0.02 PT 9.9 INR 0.9 APTT 23 PTT Ratio 0.8 Sodium 137 Potassium 4.3 Chloride 102 Carbon Dioxide 31 Anion Gap 4 BUN 23 Creatinine 1.15 Est Cr Clr Drug Dosing 72.4 eGFR 70.19 BUN/Creatinine Ratio 20.0 Glucose 259 H POC Glucose 233 H 235 H Calcium 8.4 L Magnesium 1.9 Total Bilirubin 0.6 AST 20 ALT 14 Alkaline Phosphatase 74 Total Protein 4.7 L Albumin 2.5 L Globulin 2.2 L Albumin/Globulin Ratio 1.1 01/17/25 01/17/25 01/17/25 08:04 11:24 16:39 WBC RBC Hgb Hct MCV MCH MCHC RDW Std Deviation RDW Coeff of Jill Plt Count MPV Immature Gran % (Auto) Neut % (Auto) Lymph % (Auto) [place] % (Auto) Eos % (Auto) Baso % (Auto) Neut # (Auto) Lymph # (Auto) [place] # (Auto) Eos # (Auto) Baso # (Auto) Immature Gran # (Auto) PT INR APTT PTT Ratio Sodium Potassium Chloride Carbon Dioxide Anion Gap BUN Creatinine Est Cr Clr Drug Dosing eGFR BUN/Creatinine Ratio Glucose POC Glucose 316 H* 312 H* 111 H Calcium Magnesium Total Bilirubin AST ALT Alkaline Phosphatase Total Protein Albumin Globulin Albumin/Globulin Ratio 01/17/25 01/17/25 01/18/25 20:17 22:07 00:04 WBC RBC Hgb Hct MCV MCH MCHC RDW Std Deviation RDW Coeff of Jill Plt Count MPV Immature Gran % (Auto) Neut % (Auto) Lymph % (Auto) [place] % (Auto) Eos % (Auto) Baso % (Auto) Neut # (Auto) Lymph # (Auto) [place] # (Auto) Eos # (Auto) Baso # (Auto) Immature Gran # (Auto) PT INR APTT PTT Ratio Sodium Potassium Chloride Carbon Dioxide Anion Gap BUN Creatinine Est Cr Clr Drug Dosing eGFR BUN/Creatinine Ratio Glucose POC Glucose 80 129 H 175 H Calcium Magnesium Total Bilirubin AST ALT Alkaline Phosphatase Total Protein Albumin Globulin Albumin/Globulin Ratio PG Care Time/CCT Total # of Minutes Spent Total Time Spent with Patient: Total time spent is greater than 50% in coordination of care (as documented) at patient's floor/unit and/or counseling patient: Coding Level of Care Code 25038 SUB INP/OBS CARE 3/50MIN Diagnoses Episode of unresponsiveness R40.4 Bradycardia R00.1 Hypothermia T68.XXXA Hypoglycemia due to type 1 diabetes mellitus E10.649 Mobitz (type) I (Wenckebach's) atrioventricular block I44.1 Paroxysmal atrial fibrillation I48.0 Hypothyroidism E03.9 Type 1 diabetes mellitus E10.9 Neuroendocrine tumor of pancreas D3A.8 Obstructive sleep apnea of adult G47.33
[2025-01-18 06:55] LABS: Hematocrit (blood only) 35.4 % (42.0-52.0); Hemoglobin 12.2 g/dl (14.0-18.0); Immature Granulocytes # (auto) 0.02 K/uL (0.01-0.20); Immature Granulocytes % (auto) 0.3 %; Mean Corpuscular Hemoglobin 31.4 pg (25.0-34.0); Mean Corpuscular Volume 91.2 fL (80.0-100.0); Platelet Count 228 K/uL (130-400); RDW Standard Deviation 46.0 fL (36.4-46.3); Red Blood Count 3.88 M/uL (4.70-6.10); White Blood Count 6.63 K/ul (4.8-10.8)
[2025-01-18 07:21] LABS: Alanine Aminotransferase 14.0 U/L (7-52); Albumin Globulin Ratio 1.1 (0.9-2); Albumin Level 2.5 gm/dl (3.4-5.0); Alkaline Phosphatase 84.0 U/L (34-104); Anion Gap 5.0 (3-11); Bilirubin,Total 0.5 mg/dl (0.2-1.0); Blood Urea Nitrogen 26.0 mg/dl (6-23); Calcium 8.4 mg/dl (8.6-10.3); Carbon Dioxide 31.0 mmol/L (21-32); Chloride 102.0 mmol/L (98-107); Creatinine Clr Calc Pharmacy 77.0 ml/min; Globulin 2.2 gm/dl (2.5-4.0); Glucose 225.0 mg/dl (70-99(Fasting)); Magnesium 1.8 mg/dl (1.7-2.4); Potassium 4.2 mmol/L (3.5-5.1); Sodium 138.0 mmol/L (136-145); Total Protein 4.7 gm/dl (6.0-8.3)
[2025-01-18 07:30] LABS: INR 0.9 (0.9-1.1); Partial Thromboplastin Time 23 Seconds (21-31); Prothrombin Time 10.0 Seconds (9.0-12.0)
[2025-01-18] MEDS: LANTUS PER UNIT CHARGE SC SCH (08:22)
[2025-01-18] MEDS: ACETAMINOPHEN 1,000 MG/100 ML VIAL IV PRN (12:28)
--- NOTE | 2025-01-18 19:10 | Hospitalist Progress Note ---
Date of Service January 18, 2025 Assessment & Plan (1) Patient incapable of making informed decisions: (2) Episode of unresponsiveness: (3) Bradycardia: (4) Hypothermia: (5) Hypoglycemia due to type 1 diabetes mellitus: (6) Mobitz (type) I (Wenckebach's) atrioventricular block: (7) Paroxysmal atrial fibrillation: (8) Hypothyroidism: (9) Type 1 diabetes mellitus: (10) Neuroendocrine tumor of pancreas: (11) Obstructive sleep apnea of adult: Plan The patient is a 64-year-old male with a past medical history including hypothyroidism, cerebrovascular disease, mild cognitive impairment status post CVA, morbid obesity, pleural effusion, paroxysmal atrial fibrillation, hypog lycemia due to diabetes mellitus type 1, neuroendocrine tumor of pancreas, BPH, chronic diastolic CHF, diabetic nephropathy and retinopathy, and obstructive sleep apnea. Found on the floor at home unresponsive by his . EMS summoned; glucose was in the 50s. Given D50W by EMS - brought to [facility]. Hypothermic with temperature 34.1 and placed on Kenia hugger. He was found to be bradycardic, with heart rate when he would fall asleep down into the mid 30s, with short 2 to 3-second pauses on monitor. His heart rate with immediately resumed back to 50s to 60s, with being awoken. #fall at home with head injury; fall 01/17/25 in his hospital room - -head CT neg -MRI brain neg -no injury on 01/17 exam despite the fall -consider CT c-spine although he does not c/o pain on examination, but c-spine DJD or other pathology could be contributing to fall risk and ambulatory dysfunction #Episode of unresponsiveness/hypoglycemia/T1DM - present on admission - -fall/unresponsiveness at home - just prior to presentation to [facility] -patient unable to appropriately manage his T1DM with complex insulin regimen at home -this has been an ongoing problem for some time -follows with Dr Li, [facility] [place]/DM -by report - per his he continues to insist on doing his own insulin and not taking lantus (only using humalog at home) -appreciate pharmacy glycemic team recs; appreciate blacksmith assistant and recs; by report blacksmith assistant to arrange for glucagon nasal spray for his to use at home if he lands home (but he needs placement) #Chronic Lipodermatosclerosis on right sebastian - stable #hypothermia - present on admission - -2nd to severe hypoglycemia -no infectious source found -resolved, has not recurred #Hypothyroidism - -TSH 39 -doubt compliance with replacement meds -would not change dosing -continue his usual dose of levothyroxine -repeat level in 4 weeks #Atrial fibrillation - paroxysmal - -followed by [facility] Cardiology -difficult to control by report hence flecainide usage -with the Mobitz 1 and propensity for bradycardia I have stopped his coreg -I informally spoke with Dr Seo today - he agrees with stopping coreg but ok to continue flecainide -cont Eliquis (cautiously) in light of recurrent falls #GERD - -PPI #BPH with LUTS - -cont flomax #Mild cognitive impairment - -due to prior CVA, etc. -can't rule out other factors -MRI brain neg for acute CVA or other acute pathology -check B1 and B6 levels -decompensated hypothyroidism will worsen his impairment -previous B12 level in 06/2024 was wnl #HTN - -stopped coreg -cont losartan -cont bumex -cont aldactone -if additional BP control is needed add amlodipine VTE Prophylaxis - apixaban 5mg BID agree with Dr See that patient lacks capacity to make informed medical decisions at this time this was demonstrated again by our conversation at bedside; pt's nurse was present for this conversation I spoke with pt's daughter by phone this evening, Ms Valerie RodríguezGoldenKirstin spent about 20 min discussing the concerns about her father's cognitive impairment, falls, lack of medical decision capacity, and the difficulty he has had with his T1DM management discussed that he cannot safely return home (I reviewed the fall he had had yesterday and that it took 5 staff members to get him up from the floor) discussed that the decision to have her father placed for rehab will fall to her step-mother and herself/siblings discussed that we are all in agreement that her father lacks medical decision capacity and, although he is stating he wants to return home, that if her step- mother wants him placed she can do so since he lacks capacity recommended that she discuss all of the above with her step-mother will reach out to case management in the AM tomorrow re: the above phone call Admission and Anticipated Discharge Date Admission Date: January 15, 2025 Subjective tele with mobitz 1 AV block intermittently but no pauses and no a.fib denies any physical complaints eating well refuses to talk about disposition refuses to talk about his diabetes refuses to talk about safety issues - the falls he has had, the lack of proper DM management, etc. he said multiple times "what don't you understand - we are done talking about this" I asked him what he would do at home if his blood sugar was 25 and he was alone at home - he could not give a rational answer he also did not understand that he could from such or at least enter a diabetic coma Review of Systems Review of Systems: could not obtain ROS - refused to answer questions Physical Exam Physical Exam: gen - resting in bed comfortably, NAD, wants to be left alone head - evidence of old head injury with bruising and healed abrasions R face mouth - MMM neck - no JVD heart - lisa, s1 s2, no murmur lungs - CTA b/l abd - soft NT ND BS+ ext - trace edema, pulses 2+ b/l feet psych - limited to NO insight into medical problems; unable to provide rationale answers to questions; lacks medical capacity/medical decision-making Results & Data Results & Data Vital Signs (Past 12 Hours) Vital Signs Temp Pulse Pulse Resp BP Pulse Ox O2 Del Method 01/18/25 16:00 49 L 01/18/25 15:39 36.7 C 50 L 18 138/74 97 Room Air 01/18/25 12:05 36.3 C L 60 18 151/76 H 98 Room Air 01/18/25 08:00 50 L 01/18/25 08:00 Room Air 01/18/25 07:17 36.6 C 58 L 16 191/79 H 93 Room Air Laboratory Results Laboratory Results - last 48 hr 01/17/25 01/17/25 01/17/25 11:24 16:39 20:17 WBC RBC Hgb Hct MCV MCH MCHC RDW Std Deviation RDW Coeff of Jill Plt Count MPV Immature Gran % (Auto) Neut % (Auto) Lymph % (Auto) [place] % (Auto) Eos % (Auto) Baso % (Auto) Neut # (Auto) Lymph # (Auto) [place] # (Auto) Eos # (Auto) Baso # (Auto) Immature Gran # (Auto) PT INR APTT PTT Ratio Sodium Potassium Chloride Carbon Dioxide Anion Gap BUN Creatinine Est Cr Clr Drug Dosing eGFR BUN/Creatinine Ratio Glucose POC Glucose 312 H* 111 H 80 Calcium Magnesium Total Bilirubin AST ALT Alkaline Phosphatase Total Protein Albumin Globulin Albumin/Globulin Ratio 01/17/25 01/18/25 01/18/25 22:07 00:04 06:13 WBC 6.63 RBC 3.88 L Hgb 12.2 L Hct 35.4 L MCV 91.2 MCH 31.4 MCHC 34.5 RDW Std Deviation 46.0 RDW Coeff of Jill 13.7 Plt Count 228 MPV 10.9 Immature Gran % (Auto) 0.3 Neut % (Auto) 39.1 Lymph % (Auto) 45.6 [place] % (Auto) 10.1 Eos % (Auto) 3.5 Baso % (Auto) 1.4 Neut # (Auto) 2.60 Lymph # (Auto) 3.02 [place] # (Auto) 0.67 H Eos # (Auto) 0.23 Baso # (Auto) 0.09 Immature Gran # (Auto) 0.02 PT 10.0 INR 0.9 APTT 23 PTT Ratio 0.8 Sodium 138 Potassium 4.2 Chloride 102 Carbon Dioxide 31 Anion Gap 5 BUN 26 H Creatinine 1.15 Est Cr Clr Drug Dosing 77.0 eGFR 70.19 BUN/Creatinine Ratio 22.6 H Glucose 225 H POC Glucose 129 H 175 H Calcium 8.4 L Magnesium 1.8 Total Bilirubin 0.5 AST 18 ALT 14 Alkaline Phosphatase 84 Total Protein 4.7 L Albumin 2.5 L Globulin 2.2 L Albumin/Globulin Ratio 1.1 01/18/25 01/18/25 01/18/25 07:19 11:04 11:32 WBC RBC Hgb Hct MCV MCH MCHC RDW Std Deviation RDW Coeff of Jill Plt Count MPV Immature Gran % (Auto) Neut % (Auto) Lymph % (Auto) [place] % (Auto) Eos % (Auto) Baso % (Auto) Neut # (Auto) Lymph # (Auto) [place] # (Auto) Eos # (Auto) Baso # (Auto) Immature Gran # (Auto) PT INR APTT PTT Ratio Sodium Potassium Chloride Carbon Dioxide Anion Gap BUN Creatinine Est Cr Clr Drug Dosing eGFR BUN/Creatinine Ratio Glucose POC Glucose 255 H 209 H 196 H Calcium Magnesium Total Bilirubin AST ALT Alkaline Phosphatase Total Protein Albumin Globulin Albumin/Globulin Ratio PG Care Time/CCT Total # of Minutes Spent Total Time Spent with Patient: Total time spent is greater than 50% in coordination of care (as documented) at patient's floor/unit and/or counseling patient: Coding Level of Care Code 77163 SUB INP/OBS CARE 3/50MIN Diagnoses Patient incapable of making informed decisions Z78.9 Episode of unresponsiveness R40.4 Bradycardia R00.1 Hypothermia T68.XXXA Hypoglycemia due to type 1 diabetes mellitus E10.649 Mobitz (type) I (Wenckebach's) atrioventricular block I44.1 Paroxysmal atrial fibrillation I48.0 Hypothyroidism E03.9 Type 1 diabetes mellitus E10.9 Neuroendocrine tumor of pancreas D3A.8 Obstructive sleep apnea of adult G47.33
[2025-01-19] MEDS: LANTUS PER UNIT CHARGE SC SCH (08:46)
--- NOTE | 2025-01-19 11:28 | Pharmacy Report ---
Pharmacy Glycemic Short Note 2 - Date of Service January 19, 2025 - Glycemic Short BSG Results (Last 24 hours): 01/18/25 01/18/25 01/18/25 11:32 16:24 20:31 POC Glucose 196 H 193 H 176 H 01/19/25 01/19/25 08:13 11:12 POC Glucose 251 H 198 H OUTPATIENT ANTIDIABETIC REGIMEN: * Per Dr. Li's 12/2024 note: Lantus 40 units BID and Humalog 15 units twice or three times daily with meals * A1c: 9.1% 01/16/25 ASSESSMENT: 01/19: * Patient received total of 43 units of insulin yesterday, of which 12 units were basal insulin * Fasting BSG 251 mg/dL - however discussed with RN and this blood sugar was taken after he already ate breakfast. RN also noting patient eating snacks at bedtime. * Outpatient basal insulin much higher, feel that patient would benefit from slight increase in basal. Will increase to 15 units this AM 01/17: * Arturo received a total of 41 units of insulin yesterday (15 units were basal and 26 units were bolus). Although he received much less insulin than what he uses at home his blood glucose started to drop around dinner time yesterday and was 89mg/dL at HS. Bolus insulin parameters were loosened. * Fasting BSG was 316mg/dL this morning. Will add/adjust insulin cautiously as his blood glucose levels seem to be bouncing up and down. Added Lantus 10 units SQ daily and will continue Lantus scale at HS * Lunch BSG still > 300mg/dL, so tightened bolus insulin parameters to a stress of 2. 01/16: * T1DM presented after being found down at 3pm yesterday with profound and sustained hypoglycemia. Patient was started on a dextrose infusion which was discontinued this morning when BSG reached 456 mg/dL ~0400. Since then, BSG has surprisingly downtrended quickly, despite patient also eating breakfast: [phone] mg/dL. Because of this and as we do not definitively know what insulin was taken yesterday, it was determined through multidisciplinary discussion to hold AM basal insulin administration and further assess trend. BSG seemed to stabilize in the mid 200s around lunch time and thus conservative basal insulin dosing was initiated. * Per provider, patient noting he is not taking basal insulin at home, despite recent endocrine note confirming above regimen. It is noted by the providers that patient appears confused and may not be able to manage insulin regimen appropriately, further confounding the true picture. PLAN FOR INPATIENT GLYCEMIC CONTROL: * Hold outpatient diabetes medications * Basal insulin * Lantus 15 units once daily * Bolus insulin * NovoLog per scale ACHS or Q6hrs while NPO * Goal Range: Low 120 mg/dL - High 160 mg/dL * Correction Factor: 35 mg/dL/unit * Nutritional / Prandial insulin per carb ratio of 1 unit per 10 grams CHO consumed
--- NOTE | 2025-01-19 20:04 | Hospitalist Progress Note ---
Date of Service January 19, 2025 Assessment & Plan (1) Patient incapable of making informed decisions: (2) Episode of unresponsiveness: (3) Bradycardia: (4) Hypothermia: (5) Hypoglycemia due to type 1 diabetes mellitus: (6) Mobitz (type) I (Wenckebach's) atrioventricular block: (7) Paroxysmal atrial fibrillation: (8) Hypothyroidism: (9) Type 1 diabetes mellitus: (10) Neuroendocrine tumor of pancreas: (11) Obstructive sleep apnea of adult: (12) Falls: Plan The patient is a 64-year-old male with a past medical history including hypothyroidism, cerebrovascular disease, mild cognitive impairment status post CVA, morbid obesity, pleural effusion, paroxysmal atrial fibrillation, hypoglycemia due to diabetes mellitus type 1, neuroendocrine tumor of pancreas, BPH, chronic diastolic CHF, diabetic nephropathy and retinopathy, and obstructive sleep apnea. Found on the floor at home unresponsive by his . EMS summoned; glucose was in the 50s. Given D50W by EMS - brought to [facility]. Hypothermic with temperature 34.1 and placed on Kenia hugger. He was found to be bradycardic, with heart rate when he would fall asleep down into the mid 30s, with short 2 to 3-second pauses on monitor. His heart rate with immediately resumed back to 50s to 60s, with being awoken. #fall at home with head injury; fall 01/17/25 in his hospital room - -head CT neg -MRI brain neg -no injury on 01/17 exam despite the fall -obtain c-spine CT - r/o subacute fractures given the recurrent falls #Episode of unresponsiveness/hypoglycemia/T1DM - present on admission - -fall/unresponsiveness at home - just prior to presentation to [facility] [place] -patient unable to appropriately manage his T1DM with complex insulin regimen at home -this has been an ongoing problem for some time -follows with Dr Li, [facility] [place] Endo/DM -by report - per his he continues to insist on doing his own insulin and not taking lantus (only using humalog at home) -patient cannot tell me what would happen or what to do in the event of hypoglycemia -appreciate pharmacy glycemic team recs; appreciate elementary educator and recs; by report elementary educator to arrange for glucagon nasal spray for his to use at home if he lands home (but he needs placement) #Chronic Lipodermatosclerosis on right sebastian - stable #hypothermia - present on admission - -2nd to severe hypoglycemia -no infectious source found -resolved, has not recurred #Hypothyroidism - -TSH 39 -doubt compliance with levothyroxine at home -would not change dosing -continue his usual dose of levothyroxine -repeat level in 4 weeks #Atrial fibrillation - paroxysmal - -followed by [facility] [place] Cardiology -difficult to control by report hence flecainide usage -with the Mobitz 1 and propensity for bradycardia I have stopped his coreg -I informally spoke with Dr Seo this week - he agrees with stopping coreg but ok to continue flecainide -cont Eliquis (cautiously) in light of recurrent falls #GERD - -PPI #BPH with LUTS - -cont flomax #Mild cognitive impairment - -due to prior CVA, etc. -can't rule out other factors -MRI brain neg for acute CVA or other acute pathology -check B1 and B6 levels -decompensated hypothyroidism will worsen his impairment -previous B12 level in 06/2024 was wnl #HTN - -stopped coreg -cont losartan -cont bumex -cont aldactone -if additional BP control is needed add amlodipine VTE Prophylaxis - apixaban 5mg BID agree with Dr See that patient lacks capacity to make informed medical decisions at this time I updated pt's daughter Valerie at bedside today she is in agreement for rehab placement; referrals were made today after case management spoke to pt's attempted to call pt's this evening, 01/19 - no answer, left voicemail this weekend recommend discussing rehab with patient would prefer to have pt's & daughter present concurrently during that discussion Admission and Anticipated Discharge Date Admission Date: January 15, 2025 Subjective patient irritable during the visit asked numerous times about leaving to go home and that "my will come pick me up" he was under the impression he was discharging today told him there were no plans for discharge today or tomorrow -at that point he was very upset he wasn't going home asked for ice cream & pudding during my visit denied any physical complaints he did not recall falling on the floor 2 days ago here at the hospital he does not recall the reasons why he was brought to the hospital at one point he was being condescending and making derogatory comments Review of Systems Review of Systems: CV - no chest pain pulm - no dyspnea GI - no pain or nausea Physical Exam Physical Exam: gen - resting in bed comfortably, NAD, irritable head - evidence of old head injury with healed abrasions R face mouth - MMM neck - no JVD heart - lisa, s1 s2, no murmur lungs - CTA b/l abd - soft NT ND BS+ ext - trace-1+ edema feet and shins; pulses 2+ b/l feet psych - ongoing limited to NO insight into medical problems; unable to provide rationale answers to questions; lacks medical capacity/medical decision-making; irritable; perseverates on the same topic Results & Data Results & Data Vital Signs (Past 12 Hours) Vital Signs Temp Pulse Pulse Resp BP Pulse Ox O2 Del Method 01/19/25 20:03 36.8 C 72 18 139/71 98 Room Air 01/19/25 15:42 36.6 C 59 L 125/78 96 Room Air 01/19/25 14:06 66 Laboratory Results Laboratory Results - last 48 hr 01/18/25 01/18/25 01/18/25 06:13 07:19 11:04 WBC 6.63 RBC 3.88 L Hgb 12.2 L Hct 35.4 L MCV 91.2 MCH 31.4 MCHC 34.5 RDW Std Deviation 46.0 RDW Coeff of Jill 13.7 Plt Count 228 MPV 10.9 Immature Gran % (Auto) 0.3 Neut % (Auto) 39.1 Lymph % (Auto) 45.6 [place] % (Auto) 10.1 Eos % (Auto) 3.5 Baso % (Auto) 1.4 Neut # (Auto) 2.60 Lymph # (Auto) 3.02 [place] # (Auto) 0.67 H Eos # (Auto) 0.23 Baso # (Auto) 0.09 Immature Gran # (Auto) 0.02 PT 10.0 INR 0.9 APTT 23 PTT Ratio 0.8 Sodium 138 Potassium 4.2 Chloride 102 Carbon Dioxide 31 Anion Gap 5 BUN 26 H Creatinine 1.15 Est Cr Clr Drug Dosing 77.0 eGFR 70.19 BUN/Creatinine Ratio 22.6 H Glucose 225 H POC Glucose 255 H 209 H Calcium 8.4 L Magnesium 1.8 Total Bilirubin 0.5 AST 18 ALT 14 Alkaline Phosphatase 84 Total Protein 4.7 L Albumin 2.5 L Globulin 2.2 L Albumin/Globulin Ratio 1.1 Urine Color Urine Appearance Urine pH Ur Specific [place] Urine Protein Urine Glucose (UA) Urine Ketones Urine Blood Urine Nitrite Urine Bilirubin Urine Urobilinogen Ur Leukocyte Esterase Urine WBC (Auto) Urine RBC (Auto) U Hyaline Cast (Auto) U Epithel Cells (Auto) Urine Bacteria (Auto) Urine Comment 01/18/25 01/18/25 01/18/25 11:32 16:24 20:31 WBC RBC Hgb Hct MCV MCH MCHC RDW Std Deviation RDW Coeff of Jill Plt Count MPV Immature Gran % (Auto) Neut % (Auto) Lymph % (Auto) [place] % (Auto) Eos % (Auto) Baso % (Auto) Neut # (Auto) Lymph # (Auto) [place] # (Auto) Eos # (Auto) Baso # (Auto) Immature Gran # (Auto) PT INR APTT PTT Ratio Sodium Potassium Chloride Carbon Dioxide Anion Gap BUN Creatinine Est Cr Clr Drug Dosing eGFR BUN/Creatinine Ratio Glucose POC Glucose 196 H 193 H 176 H Calcium Magnesium Total Bilirubin AST ALT Alkaline Phosphatase Total Protein Albumin Globulin Albumin/Globulin Ratio Urine Color Urine Appearance Urine pH Ur Specific [place] Urine Protein Urine Glucose (UA) Urine Ketones Urine Blood Urine Nitrite Urine Bilirubin Urine Urobilinogen Ur Leukocyte Esterase Urine WBC (Auto) Urine RBC (Auto) U Hyaline Cast (Auto) U Epithel Cells (Auto) Urine Bacteria (Auto) Urine Comment 01/19/25 01/19/25 01/19/25 08:13 11:12 15:35 WBC RBC Hgb Hct MCV MCH MCHC RDW Std Deviation RDW Coeff of Jill Plt Count MPV Immature Gran % (Auto) Neut % (Auto) Lymph % (Auto) [place] % (Auto) Eos % (Auto) Baso % (Auto) Neut # (Auto) Lymph # (Auto) [place] # (Auto) Eos # (Auto) Baso # (Auto) Immature Gran # (Auto) PT INR APTT PTT Ratio Sodium Potassium Chloride Carbon Dioxide Anion Gap BUN Creatinine Est Cr Clr Drug Dosing eGFR BUN/Creatinine Ratio Glucose POC Glucose 251 H 198 H 117 H Calcium Magnesium Total Bilirubin AST ALT Alkaline Phosphatase Total Protein Albumin Globulin Albumin/Globulin Ratio Urine Color Urine Appearance Urine pH Ur Specific [place] Urine Protein Urine Glucose (UA) Urine Ketones Urine Blood Urine Nitrite Urine Bilirubin Urine Urobilinogen Ur Leukocyte Esterase Urine WBC (Auto) Urine RBC (Auto) U Hyaline Cast (Auto) U Epithel Cells (Auto) Urine Bacteria (Auto) Urine Comment PG Care Time/CCT Total # of Minutes Spent Total Time Spent with Patient: Total time spent is greater than 50% in coordination of care (as documented) at patient's floor/unit and/or counseling patient: Coding Level of Care Code 64855 SUB INP/OBS CARE 2/35MIN Diagnoses Patient incapable of making informed decisions Z78.9 Episode of unresponsiveness R40.4 Bradycardia R00.1 Hypothermia T68.XXXA Hypoglycemia due to type 1 diabetes mellitus E10.649 Mobitz (type) I (Wenckebach's) atrioventricular block I44.1 Paroxysmal atrial fibrillation I48.0 Hypothyroidism E03.9 Type 1 diabetes mellitus E10.9 Neuroendocrine tumor of pancreas D3A.8 Obstructive sleep apnea of adult G47.33 Falls R29.6
[2025-01-20 04:12] LABS: Appearance Urine Clear (Clear); Bacteria Urine Automated None Seen (None Seen); Cast Urine Automated 0-2 /lpf (0-2); Epithelial Cell Urine Auto 0-2 /hpf (0-2); Glucose Urine UA Negative (Negative); RBC Urine Automated 0-2 /hpf (0-2); WBC Urine Automated 0-5 /hpf (0-5)
[2025-01-20 06:55] LABS: Anion Gap 5.0 (3-11); Blood Urea Nitrogen 27.0 mg/dl (6-23); Calcium 8.4 mg/dl (8.6-10.3); Carbon Dioxide 33.0 mmol/L (21-32); Chloride 100.0 mmol/L (98-107); Creatinine Clr Calc Pharmacy 83.1 ml/min; Glucose 201.0 mg/dl (70-99(Fasting)); Potassium 4.1 mmol/L (3.5-5.1); Sodium 138.0 mmol/L (136-145)
--- NOTE | 2025-01-20 08:36 | CT Scan Report ---
CT SCAN OF THE CERVICAL SPINE CLINICAL HISTORY: Multiple falls. Weakness. Evaluate for fracture. COMPARISON STUDY: Cervical spine CT December 14, 2024. TECHNIQUE: CT scan of the cervical spine is performed from the skull base to the upper thoracic spine . Images are reviewed in the axial, sagittal, and coronal planes. IV contrast was not administered fo r this examination. A dose lowering technique was utilized adhering to the principles of ALARA. CT DOSE: 573.79 mGy.cm FINDINGS: Skeletal structures: Mild reversal of the cervical lordosis and mild anterolisthesis of C5 on C6 is u nchanged. There is no evidence of fracture or subluxation involving the cervical spine. Vertebral bod y height and alignment are maintained. The odontoid process and lateral masses are intact. The atlan toaxial articulation is preserved. The spinous processes appear intact. Moderate multilevel degenerat alejandrina disc disease is present. Disc space narrowing is most pronounced at the C6-C7 level. There is mod erate multilevel facet arthrosis. Soft tissues: The prevertebral and paraspinous soft tissues are within normal limits. Calvarium: The visualized calvarium at the skull base appears intact. Brain parenchyma: Partially visualized brain parenchyma at the skull base is within normal limits. Lung apices: Clear as visualized. IMPRESSION: No acute cervical spine fracture or subluxation. ACT 112: Negative or not required by law. Electronically signed by: Donta Pal M.D. 01/20/2025 8:34 AM
[2025-01-20] MEDS: CHOLECALCIFEROL 125 MCG (5,000 UNITS) TAB PO SCH (09:01)
--- NOTE | 2025-01-20 16:08 | Hospitalist Progress Note ---
Date of Service January 20, 2025 Assessment & Plan (1) Patient incapable of making informed decisions: (2) Episode of unresponsiveness: (3) Bradycardia: (4) Hypothermia: (5) Hypoglycemia due to type 1 diabetes mellitus: (6) Mobitz (type) I (Wenckebach's) atrioventricular block: (7) Paroxysmal atrial fibrillation: (8) Hypothyroidism: (9) Type 1 diabetes mellitus: (10) Neuroendocrine tumor of pancreas: (11) Obstructive sleep apnea of adult: (12) Falls: Plan The patient is a 64-year-old male with a past medical history including hypothyroidism, cerebrovascular disease, mild cognitive impairment status post CVA, morbid obesity, pleural effusion, paroxysmal atrial fibrillation, hypoglycemia due to diabetes mellitus type 1, neuroendocrine tumor of pancreas, BPH, chronic diastolic CHF, diabetic nephropathy and retinopathy, and obstructive sleep apnea. Found on the floor at home unresponsive by his . EMS summoned; glucose was in the 50s. Given D50W by EMS - brought to [facility]. Hypothermic with temperature 34.1 and placed on Kenia hugger. He was found to be bradycardic, with heart rate when he would fall asleep down into the mid 30s, with short 2 to 3-second pauses on monitor. His heart rate with immediately resumed back to 50s to 60s, with being awoken. #fall at home with head injury; then had fall 01/17/25 in his hospital room (getting up from the chair) - -head CT neg -MRI brain neg -CT cervical spine neg for fracture (moderate DJD/DDD only) -no injury on 01/17 exam despite the fall -increased fall risk likely from diabetic neuropathy, etc. #Episode of unresponsiveness/hypoglycemia/T1DM - present on admission - -fall/unresponsiveness at home - just prior to presentation to [facility] -patient unable to appropriately manage his T1DM with complex insulin regimen at home -this has been an ongoing problem for some time -follows with Dr Li, [facility] Endo/DM -by report - per his he continues to insist on doing his own insulin and not taking lantus (only using humalog at home) -patient cannot tell me what would happen or what to do in the event of hypoglycemia -appreciate pharmacy glycemic team recs; appreciate development educator and recs #Chronic Lipodermatosclerosis on right sebastian - stable #hypothermia - present on admission - -2nd to severe hypoglycemia -no infectious source found -resolved, has not recurred #Hypothyroidism - -TSH 39 -doubt compliance with levothyroxine at home -would not change dosing -continue his usual dose of levothyroxine -repeat level in 4 weeks -suspect that some of his altered mental status/cognitive impairment could be worsened by this issue #Atrial fibrillation - paroxysmal - -followed by [facility] Cardiology -difficult to control by report hence flecainide usage -with the Mobitz 1 and propensity for bradycardia I have stopped his coreg -I informally spoke with Dr Seo this week - he agrees with stopping coreg but ok to continue flecainide -cont Eliquis (cautiously) in light of recurrent falls #GERD - -PPI #BPH with LUTS - -cont flomax #Mild cognitive impairment - -due to prior CVA, etc. -can't rule out other factors -MRI brain neg for acute CVA or other acute pathology -check B1 and B6 levels -decompensated hypothyroidism will worsen his impairment -previous B12 level in 06/2024 was wnl #HTN - -stopped coreg -cont losartan -cont bumex -cont aldactone -needs better BP control; add amlodipine 2.5mg daily VTE Prophylaxis - apixaban 5mg BID agree with Dr Colt See from my team that patient lacks capacity to make informed medical decisions at this time I updated pt's daughter Valerie at bedside yesterday and by phone 01/18 she is in agreement for rehab placement; referrals made attempted to call pt's this evening, 01/20 as well as 01/19 - no answer, left voicemails each time will try to call daughter tomorrow morning need family meeting with the patient, myself, and his daughter/ Admission and Anticipated Discharge Date Admission Date: January 15, 2025 Subjective no events overnight per staff continues to ask about going home with his during my visit he did not ask about hospital discharge there have been no medical issues throughout the day today Review of Systems Review of Systems: gen - denies pain in any location CV - no chest pain pulm - no dyspnea GI - no nausea Physical Exam Physical Exam: gen - resting in bed comfortably, NAD, calm today; watching TV head - resolving/hearling abrasions R face mouth - MMM neck - no JVD heart - lisa, s1 s2, no murmur lungs - CTA b/l abd - soft NT ND BS+ ext - 1+ edema feet and shins; pulses 2+ b/l feet psych - did not assess his mental status today Results & Data Results & Data Vital Signs (Past 12 Hours) Vital Signs Temp Pulse Pulse Resp BP BP Pulse Ox 01/20/25 15:03 36.7 C 71 16 121/72 98 01/20/25 13:43 74 01/20/25 11:07 37.1 C 67 18 110/66 94 01/20/25 07:37 48 L 01/20/25 07:30 01/20/25 07:08 36.6 C 58 L 18 180/90 H 95 01/20/25 05:46 36.7 C 55 L 18 177/79 H 96 O2 Del Method 01/20/25 15:03 Room Air 01/20/25 13:43 01/20/25 11:07 Room Air 01/20/25 07:37 01/20/25 07:30 Room Air 01/20/25 07:08 Room Air 01/20/25 05:46 Room Air Laboratory Results Laboratory Results - last 48 hr 01/19/25 01/19/25 01/19/25 11:12 15:35 21:13 Sodium Potassium Chloride Carbon Dioxide Anion Gap BUN Creatinine Est Cr Clr Drug Dosing eGFR BUN/Creatinine Ratio Glucose POC Glucose 198 H 117 H 162 H Calcium Urine Color Urine Appearance Urine pH Ur Specific [place] Urine Protein Urine Glucose (UA) Urine Ketones Urine Blood Urine Nitrite Urine Bilirubin Urine Urobilinogen Ur Leukocyte Esterase Urine WBC (Auto) Urine RBC (Auto) U Hyaline Cast (Auto) U Epithel Cells (Auto) Urine Bacteria (Auto) Urine Comment 01/20/25 01/20/25 01/20/25 03:50 06:01 07:06 Sodium 138 Potassium 4.1 Chloride 100 Carbon Dioxide 33 H Anion Gap 5 BUN 27 H Creatinine 1.06 Est Cr Clr Drug Dosing 83.1 eGFR 77.40 BUN/Creatinine Ratio 25.5 H Glucose 201 H POC Glucose 185 H Calcium 8.4 L Urine Color Yellow Urine Appearance Clear Urine pH 7.5 Ur Specific [place] 1.011 Urine Protein 3+ H Urine Glucose (UA) Negative Urine Ketones Negative Urine Blood Trace H Urine Nitrite Negative Urine Bilirubin Negative Urine Urobilinogen Negative Ur Leukocyte Esterase Negative Urine WBC (Auto) 0-5 Urine RBC (Auto) 0-2 U Hyaline Cast (Auto) 0-2 U Epithel Cells (Auto) 0-2 Urine Bacteria (Auto) None Seen Urine Comment 01/20/25 01/20/25 01/20/25 11:09 15:51 16:25 Sodium Potassium Chloride Carbon Dioxide Anion Gap BUN Creatinine Est Cr Clr Drug Dosing eGFR BUN/Creatinine Ratio Glucose POC Glucose 274 H 306 H* 267 H Calcium Urine Color Urine Appearance Urine pH Ur Specific [place] Urine Protein Urine Glucose (UA) Urine Ketones Urine Blood Urine Nitrite Urine Bilirubin Urine Urobilinogen Ur Leukocyte Esterase Urine WBC (Auto) Urine RBC (Auto) U Hyaline Cast (Auto) U Epithel Cells (Auto) Urine Bacteria (Auto) Urine Comment Diagnostic Findings Cervical Spine CT 01/20/25 07:30 CT SCAN OF THE CERVICAL SPINE CLINICAL HISTORY: Multiple falls. Weakness. Evaluate for fracture. COMPARISON STUDY: Cervical spine CT December 14, 2024. TECHNIQUE: CT scan of the cervical spine is performed from the skull base to the upper thoracic spine. Images are reviewed in the axial, sagittal, and coronal planes. IV contrast was not administered for this examination. A dose lowering technique was utilized adhering to the principles of ALARA. CT DOSE: 573.79 mGy.cm FINDINGS: Skeletal structures: Mild reversal of the cervical lordosis and mild anterolisthesis of C5 on C6 is unchanged. There is no evidence of fracture or subluxation involving the cervical spine. Vertebral body height and alignment are maintained. The odontoid process and lateral masses are intact. The atlantoaxial articulation is preserved. The spinous processes appear intact. Moderate multilevel degenerative disc disease is present. Disc space narrowing is most pronounced at the C6-C7 level. There is moderate multilevel facet arthrosis. Soft tissues: The prevertebral and paraspinous soft tissues are within normal limits. Calvarium: The visualized calvarium at the skull base appears intact. Brain parenchyma: Partially visualized brain parenchyma at the skull base is within normal limits. Lung apices: Clear as visualized. IMPRESSION: No acute cervical spine fracture or subluxation. ACT 112: Negative or not required by law. Electronically signed by: Donta Pal M.D. 01/20/2025 8:34 AM PG Care Time/CCT Total # of Minutes Spent Total Time Spent with Patient: Total time spent is greater than 50% in coordination of care (as documented) at patient's floor/unit and/or counseling patient: Coding Level of Care Code 14716 SUB INP/OBS CARE 2/35MIN Diagnoses Patient incapable of making informed decisions Z78.9 Episode of unresponsiveness R40.4 Bradycardia R00.1 Hypothermia T68.XXXA Hypoglycemia due to type 1 diabetes mellitus E10.649 Mobitz (type) I (Wenckebach's) atrioventricular block I44.1 Paroxysmal atrial fibrillation I48.0 Hypothyroidism E03.9 Type 1 diabetes mellitus E10.9 Neuroendocrine tumor of pancreas D3A.8 Obstructive sleep apnea of adult G47.33 Falls R29.6
[2025-01-20] MEDS: INSULIN HUMAN REGULAR PER UNIT 5 UNITS in SYRINGE 4.95 ML IV ONE (16:11)
[2025-01-21] MEDS: INSULIN ASPART PER UNIT CHARGE SC SCH ×2 (00:52→08:30)
--- NOTE | 2025-01-21 13:59 | Pharmacy Report ---
Pharmacy Glycemic Short Note 2 - Date of Service January 21, 2025 - Glycemic Short BSG Results (Last 24 hours): 01/20/25 01/20/25 01/20/25 15:51 16:25 20:04 POC Glucose 306 H* 267 H 148 H 01/21/25 01/21/25 01/21/25 00:43 11:07 11:09 POC Glucose 238 H 319 H* 265 H 01/21/25 11:18 POC Glucose 263 H OUTPATIENT ANTIDIABETIC REGIMEN: * Per Dr. Li's 12/2024 note: Lantus 40 units BID and Humalog 15 units twice or three times daily with meals * A1c: 9.1% 01/16/25 ASSESSMENT: 01/21: * Patient received total of 51 units of insulin yesterday, of which 15 units were basal insulin * BSGs trending up last evening, discussed with RN and patient snacking in between meals. Covered BSG last evening with IV insulin bolus * Patient refusing AM labs, including POC BSG - instructed RN to cover only carbs and continue same basal insulin * Anticipate basal needs likely to increase, will provide small adjustment for tomorrow AM 01/19: * Patient received total of 43 units of insulin yesterday, of which 12 units were basal insulin * Fasting BSG 251 mg/dL - however discussed with RN and this blood sugar was taken after he already ate breakfast. RN also noting patient eating snacks at bedtime. * Outpatient basal insulin much higher, feel that patient would benefit from slight increase in basal. Will increase to 15 units this AM 01/17: * Arturo received a total of 41 units of insulin yesterday (15 units were basal and 26 units were bolus). Although he received much less insulin than what he uses at home his blood glucose started to drop around dinner time yesterday and was 89mg/dL at HS. Bolus insulin parameters were loosened. * Fasting BSG was 316mg/dL this morning. Will add/adjust insulin cautiously as his blood glucose levels seem to be bouncing up and down. Added Lantus 10 units SQ daily and will continue Lantus scale at HS * Lunch BSG still > 300mg/dL, so tightened bolus insulin parameters to a stress of 2. 01/16: * T1DM presented after being found down at 3pm yesterday with profound and sustained hypoglycemia. Patient was started on a dextrose infusion which was discontinued this morning when BSG reached 456 mg/dL ~0400. Since then, BSG has surprisingly downtrended quickly, despite patient also eating breakfast: [phone] mg/dL. Because of this and as we do not definitively know what insulin was taken yesterday, it was determined through multidisciplinary discussion to hold AM basal insulin administration and further assess trend. BSG seemed to stabilize in the mid 200s around lunch time and thus conservative basal insulin dosing was initiated. * Per provider, patient noting he is not taking basal insulin at home, despite recent endocrine note confirming above regimen. It is noted by the providers that patient appears confused and may not be able to manage insulin regimen appropriately, further confounding the true picture. PLAN FOR INPATIENT GLYCEMIC CONTROL: * Hold outpatient diabetes medications * Basal insulin * Lantus 17 units once daily * Bolus insulin * NovoLog per scale ACHS or Q6hrs while NPO * Goal Range: Low 120 mg/dL - High 160 mg/dL * Correction Factor: 25 mg/dL/unit * Nutritional / Prandial insulin per carb ratio of 1 unit per 8 grams CHO consumed
--- NOTE | 2025-01-21 20:28 | Hospitalist Progress Note ---
Date of Service January 21, 2025 Assessment & Plan (1) Patient incapable of making informed decisions: (2) Episode of unresponsiveness: (3) Bradycardia: (4) Hypothermia: (5) Hypoglycemia due to type 1 diabetes mellitus: (6) Mobitz (type) I (Wenckebach's) atrioventricular block: (7) Paroxysmal atrial fibrillation: (8) Hypothyroidism: (9) Type 1 diabetes mellitus: (10) Neuroendocrine tumor of pancreas: (11) Obstructive sleep apnea of adult: (12) Falls: Plan The patient is a 64-year-old male with a past medical history including hypothyroidism, cerebrovascular disease, mild cognitive impairment status post CVA, morbid obesity, pleural effusion, paroxysmal atrial fibrillation, hypoglycemia due to diabetes mellitus type 1, neuroendocrine tumor of pancreas, BPH, chronic diastolic CHF, diabetic nephropathy and retinopathy, and obstructive sleep apnea. Found on the floor at home unresponsive by his . EMS summoned; glucose was in the 50s. Given D50W by EMS - brought to [facility]. Hypothermic with temperature 34.1 and placed on Kenia hugger. He was found to be bradycardic, with heart rate when he would fall asleep down into the mid 30s, with short 2 to 3-second pauses on monitor. His heart rate with immediately resumed back to 50s to 60s, with being awoken. #lack of medical capacity - -patient continues to demonstrate lack of medical decision-making capacity -he cannot tell me or his family what he can do at home to maintain safety from a fall standpoint as well as his glycemic control -he gives odd answers about what he would do if he was hypoglycemic, has shown time and time again that he cannot safely control his diabetes, and he has shown over a long period of time that he is not safe to be alone and is not safe to ambulate independently -per his family he has lost the ability to do basic ADLs at home, perform higher executive function tasks, etc. -there is, without question, cognitive impairment - likely of vascular etiology; cannot rule out decompensated hypothyroidism contributing -his lack of medical capacity has been consistent since I assumed his care last Wednesday -prior to me Dr Colt See also felt Mr Rodríguez does not retain medical decision-making capacity -thus, although he is objecting to being placed at rehab, these decisions fall to his family who are acting on his behalf to maintain his safety and prevent additional morbidity #fall at home with head injury; then had fall 01/17/25 in his hospital room (getting up from the chair) - -head CT neg -MRI brain neg -CT cervical spine neg for fracture (moderate DJD/DDD only) -no injury on 01/17 exam despite the fall -increased fall risk likely from diabetic neuropathy, etc. #Episode of unresponsiveness/hypoglycemia/T1DM - present on admission - -fall/unresponsiveness at home - just prior to presentation to [facility] -patient unable to appropriately manage his T1DM with complex insulin regimen at home -this has been an ongoing problem for some time -follows with Dr Li, [facility] [place] Endo/DM -by report - per his he continues to insist on doing his own insulin and not taking lantus (only using humalog at home) -patient cannot tell me what would happen or what to do in the event of hypoglycemia -appreciate pharmacy glycemic team recs; appreciate staff development educator and recs #Chronic Lipodermatosclerosis on right sebastian - stable #hypothermia - present on admission - -2nd to severe hypoglycemia -no infectious source found -resolved, has not recurred #Hypothyroidism - -TSH 39 -doubt compliance with levothyroxine at home -would not change dosing -continue his usual dose of levothyroxine -repeat level in 4 weeks -suspect that some of his altered mental status/cognitive impairment could be worsened by this issue #Atrial fibrillation - paroxysmal - -followed by [facility] Cardiology -difficult to control by report hence flecainide usage -with the Mobitz 1 and propensity for bradycardia I have stopped his coreg -I informally spoke with Dr Seo this week - he agrees with stopping coreg but ok to continue flecainide -cont Eliquis (cautiously) in light of recurrent falls -tele had been stable until he took off his tele leads #GERD - -PPI #BPH with LUTS - -cont flomax #Mild cognitive impairment - -due to prior CVA, etc. -can't rule out other factors -MRI brain neg for acute CVA or other acute pathology -check B1 and B6 levels -decompensated hypothyroidism will worsen his impairment -previous B12 level in 06/2024 was wnl #HTN - -stopped coreg -cont losartan -cont bumex -cont aldactone -cont amlodipine 2.5mg daily VTE Prophylaxis - apixaban 5mg BID see discussion above re: lack of medical decision-making capacity , daughter, etc all updated at bedside today d/c tele formally --> move to med/surg dispo -- rehab Admission and Anticipated Discharge Date Admission Date: January 15, 2025 Subjective patient refusing to wear his telemetry leads during my visit today (about 1pm) his , 7yo son, daughter, and son-in-law were all present we had a very lengthy discussion about his disposition even before we started the talk he said "I want to go home" we discussed his recurrent falls (including the fall this past Wednesday in his room here -- took multiple staff members to get him up) and his inability to manage his diabetes we discussed that he is not safe at home because there are times when he is alone we then discussed him going to rehab rather than to home he could not understand the issue of the recurrent falls and the recurrent hypoglycemic events I asked him "what if you have a low blood sugar and you are on the floor and you are unresponsive -- what would you do in that situation if you are alone?" he responded "I would eat something" (obviously that would not be possible if he was unresponsive) his family was very upset during the conversation multiple times he said "I'm going home" family reiterated that he can't go home - he is not safe, there is not enough help to help him, etc. I recommended at that point that we pause further discussion to give him a break and allow him to calm down as he was very agitated at that point Physical Exam Physical Exam: gen - resting in bed comfortably; very upset about the conversation about rehab vs home psych - awake, alert; LITTLE TO NO INSIGHT about proper judgement, choices, etc. Results & Data Results & Data Vital Signs (Past 12 Hours) refusing vitals this AM PG Care Time/CCT Total # of Minutes Spent Total Time Spent with Patient: Total time spent is greater than 50% in coordination of care (as documented) at patient's floor/unit and/or counseling patient: Coding Level of Care Code 93911 SUB INP/OBS CARE 3/50MIN Diagnoses Patient incapable of making informed decisions Z78.9 Episode of unresponsiveness R40.4 Bradycardia R00.1 Hypothermia T68.XXXA Hypoglycemia due to type 1 diabetes mellitus E10.649 Mobitz (type) I (Wenckebach's) atrioventricular block I44.1 Paroxysmal atrial fibrillation I48.0 Hypothyroidism E03.9 Type 1 diabetes mellitus E10.9 Neuroendocrine tumor of pancreas D3A.8 Obstructive sleep apnea of adult G47.33 Falls R29.6
[2025-01-22] MEDS: LANTUS PER UNIT CHARGE SC SCH (10:40)
--- NOTE | 2025-01-22 13:41 | Pharmacy Report ---
Pharmacy Glycemic Short Note 2 - Date of Service January 22, 2025 - Glycemic Short BSG Results (Last 24 hours): 01/21/25 01/22/25 01/22/25 21:02 07:27 07:30 POC Glucose 205 H 338 H* 302 H* 01/22/25 01/22/25 01/22/25 07:32 11:42 11:44 POC Glucose 301 H* 369 H* 347 H* 01/22/25 11:48 POC Glucose 349 H* OUTPATIENT ANTIDIABETIC REGIMEN: * Per Dr. Li's 12/2024 note: Lantus 40 units BID and Humalog 15 units twice or three times daily with meals * A1c: 9.1% 01/16/25 ASSESSMENT: 01/22 * Patient received total of 51 units of insulin yesterday, of which 15 units were basal insulin * Fasting BSG 301 mg/dL - discussed with RN and cannot confirm if patient was eating when this was taken. Reasonable to provide slight increase in basal dose. Patient refused blood sugar checks twice yesterday. * Insulin this AM delayed and never given until closer to lunch time. Notified provider of above - reports patient refusing nearly all levels of care currently. * Recommended to provider on checking BMP 01/21: * Patient received total of 51 units of insulin yesterday, of which 15 units were basal insulin * BSGs trending up last evening, discussed with RN and patient snacking in between meals. Covered BSG last evening with IV insulin bolus * Patient refusing AM labs, including POC BSG - instructed RN to cover only carbs and continue same basal insulin * Anticipate basal needs likely to increase, will provide small adjustment for tomorrow AM 01/19: * Patient received total of 43 units of insulin yesterday, of which 12 units were basal insulin * Fasting BSG 251 mg/dL - however discussed with RN and this blood sugar was taken after he already ate breakfast. RN also noting patient eating snacks at bedtime. * Outpatient basal insulin much higher, feel that patient would benefit from slight increase in basal. Will increase to 15 units this AM 01/17: * Arturo received a total of 41 units of insulin yesterday (15 units were basal and 26 units were bolus). Although he received much less insulin than what he uses at home his blood glucose started to drop around dinner time yesterday and was 89mg/dL at HS. Bolus insulin parameters were loosened. * Fasting BSG was 316mg/dL this morning. Will add/adjust insulin cautiously as his blood glucose levels seem to be bouncing up and down. Added Lantus 10 units SQ daily and will continue Lantus scale at HS * Lunch BSG still > 300mg/dL, so tightened bolus insulin parameters to a stress of 2. 01/16: * T1DM presented after being found down at 3pm yesterday with profound and sustained hypoglycemia. Patient was started on a dextrose infusion which was discontinued this morning when BSG reached 456 mg/dL ~0400. Since then, BSG has surprisingly downtrended quickly, despite patient also eating breakfast: [phone] mg/dL. Because of this and as we do not definitively know what insulin was taken yesterday, it was determined through multidisciplinary discussion to hold AM basal insulin administration and further assess trend. BSG seemed to stabilize in the mid 200s around lunch time and thus conservative basal insulin dosing was initiated. * Per provider, patient noting he is not taking basal insulin at home, despite recent endocrine note confirming above regimen. It is noted by the providers that patient appears confused and may not be able to manage insulin regimen appropriately, further confounding the true picture. PLAN FOR INPATIENT GLYCEMIC CONTROL: * Hold outpatient diabetes medications * Basal insulin * Lantus 17 units once daily * Bolus insulin * NovoLog per scale ACHS or Q6hrs while NPO * Goal Range: Low 120 mg/dL - High 160 mg/dL * Correction Factor: 25 mg/dL/unit * Nutritional / Prandial insulin per carb ratio of 1 unit per 8 grams CHO consumed
--- NOTE | 2025-01-22 20:14 | Hospitalist Progress Note ---
Date of Service January 22, 2025 Assessment & Plan (1) Patient incapable of making informed decisions: (2) Episode of unresponsiveness: (3) Bradycardia: (4) Hypothermia: (5) Hypoglycemia due to type 1 diabetes mellitus: (6) Mobitz (type) I (Wenckebach's) atrioventricular block: (7) Paroxysmal atrial fibrillation: (8) Hypothyroidism: (9) Type 1 diabetes mellitus: (10) Neuroendocrine tumor of pancreas: (11) Obstructive sleep apnea of adult: (12) Falls: Plan The patient is a 64-year-old male with a past medical history including hypothyroidism, cerebrovascular disease, mild cognitive impairment status post CVA, morbid obesity, pleural effusion, paroxysmal atrial fibrillation, hypoglycemia due to diabetes mellitus type 1, neuroendocrine tumor of pancreas, BPH, chronic diastolic CHF, diabetic nephropathy and retinopathy, and obstructive sleep apnea. Found on the floor at home unresponsive by his . EMS summoned; glucose was in the 50s. Given D50W by EMS - brought to [facility]. Hypothermic with temperature 34.1 and placed on Kenia hugger. He was found to be bradycardic, with heart rate when he would fall asleep down into the mid 30s, with short 2 to 3-second pauses on monitor. His heart rate with immediately resumed back to 50s to 60s, with being awoken. #lack of medical capacity - -patient continues to demonstrate lack of medical decision-making capacity -he cannot tell me or his family what he can do at home to maintain safety from a fall standpoint as well as his glycemic control -he gives odd answers about what he would do if he was hypoglycemic, has shown time and time again that he cannot safely control his diabetes, and he has shown over a long period of time that he is not safe to be alone and is not safe to ambulate independently -per his family he has lost the ability to do basic ADLs at home, perform higher executive function tasks, etc. -there is, without question, cognitive impairment - likely of vascular etiology; cannot rule out decompensated hypothyroidism contributing -he does not remember our lengthy family meeting we had yesterday which focused on his discharge plan (going to rehab rather than home) -his lack of medical capacity has been consistent since I assumed his care last Wednesday -prior to me Dr Colt See also felt Mr Rodríguez does not retain medical decision-making capacity -thus, although he is objecting to being placed at rehab, these decisions fall to his family who are acting on his behalf to maintain his safety and prevent additional morbidity #fall at home with head injury; then had fall 01/17/25 in his hospital room (getting up from the chair) - -head CT neg -MRI brain neg -CT cervical spine neg for fracture (moderate DJD/DDD only) -no injury on 01/17 exam despite the fall -increased fall risk likely from diabetic neuropathy, etc. #Episode of unresponsiveness/hypoglycemia/T1DM - present on admission - -fall/unresponsiveness at home - just prior to presentation to [facility] -patient unable to appropriately manage his T1DM with complex insulin regimen at home -this has been an ongoing problem for some time -follows with Dr Li, [facility] Endo/DM -by report - per his he continues to insist on doing his own insulin and not taking lantus (only using humalog at home) -patient cannot tell me what would happen or what to do in the event of hypoglycemia -appreciate pharmacy glycemic team recs; appreciate museum educator and recs #Chronic Lipodermatosclerosis on right sebastian - stable #hypothermia - present on admission - -2nd to severe hypoglycemia -no infectious source found #Hypothyroidism - -TSH 39 -doubt compliance with levothyroxine at home -would not change dosing -continue his usual dose of levothyroxine -repeat level in 4 weeks -suspect that some of his cognitive impairment could be worsened by this issue #Atrial fibrillation - paroxysmal - -followed by [facility] Cardiology -difficult to control by report hence flecainide usage -with the Mobitz 1 and propensity for bradycardia I have stopped his coreg -I informally spoke with Dr Seo last week - he recommended stopping the coreg but ok to continue flecainide -cont Eliquis (cautiously) in light of recurrent falls -tele had been stable until he took off his tele leads yesterday #GERD - -PPI #BPH with LUTS - -cont flomax #Mild cognitive impairment - -due to prior CVA, etc. -can't rule out other factors -MRI brain neg for acute CVA or other acute pathology -check B1 and B6 levels -decompensated hypothyroidism will worsen his impairment -previous B12 level in 06/2024 was wnl #HTN - -stopped coreg -cont losartan -cont bumex -cont aldactone -cont amlodipine 2.5mg daily -when he is upset his BP rises; would not treat those spikes VTE Prophylaxis - apixaban 5mg BID see discussion above re: lack of medical decision-making capacity updated pt's daughter Natasha this evening, 01/22 awaiting dispo/rehab placement Admission and Anticipated Discharge Date Admission Date: January 15, 2025 Subjective patient has continued to decline various aspects of his care and has been upset that he isn't being allowed to go home during my visit he clearly did NOT recall our family meeting yesterday which involved talking about going to rehab he asked at least 5 times when he was leaving to go home per staff no medical concerns eating fair denied any pain in any location during my encounter Physical Exam Physical Exam: gen - lying in bed, looks tired, but NAD; asks about discharge mouth - MMM neck - no JVD heart - RRR, s1 s2 lungs - CTA b/l abd - soft NT ND BS+ ext - <1+ edema b/l, pulses b/l feet 2+ psych - no insight, no recall of recent events, disoriented Results & Data Results & Data Vital Signs (Past 12 Hours) Vital Signs Temp Pulse Resp BP Pulse Ox O2 Del Method 01/22/25 16:45 36.6 C 61 16 138/69 97 Room Air PG Care Time/CCT Total # of Minutes Spent Total Time Spent with Patient: Total time spent is greater than 50% in coordination of care (as documented) at patient's floor/unit and/or counseling patient: Coding Level of Care Code 46379 SUB INP/OBS CARE 04/08MIN Diagnoses Patient incapable of making informed decisions Z78.9 Episode of unresponsiveness R40.4 Bradycardia R00.1 Hypothermia T68.XXXA Hypoglycemia due to type 1 diabetes mellitus E10.649 Mobitz (type) I (Wenckebach's) atrioventricular block I44.1 Paroxysmal atrial fibrillation I48.0 Hypothyroidism E03.9 Type 1 diabetes mellitus E10.9 Neuroendocrine tumor of pancreas D3A.8 Obstructive sleep apnea of adult G47.33 Falls R29.6
[2025-01-22] MEDS: MELATONIN 3 MG TAB PO SCH (21:24)
[2025-01-23] MEDS: INSULIN ASPART PER UNIT CHARGE SC SCH (00:28)
[2025-01-24] MEDS: SODIUM CHLORIDE 0.65% NA SOLN 45 ML (OCEAN) PRN (02:19)
--- NOTE | 2025-01-24 07:54 | Hospitalist Progress Note ---
Date of Service January 23, 2025 Assessment & Plan (1) Patient incapable of making informed decisions: (2) Episode of unresponsiveness: (3) Bradycardia: (4) Hypothermia: (5) Hypoglycemia due to type 1 diabetes mellitus: (6) Mobitz (type) I (Wenckebach's) atrioventricular block: (7) Paroxysmal atrial fibrillation: (8) Hypothyroidism: (9) Type 1 diabetes mellitus: (10) Neuroendocrine tumor of pancreas: (11) Obstructive sleep apnea of adult: (12) Falls: Plan The patient is a 64-year-old male with a past medical history including hypothyroidism, cerebrovascular disease, mild cognitive impairment status post CVA, morbid obesity, pleural effusion, paroxysmal atrial fibrillation, hypoglycemia due to diabetes mellitus type 1, neuroendocrine tumor of pancreas, BPH, chronic diastolic CHF, diabetic nephropathy and retinopathy, and obstructive sleep apnea. Found on the floor at home unresponsive by his . EMS summoned; glucose was in the 50s. Given D50W by EMS - brought to [facility]. Hypothermic with temperature 34.1 and placed on Kenia hugger. He was found to be bradycardic, with heart rate when he would fall asleep down into the mid 30s, with short 2 to 3-second pauses on monitor. His heart rate with immediately resumed back to 50s to 60s, with being awoken. #lack of medical capacity - -patient continues to demonstrate lack of medical decision-making capacity -I have not seen any meaningful improvement in his ability to make rational decisions, demonstrate intact thought processes and reasoning skills, etc. -PT note from yesterday documents that he needed considerable assistance to stand, and once standing he could not walk even with his walker (told PT his legs were weak) -he cannot tell me or his family what he can do at home to maintain safety from a fall standpoint as well as his glycemic control -he gives odd answers about what he would do if he was hypoglycemic, has shown time and time again that he cannot safely control his diabetes, and he has shown over a long period of time that he is not safe to be alone and is not safe to ambulate independently -per his family he has lost the ability to do basic ADLs at home, perform higher executive function tasks, etc. -there is, without question, cognitive impairment - likely of vascular etiology; cannot rule out decompensated hypothyroidism contributing -again he does not remember our lengthy family meeting we had on 01/21/25, which focused on his discharge plan (going to rehab rather than home) -his lack of medical capacity has been consistent since I assumed his care last 01/17/25 -prior to me Dr Colt See also felt Mr Rodríguez does not retain medical decision-making capacity -thus, although he is objecting to being placed at rehab, these decisions fall to his family who are acting on his behalf to maintain his safety and prevent additional morbidity #fall at home with head injury; then had fall 01/17/25 in his hospital room (getting up from the chair) - -head CT neg -MRI brain neg -CT cervical spine neg for fracture (moderate DJD/DDD only) -no injury on 01/17 exam despite the fall -increased fall risk likely from diabetic neuropathy, etc. #Episode of unresponsiveness/hypoglycemia/T1DM - present on admission - -fall/unresponsiveness at home - just prior to presentation to [facility] -patient unable to appropriately manage his T1DM with complex insulin regimen at home -this has been an ongoing problem for some time -[place] [facility] [place] -by report - per his he continues to insist on doing his own insulin and not taking lantus (only using humalog at home) -by report he will stack shots of humalog due to persistent highs -patient cannot tell me what would happen or what to do in the event of hypoglycemia -appreciate pharmacy glycemic team recs; appreciate hematology nurse educator and recs #Chronic Lipodermatosclerosis on right sebastian - stable #hypothermia - present on admission - -2nd to severe hypoglycemia -no infectious source found #Hypothyroidism - -TSH 39 -doubt compliance with levothyroxine at home -would not change dosing -continue his usual dose of levothyroxine -repeat level in 4 weeks -suspect that some of his cognitive impairment could be worsened by this issue #Atrial fibrillation - paroxysmal - -followed by [facility] [place] -difficult to control by report hence flecainide usage -when he was on telemetry there was no PAF seen -with the Mobitz 1 and propensity for bradycardia coreg was stopped -I informally spoke with Dr Seo last week - he recommended stopping the coreg but ok to continue flecainide -cont Eliquis (cautiously) in light of recurrent falls -tele had been stable until he took off his tele leads 2 days ago -since he refused to allow his leads to be placed back on we moved him from PCU to med/surg #GERD - -PPI #BPH with LUTS - -cont flomax #Mild cognitive impairment - -due to prior CVA, etc. -thus, cognitive impairment is likely on the basis of vascular disease -can't rule out other factors -MRI brain neg for acute CVA or other acute pathology -checked B1 and B6 levels - both pending -decompensated hypothyroidism will worsen his impairment -previous B12 level in 06/2024 was wnl #HTN - -stopped coreg -cont losartan -cont bumex -cont aldactone -cont amlodipine 2.5mg daily -when he is upset his BP rises; would not treat those spikes VTE Prophylaxis - apixaban 5mg BID see discussion above re: lack of medical decision-making capacity updated pt's daughter Natasha 01/22 and again this evening, 01/23 (at bedside) awaiting dispo/rehab placement SNF?? 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 you can't walk dad...." he responded "I'll figure something out" I asked him "if you are at home alone, and have to have a bowel movement, and you can't walk -- what will you do?" long pause - then said - "I'll find something to poop in." he still does not remember anything from our 30 minute family meeting on Wednesday (which is when we told him he was going to rehab) Review of Systems Review of Systems: unable to obtain full ROS - patient asked me to leave the room did have stool earlier today Physical Exam Physical Exam: gen - lying in bed, disheveled, angry/irate, yelling at times psych - very poor insight, confused refused to allow me to examine him Results & Data Results & Data Vital Signs (Past 12 Hours) Vital Signs Temp Pulse Resp BP Pulse Ox O2 Del Method 01/23/25 14:37 36.6 C 65 18 158/68 H 97 Room Air Laboratory Results Laboratory Results - last 48 hr 01/22/25 01/22/25 01/22/25 11:42 11:44 11:48 POC Glucose 369 H* 347 H* 349 H* 01/22/25 01/22/25 01/23/25 16:45 20:30 00:23 POC Glucose 129 H 175 H 158 H PG Care Time/CCT Total # of Minutes Spent Total Time Spent with Patient: Total time spent is greater than 50% in coordination of care (as documented) at patient's floor/unit and/or counseling patient: Coding Level of Care Code 30886 SUB INP/OBS CARE 2/35MIN Diagnoses Patient incapable of making informed decisions Z78.9 Episode of unresponsiveness R40.4 Bradycardia R00.1 Hypothermia T68.XXXA Hypoglycemia due to type 1 diabetes mellitus E10.649 Mobitz (type) I (Wenckebach's) atrioventricular block I44.1 Paroxysmal atrial fibrillation I48.0 Hypothyroidism E03.9 Type 1 diabetes mellitus E10.9 Neuroendocrine tumor of pancreas D3A.8 Obstructive sleep apnea of adult G47.33 Falls R29.6
--- NOTE | 2025-01-24 11:12 | Pharmacy Report ---
Pharmacy Glycemic Short Note 2 - Date of Service January 24, 2025 - Glycemic Short BSG Results (Last 24 hours): 01/23/25 01/24/25 21:52 09:05 POC Glucose 161 H 271 H OUTPATIENT ANTIDIABETIC REGIMEN: * Per Dr. Li's 12/2024 note: Lantus 40 units BID and Humalog 15 units twice or three times daily with meals * A1c: 9.1% 01/16/25 ASSESSMENT: 01/24: * Arturo received 40 units of insulin yesterday (17 were basal) * BSG this AM 271, unclear if true fasting BSG or not, will continue with current basal regimen at this time and follow as the patient will tolerate. * No changes to NovoLog at this time, continue to cover carbohydrates with meals if patient refuses BSGs to help prevent hyperglycemic crisis. 01/22 * Patient received total of 51 units of insulin yesterday, of which 15 units were basal insulin * Fasting BSG 301 mg/dL - discussed with RN and cannot confirm if patient was eating when this was taken. Reasonable to provide slight increase in basal dose. Patient refused blood sugar checks twice yesterday. * Insulin this AM delayed and never given until closer to lunch time. Notified provider of above - reports patient refusing nearly all levels of care currently. * Recommended to provider on checking BMP 01/21: * Patient received total of 51 units of insulin yesterday, of which 15 units were basal insulin * BSGs trending up last evening, discussed with RN and patient snacking in between meals. Covered BSG last evening with IV insulin bolus * Patient refusing AM labs, including POC BSG - instructed RN to cover only carbs and continue same basal insulin * Anticipate basal needs likely to increase, will provide small adjustment for tomorrow AM 01/19: * Patient received total of 43 units of insulin yesterday, of which 12 units were basal insulin * Fasting BSG 251 mg/dL - however discussed with RN and this blood sugar was taken after he already ate breakfast. RN also noting patient eating snacks at bedtime. * Outpatient basal insulin much higher, feel that patient would benefit from s light increase in basal. Will increase to 15 units this AM 01/17: * Arturo received a total of 41 units of insulin yesterday (15 units were basal and 26 units were bolus). Although he received much less insulin than what he uses at home his blood glucose started to drop around dinner time yesterday and was 89mg/dL at HS. Bolus insulin parameters were loosened. * Fasting BSG was 316mg/dL this morning. Will add/adjust insulin cautiously as his blood glucose levels seem to be bouncing up and down. Added Lantus 10 units SQ daily and will continue Lantus scale at HS * Lunch BSG still > 300mg/dL, so tightened bolus insulin parameters to a stress of 2. 01/16: * T1DM presented after being found down at 3pm yesterday with profound and sustained hypoglycemia. Patient was started on a dextrose infusion which was discontinued this morning when BSG reached 456 mg/dL ~0400. Since then, BSG has surprisingly downtrended quickly, despite patient also eating breakfast: [phone] mg/dL. Because of this and as we do not definitively know what insulin was taken yesterday, it was determined through multidisciplinary discussion to hold AM basal insulin administration and further assess trend. BSG seemed to stabilize in the mid 200s around lunch time and thus conservative basal insulin dosing was initiated. * Per provider, patient noting he is not taking basal insulin at home, despite recent endocrine note confirming above regimen. It is noted by the providers that patient appears confused and may not be able to manage insulin regimen appropriately, further confounding the true picture. PLAN FOR INPATIENT GLYCEMIC CONTROL: * Hold outpatient diabetes medications * Basal insulin * Lantus 17 units once daily * Bolus insulin * NovoLog per scale ACHS or Q6hrs while NPO * Goal Range: Low 120 mg/dL - High 160 mg/dL * Correction Factor: 25 mg/dL/unit * Nutritional / Prandial insulin per carb ratio of 1 unit per 8 grams CHO consumed
--- NOTE | 2025-01-24 22:59 | Hospitalist Progress Note ---
Date of Service January 24, 2025 Assessment & Plan (1) Patient incapable of making informed decisions: (2) Episode of unresponsiveness: (3) Bradycardia: (4) Hypothermia: (5) Hypoglycemia due to type 1 diabetes mellitus: (6) Mobitz (type) I (Wenckebach's) atrioventricular block: (7) Paroxysmal atrial fibrillation: (8) Hypothyroidism: (9) Type 1 diabetes mellitus: (10) Neuroendocrine tumor of pancreas: (11) Obstructive sleep apnea of adult: (12) Falls: Plan The patient is a 64-year-old male with a past medical history including hypothyroidism, cerebrovascular disease, mild cognitive impairment status post CVA, morbid obesity, pleural effusion, paroxysmal atrial fibrillation, hypoglycemia due to diabetes mellitus type 1, neuroendocrine tumor of pancreas, BPH, chronic diastolic CHF, diabetic nephropathy and retinopathy, and obstructive sleep apnea. Found on the floor at home unresponsive by his . EMS summoned; glucose was in the 50s. Given D50W by EMS - brought to [facility]. Hypothermic with temperature 34.1 and placed on Kenia hugger. He was found to be bradycardic, with heart rate when he would fall asleep down into the mid 30s, with short 2 to 3-second pauses on monitor. His heart rate with immediately resumed back to 50s to 60s, with being awoken. #lack of medical capacity - -patient continues to demonstrate lack of medical decision-making capacity -I have not seen any meaningful improvement in his ability to make rational decisions, demonstrate intact thought processes and reasoning skills, etc. -PT note from yesterday documents that he needed considerable assistance to stand, and once standing he could not walk even with his walker (told PT his legs were weak) -he cannot tell me or his family what he can do at home to maintain safety from a fall standpoint as well as his glycemic control -he gives odd answers about what he would do if he was hypoglycemic, has shown time and time again that he cannot safely control his diabetes, and he has shown over a long period of time that he is not safe to be alone and is not safe to ambulate independently -per his family he has lost the ability to do basic ADLs at home, perform higher executive function tasks, etc. -there is, without question, cognitive impairment - likely of vascular etiology; cannot rule out decompensated hypothyroidism contributing -again he does not remember our lengthy family meeting we had on 01/21/25, which focused on his discharge plan (going to rehab rather than home) -his lack of medical capacity has been consistent since I assumed his care last 01/17/25 -prior to me Dr Colt See also felt Mr Rodríguez does not retain medical decision-making capacity -thus, although he is objecting to being placed at rehab, these decisions fall to his family who are acting on his behalf to maintain his safety and prevent additional morbidity -Insurance denied him rehab. Awaiting decision on SNF. -Agree that patient cannot be discharged home and is unsafe #fall at home with head injury; then had fall 01/17/25 in his hospital room (getting up from the chair) - -head CT neg -MRI brain neg -CT cervical spine neg for fracture (moderate DJD/DDD only) -no injury on 01/17 exam despite the fall -increased fall risk likely from diabetic neuropathy, etc. #Episode of unresponsiveness/hypoglycemia/T1DM - present on admission - -fall/unresponsiveness at home - just prior to presentation to [facility] -patient unable to appropriately manage his T1DM with complex insulin regimen at home -this has been an ongoing problem for some time -follows with Dr Li, [facility] Endo/DM -by report - per his he continues to insist on doing his own insulin and not taking lantus (only using humalog at home) -by report he will stack shots of humalog due to persistent highs -patient cannot tell me what would happen or what to do in the event of hypoglycemia -appreciate pharmacy glycemic team recs; appreciate certified lactation educator and recs #Chronic Lipodermatosclerosis on right sebastian - stable #hypothermia - present on admission - -2nd to severe hypoglycemia -no infectious source found #Hypothyroidism - -TSH 39 -doubt compliance with levothyroxine at home -would not change dosing -continue his usual dose of levothyroxine -repeat level in 4 weeks -suspect that some of his cognitive impairment could be worsened by this issue #Atrial fibrillation - paroxysmal - -followed by [facility] Cardiology -difficult to control by report hence flecainide usage -when he was on telemetry there was no PAF seen -with the Mobitz 1 and propensity for bradycardia coreg was stopped -I informally spoke with Dr Seo last week - he recommended stopping the c oreg but ok to continue flecainide -cont Eliquis (cautiously) in light of recurrent falls -tele had been stable until he took off his tele leads 2 days ago -since he refused to allow his leads to be placed back on we moved him from PCU to med/surg #GERD - -PPI #BPH with LUTS - -cont flomax #Mild cognitive impairment - -due to prior CVA, etc. -thus, cognitive impairment is likely on the basis of vascular disease -can't rule out other factors -MRI brain neg for acute CVA or other acute pathology -checked B1 and B6 levels - both pending -decompensated hypothyroidism will worsen his impairment -previous B12 level in 06/2024 was wnl #HTN - -stopped coreg -cont losartan -cont bumex -cont aldactone -cont amlodipine 2.5mg daily -when he is upset his BP rises; would not treat those spikes VTE Prophylaxis - apixaban 5mg BID see discussion above re: lack of medical decision-making capacity updated pt's daughter Natasha 01/23 (at bedside) awaiting dispo/rehab placement SNF?? Admission and Anticipated Discharge Date Admission Date: January 15, 2025 Subjective Patient again is asking to be discharged home. Physical Exam Constitutional: WD/WN, vitals as above Respiratory: normal respiratory effort, lungs clear to auscultation Cardiovascular: RRR, no murmur, no edema Results & Data Results & Data Vital Signs (Past 12 Hours) Vital Signs Temp Pulse Resp BP Pulse Ox O2 Del Method 01/24/25 15:28 36.4 C L 58 L 16 123/66 95 Room Air PG Care Time/CCT Total # of Minutes Spent Total Time Spent with Patient: Total time spent is greater than 50% in coordination of care (as documented) at patient's floor/unit and/or counseling patient: Coding Level of Care Code 81797 SUB INP/OBS CARE 3/50MIN Diagnoses Patient incapable of making informed decisions Z78.9 Episode of unresponsiveness R40.4 Bradycardia R00.1 Hypothermia T68.XXXA Hypoglycemia due to type 1 diabetes mellitus E10.649 Mobitz (type) I (Wenckebach's) atrioventricular block I44.1 Paroxysmal atrial fibrillation I48.0 Hypothyroidism E03.9 Type 1 diabetes mellitus E10.9 Neuroendocrine tumor of pancreas D3A.8 Obstructive sleep apnea of adult G47.33 Falls R29.6 Time Spent (min) 50 Comment chart review discussion with previous provider
--- NOTE | 2025-01-25 15:22 | Psychiatric Consultation ---
Date of Consultation January 25, 2025 Impression / Recommendations Impression Assessment for decision making capacity for disposition especially in refusing the recommended disposition plan is complex and requires balancing Arturo's autonomy (he desires to return home and maintain as much independence as possible) with beneficence (providers are concerned about his near fatal hypoglycemia, difficulty managing his insulin at home, frequent falls, weakness and risk of without increased support). There is no exact way to go about determining decision making capacity and it can vary over time especially based on the patient's attention/orientation/memory/recall/insight and judgment at the time of assessment. It can also be impacted by the provider assessing this-typically hospitalist or medical office rep regarding the organ system involved are preferred in assessing DMC regarding medical concerns/risk of future decompensation compared with a psychiatrist as they are best suited to anticipate potential risks, understand all alternative options and can better assess specific consequences. With that said in psychiatry medical decision making capacity is commonly assessed using tools such as the Aid to capacity evaluation (used as a structured interview when I met with Arturo) and the Kobe criteria: 1. communicating a choice, 2. understanding the relevant information, 3. appreciating the situation and its consequences, and 4. reasoning. Today based on my evaluation, he seems to significantly minimize or is unaware of his level of weakness and has a history of falls at home. His hypoglycemia is also a significant concern as this can be fatal. However, even with these fairly high risks he does seem to have preserved decision-making capacity to decline subacute rehab for weakness. He demonstrates intact orientation and cognitive function (though not formally tested) with clear reasoning for treatment preferences. He demonstrates some understanding of his medical condition, proposed treatments, and potential consequences. Patient refuses recommended subacute rehabilitation citing concerns about indefinite length of stay and preference for home environment. Acknowledges potential risks including falls and but expresses willingness to accept these risks in favor of independence. Shows willingness to consider short-term rehabilitation approximately one week if timeline clearly defined while home equipment is arranged. Reviewed risks including but not limited to: falls, injury, hypoglycemic episodes, functional decline without proper rehabilitation. Therefore at this time I feel his autonomy outweighs safety recommendations/bene ficence given his decision making is right on the cusp of having just enough in regard to speaking to risks/benefits/his decision preferences. It is important to note that a patient's decision can be unwise as long as a rational process was used to arrive at it. Decision making capacity determinations are decision and time specific. This patient has capacity with respect to this particular decision-making task at this time-refusing subacute rehab for weakness if home environment can be adapted to his needs instead. He is able to articulate reasons for his decision and shows no signs of cognitive impairment, delirium, psychosis, or severe depression that could otherwise interfere with his ability to meaningfully understand information and appreciate the risks of refusing treatment. The patient's decision making capacity could change in the future given that their mental status and various other factors can certainly fluctuate over time. However, given the complexity of the situation which involves not only concerns for weakness but also hypoglycemia, and history of variability in his recall and interpretation of events leading to this hospitalization I ultimately defer to the hospitalist providers regarding his decision making capacity for disposition in regards to hypoglycemia/diabetes management concerns. Additionally, while he speaks of various options including home health services his account of what is realistic may also limit treatment as social work note this afternoon states that home health cannot offer two person assist transfers which is what he currently requires. If this remains the case, and he is unable to incorporate this new information in his future disposition decision making, then certainly he could then be found to lack dispositional decision making capacity. Especially if after CM clarifies this with the patient and his family, he continues to think he can transfer at home without any help despite evidence in the hospital to the contrary. If ultimately he does go home with ongoing weakness and hypoglycemia concerns would encourage family consideration for [facility] or other mechanisms by which he could access emergency care easily if needed after a fall or should he become fatigued or confused. Overall, I spent a total of 60 minutes with this case including review of chart records, review of labwork, direct evaluation of the patient at bedside, counseling the patient, discussion of the patient with the Nurse and with the hospitalist provider, discussion with the psychiatric liason during clinical rounds, review of collateral historian information from the family and documentation in the electronic health record. (1) Encounter for assessment of healthcare decision-making capacity: Plan -At this time he has decision making capacity to refuse subacute rehab if he is accurate regarding possibility for additional support at home, otherwise it seems he has no means for which to successfully make the required transfers to leave his hospital bed to get into a wheelchair or to transfer in and out of his car to return home -Defer to hospitalist providers regarding his decision making capacity about hypoglycemia as we did not review the details of his management nor I am the appropriate specialist to validate that he can accurately describe his current insulin regimen and treatment risks/benefits/alternatives for this -Encourage hospitalist team to continue to involve his supports as they have done as it seems his substituted decision makers of his are in support of subacute rehab and likely have a more realistic view of what is and isn't feasible at home. He also identifies his brother, an anesthesiologist, as a trusted support especially in making medical decisions. Psych History Identifying Data 64-year-old male with a past medical history including hypothyroidism, cerebrovascular disease, mild cognitive impairment status post CVA, morbid obesity, pleural effusion, paroxysmal atrial fibrillation, hypoglycemia due to diabetes mellitus type 1, neuroendocrine tumor of pancreas, BPH, chronic diastolic CHF, diabetic nephropathy and retinopathy, and obstructive sleep apnea. Psychiatry consulted for dispositional decision making capacity. Chief Complaint "I'd be fine at home". History of Present Illness Arturo was previously seen by the psychiatry consult service in November of 2023 and found to lack decision making capacity at that time to refuse subacute rehab. He was admitted for hypoglycemia after being found at home unresponsive after a fall. Arturo presents for psychiatric consultation regarding decision making capacity evaluation for his refusal of subacute rehabilitation following hospitalization for weakness in the context of diabetes management complications. He reports being hospitalized for weakness, stating "they tell me I'm weak" but notes that medical staff "haven't really addressed anything" and that he has "been in bed most of the time." He has had diabetes since age 28 and reports his glucose levels have been fine when he checks, though acknowledges his glucose went low w hen first brought to the hospital. He states he doesn't know how much time elapsed from his last insulin dose to hospital arrival and has "never found it to be anywhere near as low as they've claimed." Regarding the recommended subacute rehabilitation, Arturo acknowledges it "would be helpful" but objects to the indefinite timeframe, stating "there's no guarantee as to how much time that would take" and "if you told me it would, oh, you only have to go for a week, well, then I might say yes." He describes feeling like he would be "imprisoned" due to the vagueness of the timeline. He reports "I don't feel weak" and believes he "would naturally get stronger" without rehab. His reports multiple falls at home prior to hospitalization, describing finding him "on the floor, face down" when returning from work, and that he "couldn't get up." She reports previous falls "when he gets up from the bed" and "in the bathroom, or in the hallway, or in the living room" and that "from the couch, he couldn't get up." Arturo acknowledges he "might fall, but I can get up" and states "it's easier to just ask someone to help you, which is what I've done." Arturo reports he has been refusing physical therapy visits, particularly "when they wake me up," though states "if I'm awake, you know, I'm sure I can manage." He expresses strong preference for home discharge, stating he would "relax on my bed, I would order some good food, and I'd watch some television." He reports he can transfer from bed to wheelchair and believes he could transfer from wheelchair to car. For toileting needs, he plans to use urinals and bedpans, with potential assistance from home health services. He reports feeling "far safer" at home than in the hospital and states his goals differ from the medical team's goals, though he doesn't believe they are trying to harm him. Arturo has a history of diabetes mellitus and previous stroke with reported recovery. He believes he has "recovered from the stroke" and doesn't feel memory issues are affecting his decision-making, though notes medical discussions have been "very, very vague." He would consider a compromise of short-term rehab for approximately one week while medical equipment is arranged for home, particularly an electric wheelchair and lifting mechanisms, which he believes can be obtained "almost immediately" and states he "can afford good equipment." He is currently prescribed insulin for diabetes. He reports checking glucose levels at home and they have been fine, though the medical team has concerns about complicated regimen and glucose dropping too low. He is not concerned about this and acknowledges, that while he feels it is very unlikely, that going home could result in his . He prefers taking this risk and having autonomy of being at home than being safer and with support at subacute rehab with less independence. Social support includes his and a brother who is a physician and whom he trusts for medical input. He denies any psychiatric symptoms including denial of depression. Allergies Allergy/AdvReac Type Severity Reaction Status Date / Time bacitracin Allergy Mild contact Verified 01/15/25 18:45 dermatitis with eye bacitracin dog dander Allergy Mild Congestion Verified 01/15/25 18:45 horse dander Allergy Unknown Allergy Verified 01/15/25 18:45 testing + house dust Allergy Unknown Allergy Verified 01/15/25 18:45 testing + Home Medications Medication Instructions Recorded Confirmed Type OneTouch Delica Lancets 33 gauge #300 ea 02/01/19 01/08/25 Rx (lancets) OneTouch Verio test strips (blood #300 ea 11/10/19 01/08/25 Rx sugar diagnostic) Dexcom Nurse Transitional #1 ea 03/07/20 01/08/25 Rx (blood-glucose,scientific programmer analyst,cont) Dexcom G7 Nurse Transitional #1 ea 07/07/22 01/08/25 Rx (blood-glucose,scientific programmer analyst,cont) mecobalamin (vitamin B12) 1,000 2,000 mcg (2 x 1,000 mcg) 11/27/22 01/15/25 Rx mcg disintegrating sublingual DAILY #60 tabs tablet,sublingual econazole nitrate 1 % topical cream 1 applic topical BID PRN skin 01/28/23 01/15/25 Rx irritation #30 grams pen needle, diabetic 31 gauge x #600 ea 07/15/23 01/08/25 Rx 5/16" (BD Ultra-Fine Short Pen Needle) betamethasone dipropionate 0.05 % 1 applic topical DAILY PRN Skin 10/15/23 01/15/25 History lotion Irritation ketoconazole 2 % shampoo 1 applic topical 2XWK 10/15/23 01/15/25 History triamcinolone acetonide 0.5 % 1 applic topical BID PRN Skin 12/10/23 01/15/25 Rx topical cream Irritation #15 grams magnesium oxide 400 mg (241.3 mg 400 mg PO BID #14 tabs 12/11/23 01/15/25 Rx magnesium) tablet acetone (urine) test (Ketostix #100 ea 03/09/24 01/08/25 Rx strips) glucagon 1 mg/0.2 mL subcutaneous 1 mg (0.2 mL) subcut DIRECTED 03/13/24 01/15/25 Rx auto-injector (Gvoke HypoPen PRN for hypoglycemic epidoses #0.4 2-Pack) mL bumetanide 2 mg tablet 2 mg PO QAM #90 tabs 04/17/24 01/15/25 Rx minocycline 100 mg capsule 100 mg PO BID #180 caps 05/17/24 01/15/25 Rx cholecalciferol (vitamin D3) 50 50 mcg PO DAILY #90 caps 06/23/24 01/15/25 Rx mcg (2,000 unit) capsule levothyroxine 50 mcg tablet 50 mcg PO QAM #30 tabs 06/23/24 01/15/25 Rx apixaban 5 mg tablet (Eliquis) 5 mg PO BID #180 tabs 08/31/24 01/15/25 Rx levothyroxine 200 mcg tablet 200 mcg PO QAM #90 tabs 10/15/24 01/15/25 Rx Dexcom G7 Sensor (blood-glucose #9 ea 11/08/24 01/08/25 Rx sensor) Novolog FlexPen U-100 Insulin 100 15 unit (0.15 mL) subcut TIDM #45 11/30/24 01/15/25 Rx unit/mL (3 mL) subcutaneous mL (insulin aspart U-100) alfuzosin 10 mg tablet,extended 10 mg PO BID #180 tabs 01/25/25 Rx release 24 hr amlodipine 5 mg tablet 2.5 mg (1/2 x 5 mg) PO PM #30 tabs 01/25/25 Rx aspirin 81 mg tablet,delayed 81 mg PO DAILY #30 tabs 01/25/25 Rx release (Enteric Coated Aspirin) atorvastatin 80 mg tablet 80 mg PO QPM #90 tabs 01/25/25 Rx ezetimibe 10 mg tablet 10 mg PO QPM #90 tabs 01/25/25 Rx flecainide 50 mg tablet 50 mg PO Q12H #60 tabs 01/25/25 Rx fluticasone propionate 50 1 spray intranasal DAILY PRN 01/25/25 Rx mcg/actuation nasal Congestion #16 grams spray,suspension gabapentin 300 mg capsule 300 mg PO .COMPLEX #540 caps 01/25/25 Rx insulin glargine 100 unit/mL (3 17 unit (0.17 mL) subcut DAILY #0 01/25/25 01/15/25 Rx mL) subcutaneous pen (Lantus mL Solostar U-100 Insulin) losartan 100 mg tablet 100 mg PO QAM #90 tabs 01/25/25 Rx montelukast 10 mg tablet 10 mg PO QPM 90 days #90 tabs 01/25/25 Rx omeprazole 40 mg capsule,delayed 40 mg PO QAM #90 caps 01/25/25 Rx release spironolactone 25 mg tablet 25 mg PO QAM #90 tabs 01/25/25 Rx Patient History Medical History Hypokalemia Right leg swelling Type 1 diabetes mellitus "has an insulin pump but not currently using, was having trouble keeping blood sugars under control with it, back to injections for now" Hx of pleural effusion pt unsure, documented 02/2024 thru [facility] Mild cognitive impairment per chart, pt. reports no issues Hx of colonic polyps Cerebrovascular disease hx, lacunar stroke 11/2023 History of BPH Pancreatic abnormality hx Hypertension Diabetic ketoacidosis hx, pt unsure of details Abdominal mass, right lower quadrant pt unsure? 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 blepharoplasty sx. Erectile dysfunction Allergic rhinitis Recurrent sinus infections nothing current GERD without esophagitis Psoriasis Mobitz (type) I (Wenckebach's) atrioventricular block Occasionally noted dating back to 2017 Holter monitor ; does not see cardiology per pt. History of nephrolithiasis OA (osteoarthritis) of shoulder hx Paroxysmal atrial fibrillation Few episodes noted on 2017 sleep study, not noted on f/u 10/2016 48 hour holter monitor > no known recurrences Vitamin D deficiency Surgical History Hx of colonoscopy with polypectomy S/P blepharoplasty duplicate History of blepharoplasty (~08/19/20) bilt History of endoscopic sinus surgery Endoscopic sinus surgery (06/21/15) [facility] 2020 [facility] History of incision and drainage (12/06/19) Rt thumb wound I&D + closure: 12/06/19: MAC sedation at [facility] S/P trigger finger release Right thumb trigger finger release: 10/17/19: MAC sedation at [facility] History of cataract surgery R/L History of carpal tunnel release R/L History of uvulopalatopharyngoplasty S/P appendectomy Family History Father Diabetes Sleep apnea Pacemaker Other No significant family history Denies family history of Ovarian cancer Prostate cancer Myocardial infarction Breast cancer Colorectal cancer Social History Smoking Status: Never smoker packs per day: 0.3; Second Hand Exposure: No; Do You Dip or Chew Tobacco: No; Tobacco Cessation Education Requested by Patient: No Hx Alcohol Use: No Hx Substance Use: No Preferred Language: Liberian Communication Ability: Impaired Visual Impairment: No Limitations Hearing Ability: Normal Supervisor Blood Required: No Beliefs That Will Affect Care: None marital status: Current Living Situation: Spouse Current Living Situation Comment: Frome home with current occupational status: employed 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 Other Information That Helps Us Care for You: No Feels Safe at Home: Yes Safety Concerns: Feels Safe At This Time Childhood Exposure to Second-Hand Smoke: No Dental Care, Regularly: Yes Physical Activity Frequency: Does not Exercise Seatbelt Use: always Sunscreen Use: Yes Assistive Devices: Walker Physical Exam Psychiatric: Orientation: alert, oriented x 3 and cooperative Eye Contact: good eye contact Motor Behavior: no abnormal motor movements Speech: normal rate/rhythm/volume of speech Affect: euthymic affect Mood: no depressed mood and no anxious mood Thought Process: goal directed thought process Thought Content: reality based without delusions Suicidal Thoughts: denies suicidal thoughts Vital Signs (Past 24 Hours): Last Vital Signs Temp 36.7 C 11/13/25 07:55 Pulse 69 01/25/25 07:55 Resp 20 01/25/25 07:55 BP 180/93 H 01/25/25 07:55 Pulse Ox 96 01/25/25 07:55 O2 Del Method Room Air 01/25/25 08:30 Results & Data (PSY) Medications Administered Amlodipine Besylate (Amlodipine Besylate 5 Mg Tab) 2.5 mg PO QAM GONZALO Stop: 02/19/25 08:59 Last Admin: 01/25/25 10:23 Dose: 2.5 mg Documented By: Admin: 01/24/25 08:49 Dose: 2.5 mg Documented By: Admin: 01/23/25 12:03 Dose: Not Given Documented By: Admin: 01/22/25 10:29 Dose: 2.5 mg Documented By: anthony Admin: 01/21/25 07:59 Dose: 2.5 mg Documented By: Admin: 01/20/25 09:01 Dose: 2.5 mg Documented By: Apixaban (Apixaban 5 Mg Tablet) 5 mg PO BID [facility] Stop: 02/15/25 08:59 Last Admin: 01/25/25 10:24 Dose: 5 mg Documented By: Admin: 01/24/25 20:08 Dose: 5 mg Documented By: Admin: 01/24/25 08:51 Dose: 5 mg Documented By: Admin: 01/23/25 21:10 Dose: Not Given Documented By: Admin: 01/23/25 12:03 Dose: Not Given Documented By: Admin: 01/22/25 23:25 Dose: Not Given Documented By: Admin: 01/22/25 10:28 Dose: 5 mg Documented By: anthony Admin: 01/21/25 21:02 Dose: 5 mg Documented By: Admin: 01/21/25 07:56 Dose: 5 mg Documented By: Admin: 01/20/25 21:53 Dose: 5 mg Documented By: Admin: 01/20/25 08:29 Dose: 5 mg Documented By: Admin: 01/19/25 21:19 Dose: 5 mg Documented By: Admin: 01/19/25 08:51 Dose: 5 mg Documented By: Admin: 01/18/25 20:50 Dose: 5 mg Documented By: Admin: 01/18/25 08:25 Dose: 5 mg Documented By: Admin: 01/17/25 20:33 Dose: 5 mg Documented By: Admin: 01/17/25 09:48 Dose: 5 mg Documented By: Admin: 01/16/25 20:29 Dose: 5 mg Documented By: Admin: 01/16/25 09:14 Dose: 5 mg Documented By: SUNNI Aspirin (Aspirin 81 Mg Ectab) 81 mg PO DAILY GONZALO Stop: 02/15/25 08:59 Last Admin: 01/25/25 10:22 Dose: 81 mg Documented By: Admin: 01/24/25 08:51 Dose: 81 mg Documented By: Admin: 01/23/25 12:03 Dose: Not Given Documented By: Admin: 01/22/25 10:28 Dose: 81 mg Documented By: anthony Admin: 01/21/25 10:13 Dose: 81 mg Documented By: Admin: 01/20/25 08:29 Dose: 81 mg Documented By: Admin: 01/19/25 08:51 Dose: 81 mg Documented By: Admin: 01/18/25 08:25 Dose: 81 mg Documented By: Admin: 01/17/25 09:47 Dose: 81 mg Documented By: Admin: 01/16/25 09:16 Dose: 81 mg Documented By: SUNNI Atorvastatin Calcium (Atorvastatin 40 Mg Tab) 80 mg PO QPM GONZALO Stop: 02/15/25 20:59 Last Admin: 01/24/25 20:09 Dose: 80 mg Documented By: HKThuy Admin: 01/23/25 21:10 Dose: Not Given Documented By: HKThuy Admin: 01/22/25 23:25 Dose: Not Given Documented By: Admin: 01/21/25 21:03 Dose: 80 mg Documented By: Admin: 01/20/25 21:53 Dose: 80 mg Documented By: Admin: 01/19/25 21:19 Dose: 80 mg Documented By: Admin: 01/18/25 20:50 Dose: 80 mg Documented By: Admin: 01/17/25 20:33 Dose: 80 mg Documented By: Admin: 01/16/25 20:29 Dose: 80 mg Documented By: SOL Bumetanide (Bumetanide 1 Mg Tab) 2 mg PO QAM GONZALO Stop: 02/15/25 08:59 Last Admin: 01/25/25 10:24 Dose: 2 mg Documented By: Admin: 01/24/25 08:52 Dose: 2 mg Documented By: Admin: 01/23/25 12:03 Dose: Not Given Documented By: Admin: 01/22/25 10:29 Dose: 2 mg Documented By: anthony Admin: 01/21/25 07:56 Dose: 2 mg Documented By: Admin: 01/20/25 08:29 Dose: 2 mg Documented By: Admin: 01/19/25 08:51 Dose: 2 mg Documented By: Admin: 01/18/25 08:23 Dose: 2 mg Documented By: Admin: 01/17/25 09:47 Dose: 2 mg Documented By: Admin: 01/16/25 09:16 Dose: 2 mg Documented By: SUNNI Ezetimibe (Ezetimibe 10 Mg Tab) 10 mg PO QPM GONZALO Stop: 02/15/25 20:59 Last Admin: 01/24/25 20:08 Dose: 10 mg Documented By: HKThuy Admin: 01/23/25 21:10 Dose: Not Given Documented By: HKThuy Admin: 01/22/25 23:26 Dose: Not Given Documented By: Admin: 01/21/25 21:05 Dose: 10 mg Documented By: Admin: 01/20/25 21:54 Dose: 10 mg Documented By: Admin: 01/19/25 21:18 Dose: 10 mg Documented By: Admin: 01/18/25 20:50 Dose: 10 mg Documented By: Admin: 01/17/25 20:34 Dose: 10 mg Documented By: Admin: 01/16/25 20:30 Dose: 10 mg Documented By: SOL Flecainide Acetate (Flecainide Acetate 100 Mg Tablet) 50 mg PO BID GONZALO Stop: 02/15/25 08:59 Last Admin: 01/25/25 10:24 Dose: 50 mg Documented By: Admin: 01/24/25 20:09 Dose: 50 mg Documented By: HKThuy Admin: 01/24/25 08:50 Dose: 50 mg Documented By: Admin: 01/23/25 21:10 Dose: Not Given Documented By: Admin: 01/23/25 12:04 Dose: Not Given Documented By: Admin: 01/22/25 23:26 Dose: Not Given Documented By: Admin: 01/22/25 10:30 Dose: 50 mg Documented By: ijw Admin: 01/21/25 21:04 Dose: 50 mg Documented By: Admin: 01/21/25 07:57 Dose: 50 mg Documented By: Admin: 01/20/25 21:54 Dose: 50 mg Documented By: Admin: 01/20/25 08:26 Dose: 50 mg Documented By: Admin: 01/19/25 21:19 Dose: 50 mg Documented By: [email or web address] Admin: 01/19/25 08:56 Dose: 50 mg Documented By: Admin: 01/18/25 20:49 Dose: 50 mg Documented By: Admin: 01/18/25 08:24 Dose: 50 mg Documented By: Admin: 01/17/25 20:34 Dose: 50 mg Documented By: Admin: 01/17/25 11:32 Dose: 50 mg Documented By: Admin: 01/16/25 20:29 Dose: 50 mg Documented By: Admin: 01/16/25 09:15 Dose: 50 mg Documented By: SUNNI Gabapentin (Gabapentin 300 Mg Cap) 300 mg PO BID GONZALO Stop: 02/15/25 08:59 Last Admin: 01/25/25 10:22 Dose: 300 mg Documented By: Admin: 01/24/25 20:08 Dose: 300 mg Documented By: Admin: 01/24/25 08:52 Dose: 300 mg Documented By: Admin: 01/23/25 21:10 Dose: Not Given Documented By: Admin: 01/23/25 12:04 Dose: Not Given Documented By: Admin: 01/22/25 23:26 Dose: Not Given Documented By: Admin: 01/22/25 10:28 Dose: 300 mg Documented By: ijw Admin: 01/21/25 21:04 Dose: 300 mg Documented By: Admin: 01/21/25 07:57 Dose: 300 mg Documented By: Admin: 01/20/25 21:54 Dose: 300 mg Documented By: Admin: 01/20/25 08:28 Dose: 300 mg Documented By: Admin: 01/19/25 21:18 Dose: 300 mg Documented By: Admin: 01/19/25 08:52 Dose: 300 mg Documented By: Admin: 01/18/25 20:50 Dose: 300 mg Documented By: Admin: 01/18/25 08:25 Dose: 300 mg Documented By: Admin: 01/17/25 20:34 Dose: 300 mg Documented By: Admin: 01/17/25 11:32 Dose: 300 mg Documented By: Admin: 01/16/25 20:30 Dose: 300 mg Documented By: Admin: 01/16/25 09:16 Dose: 300 mg Documented By: SUNNI Insulin Aspart (Insulin Aspart Per Unit Charge) 0 units SC ACHS [facility]ON[facility] Stop: 02/20/25 07:59 Last Admin: 01/25/25 13:12 Dose: Not Given Documented By: DIONISIO Co-signed By: marcos Admin: 01/25/25 10:25 Dose: 13 units Documented By: DIONISIO Co-signed By: marcos Admin: 01/24/25 20:32 Dose: Not Given Documented By: TREVOR Co-signed By: LAVELL Admin: 01/24/25 17:25 Dose: Not Given Documented By: Admin: 01/24/25 13:47 Dose: 11 units Documented By: DREAD Co-signed By: VILMA(2) Admin: 01/24/25 09:20 Dose: 12 units Documented By: DREAD Co-signed By: MILLICENT Admin: 01/24/25 08:47 Dose: Not Given Documented By: Admin: 01/23/25 22:08 Dose: 3 units Documented By: TREVOR Co-signed By: LAVELL Admin: 01/23/25 17:14 Dose: 6 units Documented By: JOSE Co-signed By: VILMA(2) Admin: 01/23/25 12:08 Dose: 8 units Documented By: JOSE Co-signed By: VILMA(2) Admin: 01/23/25 08:43 Dose: 6 units Documented By: JOSE Co-signed By: SCOTT Admin: 01/22/25 21:23 Dose: 7 units Documented By: TREVOR Co-signed By: ISHMAEL Admin: 01/22/25 17:50 Dose: 6 units Documented By: anthony Co-signed By: VESTA Admin: 01/22/25 13:01 Dose: 14 units Documented By: VESTA Co-signed By: anthony Admin: 01/22/25 10:41 Dose: 11 units Documented By: anthony Co-signed By: KAIDEN Admin: 01/21/25 21:13 Dose: 7 units Documented By: CANDIE Co-signed By: THERESE Admin: 01/21/25 17:19 Dose: 5 units Documented By: Co-signed By: BELLA Admin: 01/21/25 12:51 Dose: 19 units Documented By: Co-signed By: DIANE Admin: 01/21/25 08:30 Dose: 5 units Documented By: Co-signed By: DIANE Insulin Glargine (Lantus Per Unit Charge) 17 units SC DAILY GONZALO Stop: 02/21/25 08:59 Last Admin: 01/25/25 10:25 Dose: 17 units Documented By: DIONISIO Co-signed By: marcos Admin: 01/24/25 09:19 Dose: 17 units Documented By: DREAD Co-signed By: MILLICENT Admin: 01/23/25 08:44 Dose: 17 units Documented By: JOSE Co-signed By: SCOTT Admin: 01/22/25 10:40 Dose: 17 units Documented By: anthony Co-signed By: KAIDEN Levothyroxine Sodium (Levothyroxine Sodium 50 Mcg Tablet) 50 mcg PO DAILYBB GON[facility]O Stop: 02/16/25 06:29 Last Admin: 01/25/25 06:08 Dose: Not Given Documented By: Admin: 01/24/25 05:37 Dose: Not Given Documented By: Admin: 01/23/25 05:14 Dose: Not Given Documented By: Admin: 01/22/25 06:04 Dose: 50 mcg Documented By: [id number] Admin: 01/21/25 06:12 Dose: 50 mcg Documented By: Admin: 01/20/25 06:19 Dose: 50 mcg Documented By: Admin: 01/19/25 06:24 Dose: 50 mcg Documented By: Admin: 01/18/25 06:16 Dose: 50 mcg Documented By: Admin: 01/17/25 05:57 Dose: 50 mcg Documented By: SOL Levothyroxine Sodium (Levothyroxine Sodium 200 Mcg Tablet) 200 mcg PO DAILYBB [facility] Stop: 02/16/25 06:29 Last Admin: 01/25/25 06:08 Dose: Not Given Documented By: Admin: 01/24/25 05:37 Dose: Not Given Documented By: Admin: 01/23/25 05:14 Dose: Not Given Documented By: Admin: 01/22/25 06:04 Dose: 200 mcg Documented By: [id number] Admin: 01/21/25 06:12 Dose: 200 mcg Documented By: Admin: 01/20/25 06:19 Dose: 200 mcg Documented By: Admin: 01/19/25 06:24 Dose: 200 mcg Documented By: Admin: 01/18/25 06:49 Dose: 200 mcg Documented By: Admin: 01/17/25 05:57 Dose: 200 mcg Documented By: SOL Losartan Potassium (Losartan Potassium 50 Mg Tab) 100 mg PO QAM GONZALO Stop: 02/15/25 08:59 Last Admin: 01/25/25 10:22 Dose: 100 mg Documented By: Admin: 01/24/25 08:58 Dose: 100 mg Documented By: Admin: 01/23/25 12:04 Dose: Not Given Documented By: Admin: 01/22/25 10:30 Dose: 100 mg Documented By: ijw Admin: 01/21/25 07:56 Dose: 100 mg Documented By: Admin: 01/20/25 08:27 Dose: 100 mg Documented By: Admin: 01/19/25 08:55 Dose: 100 mg Documented By: Admin: 01/18/25 08:23 Dose: 100 mg Documented By: Admin: 01/17/25 09:47 Dose: 100 mg Documented By: Admin: 01/16/25 09:15 Dose: 100 mg Documented By: SUNNI Magnesium Oxide (Magnesium Oxide 400 Mg Tab) 400 mg PO BID [facility] Stop: 02/15/25 08:59 Last Admin: 01/25/25 10:24 Dose: 400 mg Documented By: Admin: 01/24/25 20:09 Dose: 400 mg Documented By: Admin: 01/24/25 08:52 Dose: 400 mg Documented By: Admin: 01/23/25 21:10 Dose: Not Given Documented By: HKThuy Admin: 01/23/25 12:04 Dose: Not Given Documented By: Admin: 01/22/25 23:26 Dose: Not Given Documented By: HKThuy Admin: 01/22/25 10:28 Dose: 400 mg Documented By: [email or web address] Admin: 01/21/25 21:04 Dose: 400 mg Documented By: Admin: 01/21/25 07:58 Dose: 400 mg Documented By: Admin: 01/20/25 21:55 Dose: 400 mg Documented By: Admin: 01/20/25 08:30 Dose: 400 mg Documented By: Admin: 01/19/25 21:23 Dose: 400 mg Documented By: GDGibson Admin: 01/19/25 08:55 Dose: 400 mg Documented By: Admin: 01/18/25 20:51 Dose: 400 mg Documented By: Admin: 01/18/25 08:24 Dose: 400 mg Documented By: Admin: 01/17/25 20:33 Dose: 400 mg Documented By: Admin: 01/17/25 09:47 Dose: 400 mg Documented By: Admin: 01/16/25 20:30 Dose: 400 mg Documented By: Admin: 01/16/25 09:16 Dose: 400 mg Documented By: SUNNI Melatonin (Melatonin 3 Mg Tab) 3 mg PO HS [facility]ON[facility] Stop: 02/21/25 20:59 Last Admin: 01/24/25 19:49 Dose: Not Given Documented By: HKThuy Admin: 01/23/25 21:10 Dose: Not Given Documented By: HKThuy Admin: 01/22/25 23:26 Dose: Not Given Documented By: HKThuy Montelukast Sodium (Montelukast Sodium 10 Mg Tablet) 10 mg PO QPM GONZALO Stop: 02/15/25 20:59 Last Admin: 01/24/25 20:10 Dose: 10 mg Documented By: HKThuy Admin: 01/23/25 21:10 Dose: Not Given Documented By: Admin: 01/22/25 23:26 Dose: Not Given Documented By: Admin: 01/21/25 21:04 Dose: 10 mg Documented By: Admin: 01/20/25 21:56 Dose: 10 mg Documented By: Admin: 01/19/25 21:23 Dose: 10 mg Documented By: Admin: 01/18/25 20:51 Dose: 10 mg Documented By: Admin: 01/17/25 20:34 Dose: 10 mg Documented By: Admin: 01/16/25 20:30 Dose: 10 mg Documented By: SOL Pantoprazole Sodium (Pantoprazole 40 Mg Tab) 40 mg PO QAM [facility] Stop: 02/15/25 08:59 Last Admin: 01/25/25 10:24 Dose: 40 mg Documented By: Admin: 01/24/25 08:51 Dose: 40 mg Documented By: Admin: 01/23/25 12:04 Dose: Not Given Documented By: Admin: 01/22/25 10:27 Dose: 40 mg Documented By: anthony Admin: 01/21/25 07:56 Dose: 40 mg Documented By: Admin: 01/20/25 08:30 Dose: 40 mg Documented By: Admin: 01/19/25 10:37 Dose: 40 mg Documented By: Admin: 01/18/25 08:24 Dose: 40 mg Documented By: Admin: 01/17/25 09:49 Dose: 40 mg Documented By: Admin: 01/16/25 09:14 Dose: 40 mg Documented By: SUNNI Sodium Chloride (Sodium Chloride 0.65% Na Soln 45 Ml (Percival)) 2 sprays NA Q4H PRN PRN Reason: Nasal Congestion Stop: 02/23/25 02:09 Last Admin: 01/24/25 02:19 Dose: 2 sprays Documented By: TREVOR Spironolactone (Spironolactone 25 Mg Tab) 25 mg PO QAM GONZALO Stop: 02/15/25 08:59 Last Admin: 01/25/25 10:24 Dose: 25 mg Documented By: Admin: 01/24/25 08:49 Dose: 25 mg Documented By: Admin: 01/23/25 12:04 Dose: Not Given Documented By: Admin: 01/22/25 10:32 Dose: 25 mg Documented By: anthony Admin: 01/21/25 07:55 Dose: 25 mg Documented By: Admin: 01/20/25 08:31 Dose: 25 mg Documented By: Admin: 01/19/25 08:50 Dose: 25 mg Documented By: Admin: 01/18/25 08:24 Dose: 25 mg Documented By: Admin: 01/17/25 09:47 Dose: 25 mg Documented By: Admin: 01/16/25 09:16 Dose: 25 mg Documented By: SUNNI Tamsulosin HCl (Tamsulosin Hcl 0.4 Mg Cap) 0.4 mg PO DAILY [facility] Stop: 02/15/25 08:59 Last Admin: 01/25/25 10:22 Dose: 0.4 mg Documented By: Admin: 01/24/25 08:52 Dose: 0.4 mg Documented By: Admin: 01/23/25 12:04 Dose: Not Given Documented By: Admin: 01/22/25 10:27 Dose: 0.4 mg Documented By: anthony Admin: 01/21/25 07:56 Dose: 0.4 mg Documented By: Admin: 01/20/25 08:32 Dose: 0.4 mg Documented By: Admin: 01/19/25 08:50 Dose: 0.4 mg Documented By: Admin: 01/18/25 08:25 Dose: 0.4 mg Documented By: Admin: 01/17/25 09:47 Dose: 0.4 mg Documented By: Admin: 01/16/25 09:14 Dose: 0.4 mg Documented By: SUNNI Vitamin D (Cholecalciferol 125 Mcg (5,000 Units) Tab) 125 mcg PO QAM GONZALO Stop: 02/19/25 08:59 Last Admin: 01/25/25 10:22 Dose: 125 mcg Documented By: Admin: 01/24/25 08:50 Dose: 125 mcg Documented By: Admin: 01/23/25 12:03 Dose: Not Given Documented By: Admin: 01/22/25 10:30 Dose: 125 mcg Documented By: anthony Admin: 01/21/25 10:13 Dose: 125 mcg Documented By: Admin: 01/20/25 09:01 Dose: 125 mcg Documented By: Coding Level of Care Code 34698 IN/OBS CONSULT LVL 4,60M Diagnoses Encounter for assessment of healthcare decision-making capacity Z02.79
--- NOTE | 2025-01-25 23:09 | Hospitalist Progress Note ---
Date of Service January 25, 2025 Assessment & Plan (1) Patient incapable of making informed decisions: (2) Episode of unresponsiveness: (3) Bradycardia: (4) Hypothermia: (5) Hypoglycemia due to type 1 diabetes mellitus: (6) Mobitz (type) I (Wenckebach's) atrioventricular block: (7) Paroxysmal atrial fibrillation: (8) Hypothyroidism: (9) Type 1 diabetes mellitus: (10) Neuroendocrine tumor of pancreas: (11) Obstructive sleep apnea of adult: (12) Falls: Plan The patient is a 64-year-old male with a past medical history including hypothyroidism, cerebrovascular disease, mild cognitive impairment status post CVA, morbid obesity, pleural effusion, paroxysmal atrial fibrillation, hypoglycemia due to diabetes mellitus type 1, neuroendocrine tumor of pancreas, BPH, chronic diastolic CHF, diabetic nephropathy and retinopathy, and obstructive sleep apnea. Found on the floor at home unresponsive by his . EMS summoned; glucose was in the 50s. Given D50W by EMS - brought to [facility]. Hypothermic with temperature 34.1 and placed on Kenia hugger. He was found to be bradycardic, with heart rate when he would fall asleep down into the mid 30s, with short 2 to 3-second pauses on monitor. His heart rate with immediately resumed back to 50s to 60s, with being awoken. #lack of medical capacity - -patient continues to demonstrate lack of medical decision-making capacity -I have not seen any meaningful improvement in his ability to make rational decisions, demonstrate intact thought processes and reasoning skills, etc. -PT note from yesterday documents that he needed considerable assistance to stand, and once standing he could not walk even with his walker (told PT his legs were weak) -he cannot tell me or his family what he can do at home to maintain safety from a fall standpoint as well as his glycemic control -he gives odd answers about what he would do if he was hypoglycemic, has shown time and time again that he cannot safely control his diabetes, and he has shown over a long period of time that he is not safe to be alone and is not safe to ambulate independently -per his family he has lost the ability to do basic ADLs at home, perform higher executive function tasks, etc. -there is, without question, cognitive impairment - likely of vascular etiology; cannot rule out decompensated hypothyroidism contributing -again he does not remember our lengthy family meeting we had on 01/21/25, which focused on his discharge plan (going to rehab rather than home) -his lack of medical capacity has been consistent since I assumed his care last 01/17/25 -prior to me Dr Colt See also felt Mr Rodríguez does not retain medical decision-making capacity -thus, although he is objecting to being placed at rehab, these decisions fall to his family who are acting on his behalf to maintain his safety and prevent additional morbidity -Insurance denied him rehab. Awaiting decision on SNF. -Agree that patient cannot be discharged home and is unsafe. Plan was to discharge to SNF, but patient refused and SNF no longer wanted to take patient. Consulted Psych for assistance in determining medical capacity. #fall at home with head injury; then had fall 01/17/25 in his hospital room (g etting up from the chair) - -head CT neg -MRI brain neg -CT cervical spine neg for fracture (moderate DJD/DDD only) -no injury on 01/17 exam despite the fall -increased fall risk likely from diabetic neuropathy, etc. #Episode of unresponsiveness/hypoglycemia/T1DM - present on admission - -fall/unresponsiveness at home - just prior to presentation to [facility] -patient unable to appropriately manage his T1DM with complex insulin regimen at home -this has been an ongoing problem for some time -follows with Dr Li, [facility] [place] Endo/DM -by report - per his he continues to insist on doing his own insulin and not taking lantus (only using humalog at home) -by report he will stack shots of humalog due to persistent highs -patient cannot tell me what would happen or what to do in the event of hypoglycemia -appreciate pharmacy glycemic team recs; appreciate adaptive physical educator and recs #Chronic Lipodermatosclerosis on right sebastian - stable #hypothermia - present on admission - -2nd to severe hypoglycemia -no infectious source found #Hypothyroidism - -TSH 39 -doubt compliance with levothyroxine at home -would not change dosing -continue his usual dose of levothyroxine -repeat level in 4 weeks -suspect that some of his cognitive impairment could be worsened by this issue #Atrial fibrillation - paroxysmal - -followed by [facility] Cardiology -difficult to control by report hence flecainide usage -when he was on telemetry there was no PAF seen -with the Mobitz 1 and propensity for bradycardia coreg was stopped -I informally spoke with Dr Seo last week - he recommended stopping the coreg but ok to continue flecainide -cont Eliquis (cautiously) in light of recurrent falls -tele had been stable until he took off his tele leads 2 days ago -since he refused to allow his leads to be placed back on we moved him from PCU to med/surg #GERD - -PPI #BPH with LUTS - -cont flomax #Mild cognitive impairment - -due to prior CVA, etc. -thus, cognitive impairment is likely on the basis of vascular disease -can't rule out other factors -MRI brain neg for acute CVA or other acute pathology -checked B1 and B6 levels - both pending -decompensated hypothyroidism will worsen his impairment -previous B12 level in 06/2024 was wnl #HTN - -stopped coreg -cont losartan -cont bumex -cont aldactone -cont amlodipine 2.5mg daily -when he is upset his BP rises; would not treat those spikes VTE Prophylaxis - apixaban 5mg BID see discussion above re: lack of medical decision-making capacity updated pt's daughter Natasha 01/23 (at bedside) awaiting dispo/rehab placement SNF?? Admission and Anticipated Discharge Date Admission Date: January 15, 2025 Subjective Patient again is asking to be discharged home. Physical Exam Constitutional: WD/WN, vitals as above Respiratory: normal respiratory effort, lungs clear to auscultation Cardiovascular: RRR, no murmur, no edema Results & Data Results & Data Vital Signs (Past 12 Hours) Vital Signs Temp Pulse Resp BP Pulse Ox O2 Del Method 01/25/25 16:33 36.6 C 52 L 16 167/77 H 100 Room Air PG Care Time/CCT Total # of Minutes Spent Total Time Spent with Patient: Total time spent is greater than 50% in coordination of care (as documented) at patient's floor/unit and/or counseling patient: Coding Level of Care Code 32338 SUB INP/OBS CARE 3/50MIN Diagnoses Patient incapable of making informed decisions Z78.9 Episode of unresponsiveness R40.4 Bradycardia R00.1 Hypothermia T68.XXXA Hypoglycemia due to type 1 diabetes mellitus E10.649 Mobitz (type) I (Wenckebach's) atrioventricular block I44.1 Paroxysmal atrial fibrillation I48.0 Hypothyroidism E03.9 Type 1 diabetes mellitus E10.9 Neuroendocrine tumor of pancreas D3A.8 Obstructive sleep apnea of adult G47.33 Falls R29.6 Time Spent (min) 50
[2025-01-26] MEDS: LANTUS PER UNIT CHARGE SC SCH (08:23)
--- NOTE | 2025-01-26 09:11 | Pharmacy Report ---
Pharmacy Glycemic Short Note 2 - Date of Service January 26, 2025 - Glycemic Short BSG Results (Last 24 hours): 01/25/25 01/26/25 16:31 07:45 POC Glucose 281 H 281 H OUTPATIENT ANTIDIABETIC REGIMEN: * Per Dr. Li's 12/2024 note: Lantus 40 units BID and Humalog 15 units twice or three times daily with meals * A1c: 9.1% 01/16/25 ASSESSMENT: 01/26: * Patient received total of 30 units of insulin yesterday, of which 17 units were basal * Fasting BSG 281 mg/dL - had been hesitant to change dosing days prior d/t reports of snacking at bedtime and overnight however consistently >200 so will increase more today to 20 units of Lantus * No change to CF/CR - of note, patient still refusing BSG checks and insulin. aware. Will discuss with RN about covering carbs if refusing BSG check 01/24: * Arturo received 40 units of insulin yesterday (17 were basal) * BSG this AM 271, unclear if true fasting BSG or not, will continue with current basal regimen at this time and follow as the patient will tolerate. * No changes to NovoLog at this time, continue to cover carbohydrates with meals if patient refuses BSGs to help prevent hyperglycemic crisis. 01/22 * Patient received total of 51 units of insulin yesterday, of which 15 units were basal insulin * Fasting BSG 301 mg/dL - discussed with RN and cannot confirm if patient was eating when this was taken. Reasonable to provide slight increase in basal dose. Patient refused blood sugar checks twice yesterday. * Insulin this AM delayed and never given until closer to lunch time. Notified provider of above - reports patient refusing nearly all levels of care currently. * Recommended to provider on checking BMP 01/21: * Patient received total of 51 units of insulin yesterday, of which 15 units were basal insulin * BSGs trending up last evening, discussed with RN and patient snacking in between meals. Covered BSG last evening with IV insulin bolus * Patient refusing AM labs, including POC BSG - instructed RN to cover only carbs and continue same basal insulin * Anticipate basal needs likely to increase, will provide small adjustment for tomorrow AM 01/19: * Patient received total of 43 units of insulin yesterday, of which 12 units were basal insulin * Fasting BSG 251 mg/dL - however discussed with RN and this blood sugar was taken after he already ate breakfast. RN also noting patient eating snacks at bedtime. * Outpatient basal insulin much higher, feel that patient would benefit from slight increase in basal. Will increase to 15 units this AM 01/17: * Arturo received a total of 41 units of insulin yesterday (15 units were basal and 26 units were bolus). Although he received much less insulin than what he uses at home his blood glucose started to drop around dinner time yesterday and was 89mg/dL at HS. Bolus insulin parameters were loosened. * Fasting BSG was 316mg/dL this morning. Will add/adjust insulin cautiously as his blood glucose levels seem to be bouncing up and down. Added Lantus 10 units SQ daily and will continue Lantus scale at HS * Lunch BSG still > 300mg/dL, so tightened bolus insulin parameters to a stress of 2. 01/16: * T1DM presented after being found down at 3pm yesterday with profound and sustained hypoglycemia. Patient was started on a dextrose infusion which was discontinued this morning when BSG reached 456 mg/dL ~0400. Since then, BSG has surprisingly downtrended quickly, despite patient also eating breakfast: [phone] mg/dL. Because of this and as we do not definitively know what insulin was taken yesterday, it was determined through multidisciplinary discussion to hold AM basal insulin administration and further assess trend. BSG seemed to stabilize in the mid 200s around lunch time and thus conservative basal insulin dosing was initiated. * Per provider, patient noting he is not taking basal insulin at home, despite recent endocrine note confirming above regimen. It is noted by the providers that patient appears confused and may not be able to manage insulin regimen appropriately, further confounding the true picture. PLAN FOR INPATIENT GLYCEMIC CONTROL: * Hold outpatient diabetes medications * Basal insulin * Lantus 20 units once daily * Bolus insulin * NovoLog per scale ACHS or Q6hrs while NPO * Goal Range: Low 120 mg/dL - High 160 mg/dL * Correction Factor: 25 mg/dL/unit * Nutritional / Prandial insulin per carb ratio of 1 unit per 8 grams CHO consumed
[2025-01-26] MEDS: GADOXETATE DISODIUM IV ONE (12:59)
--- NOTE | 2025-01-26 13:54 | Magnetic Resonance Report ---
MRI OF THE ABDOMEN WITH AND WITHOUT CONTRAST CLINICAL HISTORY: Liver lesion. Neuroendocrine tumor of the pancreas. COMPARISON STUDY: [facility] PET/CT September 30, 2024. CT of the abdomen and pelvis December 14, 2024. TECHNIQUE: Utilizing a 1.5 Mary magnet and dedicated coil, multiplanar, multiecho imaging of the abd omen was performed pre and postcontrast administration. Intravenous injection of 10 cc of Eovist was uneventful. Post contrast imaging was performed with dynamic enhancement. 20 minute delayed phase avtar ging was performed. MRCP was also performed. FINDINGS: This exam is significantly compromised by motion artifact. A small left pleural effusion is noted. Associated subpleural left lower lobe opacity favors atelectasis. Body wall edema is also pre sent. There is no intra or extrahepatic biliary ductal dilatation. No hepatic lesions are identified although sensitivity is moderately diminished on this exam due to artifact. The primary pancreatic kaylene dy lesion shown on PET/CT of September 30, 2024 measures approximately 2 cm. Pancreatic glandular atrophy is again noted. No additional pancreatic lesions are identified. No definite lymphadenopathy. Spleen, adrenal glands and right kidney are unremarkable. There are several left renal cyst. The gallbladder is mildly distended. There is no gallbladder wall thickening. No pericholecystic inflammation. IMPRESSION: 1. No hepatic lesions identified although exam significantly compromised by artifact, as described ab ove. 2. Redemonstration of the 2 cm pancreatic body lesion which is stable to mildly decreased in size sin ce prior imaging studies. 3. Small left pleural effusion. Associated left lower lobe subpleural opacity favors atelectasis. 3. No biliary ductal dilatation. ACT 112: Negative or not required by law. Electronically signed by: Donta Pal M.D. 01/26/2025 1:52 PM
--- NOTE | 2025-01-26 21:10 | Communication Note ---
Date of Service: January 26, 2025 Notify by nursing patient requesting leaving with AMA. Patient was assess at bedside prior to discharge. He was alert and oriented x4, demonstrated intact decision - making capacity. He was able to describe his conditions, the recommended plan of care and the risks of leaving the hospital against medical advice. Risk includes but no limited to hypoglycemia, syncope, falls, bleeding, worsening clinical status, , potential need for readmission, . The patient verbalized understanding of these risk and consistently maintained his decision to leave
--- NOTE | 2025-01-26 22:36 | Hospitalist Progress Note ---
Date of Service January 26, 2025 Assessment & Plan (1) Patient incapable of making informed decisions: (2) Episode of unresponsiveness: (3) Bradycardia: (4) Hypothermia: (5) Hypoglycemia due to type 1 diabetes mellitus: (6) Mobitz (type) I (Wenckebach's) atrioventricular block: (7) Paroxysmal atrial fibrillation: (8) Hypothyroidism: (9) Type 1 diabetes mellitus: (10) Neuroendocrine tumor of pancreas: (11) Obstructive sleep apnea of adult: (12) Falls: Plan The patient is a 64-year-old male with a past medical history including hypothyroidism, cerebrovascular disease, mild cognitive impairment status post CVA, morbid obesity, pleural effusion, paroxysmal atrial fibrillation, hypoglycemia due to diabetes mellitus type 1, neuroendocrine tumor of pancreas, BPH, chronic diastolic CHF, diabetic nephropathy and retinopathy, and obstructive sleep apnea. Found on the floor at home unresponsive by his . EMS summoned; glucose was in the 50s. Given D50W by EMS - brought to [facility]. Hypothermic with temperature 34.1 and placed on Kenia hugger. He was found to be bradycardic, with heart rate when he would fall asleep down into the mid 30s, with short 2 to 3-second pauses on monitor. His heart rate with immediately resumed back to 50s to 60s, with being awoken. #lack of medical capacity - -patient continues to demonstrate lack of medical decision-making capacity -I have not seen any meaningful improvement in his ability to make rational decisions, demonstrate intact thought processes and reasoning skills, etc. -PAtient though was able to walk a little bit better today, but not back at his baseline. -he cannot tell me or his family what he can do at home to maintain safety from a fall standpoint as well as his glycemic control -he gives odd answers about what he would do if he was hypoglycemic, has shown time and time again that he cannot safely control his diabetes, and he has shown over a long period of time that he is not safe to be alone and is not safe to ambulate independently -per his family he has lost the ability to do basic ADLs at home, perform higher executive function tasks, etc. -there is, without question, cognitive impairment - likely of vascular etiology; cannot rule out decompensated hypothyroidism contributing -again he does not remember our lengthy family meeting we had on 01/21/25, which focused on his discharge plan (going to rehab rather than home) -his lack of medical capacity has been consistent since I assumed his care last 01/17/25 -prior to me, he was seen by Dr. Sinclair, Dr Colt See also felt Mr Rodríguez does not retain medical decision-making capacity Psych saw patient and in regards to his mobility felt that he had capacity but deffered his decision making regarding his hypoglycemia to the hospitalist. Initally yesterday he was objecting to rehab, but then agreed, but later in the night was asking to be discharged. -thus, although he is objecting to being placed at rehab, these decisions fall to his family who are acting on his behalf to maintain his safety and prevent additional morbidity -Insurance denied him rehab. SNF approved but patient lost bed as [facility] did not want to take him as he refused.. -Agree that patient cannot be discharged home and is unsafe. Consulted Psych for assistance in determining medical capacity. #fall at home with head injury; then had fall 01/17/25 in his hospital room (getting up from the chair) - -head CT neg -MRI brain neg -CT cervical spine neg for fracture (moderate DJD/DDD only) -no injury on 01/17 exam despite the fall -increased fall risk likely from diabetic neuropathy, etc. #Episode of unresponsiveness/hypoglycemia/T1DM - present on admission - -fall/unresponsiveness at home - just prior to presentation to [facility] -patient unable to appropriately manage his T1DM with complex insulin regimen at home -this has been an ongoing problem for some time -follows with Dr Li, [facility] [place]/DM -by report - per his he continues to insist on doing his own insulin and not taking lantus (only using humalog at home) -by report he will stack shots of humalog due to persistent highs -patient cannot tell me what would happen or what to do in the event of hypoglycemia -appreciate pharmacy glycemic team recs; appreciate priming machine operator and recs #Chronic Lipodermatosclerosis on right sebastian - stable #hypothermia - present on admission - -2nd to severe hypoglycemia -no infectious source found #Hypothyroidism - -TSH 39 -doubt compliance with levothyroxine at home -would not change dosing -continue his usual dose of levothyroxine -repeat level in 4 weeks -suspect that some of his cognitive impairment could be worsened by this issue #Atrial fibrillation - paroxysmal - -followed by [facility] [place] Cardiology -difficult to control by report hence flecainide usage -when he was on telemetry there was no PAF seen -with the Mobitz 1 and propensity for bradycardia coreg was stopped -I informally spoke with Dr Seo last week - he recommended stopping the coreg but ok to continue flecainide -cont Eliquis (cautiously) in light of recurrent falls -tele had been stable until he took off his tele leads 2 days ago -since he refused to allow his leads to be placed back on we moved him from PCU to med/surg #GERD - -PPI #BPH with LUTS - -cont flomax #Mild cognitive impairment - -due to prior CVA, etc. -thus, cognitive impairment is likely on the basis of vascular disease -can't rule out other factors -MRI brain neg for acute CVA or other acute pathology -checked B1 and B6 levels - both pending -decompensated hypothyroidism will worsen his impairment -previous B12 level in 06/2024 was wnl #HTN - -stopped coreg -cont losartan -cont bumex -cont aldactone -cont amlodipine 2.5mg daily -when he is upset his BP rises; would not treat those spikes VTE Prophylaxis - apixaban 5mg BID see discussion above re: lack of medical decision-making capacity updated pt's daughter Natasha 01/23 (at bedside) awaiting dispo/rehab placement SNF?? Admission and Anticipated Discharge Date Admission Date: January 15, 2025 Subjective Patient again asking to be discharged. Explained to him if family is willing to care for you, then we can discharge. Physical Exam Constitutional: WD/WN, vitals as above Respiratory: normal respiratory effort, lungs clear to auscultation Cardiovascular: RRR, no murmur, no edema Results & Data Results & Data Vital Signs (Past 12 Hours) Vital Signs Temp Pulse Resp BP Pulse Ox O2 Del Method 01/26/25 15:03 36.9 C 64 16 106/70 95 Room Air PG Care Time/CCT Total # of Minutes Spent Total Time Spent with Patient: Total time spent is greater than 50% in coordination of care (as documented) at patient's floor/unit and/or counseling patient: Coding Level of Care Code 50956 SUB INP/OBS CARE 3/50MIN Diagnoses Patient incapable of making informed decisions Z78.9 Episode of unresponsiveness R40.4 Bradycardia R00.1 Hypothermia T68.XXXA Hypoglycemia due to type 1 diabetes mellitus E10.649 Mobitz (type) I (Wenckebach's) atrioventricular block I44.1 Paroxysmal atrial fibrillation I48.0 Hypothyroidism E03.9 Type 1 diabetes mellitus E10.9 Neuroendocrine tumor of pancreas D3A.8 Obstructive sleep apnea of adult G47.33 Falls R29.6
[2025-01-27 16:08] VITALS: BP 116/61; PULSE 60; RESP 18; TEMP 98.2; O2SAT 98
--- NOTE | 2025-01-27 16:58 | Discharge Summary ---
Discharge Summary Date of Service January 27, 2025 Principal Dx & Hospital Course #1 = Principal Diagnosis (1) Patient incapable of making informed decisions: (2) Episode of unresponsiveness: (3) Bradycardia: (4) Hypothermia: (5) Hypoglycemia due to type 1 diabetes mellitus: (6) Mobitz (type) I (Wenckebach's) atrioventricular block: (7) Paroxysmal atrial fibrillation: (8) Hypothyroidism: (9) Type 1 diabetes mellitus: (10) Neuroendocrine tumor of pancreas: (11) Obstructive sleep apnea of adult: (12) Falls: Plan The patient is a 64-year-old male with a past medical history including hypothyroidism, cerebrovascular disease, mild cognitive impairment status post CVA, morbid obesity, pleural effusion, paroxysmal atrial fibrillation, hypoglycemia due to diabetes mellitus type 1, neuroendocrine tumor of pancreas, BPH, chronic diastolic CHF, diabetic nephropathy and retinopathy, and obstructive sleep apnea. Found on the floor at home unresponsive by his . EMS summoned; glucose was in the 50s. Given D50W by EMS - brought to [facility]. Hypothermic with temperature 34.1 and placed on Kenia hugger. He was found to be bradycardic, with heart rate when he would fall asleep down into the mid 30s, with short 2 to 3-second pauses on monitor. His heart rate with immediately resumed back to 50s to 60s, with being awoken. #lack of medical capacity - -patient continues to demonstrate lack of medical decision-making capacity -I have not seen any meaningful improvement in his ability to make rational decisions, demonstrate intact thought processes and reasoning skills, etc. -PAtient though was able to walk a little bit better today, but not back at his baseline. -he cannot tell me or his family what he can do at home to maintain safety from a fall standpoint as well as his glycemic control -he gives odd answers about what he would do if he was hypoglycemic, has shown time and time again that he cannot safely control his diabetes, and he has shown over a long period of time that he is not safe to be alone and is not safe to ambulate independently -however on day of discharge, patient was able to state risks of being discharged and hyperglycemia and showed understanding. -patient signed out AMA, and was agreeable in bringing him home. Home health with OT/PT and nursing set up. reported she will try to manage his medications, -per his family he has lost the ability to do basic ADLs at home, perform higher executive function tasks, etc. -there is, without question, cognitive impairment - likely of vascular etiology vs from non compliance of his hypothyroidism; -cannot rule out decompensated hypothyroidism contributing; this may take 3 months to show improvement in his cognition -again he does not remember our lengthy family meeting we had on 01/21/25, which focused on his discharge plan (going to rehab rather than home) -prior to me, he was seen by Dr. Sinclair, Dr Colt See also felt Mr Rodríguez does not retain medical decision-making capacity Psych saw patient and in regards to his mobility felt that he had capacity but deferred his decision making regarding his hypoglycemia to the hospitalist. -thus, although he is objecting to being placed at rehab, these decisions fall to his family who are acting on his behalf to maintain his safety and prevent additional morbidity -Insurance denied him rehab. SNF approved but patient lost bed as [facility] did not want to take him as he refused.. #fall at home with head injury; then had fall 01/17/25 in his hospital room (getting up from the chair) - -head CT neg -MRI brain neg -CT cervical spine neg for fracture (moderate DJD/DDD only) -no injury on 01/17 exam despite the fall -increased fall risk likely from diabetic neuropathy, etc. #Episode of unresponsiveness/hypoglycemia/T1DM - present on admission - -fall/unresponsiveness at home - just prior to presentation to [facility] -patient unable to appropriately manage his T1DM with complex insulin regimen at home -this has been an ongoing problem for some time -follows with Dr Li, [facility] [place] Endo/DM -by report - per his he continues to insist on doing his own insulin and not taking lantus (only using humalog at home) -by report he will stack shots of humalog due to persistent highs -patient cannot tell me what would happen or what to do in the event of hypoglycemia -appreciate pharmacy glycemic team recs; appreciate consumer educator and recs #Chronic Lipodermatosclerosis on right sebastian - stable #hypothermia - present on admission - -2nd to severe hypoglycemia -no infectious source found #Hypothyroidism - -TSH 39 -doubt compliance with levothyroxine at home -would not change dosing -continue his usual dose of levothyroxine -repeat level in 4 weeks -suspect that some of his cognitive impairment could be worsened by this issue #Atrial fibrillation - paroxysmal - -followed by [facility] [place] Cardiology -difficult to control by report hence flecainide usage -when he was on telemetry there was no PAF seen -with the Mobitz 1 and propensity for bradycardia coreg was stopped -I informally spoke with Dr Seo last week - he recommended stopping the coreg but ok to continue flecainide -cont Eliquis (cautiously) in light of recurrent falls -tele had been stable until he took off his tele leads 2 days ago -since he refused to allow his leads to be placed back on we moved him from PCU to med/surg #GERD - -PPI #BPH with LUTS - -cont flomax #Mild cognitive impairment - -due to prior CVA, etc. -thus, cognitive impairment is likely on the basis of vascular disease/ hypothyroidism -can't rule out other factors -MRI brain neg for acute CVA or other acute pathology -checked B1 and B6 levels - both pending -decompensated hypothyroidism will worsen his impairment -previous B12 level in 06/2024 was wnl #HTN - -stopped coreg -cont losartan -cont bumex -cont aldactone -cont amlodipine 2.5mg daily -when he is upset his BP rises; would not treat those spikes Admission HPI Per Admitting Provider - Discharge Exam Constitutional WD/WN, vitals as above Respiratory normal respiratory effort, lungs clear to auscultation Cardiovascular RRR, no murmur, no edema Discharge Plan Discharge Items Patient Disposition: Against Medical Advice Reason For Visit: HPYOGLYCEMIA, HYPOTHERMIA, BRADYCARDIA Condition on Discharge: Serious Activity: Resume your previous activity Non-emergency contact: Primary Care Provider Follow-up/Referrals: Jorje Iyer MD [Primary Care Provider] - Pending Studies at Discharge: No Stand-Alone Forms: My Coolest Cooler, Smoking Cessation Skilled Items Patient informed of condition?: No DNR: Yes Discharge Level of Care: Skilled Communicable Disease: No Discharge Prognosis: Stable Medications and DC Order Prescriptions: Continued (DME) lancets [OneTouch Delica Lancets] 33 gauge misc See Rx Instructions .ROUTE .MEDSUPPLY Qty: 300 3RF Rx Instructions: test 3 times daily (DME) OneTouch Verio test strips Strip See Dose Instructions .ROUTE .MEDSUPPLY Qty: 300 3RF Dose Instruction: As directed Rx Instructions: test blood sugars 3 x daily (DME) Dexcom Medical Technician Assistant Misc See Rx Instructions .ROUTE .MEDSUPPLY Qty: 1 0RF Rx Instructions: As directed (DME) Dexcom G7 Medical Technician Assistant Misc See Rx Instructions .Route Qty: 1 0RF Rx Instructions: use as directed with CGM econazole nitrate 1 % cream 1 applic TOP BID PRN (Reason: skin irritation) Qty: 30 5RF (DME) pen needle, diabetic [BD Ultra-Fine Short Pen Needle] 31 gauge x 5/16" needle See Dose Instructions .ROUTE .MEDSUPPLY Qty: 600 3RF Dose Instruction: As directed Rx Instructions: use pen needles with insulin pens 6 times daily triamcinolone acetonide 0.5 % cream 1 applic TOP BID PRN (Reason: Skin Irritation) Qty: 15 1RF Rx Instructions: 1 application topical twice a day; bumetanide 2 mg tablet 2 mg PO QAM Qty: 90 3RF Rx Instructions: qam cholecalciferol (vitamin D3) 50 mcg (2,000 unit) capsule 50 mcg PO DAILY Qty: 90 3RF Rx Instructions: with heaviest meal of the day levothyroxine 200 mcg tablet 200 mcg PO QAM Qty: 90 1RF Rx Instructions: TOTAL DOSE 225 MCG--TAKES WITH 25 MCG TAB. Eliquis 5 mg tablet 5 mg PO BID Qty: 180 3RF (DME) Ketostix Strip See Rx Instructions .Route Qty: 100 3RF Rx Instructions: Check every 2-4 hours during hyperglycemia ketoconazole 2 % shampoo 1 applic TOP 2XWK Rx Instructions: APPLY TO SCALP TWICE WEEKLY betamethasone dipropionate 0.05 % lotion 1 applic TOP DAILY PRN (Reason: Skin Irritation) Rx Instructions: Apply to scalp once daily for up to 2 weeks as needed for flaring. omeprazole 40 mg capsule,delayed release(DR/EC) 40 mg PO QAM Qty: 90 3RF Rx Instructions: qam aspirin [Enteric Coated Aspirin] 81 mg tablet,delayed release (DR/EC) 81 mg PO DAILY Qty: 30 0RF spironolactone 25 mg tablet 25 mg PO QAM Qty: 90 1RF montelukast 10 mg tablet 10 mg PO QPM 90 Days Qty: 90 3RF fluticasone propionate 50 mcg/actuation spray,suspension 1 spray intranasal DAILY PRN (Reason: Congestion) Qty: 16 0RF alfuzosin 10 mg tablet extended release 24 hr 10 mg PO BID Qty: 180 3RF Rx Instructions: administer after the same meal each day Changed insulin glargine [Lantus Solostar U-100 Insulin] 100 unit/mL (3 mL) insulin pen 17 unit subcut DAILY Qty: 0 0RF Held minocycline 100 mg capsule 100 mg PO BID Qty: 180 3RF Hold Instructions: Provider's Order insulin aspart U-100 [Novolog FlexPen U-100 Insulin] 100 unit/mL (3 mL) insulin pen 15 unit SUBCUT TIDM MDD 45 units Qty: 45 3RF Hold Instructions: Provider's Order Rx Instructions: Brand necessary Discontinued gabapentin 300 mg capsule 300 mg PO .COMPLEX Qty: 540 3RF Rx Instructions: TAKE 2 CAPSULES IN THE MORNING AND 4 CAPSULES AT BEDTIME; losartan 100 mg tablet 100 mg PO QAM Qty: 90 3RF Rx Instructions: qam ezetimibe [Zetia] 10 mg tablet 10 mg PO QPM Qty: 90 3RF atorvastatin 80 mg tablet 80 mg PO QPM Qty: 90 3RF flecainide 50 mg tablet 50 mg PO Q12H Qty: 60 5RF carvedilol 3.125 mg Tablet 3.125 mg PO BIDM Qty: 60 0RF Rx Instructions: TAKE TWICE DAILY WITH MEALS (BREAKFAST AND DINNER) No Action (DME) Dexcom G7 Sensor Device See Rx Instructions .ROUTE .MEDSUPPLY Qty: 9 3RF Rx Instructions: change every 10 days amlodipine 5 mg tablet 2.5 mg PO PM Qty: 90 1RF atorvastatin 80 mg tablet 80 mg PO QPM Qty: 90 3RF ezetimibe 10 mg tablet 10 mg PO QPM Qty: 90 3RF levothyroxine 50 mcg tablet 50 mcg PO QAM Qty: 30 5RF Hold Instructions: low TSH Rx Instructions: TOTAL DOSE 250 MCG--TAKES WITH 200 MCG TAB. losartan 100 mg tablet 100 mg PO QAM Qty: 90 3RF Rx Instructions: qam mecobalamin (vitamin B12) 1,000 mcg tablet,disintegrating 2,000 mcg sublingual DAILY Qty: 180 3RF Rx Instructions: place tablet under tongue and allow to dissolve for at least30 secs before swallowing flecainide 50 mg tablet 50 mg PO Q12H Qty: 60 5RF Gvoke HypoPen 2-Pack 1 mg/0.2 mL auto-injector 1 mg subcut DIRECTED PRN (Reason: severe hypoglyemia) Qty: 0.4 1RF gabapentin 300 mg capsule 300 mg PO .COMPLEX Qty: 540 3RF Rx Instructions: TAKE 2 CAPSULES IN THE MORNING AND 4 CAPSULES AT BEDTIME; Discharge Orders: Left Against Medical Advice (Routine); Ordered 01/27/25 Ordered By: João Hoover Admission Data Admit Date/Time: 01/15/25 20:20 Attending Provider: João Hoover Admit Provider: Paul Lockhart Primary Care Provider: Jorje Iyer V. Other Providers: Robyn Mitchell; [facility] Hospital Stay Data Consultations 01/15/25 19:40 ED Decision to Admit Stat 01/25/25 14:12 Consult Psychiatry Stat Diagnostic Imagining Performed 01/15/25 16:05 CT head/brain wo con Stat 01/16/25 15:50 MRI Brain [MR brain wo con] Urgent 01/20/25 07:30 CT cervical spine wo con Routine 01/26/25 10:58 MRI Abdomen [MR abdomen wo/w con] Routine Pending Results Patient Have Any Pending Studies at Discharge: No Discharge Instructions Given to Patient (Per Discharging Provider) Recommend followup with PCP in 1-2 weeks Total Time Total Time Spent Total Time Spent (In Minutes): 35 spent over 30 minutes evaluating patient via chart and patient encounter, formulating discharge plan and discussing with family. Coding Level of Care Code 76851 INP/OBS DISCH >30 MIN Diagnoses Patient incapable of making informed decisions Z78.9 Episode of unresponsiveness R40.4 Bradycardia R00.1 Hypothermia T68.XXXA Hypoglycemia due to type 1 diabetes mellitus E10.649 Mobitz (type) I (Wenckebach's) atrioventricular block I44.1 Paroxysmal atrial fibrillation I48.0 Hypothyroidism E03.9 Type 1 diabetes mellitus E10.9 Neuroendocrine tumor of pancreas D3A.8 Obstructive sleep apnea of adult G47.33 Falls R29.6
--- NOTE | 2025-01-29 12:19 | Coding Query ---
CODING QUERY To promote full compliance with coding requirements relating to patient care, provider participation is requested in all cases of chief lock operator uncertainty. Please assist us with the question(s) below: Coding Question(s): There is documentation of Hypoglycemia due to type 1 diabetes mellitus, and, medication noncompliance, and "patient unable to appropriately manage his T1DM with complex insulin regimen at home', and, "by report - per his he continues to insist on doing his own insulin and not taking lantus (only using humalog at home) -by report he will stack shots of humalog due to persistent highs. Please specify below, in your clinical opinion: ( x ) Type 1 Diabetes with Hypoglycemia is due to medication noncompliance with taking more than prescribed amount of Humalog Insulin (fast acting) and taking the prescribed Lantus Insulin (long acting) ( ) Type 1 Diabetes with Hypoglycemia is due to medication noncompliance, Other: Please Specify ( ) Type 1 Diabetes with Hypoglycemia is Not due to medication noncompliance ( ) Type 1 Diabetes with Hypoglycemia is due to Other: Please Specify Physician's Response(s): Thank you Amy Marte Principal Diagnosis: "that condition established after study, to be chiefly responsible for occasioning the admission of the patient to the hospital for care." Co-Existing Principal Diagnosis: "when two or more diagnoses equally meet the criteria for principal diagnosis as determined by the circumstances of admission, diagnostic work up, and/or therapy provided, and the Alphabetic Index, Tabular List, or another coding guideline does not provide sequencing direction, any one of the diagnoses may be sequenced first." "When the physician has documented what appears to be a current diagnosis in the body of the record, but has not included the diagnosis in the final diagnostic statement, the physician should be asked whether the diagnosis should be added." (Source Coding Clinic 2 QTR90. p3-4) JENNIFER
== END 2025-01-27 17:20 | disposition left against medical advice (07) | DRG 918 ==
LOC: ED 15:30 → 1E 20:20 → SUATTDRO 20:20 → INTOOBSV 20:20 → 1E 22:20 → 2S 01-16 14:30 → 3E 01-21 21:49